=== PATIENT | female | born 1995 | race African-American/Black ===

== ENCOUNTER 2017-05-06 12:53 | Inpatient (IN) | payer MEDICARE, MEDICAID ==
[2017-05-06 14:17] LABS: Hemoglobin 8.7 g/dL (12.0-16.0); Mean Corpuscular HGB CONC 31.8 g/dL (32.0-36.0); Mean Corpuscular Hemoglobin 29.4 pg (27.0-31.0); Mean Corpuscular Volume 92.5 fl (81.0-99.0); Mean Platelet Volume 10.8 fL (7.4-10.4); Platelet Count 159 thou/uL (130-400); RBC Distribution Width 13.2 % (11.5-14.5); Red Blood Cell (RBC) Count 2.95 mill/uL (4.20-5.40); White Blood Cell (WBC) Count 1.5 thou/uL (4.8-10.8)
[2017-05-06 14:31] LABS: ALT (SGPT) Less than 7 U/L (8-55); AST (SGOT) 12 U/L (5-34); Albumin 4.7 g/dL (3.5-5.0); Alkaline Phosphatase 90 U/L (40-150); Anion Gap 19 mmol/L (10-20); BUN (Urea Nitrogen) 39 mg/dL (7.0-18.7); Bilirubin, Total 0.2 mg/dL (0.2-1.2); Calc. Creatinine Clearance 0 mL/min (70-130); Calcium 7.5 mg/dL (7.8-10.44); Chloride 112 mmol/L (98-107); Estimated GFR-MDRD 11; Globulin 3.4 g/dL (2.4-3.5); Glucose 83 mg/dL (70-105); Lipase 22 U/L (8-78); Potassium 3.8 mmol/L (3.5-5.1); Protein, Total 8.1 g/dL (6.0-8.3); Sodium 135 mmol/L (136-145)
[2017-05-06 14:37] LABS: #Eosinphils 0.1 thou/uL (0.0-0.7); #Lymphocytes 0.1 thou/uL (1.20-3.40); #Monocytes 0.1 thou/uL (0.11-0.59); #Neutrophils 1.1 thou/uL (1.40-6.50); %Eosinophils 7.3 % (0.0-10.0); %Lymphocytes 9.8 % (21.0-51.0); %Monocytes 5.2 % (0.0-10.0); %Neutrophils 77.7 % (42.0-75.0); Carbon Dioxide 8 mmol/L (22-29)
[2017-05-06 14:52] LABS: Bilirubin Negative (Negative); Blood, Urine Large (Negative); Clarity CLEAR (Clear); Glucose, Urine (Dipstick) Negative (Negative); Leukocyte Negative (Negative); Nitrite Negative (Negative); Protein, Urine (Dipstick) 100 mg/dL (Neg-Trace); Specific Gravity, Urine 1.027 (1.002-1.036); Urobilinogen 0.2 mg/dL (0.2-1.0)
[2017-05-06 14:53] LABS: Bacteria/HPF None Seen HPF (None Seen); Hyaline Casts/LPF 4-6 HYALINE CAST LPF (0-3 Hyaline); Pathc Cast-AUWi Flag 0.81 (0-2.49); RBC/HPF GREATER THAN 50-TNTC HPF (0-3); Squamous Epithelial 0-3 HPF (0-3); WBC/HPF 0-3 HPF (0-3)
[2017-05-06 14:58] LABS: Pregnancy Test - Urine (BHCG) Negative (Negative); Pregu Control Background? CLEAR/WHITE (CLR/WHITE); Pregu Control Bar Appear? YES (CONTROL BAR); Specific Gravity 1.027 (1.002-1.036); Yeast-AUWi Flag 152.8 (0-25.0)
[2017-05-06 15:06] LABS: Yeast-All Forms None Seen HPF (None Seen)
[2017-05-06] MEDS ORDERED: Ondansetron HCl/PF 4 MG/2 ML Vial ONE (15:55)
[2017-05-06] MEDS ORDERED: Ondansetron HCl/PF 4 MG/2 ML Vial IVP PRN (17:30)
[2017-05-06] MEDS ORDERED: Ondansetron ODT 4 MG TAB SL PRN (17:30)
[2017-05-06] MEDS: Sodium Chloride 0.9% 1,000 ML IV SCH (17:53)
[2017-05-06 17:56] VITALS: BMI 35.7
[2017-05-06] MEDS ORDERED: Ibuprofen 200 MG TAB PO PRN (19:25)
[2017-05-06] MEDS: Sodium Bicarbonate Tab 325 MG TAB PO SCH (20:10)
[2017-05-06] MEDS: Carvedilol 25 MG TAB PO SCH (20:10)
[2017-05-06] MEDS: Tacrolimus 1 MG CAP PO SCH (20:10)
[2017-05-06 20:14] LABS: BHCG - Serum Negative (NEGATIVE); Pregs Control Bar Appear? YES (CONTROL BAR)
[2017-05-06 20:15] LABS: Pregs Control Background? CLEAR/WHITE (CLR/WHITE)
[2017-05-06] MEDS ORDERED: Cefepime 2 GM in Sodium Chloride 0.9% 100 ML IVPB SCH (21:00)
--- NOTE | 2017-05-06 21:11 | HP ---
PRIMARY CARE PHYSICIAN: Dr. Jimenes. CHIEF COMPLAINT: Nausea and vomiting x3 days. HISTORY OF PRESENT ILLNESS: This is a 31-year-old female with a prior history of end-stage renal disease, previously on hemodialysis, status post renal transplant in 2016 and subsequently has been off of hemodialysis since then. The patient has not had any issues with her kidneys that she is aware of lately , but earlier 3 days ago awoke one morning to nausea, subsequently had emesis. Over the last 3 days, she has had persistent nausea, abdominal pain, emesis and diarrhea particularly exacerbated with any food intake, but also occurring without food intake as well. The patient subsequently presented to the ER before seeking any other medical attention. At the time of my evaluation, the patient feels that her abdominal pain is still present, but is currently controlled. She endorses no nausea at this point in time, but she also has not taken in much by way of oral intake. She is accompanied by her mother today. REVIEW OF SYSTEMS: As per HPI. Constitutional: No fevers, no chills, no recent weight gain or loss. HEENT: No new headaches, no dizziness, no blurred vision. Cardiovascular: Denies any chest pain, chest pressure, left-sided arm numbness or tingling. Denies any episodes of diaphoresis. Respiratory: Denies any shortness of breath. No recent congestion, cough or other signs or symptoms consistent with upper respiratory infection. Gastrointestinal: As per above, mostly when she has an emetic episodes. They consist of whatever she had previously ingested. She states that she has emesis approximately 10 minutes after oral intake. She does have intermittent diarrhea that seems to be more independent of when she has oral intake. She describes it as initially quite light colored and brown, are now getting somewhat "darker." Genitourinary: The patient states she urinates. The patient states that she is still making urine and she is still urinating. Denies any dysuria. Denies any vaginal discharge. Musculoskeletal: Denies any new myalgias or arthralgias. PAST MEDICAL HISTORY: As per above. 1. Known history of chronic kidney disease, status post kidney transplant in 2016, has been on immunosuppressive therapy since then and has previously had a fistula placement, stopped hemodialysis after her kidney transplant, has not accessed her fistula since then. 2. Known history of congestive heart failure. 3. History of secondary hyperparathyroidism. 4. History of nephrotic syndrome. 5. Status post cholecystectomy. HOME MEDICATIONS: As per HPI. The patient denies any changes to her home regimen over the last month. Denies any new over the counter medications, herbal supplements or vitamins. ALLERGIES: No known drug allergies. FAMILY HISTORY: No known family history of end-stage renal disease, gastrointestinal disorders. SOCIAL HISTORY: The patient resides at home with her mother who is with her at bedside. No pets in the home. No known sick contacts. Mother states that she had some diarrhea 4 or 5 days ago, but that self resolved after one day. The patient endorses wishing to be full code at this point in time. Denies any alcohol, tobacco or illicit drug use. PHYSICAL EXAMINATION: VITAL SIGNS: Temperature 98.8, pulse of 113, respirations 18, satting 100%, blood pressure of 138/103. GENERAL: The patient is awake, alert, appropriate, conversant, oriented x3, appears to be a reasonable historian. She is sitting in the hospital bed. HEENT: Moist mucous membranes. Equal ocular motions are intact. No posterior oropharyngeal exudate or erythema. Normocephalic, atraumatic. CARDIOVASCULAR: S1, S2. Pulses 2+ bilateral upper extremities, no pitting pedal edema. No venous jugular distention. RESPIRATORY: Clear to auscultation throughout. No wheezes, rales or rhonchi. Reasonable air movement. ABDOMEN: Positive bowel sounds, soft, slightly tender to palpation along the left upper and lower quadrants, slightly tender to deep palpation. No CVA tenderness. MUSCULOSKELETAL: Able to self reposition in bed without difficulty or assistance. LABORATORY DATA AND IMAGING: WBC 1.5, hemoglobin 8.7, hematocrit 27.3, platelets 159. Sodium 183, potassium 3.8, chloride 112, bicarbonate 8, BUN 39, creatinine 5.77, calcium 7.9, total bilirubin 0.2, AST 12, ALT less than 7, alkaline phosphatase 90, serum total protein 8.1, albumin 4.7, lipase 22. UA significant for 100 of protein, trace ketones, large blood and greater than 50 rbc's with hyaline cast. ASSESSMENT AND PLAN: A 22-year-old female with 3-day history of nausea and vomiting. 1. Nausea and vomiting. The patient has noted etiology of nausea, vomiting, and diarrhea. It could be that her mother is ill source and that the patient has a gastroenteritis of a gastrointestinal etiology. However, given the patient's history of immunosuppression, new leukopenia when compared to prior laboratory values, and tachycardia, we will go ahead and check and evaluate the patient for possible sepsis. In addition, we will obtain a noncontrast CT of the abdomen and pelvis given that she has hematuria and left-sided pain even though she does not have overt CVA tenderness. We will try to evaluate for any possibility of a stone complicating her presentation as well. Given the concern for sepsis, empiric antibiotics including cefepime and metronidazole will be initiated. The patient has already been started on IV fluids. We will continue that at this point in time. In the meantime, the patient will be grossly n.p.o., okay for medications and sips of water with symptomatic control as well. We will check for C. diff., stool cultures as well. 2. Known history of end-stage renal disease with status post renal transplant in 2016, with progressively increasing creatinine when compared to prior values. The patient is also somewhat acidotic unclear which component of this due to her renal dysfunction versus if she is having some component of lactic acidosis versus contraction or acidosis. IV fluids as above. Serial monitoring particularly for bicarbonate. Patient has been resumed on her oral bicarbonate. However, if she drops below bicarbonate 6, we will initiate a bicarbonate additive to her normal saline. I appreciate Nephrology consultation. We will otherwise continue the patient on her home immunosuppressive regimen at this point in time. Of note, part of her immunosuppressive regimen which includes tacrolimus, Bactrim, and valganciclovir , CellCept, and prednisone. 3. Prior history of congestive heart failure. We will closely monitor the patient's respiratory status and does not appear to be in exacerbation at this point in time, it is also unclear what her current cardiac status is. Could consider echocardiogram if indicated. 4. The patient is currently going to be checked for urine test as well. 5. Admit the patient to inpatient medical/surgical with telemetry. 6. The patient is FULL CODE. I discussed the above with the patient and her mother at bedside. Greater than 30 minutes critical care time spent coordinating care for the patient on admission today. NANCY
[2017-05-06] MEDS: Mycophenolate 250 MG CAP PO SCH (21:16)
[2017-05-06] MEDS: Cefepime 2 GM, Syringe 2.5 ML in Sterile Water 10 ML SLOW IVP SCH (21:16)
[2017-05-06] MEDS: metroNIDAZOLE 500 MG in Premix Bag 1 BAG IVPB SCH (21:16)
[2017-05-06] MEDS: oxyCODONE 5 MG TAB PO PRN (21:18)
[2017-05-06] MEDS: diphenhydrAMINE 25 MG CAP PO PRN (21:19)
[2017-05-06] MEDS: Famotidine/PF 20 mg/2ml Vial SLOW IVP SCH (21:50)
--- NOTE | 2017-05-06 21:51 | CT ---
CT OF ABDOMEN AND PELVIS NONCONTRAST 05/06/17 CLINICAL HISTORY: Immunosuppression, sepsis, history of renal transplant. FINDINGS: The imaged lung bases are clear. There are atrophic [place] kidneys bilaterally. There is a heterogene ous centrally hypodense, peripherally hyperdense appearance of the right lower quadrant renal transpl ant with mild surrounding inflammation. Unopacified urinary bladder is grossly unremarkable. There is no significant layering free pelvic fluid. No free air. Prior cholecystectomy. Solid abdominal organ s, bowel, lymph nodes, and vasculature are limited in assessment by noncontrast technique. No acute o sseous abnormality is seen. IMPRESSION: Heterogeneous appearance of the unenhanced right lower quadrant renal transplant with mild surroundi ng inflammation. Recommend clinical correlation as well as history of acuity of renal transplant, as acute pathology is not excluded given the CT appearance. Entities such as rejection and/or superimpos ed infection should be excluded clinically. Limited evaluation without the presence of IV or enteric contrast. POS: ERICK
[2017-05-07] MEDS: Sodium Chloride 0.9% 1,000 ML IV SCH (00:46)
[2017-05-07] MEDS: Promethazine 25 MG TAB PO PRN ×3 (01:27→21:00)
[2017-05-07] MEDS: metroNIDAZOLE 500 MG in Premix Bag 1 BAG IVPB SCH ×3 (05:17→20:56)
[2017-05-07 05:37] LABS: ALT (SGPT) Less than 7 U/L (8-55); AST (SGOT) 11 U/L (5-34); Albumin 3.9 g/dL (3.5-5.0); Alkaline Phosphatase 73 U/L (40-150); BUN (Urea Nitrogen) 34 mg/dL (7.0-18.7); Bilirubin, Total Less than 0.2 mg/dL (0.2-1.2); Calc. Creatinine Clearance 28 mL/min (70-130); Carbon Dioxide Less than 8 mmol/L (22-29); Chloride 117 mmol/L (98-107); Estimated GFR-MDRD 14; Globulin 2.6 g/dL (2.4-3.5); Glucose 70 mg/dL (70-105); Potassium 3.9 mmol/L (3.5-5.1); Protein, Total 6.5 g/dL (6.0-8.3); Sodium 136 mmol/L (136-145)
[2017-05-07] MEDS ORDERED: FAMOTIDINE 40 MG PO SCH (09:00)
[2017-05-07] MEDS: Cefepime 2 GM, Syringe 2.5 ML in Sterile Water 10 ML SLOW IVP SCH (09:34)
[2017-05-07] MEDS: Tacrolimus 1 MG CAP PO SCH ×2 (09:35→20:55)
[2017-05-07] MEDS: Sodium Bicarbonate Tab 325 MG TAB PO SCH ×3 (09:36→20:55)
[2017-05-07] MEDS: oxyCODONE 5 MG TAB PO PRN (09:37)
[2017-05-07] MEDS: Amlodipine 10 MG TAB PO SCH (09:37)
[2017-05-07] MEDS: Famotidine/PF 20 mg/2ml Vial SLOW IVP SCH ×2 (09:37→20:55)
[2017-05-07] MEDS: Mycophenolate 250 MG CAP PO SCH ×2 (09:39→20:55)
[2017-05-07] MEDS: predniSONE 5 MG TAB PO SCH (09:39)
[2017-05-07] MEDS: Carvedilol 25 MG TAB PO SCH ×2 (09:39→20:55)
--- NOTE | 2017-05-07 11:21 | CON ---
DATE OF CONSULTATION: 05/07/2017 REASON FOR CONSULTATION: Elevated creatinine. HISTORY OF PRESENT ILLNESS: This is a very pleasant 22-year-old female, who had end-stage renal dise ase and had a cadaveric renal transplant. She after her transplant, failed to follow up with her imm unosuppressive and developed CKD stage 4, who presented to the hospital with nausea, vomiting for 3 d ays. Her creatinine had increased from the baseline of 3.25 with severe acidosis. The patient at th is time denies any nausea, vomiting, or chest pain. PAST MEDICAL HISTORY: Significant for chronic kidney disease stage 4, kidney transplant 2016 from a cadaveric donor, history of hemodialysis, history of congestive heart failure, history of secondary h yperparathyroidism, history of nephrotic syndrome, history of cholecystectomy. HOME MEDICATIONS: List reviewed. HOSPITAL MEDICATIONS: Reviewed. ALLERGIES: Reviewed. FAMILY HISTORY: Negative for ESRD. SOCIAL ECONOMIC HISTORY: No alcohol or drug use. REVIEW OF SYSTEMS: Fifteen-point review of systems was performed and negative except positives noted above. GENERAL: Weakness-. HEAD: Headache-. NECK: No swelling or lumps. NOSE: No epistaxis or discharge. EYES: No diplopia or pain. RESPIRATORY: Dyspnea-. CARDIOVASCULAR: Chest pain-. GASTROINTESTINAL: Nausea-. /RAIL FILLER: Hematuria-. MUSCULOSKELETAL: No joint pain. NEUROPSYCHIATIC SYSTEMS: No suicidal ideation. No ideation. SKIN: Denies any rash or ulcer. CONSTITUTIONAL: No fever or chills. PHYSICAL EXAMINATION: GENERAL: Patient is awake and alert. VITAL SIGNS: Afebrile, pulse 75, breathing at 16, and blood pressure 138/103. GENERAL APPEARANCE AND MENTAL STATUS: Fair. HEAD/NECK: Normocephalic. Atraumatic. EYES: EOMI. No deformity. EARS: Clear. No ulcers. NOSE: Intact. No lesions. MOUTH: Clear. No discharge. THROAT: Clear. No exudate. LUNGS: Clear. No crackles. CARDIAC: S1, S2. No rub. ABDOMEN: Benign. BS+. GENITALIA/RECTUM: Lopez absent. BACK/EXTREMITIES: Edema 0+ Ulcer-. NEUROLOGICAL: Alert and motor intact. SKIN: Rash-. Bruise-. LYMPHATICS: Edema- Ulcer-. LABORATORY DATA: Show creatinine was 4.7, bicarbonate was 8, and potassium was 3.9. ASSESSMENT AND RECOMMENDATIONS: 1. Acute kidney injury with chronic kidney disease, most likely due to decreased effective arterial blood volume in the setting of stage IV chronic kidney disease at baseline. Agree with hydration. 2. Metabolic acidosis. We will change to a bicarbonate drip from normal saline. 3. Hyperkalemia. We will monitor potassium later this afternoon as correcting the acidosis. We martha l lower the potassium further so she might need potassium supplementation. Medication based on glome rular filtration rate are appropriate. 4. Chronic immunosuppressive therapy. The patient had quit taking immunosuppressive, but states walker t she is taking them now, so I will check a CK level.
[2017-05-07] MEDS: Sodium Bicarbonate 150 MEQ in Dextrose 5% in Water 850 ML IV SCH ×2 (11:41→20:54)
[2017-05-07 14:39] LABS: BUN (Urea Nitrogen) 33 mg/dL (7.0-18.7); Calc. Creatinine Clearance 30 mL/min (70-130); Calcium 7.3 mg/dL (7.8-10.44); Chloride 120 mmol/L (98-107); Estimated GFR-MDRD 15; Glucose 108 mg/dL (70-105); Magnesium 1.7 mg/dL (1.6-2.6); Potassium 4.8 mmol/L (3.5-5.1); Sodium 140 mmol/L (136-145)
[2017-05-07 14:41] LABS: Carbon Dioxide Less than 8 mmol/L (22-29)
--- NOTE | 2017-05-07 20:35 | PDOC.PN ---
- Subjective Encounter Start Date: 05/07/17 Encounter Start Time: 16:00 Subjective: nsg notes rev, moises ovn - Objective Vital Signs & Weight: Vital Signs (12 hours) Temp Pulse Resp BP BP Pulse Ox 05/07/17 19:37 98.4 F 92 16 05/07/17 11:53 98.4 F 92 16 126/85 92 L 05/07/17 09:37 99 149/97 H I&O: 05/06/17 05/07/17 05/08/17 06:59 06:59 06:59 Intake Total 360 Balance 360 Result Diagrams: 05/06/17 13:25 05/07/17 14:05 Dx/Plan - Plan * n/v/ diarrhea * cefepime, flagyl * c diff + * pending remainder of stool studies * continue to monitor clinical symptoms sepsis on adm * improving, continue to monitor acidosis * apprec nephrology c/s * suspect multifactorial * bicarbonate gtt (<8) hx renal transplant * continue immunosuppressive regimen * monitor renal fxn ANISH on CKD * see discussion above * d/w Dr Mendoza diet: renal activity: OOB as lisa dvt ppx Review of Systems - Medications/Allergies Allergies/Adverse Reactions: Allergies Allergy/AdvReac Type Severity Reaction Status Date / Time No Known Drug Allergies Allergy Verified 10/16/16 16:33 Medications: Current Medications Amlodipine Besylate (Norvasc) 10 mg PO DAILY [facility] Last Admin: 05/07/17 09:37 Dose: 10 mg Carvedilol (Coreg) 25 mg PO BID [facility] Last Admin: 05/07/17 09:39 Dose: 25 mg Diphenhydramine HCl (Benadryl) 25 mg PO QPM PRN PRN Reason: Itching & Insomnia Last Admin: 05/06/17 21:19 Dose: 25 mg Famotidine (Pepcid) 20 mg SLOW IVP BID [facility] Last Admin: 05/07/17 09:37 Dose: 20 mg Metronidazole 500 mg/ Device 100 mls @ 100 mls/hr IVPB Q8HR [facility] Last Admin: 05/07/17 16:21 Dose: 100 mls Sodium Bicarbonate 150 meq/ (Dextrose/Water) 1,000 mls @ 100 mls/hr IV .Q10H [facility] Last Admin: 05/07/17 11:41 Dose: 1,000 mls Cefepime HCl 1 gm/Miscellaneous Medication 1 each/ Sterile Water 10 mls @ 120 mls/hr SLOW IVP QAM [facility] Ibuprofen (Motrin) 200 mg PO Q4H PRN PRN Reason: Pain Mycophenolate Mofetil (Cellcept) 250 mg PO BID [facility] Last Admin: 05/07/17 09:39 Dose: 250 mg Oxycodone HCl (Oxycodone Ir) 2.5 mg PO Q12H PRN PRN Reason: Pain Last Admin: 05/07/17 09:37 Dose: 2.5 mg Prednisone (Prednisone) 5 mg PO DAILY [facility] Last Admin: 05/07/17 09:39 Dose: 5 mg Promethazine HCl (Phenergan) 25 mg PO Q6H PRN PRN Reason: Nausea/Vomiting Last Admin: 05/07/17 09:34 Dose: 25 mg Sodium Bicarbonate (Bicarbonate, Sodium) 975 mg PO TID [facility] Last Admin: 05/07/17 16:33 Dose: 975 mg Tacrolimus (Prograf) 2 mg PO BID [facility] Last Admin: 05/07/17 09:35 Dose: 2 mg Trimethoprim/Sulfamethoxazole (Bactrim Ss) 1 tab PO [facility] [place] Valganciclovir (Valcyte) 450 mg PO DAILY [facility] Last Admin: 05/07/17 09:36 Dose: 450 mg
[2017-05-07] MEDS: diphenhydrAMINE 25 MG CAP PO PRN (22:43)
[2017-05-08] MEDS: Sodium Bicarbonate 150 MEQ in Dextrose 5% in Water 850 ML IV SCH ×2 (00:21→05:56)
[2017-05-08] MEDS: oxyCODONE 5 MG TAB PO PRN (04:57)
[2017-05-08] MEDS: metroNIDAZOLE 500 MG in Premix Bag 1 BAG IVPB SCH ×3 (05:01→21:36)
[2017-05-08 05:58] LABS: ALT (SGPT) Less than 7 U/L (8-55); AST (SGOT) 8 U/L (5-34); Albumin 3.5 g/dL (3.5-5.0); Alkaline Phosphatase 62 U/L (40-150); Anion Gap 13 mmol/L (10-20); BUN (Urea Nitrogen) 28 mg/dL (7.0-18.7); Bilirubin, Total 0.2 mg/dL (0.2-1.2); Calc. Creatinine Clearance 31 mL/min (70-130); Calcium 6.3 mg/dL (7.8-10.44); Carbon Dioxide 17 mmol/L (22-29); Chloride 113 mmol/L (98-107); Estimated GFR-MDRD 15; Globulin 2.3 g/dL (2.4-3.5); Glucose 134 mg/dL (70-105); Protein, Total 5.8 g/dL (6.0-8.3); Sodium 140 mmol/L (136-145)
[2017-05-08 06:11] LABS: Potassium 2.7 mmol/L (3.5-5.1)
[2017-05-08] MEDS ORDERED: Potassium Chloride 20 MEQ TAB PO SCH ×3 (06:45→19:15)
[2017-05-08] MEDS: predniSONE 5 MG TAB PO SCH (08:04)
[2017-05-08] MEDS: Sodium Bicarbonate Tab 325 MG TAB PO SCH (08:04)
[2017-05-08] MEDS: Famotidine/PF 20 mg/2ml Vial SLOW IVP SCH ×2 (08:05→20:10)
[2017-05-08] MEDS: Mycophenolate 250 MG CAP PO SCH (08:05)
[2017-05-08] MEDS: Amlodipine 10 MG TAB PO SCH (08:05)
[2017-05-08] MEDS: Carvedilol 25 MG TAB PO SCH ×2 (08:06→20:56)
[2017-05-08] MEDS: Tacrolimus 1 MG CAP PO SCH (08:06)
[2017-05-08] MEDS ORDERED: Cefepime 1 GM, Admixture Fee 1 EACH in Sterile Water 10 ML SLOW IVP SCH (09:00)
[2017-05-08 09:14] LABS: Anion Gap 12 mmol/L (10-20); BUN (Urea Nitrogen) 27 mg/dL (7.0-18.7); Calc. Creatinine Clearance 32 mL/min (70-130); Calcium 6.1 mg/dL (7.8-10.44); Carbon Dioxide 19 mmol/L (22-29); Chloride 111 mmol/L (98-107); Estimated GFR-MDRD 16; Glucose 104 mg/dL (70-105); Sodium 139 mmol/L (136-145)
[2017-05-08 09:19] LABS: Potassium 2.6 mmol/L (3.5-5.1)
--- NOTE | 2017-05-08 10:32 | PRG ---
DATE OF SERVICE: 05/08/2017 SUBJECTIVE: A 22-year-old female being seen for stage 5 chronic kidney disease. The patient denies any nausea, vomiting or chest pain. PHYSICAL EXAMINATION: GENERAL: Patient is awake, alert. VITAL SIGNS: Afebrile, pulse 75, breathing 16, blood pressure 130/71. HEAD/NECK: Normocephalic. Atraumatic. EYES: EOMI. No deformity. EARS: Clear. No ulcers. NOSE: Intact. No lesions. MOUTH: Clear. No discharge. THROAT: Clear. No exudate. LUNGS: Clear. No crackles. CARDIAC: S1, S2. No rub. ABDOMEN: Benign. BS+. GENITALIA/RECTUM: Lopez absent. BACK/EXTREMITIES: Edema 0+ Ulcer- NEUROLOGICAL: Alert and motor intact. SKIN: Rash- Bruise- LYMPHATICS: Edema- Ulcer- LABORATORY DATA: Potassium is 2.6, creatinine 4.0. ASSESSMENT AND RECOMMENDATIONS: 1. Acute kidney injury, stable. 2. Hypokalemia. We will give extra 40 mEq of potassium by mouth. 3. Hypercalcemia, start the patient on vitamin D3 as well as calcium. We will check vitamin D level s. 4. Medication based on GFR. Prograf level is pending. 5. Leukopenia, management per primary team. 6. There is a major history of noncompliance.
[2017-05-08 17:04] LABS: Anisocytosis SLIGHT = 6-15 cells (100X) (0-5/hpf); Band 8 % (5-11); Hemoglobin 6.9 g/dL (12.0-16.0); Hypochromia SLIGHT = 6-15 cells (100X) (0-5/hpf); Lymphocytes 4 % (21-51); MDiff Complete? YES; Mean Corpuscular HGB CONC 33.2 g/dL (32.0-36.0); Mean Corpuscular Volume 90.5 fl (81.0-99.0); Mean Platelet Volume 10.7 fL (7.4-10.4); Metamyelocyte 2 % (0-0); Monocytes 8 % (0-10); Neutrophil 78 % (42-75); Ovalocytes SLIGHT = 2-5 cells (100X) (0-1/hpf); PLT Morphology Comment Appears Decreased; Platelet Count 120 thou/uL (130-400); RBC Distribution Width 13.4 % (11.5-14.5); Red Blood Cell (RBC) Count 2.28 mill/uL (4.20-5.40)
--- NOTE | 2017-05-08 17:38 | PRG ---
DATE OF SERVICE: 05/08/2017 SUBJECTIVE: The patient is seen and examined at bedside. She is doing significantly better. Her di arrhea improved almost 100%. She thinks that this is because of opioids she started taking. She michael s not have much complaints to offer. Her appetite is fair. She does not have any nausea, vomiting, no abdominal pain. OBJECTIVE: VITAL SIGNS: Blood pressure is 113/71, pulse is 95, temperature 98.5, respiratory rate is 16, O2 sat uration is 99% on room air. HEENT: Atraumatic, normocephalic. Eyes PERRLA. Conjunctivae pinkish. Oral mucosa is moist. NECK: Supple. LUNGS: Clear. HEART: S1, S2 normal, no S3, no S4, no murmur. ABDOMEN: Soft, obese, nontender, bowel sounds are present. No organomegaly. EXTREMITIES: No clubbing, cyanosis or edema. NEUROLOGIC: She is alert and oriented x4. There is no sensorimotor deficits. Cranial nerves are in tact. LABORATORY DATA: Labs showed sodium of 139, potassium 2.6, chloride 111, CO2 of 19, BUN 27, creatini ne 4.17, calcium 6.1. PTH intact 306.5. Current potassium 3.0 after replacement. Microbiology show ed no urine culture growth. Negative for stool lactoferrin. Negative for O157 E. coli. Negative fo r Campylobacter antigen. Negative for Shiga toxin and positive for C. difficile antigen and toxins. IMPRESSION: 1. Clostridium difficile colitis. We will stop her cefepime and continue Flagyl. 2. Acute kidney injury, improved. 3. Hypokalemia, replaced with oral potassium. 4. Leukopenia, will check a CBC today. This could be related to her Clostridium difficile colitis. 5. Hypocalcemia with normal albumin level. PLAN: We will check ionized calcium. The patient was restarted on vitamin D and calcium by Dr. Mendoza . We will recheck her electrolytes tomorrow morning and she is positive for Clostridium difficile an tigen and toxins, so she will have to complete a 10-day course of metronidazole, so in the next day o r two, she can be switched to oral agents and released home.
[2017-05-08] MEDS: Calcium Carbonate + Vit D 1 TAB PO SCH (18:07)
[2017-05-08] MEDS: Promethazine 25 MG TAB PO PRN (20:10)
[2017-05-08] MEDS ORDERED: GRANIX 300 MCG/0.5 ML VIAL SC SCH (20:15)
[2017-05-09] MEDS: diphenhydrAMINE 25 MG CAP PO PRN (00:32)
[2017-05-09] MEDS: metroNIDAZOLE 500 MG in Premix Bag 1 BAG IVPB SCH ×3 (06:17→22:22)
[2017-05-09 07:36] LABS: ALT (SGPT) Less than 7 U/L (8-55); AST (SGOT) 10 U/L (5-34); Albumin 3.3 g/dL (3.5-5.0); Alkaline Phosphatase 57 U/L (40-150); Anion Gap 12 mmol/L (10-20); BUN (Urea Nitrogen) 23 mg/dL (7.0-18.7); Bilirubin, Total 0.5 mg/dL (0.2-1.2); Calc. Creatinine Clearance 34 mL/min (70-130); Carbon Dioxide 16 mmol/L (22-29); Chloride 115 mmol/L (98-107); Estimated GFR-MDRD 17; Globulin 2.2 g/dL (2.4-3.5); Glucose 89 mg/dL (70-105); Potassium 3.1 mmol/L (3.5-5.1); Protein, Total 5.5 g/dL (6.0-8.3); Sodium 140 mmol/L (136-145)
[2017-05-09 07:42] LABS: Calcium 5.9 mg/dL (7.8-10.44)
[2017-05-09] MEDS: Potassium Chloride 20 MEQ TAB PO SCH ×2 (08:44→15:40)
[2017-05-09] MEDS: Amlodipine 10 MG TAB PO SCH (08:45)
[2017-05-09] MEDS: Carvedilol 25 MG TAB PO SCH ×2 (08:45→22:21)
[2017-05-09] MEDS: Calcium Carbonate + Vit D 1 TAB PO SCH ×2 (08:46→15:40)
[2017-05-09] MEDS: predniSONE 5 MG TAB PO SCH (08:46)
[2017-05-09] MEDS: Saccharomyces boulardii 250 MG CAP PO SCH (08:46)
[2017-05-09] MEDS: Famotidine/PF 20 mg/2ml Vial SLOW IVP SCH ×2 (08:46→22:21)
[2017-05-09 09:29] LABS: Hemoglobin 7.6 g/dL (12.0-16.0); Mean Corpuscular HGB CONC 32.4 g/dL (32.0-36.0); Mean Corpuscular Hemoglobin 30.5 pg (27.0-31.0); Mean Corpuscular Volume 94.2 fl (81.0-99.0); Mean Platelet Volume 10.8 fL (7.4-10.4); PLT Morphology Comment Appears Decreased; Platelet Count 97 thou/uL (130-400); RBC Distribution Width 13.1 % (11.5-14.5); Red Blood Cell (RBC) Count 2.49 mill/uL (4.20-5.40); White Blood Cell (WBC) Count 1.3 thou/uL (4.8-10.8)
[2017-05-09] MEDS: Sulfameth/Trimethoprim SS 400-80MG TAB PO SCH (11:44)
--- NOTE | 2017-05-09 12:02 | PDOC.PN ---
- Subjective Encounter Start Date: 05/09/17 Encounter Start Time: 15:03 Subjective: No complaints -: No acute events overnight. - Objective MAR Reviewed: Yes Vital Signs & Weight: Vital Signs (12 hours) Temp Pulse Pulse Resp BP BP Pulse Ox 05/09/17 08:00 98.2 F 90 18 05/09/17 07:06 98.2 F 90 18 122/75 100 05/09/17 04:05 98.5 F 88 18 129/78 100 05/09/17 00:57 98.6 F 96 18 134/66 100 05/09/17 00:37 98.4 F 93 18 120/74 100 I&O: 05/08/17 05/09/17 05/10/17 06:59 06:59 06:59 Intake Total 360 1360 Balance 360 1360 Result Diagrams: 05/09/17 06:59 05/09/17 06:59 Phys Exam - Physical Examination Constitutional: NAD HEENT: PERRLA, moist MMs, sclera anicteric Neck: supple, full ROM Respiratory: no wheezing, no rales, no rhonchi, clear to auscultation bilateral Cardiovascular: RRR, no significant murmur, no rub Gastrointestinal: soft, non-tender, no distention, positive bowel sounds Musculoskeletal: no edema, pulses present Neurological: non-focal, moves all 4 limbs Psychiatric: normal affect, A&O x 3 Skin: no rash, normal turgor Dx/Plan (1) ANISH (acute kidney injury) Code(s): N17.9 - ACUTE KIDNEY FAILURE, UNSPECIFIED Status: Acute Comment: Renal indices improving. (2) HTN (hypertension) Code(s): I10 - ESSENTIAL (PRIMARY) HYPERTENSION Status: Acute Qualifiers: Hypertension type: essential hypertension Qualified Code(s): I10 - Essential (primary) hypertension Comment: Controlled. Continue home meds. (3) Status post kidney transplant Code(s): Z94.0 - KIDNEY TRANSPLANT STATUS Status: Chronic (4) Immunocompromised patient Code(s): D84.9 - IMMUNODEFICIENCY, UNSPECIFIED Status: Chronic Comment: Continue home medications. (5) History of CHF (congestive heart failure) Code(s): Z86.79 - PERSONAL HISTORY OF OTHER DISEASES OF THE CIRCULATORY SYSTEM Status: Chronic Comment: Not in acute exacerbation. Continue home meds. (6) Pancytopenia Code(s): D61.818 - OTHER PANCYTOPENIA Status: Chronic Comment: s/p transfusion with PRBC. Asymptomatic Likely from immunocompromised state- pt has a h/o thrombocytopenia HEmatology consulted. (7) Hypokalemia Code(s): E87.6 - HYPOKALEMIA Status: Acute Plan: Replete as needed. (8) Hypocalcemia Code(s): E83.51 - HYPOCALCEMIA Status: Acute Comment: Received IV calcium; continued on PO calcium supplements. Nephrology on board. (9) Clostridium difficile diarrhea Code(s): A04.72 - ENTEROCOLITIS D/T CLOSTRIDIUM DIFFICILE, NOT SPCF RECUR Status: Acute Comment: Improved- diarrhea resolved. Ceftriaxone discontinued. Continue flagyl. - Plan cont current plan of care, DVT proph w/SCDs * .
[2017-05-09] MEDS ORDERED: Calcium Gluc 4.6 MEQ/10 ML (100 MG/ML) SLOW IVP ONE (12:07)
[2017-05-09] MEDS ORDERED: Calcium Gluconate 4.6 MEQ in Sodium Chloride 0.9% 100 ML IVPB SCH (13:00)
[2017-05-09] MEDS: oxyCODONE 5 MG TAB PO PRN (13:45)
--- NOTE | 2017-05-09 17:22 | PRG ---
DATE OF SERVICE: 05/09/2017 SUBJECTIVE: Patient was seen and examined at bedside and overnight events noted. Patient denies any shortness of breath or chest pain or palpitation. No history of nausea or vomiting or diarrhea or f ever or chills or cramps. OBJECTIVE: GENERAL: This is a well-built female in no apparent distress. VITAL SIGNS: Temperature 98.2, pulse 93, blood pressure 122/75. HEENT: Atraumatic, normocephalic. Oral mucosa is moist. NECK: Supple. CARDIOVASCULAR: S1, S2 heard. Rate and rhythm regular. RESPIRATORY: Clear to auscultation. GASTROINTESTINAL: Abdomen is soft. MUSCULOSKELETAL: No tenderness. No edema. DERMATOLOGIC: No skin rash. NEUROLOGIC: Alert and awake and oriented x3. No focal neurologic deficits. Moving all the extremiti es. PSYCHIATRIC: Mood and affect normal. LABORATORY DATA: Potassium is 3.1, BUN is 23, creatinine is 2.9. ASSESSMENT AND PLAN: 1. Acute kidney injury on chronic kidney disease stage 5, slight improvement in renal function. 2. Hyperkalemia, replace. 3. Hypocalcemia on calcium supplements. 4. History of renal transplant. 5. Acidosis, anemia. 6. Immunosuppression. 7. Plan is to monitor renal function closely. We will follow.
[2017-05-10 04:55] LABS: Anion Gap 11 mmol/L (10-20); BUN (Urea Nitrogen) 22 mg/dL (7.0-18.7); Calc. Creatinine Clearance 38 mL/min (70-130); Calcium 6.2 mg/dL (7.8-10.44); Carbon Dioxide 16 mmol/L (22-29); Chloride 115 mmol/L (98-107); Estimated GFR-MDRD 19; Glucose 95 mg/dL (70-105); Magnesium 1.2 mg/dL (1.6-2.6); Phosphorus 2.1 mg/dL (2.3-4.7); Potassium 3.7 mmol/L (3.5-5.1); Sodium 138 mmol/L (136-145)
[2017-05-10 05:31] LABS: Band 17 % (5-11); Eosinophils 3 % (0-10); Hemoglobin 7.6 g/dL (12.0-16.0); Lymphocytes 10 % (21-51); MDiff Complete? YES; Mean Corpuscular Hemoglobin 30.4 pg (27.0-31.0); Mean Platelet Volume 11.1 fL (7.4-10.4); Metamyelocyte 1 % (0-0); Monocytes 9 % (0-10); Neutrophil 60 % (42-75); PLT Morphology Comment Appears Decreased; Platelet Count 108 thou/uL (130-400); RBC Distribution Width 13.5 % (11.5-14.5); Red Blood Cell (RBC) Count 2.51 mill/uL (4.20-5.40); White Blood Cell (WBC) Count 1.9 thou/uL (4.8-10.8)
[2017-05-10] MEDS: metroNIDAZOLE 500 MG in Premix Bag 1 BAG IVPB SCH ×3 (06:32→22:22)
[2017-05-10 08:19] LABS: Tacrolimus 7.2 ng/mL (2.0-20.0)
[2017-05-10] MEDS ORDERED: Calcium Gluconate 4.6 MEQ, Admixture Fee 1 EACH in Sodium Chloride 0.9% 100 ML IVPB ONE (08:39)
[2017-05-10] MEDS: Potassium Chloride 20 MEQ TAB PO SCH ×2 (08:57→17:14)
[2017-05-10] MEDS: Amlodipine 10 MG TAB PO SCH (08:58)
[2017-05-10] MEDS: Saccharomyces boulardii 250 MG CAP PO SCH (08:58)
[2017-05-10] MEDS: Calcium Carbonate + Vit D 1 TAB PO SCH ×2 (08:58→17:14)
[2017-05-10] MEDS: Carvedilol 25 MG TAB PO SCH ×2 (08:58→22:23)
[2017-05-10] MEDS: predniSONE 5 MG TAB PO SCH (08:59)
[2017-05-10] MEDS: Famotidine/PF 20 mg/2ml Vial SLOW IVP SCH ×2 (09:08→22:23)
--- NOTE | 2017-05-10 11:43 | PRG ---
Patient Name: LAKSHMI RODRIGUEZ Date of service: 05/10/2017 Subjective: Patient was seen and examined at bedside and overnight events noted. Patient denies any shortness of breath or chest pain or palpitation. No history of nausea or vomiting or diarrhea or fever or chills or cramps. Objective: General: This is a well-built female in no apparent distress. Vital signs: Temperature 97, pulse 90, respirations 16, blood pressure 154/77. HEENT: Atraumatic, normocephalic. Oral mucosa is moist. Neck: Supple. Cardiovascular: S1 S2 heard. Rate and rhythm regular. Respiratory: Clear to auscultation. Gastrointestinal: Abdomen is soft. Musculoskeletal: No tenderness. No edema. Dermatologic: No skin rash. Neurologic: Alert and awake and oriented X3. No focal neurologic deficits. Moving all the extremit ies. Psychiatric: Mood and affect normal. LABORATORY DATA: Potassium 3.7, BUN 22, creatinine is 3.5. ASSESSMENT AND PLAN: 1. Acute kidney injury on chronic kidney disease stage 4. Renal function with slow improvement, we will monitor. Actually her creatinine is looking better than previous creatinines in the near past. 2. Hypokalemia, replaced. 3. Hypocalcemia on calcium supplements. 4. History of renal transplant. Continue home medications. 5. Acidosis is chronic, most likely from diarrhea. 6. Chronic immunosuppression. Overall, renal function continues to get better. Continue on current management and avoid nephrotoxi ns. We will replace potassium. We will follow.
--- NOTE | 2017-05-10 14:46 | PDOC.PN ---
- Subjective Encounter Start Date: 05/10/17 Encounter Start Time: 14:44 Subjective: No new complaints -: No acute events overnight. - Objective MAR Reviewed: Yes Vital Signs & Weight: Vital Signs (12 hours) Temp Pulse Resp BP Pulse Ox 05/10/17 08:09 98.4 F 92 16 124/77 100 05/10/17 08:00 98.4 F 92 16 I&O: 05/09/17 05/10/17 05/11/17 06:59 06:59 06:59 Intake Total 1360 2450 Balance 1360 2450 Result Diagrams: 05/10/17 04:04 05/10/17 04:03 Phys Exam - Physical Examination Constitutional: NAD HEENT: PERRLA Neck: supple, full ROM Respiratory: no wheezing, clear to auscultation bilateral Cardiovascular: RRR, no significant murmur, no rub Gastrointestinal: soft, non-tender, no distention, positive bowel sounds Musculoskeletal: no edema, pulses present Neurological: non-focal, moves all 4 limbs Psychiatric: normal affect, A&O x 3 Skin: no rash, normal turgor Dx/Plan (1) ANISH (acute kidney injury) Code(s): N17.9 - ACUTE KIDNEY FAILURE, UNSPECIFIED Status: Acute Comment: Renal indices improving. (2) HTN (hypertension) Code(s): I10 - ESSENTIAL (PRIMARY) HYPERTENSION Status: Acute Qualifiers: Hypertension type: essential hypertension Qualified Code(s): I10 - Essential (primary) hypertension Comment: Controlled. Continue home meds. (3) Status post kidney transplant Code(s): Z94.0 - KIDNEY TRANSPLANT STATUS Status: Chronic Comment: On immunosuppressants. (4) Immunocompromised patient Code(s): D84.9 - IMMUNODEFICIENCY, UNSPECIFIED Status: Chronic Comment: Continue home medications. (5) History of CHF (congestive heart failure) Code(s): Z86.79 - PERSONAL HISTORY OF OTHER DISEASES OF THE CIRCULATORY SYSTEM Status: Chronic Comment: Not in acute exacerbation. Continue home meds. (6) Pancytopenia Code(s): D61.818 - OTHER PANCYTOPENIA Status: Chronic Comment: Stable s/p transfusion with PRBC. Asymptomatic Likely from immunocompromised state- pt has a h/o thrombocytopenia HEmatology consulted. (7) Hypokalemia Code(s): E87.6 - HYPOKALEMIA Status: Acute (8) Hypocalcemia Code(s): E83.51 - HYPOCALCEMIA Status: Acute Comment: Received IV calcium; continued on PO calcium supplements. Nephrology on board. (9) Clostridium difficile diarrhea Code(s): A04.72 - ENTEROCOLITIS D/T CLOSTRIDIUM DIFFICILE, NOT SPCF RECUR Status: Resolved Comment: Improved- diarrhea resolved. Ceftriaxone discontinued. Continue flagyl. - Plan cont current plan of care, continue antibiotics Continue metronidazole -: Monitor CBC -: Likely d/c tomorrow if renal indices keep improving * .
--- NOTE | 2017-05-10 18:25 | CON ---
DATE OF CONSULTATION: 05/10/2017 REASON FOR CONSULTATION: Pancytopenia. HISTORY OF PRESENT ILLNESS: Ms. So is a pleasant 22-year-old -Togolese female with a hist ory of renal transplant in 2016, who presented to the emergency room with abdominal pain, diarrhea, a nd dehydration over the past 3 days. She was noted to have a C. difficile infection and admitted for antibiotics and IV hydration. The patient is on CellCept and tacrolimus for anti-rejection. On adm ission, her CBC showed a white count of 1.5 with an ANC of 1.1. Her hemoglobin was 8.7 and her plate let count was normal at 159,000. On the , her white count dropped to 1.0, her hemoglobin was 6.9 and platelets were 120,000. Her CellCept and tacrolimus were stopped. She was given a dose of Neup ogen and transfuse 1 unit of packed RBCs. We were asked to see the patient regarding her leukopenia. The patient denies any recent or chronic illness prior to this admission. She admits to us having 2 admission in the past at [facility] for low blood counts and has received blood transfusions in the past 2 years. She does not follow up with the transplant patient at [facility], but is managed by Madalyn Mendoza here. She denies any shortness of breath or chest pain. No abdominal pain at this time. Carlene durant had her menses this past week. She states it is heavy for 1 day and light for 2 more days. PAST MEDICAL HISTORY: 1. Chronic kidney disease, status post transplant in 2016. 2. History of hemodialysis with fistula placement. 3. Congestive heart failure. 4. Hyperparathyroidism. 5. Nephrotic syndrome. PAST SURGICAL HISTORY: 1. Kidney transplant with cadaver donor. 2. Cholecystectomy. ALLERGIES: No known drug allergies. HOME MEDICATIONS: 1. Amlodipine 10 mg daily. 2. Carvedilol 25 mg b.i.d. 3. Pepcid 40 mg daily. 4. CellCept 250 mg b.i.d. 5. Prednisone 5 mg daily. 6. Sodium bicarbonate 975 t.i.d. 7. Bactrim-DS Tuesday, Tuesday, and Tuesday. 8. Tacrolimus 2 mg b.i.d. 9. Valacyclovir 450 mg daily. FAMILY HISTORY: Negative for any hematological disorders. SOCIAL HISTORY: She lives with her mother. No alcohol, tobacco or illicit drug use. REVIEW OF SYSTEMS: A 10-point review of systems is negative except for noted in HPI. PHYSICAL EXAMINATION: VITAL SIGNS: Temperature is 98.4, pulse is 92, respiratory rate 16, BP is 124/77, 100% on room air. GENERAL: Obese female in no acute distress. HEENT: Normocephalic, atraumatic. Pupils equal and reactive to light. NECK: Supple. CARDIOVASCULAR: Regular rate and rhythm. LUNGS: Clear. ABDOMEN: Soft, nontender, bowel sounds are positive. EXTREMITIES: No clubbing, cyanosis or edema. SKIN: No rash. HEMATOLOGIC: No petechia or purpura. NEUROLOGIC: Nonfocal. PSYCHIATRIC: The patient is alert and oriented and appropriate. PERTINENT LABORATORY AND X-RAYS: Current WBCs are 1.9, hemoglobin 7.6, hematocrit 23.9, platelet cou nt 108,000, 60% neutrophils, 17% bands, 10% lymphocytes, 9% monocytes. Sodium is 138, potassium 3.7, chloride 115, BUN is 22, creatinine 3.58, calcium is 6.2, phosphorus 2.1, magnesium 1.2, total bilir ubin is 0.5, AST is 10, ALT is less than 7, alkaline phosphatase 57, serum total protein 5.5, albumin 2.3, globulin 2.2, PTH is 306. Urine is negative for bacteria. IMPRESSION: 1. Renal transplant, on tacrolimus and CellCept. 2. Acute on chronic leukopenia. 3. Clostridium difficile infection. DISCUSSION: The patient has had leukopenia since 2016 when she had transplant. Her baseline appears to be around 2.8. She has significantly lower on this admission and there is possibly due to infect ion. Her immunosuppressive agents have been held and she has started to improve. She did receive a dose of Neupogen, which will also help. She has chronic kidney disease 4, 5 and may be a candidate f or Procrit injections in the outpatient setting. We will check iron studies and B12 to be thorough a nd rule out any type of nutritional deficiency. Recommended that she followup with Dr. Handley, her newton shankar MD as maybe dose adjustments need to be made from this point if she does not recover. Thank you for the consult.
[2017-05-11] MEDS: metroNIDAZOLE 500 MG in Premix Bag 1 BAG IVPB SCH (05:56)
[2017-05-11 06:15] LABS: Iron 62 ug/dL (50-170); Iron Binding Capacity, Total 126 mcg/dL (265-497)
[2017-05-11 06:19] LABS: Anion Gap 13 mmol/L (10-20); BUN (Urea Nitrogen) 22 mg/dL (7.0-18.7); Calc. Creatinine Clearance 39 mL/min (70-130); Calcium 6.3 mg/dL (7.8-10.44); Carbon Dioxide 14 mmol/L (22-29); Chloride 117 mmol/L (98-107); Estimated GFR-MDRD 20; Glucose 103 mg/dL (70-105); Iron 81 ug/dL (50-170); Iron Binding Capacity, Total 123 mcg/dL (265-497); Magnesium 1.4 mg/dL (1.6-2.6); Phosphorus 2.3 mg/dL (2.3-4.7); Potassium 4.8 mmol/L (3.5-5.1); Sodium 139 mmol/L (136-145)
[2017-05-11 06:46] LABS: Folate (Folic Acid) 3.2 ng/mL (7.0-31.4)
[2017-05-11 07:18] LABS: Hemoglobin 7.8 g/dL (12.0-16.0); Mean Corpuscular HGB CONC 31.4 g/dL (32.0-36.0); Mean Corpuscular Hemoglobin 30.1 pg (27.0-31.0); Mean Corpuscular Volume 95.6 fl (81.0-99.0); Mean Platelet Volume 11.2 fL (7.4-10.4); Platelet Count 123 thou/uL (130-400); RBC Distribution Width 13.9 % (11.5-14.5); Red Blood Cell (RBC) Count 2.59 mill/uL (4.20-5.40); White Blood Cell (WBC) Count 1.8 thou/uL (4.8-10.8)
[2017-05-11 07:48] LABS: Band 15 % (5-11); Eosinophils 11 % (0-10); Lymphocytes 23 % (21-51); MDiff Complete? YES; Metamyelocyte 1 % (0-0); Monocytes 6 % (0-10); Neutrophil 43 % (42-75); PLT Morphology Comment Appears Decreased; Polychromasia SLIGHT = 2-3 cells (100X) (0-2/hpf)
[2017-05-11] MEDS ORDERED: Folic Acid 1 MG TAB PO SCH (09:00)
[2017-05-11] MEDS ORDERED: Magnesium Oxide 400 MG TAB PO SCH (09:00)
[2017-05-11] MEDS: Sulfameth/Trimethoprim SS 400-80MG TAB PO SCH (09:09)
[2017-05-11] MEDS: Saccharomyces boulardii 250 MG CAP PO SCH (09:10)
[2017-05-11] MEDS: predniSONE 5 MG TAB PO SCH (09:11)
[2017-05-11] MEDS: Calcium Carbonate + Vit D 1 TAB PO SCH (09:12)
[2017-05-11] MEDS: Amlodipine 10 MG TAB PO SCH (09:12)
[2017-05-11] MEDS: Famotidine/PF 20 mg/2ml Vial SLOW IVP SCH (09:14)
[2017-05-11] MEDS: Carvedilol 25 MG TAB PO SCH (09:14)
[2017-05-11] MEDS: Potassium Chloride 20 MEQ TAB PO SCH (09:21)
[2017-05-11 11:26] VITALS: BP 123/83; TEMP 98.4
[2017-05-11] MEDS ORDERED: Famotidine 20 MG TAB PO SCH (21:00)
--- NOTE | 2017-05-11 21:15 | PRG ---
DATE OF SERVICE: 05/11/2017 SUBJECTIVE: Patient was seen and examined at bedside and overnight events noted. Patient denies any shortness of breath or chest pain or palpitation. No history of nausea or vomiting or diarrhea or f ever or chills or cramps. OBJECTIVE: GENERAL: This is a well-built -[place] female, in no apparent distress. VITAL SIGNS: Temperature 98.4, pulse 83, respiratory rate 16, blood pressure 118/75. HEENT: Atraumatic, normocephalic, oral mucosa is moist. NECK: Supple. CARDIOVASCULAR: S1, S2 heard, rate and rhythm regular. RESPIRATORY: Clear to auscultation. GASTROINTESTINAL: Abdomen is soft. MUSCULOSKELETAL: No tenderness, no edema. DERMATOLOGIC: No skin rash. NEUROLOGIC: Alert and awake and oriented x3. No focal neurologic deficits. Moving all the extremit ies. PSYCHIATRIC: Mood and affect normal. LABORATORY DATA: Potassium 4.8, BUN is 72, creatinine 3.4. ASSESSMENT AND PLAN: 1. Acute kidney injury on chronic kidney disease, stage 4, stable. 2. Hypokalemia, replaced. 3. History of renal transplant. 4. Hypercalcemia. 5. Acidosis. 6. Chronic immunosuppression. Continue supportive care. We will follow.
--- NOTE | 2017-05-12 06:24 | DIS ---
DATE OF ADMISSION: 05/06/2017 DATE OF DISCHARGE: 05/11/2017 DISCHARGE DIAGNOSES: Sepsis, end-stage renal disease, status post renal transplant in 2016, CHF, acute kidney injury and chronic kidney disease, pancytopenia, hypocalcemia, hypokalemia, Clostridium difficile diarrhea. HISTORY OF PRESENT ILLNESS AND HOSPITAL COURSE: A 22-year-old female with history of end-stage renal disease, previously on hemodialysis, status post renal transplant in 2016 and subsequently been off hemodialysis since then. She has not had any issues with her kidneys that she is aware of, but about 3 days before presentation, she woke up with nausea and subsequently had emesis over the last 3 days. She had some persistent nausea, abdominal pain, emesis and diarrhea, particularly exacerbated by any food intake, but also occurring without food intake as well. She subsequently presented to the ER before seeking any medical attention. At the time of evaluation, she complained of abdominal pain, but states it is "controlled." There was no nausea. No chest pain. Physical examination was largely unremarkable. Her labs showed WBC of 1.5 , hemoglobin 8.7, platelets of 159. BUN/creatinine were 39/5.77. An assessment of presumed sepsis was made, and she was started on IV antibiotics and admitted to the hospital. She was reviewed by plumber cub and assessment of acute kidney injury and chronic kidney disease was made. She was started on hydration with subsequent improvement of her renal indices. She also had a Hematology consult due to her pancytopenia, but this is likely from her immunocompromised state due to medications for her since she has been on since her renal transplant. Her lower level on her baseline would be likely due to underlying infection. Her immunosuppressive agents were held while on admission. She received a dose of Epogen. She will likely be started on Procrit injections in the outpatient setting. In addition, it was recommended she follows up with Dr. Greenwood her transplant doctor and maybe she might need adjustments of her medication doses. There was no further recommendation from Hematology service. On the day of discharge, she had no complaints. Diarrhea had resolved. Her IV ceftriaxone has been discontinued and she was discharged on Flagyl and Bactrim. She is to follow up with her primary care physician within 1 week of discharge as well as Nephrology for repeat labs and further management of her end-stage renal disease. In addition, she was started on folate and sodium bicarbonate tablets. DISCHARGE MEDICATIONS: Calcium carbonate plus vitamin D one tab twice a day with meals, saccharomyces boulardii 250 mg daily, metronidazole 500 mg q.8 h., sulfamethoxazole/trimethoprim 1 tab oral twice a day, magnesium oxide 400 mg twice daily, prednisone 5 mg daily, carvedilol 25 mg twice daily. PHYSICAL EXAMINATION: VITAL SIGNS: pulse 83, temperature 98.3, respirations 16, oxygen saturation 98 % on room air, blood pressure 118/75. GENERAL: Sitting comfortably in bed, not in acute distress. HEENT: PERRLA, EOMI, not pale, anicteric. NECK: Supple, full range of movement. RESPIRATION: No wheezing. Clear to auscultation bilaterally. CARDIOVASCULAR: Regular rate and rhythm. No significant murmurs, rubs or gallops. GASTROINTESTINAL: Soft, nontender, nondistended, positive bowel sounds. MUSCULOSKELETAL: No edema. present. NEUROLOGIC: Nonfocal. Moves all four limbs spontaneously. PSYCHIATRIC: Normal affect. Alert and oriented x3 screen. SKIN: Warm and well perfused. No rashes or lesions. LABORATORY DATA: WBC 1.8, hemoglobin 7.8, platelets 123. Sodium 139, potassium 4.8, chloride 117, carbon dioxide 14, anion gap 13, BUN 22, creatinine 3.42, glucose 103, calcium 6.3. IMAGING: Abdomen/pelvis heterogeneous appearance of the unenhanced right lower quadrant renal transplant with mild surrounding inflammation. Recommend clinical correlation as well as history of activity of renal transplant as acute pathology is not excluded given the CT appearance. rejection and/ or superimposed infection should be excluded clinically. CONSULTATIONS: Nephrology, Hematology CONDITION AT DISCHARGE: Stable and improved. PROCEDURES: None. DIET: Renal care goals to follow up with primary care physician within 1 week of discharge. ACTIVITY: To resume as tolerated. Discharge time 65 minutes including documentation on chart review. [facility]
[2017-05-12] MEDS ORDERED: Famotidine 20 MG TAB PO SCH (09:00)
== END 2017-05-11 12:15 | disposition home or self-care (01) | DRG 871 ==
LOC: ERS 12:53 → T4-A 15:24
PROVIDERS: ADMIT Family Medicine; ATTEND Family Medicine
PROC: 30233N1 Transfusion of Nonautologous Red Blood Cells into Peripheral Vein, Percutaneous Approach (ICD-10-PCS; principal; 2017-05-09)
DX: A41.9 Sepsis, unspecified organism (principal); D61.811 Other drug-induced pancytopenia; A04.72 Enterocolitis due to Clostridium difficile, not specified as recurrent; N17.9 Acute kidney failure, unspecified; E87.2 Acidosis; N18.4 Chronic kidney disease, stage 4 (severe); I50.9 Heart failure, unspecified; Z94.0 Kidney transplant status; E83.51 Hypocalcemia; E87.6 Hypokalemia; Z79.52 Long term (current) use of systemic steroids; Z79.899 Other long term (current) drug therapy; T45.1X5A Adverse effect of antineoplastic and immunosuppressive drugs, initial encounter
CPT/HCPCS: 36415; 36430; 74176; 80048; 80053; 80197; 81003; 81015; 81025; 82274; 82607; 82728; 82746; 83540; 83550; 83605; 83630; 83690; 83735; 83970; 84100; 84703; 85025; 86140; 86850; 86900; 86901; 87040; 87045; 87046; 87086; 87324; 87449; 87493; 87899; 96361; 96374; A4216; J0692; J1442; J2405; J7050; J7070; J7507; J7517; J8499; P9016; S0028

== ENCOUNTER 2018-01-15 11:47 | Inpatient (IN) | payer MEDICARE, MEDICAID ==
[~2018-01-15 11:47] MED LIST: Heparin 1,000 UNITS/ML VIAL ONE
[2018-01-15] MEDS ORDERED: Metoclopramide HCl 10 MG/2 ML VIAL ONE (12:15)
[2018-01-15] MEDS ORDERED: diphenhydrAMINE 50 MG/ML VIAL IVP SCH (12:15)
[2018-01-15 12:25] LABS: #Eosinphils 0.1 thou/uL (0.0-0.7); #Lymphocytes 0.7 thou/uL (1.20-3.40); #Monocytes 0.5 thou/uL (0.11-0.59); #Neutrophils 6.3 thou/uL (1.40-6.50); %Basophils 0.4 % (0.0-1.0); %Eosinophils 0.8 % (0.0-10.0); %Lymphocytes 9.4 % (21.0-51.0); %Monocytes 6.8 % (0.0-10.0); %Neutrophils 82.5 % (42.0-75.0); Hemoglobin 7.4 g/dL (12.0-16.0); Mean Corpuscular Hemoglobin 30.1 pg (27.0-31.0); Mean Platelet Volume 10.4 fL (7.4-10.4); Platelet Count 209 thou/uL (130-400); RBC Distribution Width 13.7 % (11.5-14.5); Red Blood Cell (RBC) Count 2.46 mill/uL (4.20-5.40); White Blood Cell (WBC) Count 7.6 thou/uL (4.8-10.8)
[2018-01-15 12:35] LABS: BHCG - Serum Negative (NEGATIVE); Pregs Control Background? CLEAR/WHITE (CLR/WHITE); Pregs Control Bar Appear? YES (CONTROL BAR)
[2018-01-15 12:42] LABS: ALT (SGPT) 19 U/L (8-55); AST (SGOT) 38 U/L (5-34); Albumin 4.3 g/dL (3.5-5.0); Alkaline Phosphatase 53 U/L (40-150); Anion Gap 26 mmol/L (10-20); BUN (Urea Nitrogen) 71 mg/dL (7.0-18.7); Bilirubin, Total 0.6 mg/dL (0.2-1.2); Calc. Creatinine Clearance 0 mL/min (70-130); Chloride 104 mmol/L (98-107); Estimated GFR-MDRD 4; Globulin 3.5 g/dL (2.4-3.5); Glucose 112 mg/dL (70-105); Lipase 92 U/L (8-78); Potassium 3.5 mmol/L (3.5-5.1); Protein, Total 7.8 g/dL (6.0-8.3); Sodium 134 mmol/L (136-145)
[2018-01-15] MEDS ORDERED: Pantoprazole 40 MG VIAL ONE (12:48)
[2018-01-15 12:57] LABS: Calcium 4.4 mg/dL (7.8-10.44); Carbon Dioxide 8 mmol/L (22-29)
--- NOTE | 2018-01-15 14:24 | CT ---
CT ABDOMEN AND PELVIS WITHOUT CONTRAST: Date: 01/15/18 Multiple axial tomograms obtained through abdomen and pelvis without IV enhancement. INDICATION: Abdominal pain. Constipation. Comparison made to CT abdomen and pelvis dated 05/06/17. FINDINGS: Lung bases clear. Cardiomegaly is noted. I cannot exclude a tiny pericardial effusion. Liver, spleen, and pancreas are unremarkable given the limitations of an unenhanced study. Both kidneys are atrophic and similar to the prior exam. There is a transplanted kidney in the right upper renal pelvis. This transplanted kidney has a similar appearance to the prior exam. There is radha e mild perirenal stranding and haziness associated with this transplanted kidney; however, this appea rs stable from the prior study. There is no evidence of hydronephrosis associated with this transplan blane kidney. There is evidence of prominence of the upper pole collecting structures in this kidney; h owever, this is also unchanged in appearance from the prior exam. Small bowel loops appear normal. Appendix is identified and is unremarkable. The colon is not well ev aluated due to nondistention. There is suggestion of mural thickening involving the entire colon. Rec ommend clinical correlation and consider colonoscopy as clinically indicated. The apparent mural thic kening may be on the basis of nondistention. Urinary bladder is distended, but appears unremarkable. Uterus and adnexa appear unremarkable. IMPRESSION: 1. Transplanted kidney in the right upper pelvis has perinephric stranding and haziness and there is prominence of the upper pole collecting structures. These findings are stable from 05/06/17. 2. Question mural thickening of the colon. The colon is poorly evaluated on this CT due to lack of e nteric contrast and nondistention. POS: ERICK
[2018-01-15] MEDS ORDERED: Dicyclomine 20 MG TAB ONE (14:58)
--- NOTE | 2018-01-15 15:34 | PDOC.FPRHP ---
- History of Present Illness Chief Complaint: Abdominal pain History of Present Illness: 22 yo female complains of vomiting green several episodes since yesterday. Denies diarrhea, endorses constipation. Endorses abdominal pain since yesterday. Today it is constant right upper quadrant and right flank pain. No dysuria, hematuria, chest pain or wheezing. Afebrile without sick contacts, she reports she had previously felt well and has been taking all medications as prescribed. Reports inconsistent follow up with nephrology, comparison of pts history with previous records reveals she is not a great historian/lacks insight and is possibly non-compliant ED Course: CT abd/pelvis, CBC, CMP, LA, lipase benadryl, bentyl, reglan, protonix, sodium bicarb 1 L NS - Allergies/Adverse Reactions Allergies Allergy/AdvReac Type Severity Reaction Status Date / Time No Known Drug Allergies Allergy Verified 10/16/16 16:33 - Home Medications Medication Instructions Recorded Confirmed Type Carvedilol 25 mg PO BID 10/16/16 05/06/17 History Sulfamethoxazole/Trimethoprim 1 each PO ASDIR 10/16/16 05/06/17 History [Bactrim 400-80 mg Tablet] predniSONE [Prednisone] 5 mg PO DAILY 10/16/16 05/06/17 History Amlodipine Besylate [amLODIPine 10 mg PO DAILY #30 tablet 10/18/16 05/06/17 Rx Besylate] Famotidine [Pepcid] 40 mg PO DAILY #30 tablet 10/18/16 05/06/17 Rx Mycophenolate [Cellcept] 250 mg PO BID #60 cap 10/18/16 05/06/17 Rx Sodium Bicarbonate [Bicarbonate, 975 mg PO TID #90 tab 10/18/16 05/06/17 Rx Sodium] Tacrolimus [Prograf] 2 mg PO BID #60 cap 10/18/16 05/06/17 Rx valGANciclovir HCl [Valcyte] 450 mg PO DAILY #30 tablet 10/18/16 05/06/17 Rx Calcium Carbonate + Vit D 1 tab PO BID-WM #60 tab 05/11/17 Rx [Caltrate 600 + Vit D] Folic Acid 0.4 mg PO DAILY #30 tablet 05/11/17 Rx Magnesium Oxide [Magnesium] 400 mg PO BID #10 tablet 05/11/17 Rx Saccharomyces boulardii [Florastor] 250 mg PO DAILY #10 cap 05/11/17 Rx Sulfamethoxazole/Trimethoprim 1 tab PO BID #10 tab 05/11/17 Rx [Bactrim] metroNIDAZOLE [Flagyl] 500 mg PO Q8HR #14 tab 05/11/17 Rx - History PMHx: Nephrotic syndrome, HTN, CHF PSHx: Renal transplant 2016, cholecystectomy FHx:Denies Social: From [place] originally; Sees Dr. Mendoza here, but not since March - Review of Systems General: reports: weight/appetite/sleep changes. denies: fever/chills ENT: denies: nasal congestion, rhinorrhea Respiratory: denies: cough, congestion, shortness of breath Cardiovascular: denies: chest pain, edema Gastrointestinal: reports: nausea, vomiting, abdominal pain. denies: diarrhea, constipation Genitourinary: denies: incontinence, dysuria, polyuria Skin: denies: rashes, lesions, jaundice Musculoskeletal: denies: pain, tenderness Neurological: denies: numbness, syncope - Vital signs BP: [119/70] HR: [111] RR: [22] Tmax: [98.2] Pox: [99]% on [RA] Wt: [97.5kg] - Physical Exam Constitutional: other (in obvious pain) HEENT: normocephalic and atraumatic, grossly normal vision, grossly normal hearing Neck: supple, trachea midline Chest: no-tender to palpation, no lesions Heart: RRR, normal S1/S2, other (possible S3 gallop) Lungs: CTAB, no respiratory distress, good air movement Abdomen: bowel sounds present, no masses/distention, no hernias, other (tender, guarding in RUQ) Musculoskeletal: normal structure, normal tone, ROM grossly normal Neurological: no focal deficit, normal sensation Skin: no rash/lesions Heme/Lymphatic: no unusual bruising or bleeding, no petechia Psychiatric: normal mood and affect FMR H&P: Results - Labs Result Diagrams: 01/15/18 12:14 01/15/18 12:14 Lab results: WBC 7.6 thou/uL (4.8-10.8) 01/15/18 12:14 Hgb 7.4 g/dL (12.0-16.0) L 01/15/18 12:14 Hct 23.1 % (36.0-47.0) L 01/15/18 12:14 MCV 94.0 fL (78.0-98.0) 01/15/18 12:14 Plt Count 209 thou/uL (130-400) 01/15/18 12:14 Neutrophils % 82.5 % (42.0-75.0) H 01/15/18 12:14 Sodium 134 mmol/L (136-145) L 01/15/18 12:14 Potassium 3.5 mmol/L (3.5-5.1) 01/15/18 12:14 Chloride 104 mmol/L (98-107) 01/15/18 12:14 Carbon Dioxide 8 mmol/L (22-29) L* 01/15/18 12:14 BUN 71 mg/dL (7.0-18.7) H 01/15/18 12:14 Creatinine 14.92 mg/dL (0.6-1.1) H 01/15/18 12:14 Glucose 112 mg/dL (70-105) H 01/15/18 12:14 Calcium 4.4 mg/dL (7.8-10.44) L* 01/15/18 12:14 Total Bilirubin 0.6 mg/dL (0.2-1.2) 01/15/18 12:14 AST 38 U/L (5-34) H 01/15/18 12:14 ALT 19 U/L (8-55) 01/15/18 12:14 Alkaline Phosphatase 53 U/L (40-150) 01/15/18 12:14 Serum Total Protein 7.8 g/dL (6.0-8.3) 01/15/18 12:14 Albumin 4.3 g/dL (3.5-5.0) 01/15/18 12:14 Lipase 92 U/L (8-78) H 01/15/18 12:14 FMR H&P: A/P - Problem List (1) ANSIH (acute kidney injury) Current Visit: No Status: Acute Code(s): N17.9 - ACUTE KIDNEY FAILURE, UNSPECIFIED Comment: Renal indices improving. (2) Low bicarbonate level Current Visit: Yes Status: Acute Code(s): E87.8 - OTH DISORDERS OF ELECTROLYTE AND FLUID BALANCE, NEC (3) Hypocalcemia Current Visit: No Status: Acute Code(s): E83.51 - HYPOCALCEMIA Comment: Received IV calcium; continued on PO calcium supplements. Nephrology on board. (4) CHF (congestive heart failure) Current Visit: No Status: Acute Code(s): I50.9 - HEART FAILURE, UNSPECIFIED (5) HTN (hypertension) Current Visit: No Status: Acute Code(s): I10 - ESSENTIAL (PRIMARY) HYPERTENSION Qualifiers: Hypertension type: essential hypertension Qualified Code(s): I10 - Essential (primary) hypertension Comment: Controlled. Continue home meds. (6) Status post kidney transplant Current Visit: No Status: Chronic Code(s): Z94.0 - KIDNEY TRANSPLANT STATUS Comment: On immunosuppressants. - Plan ANISH on CKD stage IV - Most likely cause of acute abdominal pain, CT neg, Lipase mildly elevated, UA neg - creatinine acutely elevated, glucose/potassium wnl, low bicarb - Nephrology, Dr. Mendoza has been consulted from the ED, plans emergent dialysis, appreciate further recommendations Low bicarbonate level - supplement, recheck CMP qd - urgent dialysis today Hypocalcemia - recheck CMP qd - urgent dialysis today CHF - avoid overloading with fluids - continue to monitor on telemetry Anemia - s/p 1 unit PRBC, close to baseline - repeat CBC qd HTN - continue home meds S/p kidney transplant - believed to be failed 2/2 non compliance with immuno-suppressive meds Disposition/LOS: Dialyze today, admit to telemetry for monitoring FMR H&P: Upper Level - Plan Date/Time: 01/15/18 1534 Ivy Matamoros, PGY-2, have evaluated this patient and agree with findings/ plan as outlined by program management intern resident. Pertinent changes/additions are listed here. Ms. So is a 22 yo female with a pmhx of nephrotic syndrome s/p renal transplant who presents with abdominal pain, n/v for two days. She sees Dr. Mendoza , had a renal transplant in 2016, and is being admitted today for ARF requiring emergent dialysis. ER: tranfused 1 unit prbcs PE: Pt in pain Tachycardic, s3 gallop CTAB CVA tenderness RUQ tenderness, guarding No rashes or lesions Labs: Anemic, no leukocytosis Elevated Bun and Cr low bicarb CT noncontrast: questionable mural thickening of the colon A/P: #Acute Renal Failure- -GFR 4 today, with low bicarb -Prior hospitalization in March 2017 showed CKD, stage 4 -Pt of Dr. Mendoza's who recommended emergent dialysis -will follow-up with his recommendations #lower back and ruq pain- -UA and culture -pt has had prior billy -cannot rule out nepholithiasis or UTI at this time -CT did not show an appendicitis but did show transmural thickening in the colon -afebrile and no leukocytosis, but pt is on immunosuppressant medications -will reassess pt after dialysis #HFrEF -Prior echo 2014 showed EF of 20% -continue carvedilol and amlodipine #HTN -continue amlodipine #Anemia of chronic disease #S/p renal transplant 2016 -Held: cellcept, prograf, valtrex, prednisone DVT: SCDs Code: Full Attending Addendum - Attending Addendum Date/Time: 01/15/181913 I personally evaluated the patient and discussed the management with Dr. Calderón I agree with the History, Examination, Assessment and Plan documented above with any addition or exceptions noted below.This is a 22 yo nulliparous AA Female s/p [facility]veric Transplant 12/05/2015 [place], [place] [employer] Dr Rodriguez for FSGM. Patient with medical noncompliance states doesn't go more than one day without taking rx but occasionally skips dosages. Patient yesterday with abdominal pain and today with N/V presenting to [facility] with ARF she denies oliguria fever,chills notable lab: Creatinine 14.95 BUN 71, Ca++ 4.1, negative HCG, CO2 8. Non contrast CT of abdomen and pelvis with no new renal finding to transplanted kidney since 05/06/[address] study, colon with mural thickening probably related to non contrast lack of distention,no hydronephrosis appreciated transplanted kidney to right upper renal pelvis. PMHX: Patient s/p HD and left forearm AV fistula at [facility] 2014 which appears to still be functioning. Patient admitted Apr 2017 [facility] with C.Difficile colitis. History of Transplant RX related neutropenia. History of systolic /diastolic CHF with non ischemic cardiomyopathy EF 06/2014 20 -25%. Patient prior to transplant wore lifevest Surgey transplant ,cholecystectomy ,EGD,AV fistua ROS: ESRD secondary FSGN, CHF, Anemia, secondary hyperparathyroidism, GERD, nonischemic cardiomyopathy and hypertension. Patient followed by Dr Vaz who has seen patient and recommended emergent dialysis. HX of Noncompliance REC: consider chronic rejection secondary noncompliance,CMV infection, U/A, Urine and blood culture,f/u echocardiogram, reconcile current RX (cellcept, prednisone,valcyclovir prograf, coreg not sure dose or what currently taking) check tacrilumus level if still taking patient poor historian and cannot recall her current Rx. Appreciate recommendation Dr Vaz.
[2018-01-15] MEDS ORDERED: Calcium Gluc 4.6 MEQ/10 ML (100 MG/ML) ONE (15:58)
[2018-01-15] MEDS ORDERED: Sodium Bicarb 50 MEQ/50 ML Abboject 8.4% SYRINGE ONE (15:59)
--- NOTE | 2018-01-15 16:37 | CON ---
DATE OF CONSULTATION: 01/15/2018 NEPHROLOGY CONSULTATION REASON FOR CONSULTATION: Severe metabolic acidosis. HISTORY OF PRESENT ILLNESS: This is a 22-year-old female with a past medical history of end-stage re nal disease who presented to the hospital with 1-2 day history of abdominal pain with nausea and vomi ting, but without any diarrhea. The patient denies headache, numbness, tingling or weakness. Denies any nausea, vomiting or chest pain. PAST MEDICAL HISTORY: Significant for hypertension and congestive heart failure, history of kidney t ransplant, history of end-stage renal disease on maintenance hemodialysis, history of cholecystectomy . FAMILY HISTORY: Negative for ESRD. ALLERGIES: Reviewed. CURRENT MEDICATIONS: List reviewed. REVIEW OF SYSTEMS: A 15-point review of systems was performed and was negative except for positives noted above. GENERAL: Weakness- HEAD: Headache- NECK: No swelling or lumps. NOSE: No epistaxis or discharge. EYES: No diplopia or pain. RESPIRATORY: Dyspnea- CARDIOVASCULAR: Chest pain- GASTROINTESTINAL: Nausea- /TOUR DRIVER: Hematuria- MUSCULOSKELETAL: No joint pain. NEUROPSYCHIATIC SYSTEMS: No suicidal ideation. No ideation. SKIN: Denies any rash or ulcer. CONSTITUTIONAL: No fever or chills. HOME MEDICATIONS: List reviewed. HOSPITAL MEDICATIONS: List reviewed. PHYSICAL EXAMINATION: GENERAL: Patient is awake, alert. VITAL SIGNS: Afebrile, pulse 75, breathing 16, blood pressure 150/70. OBJECTIVE: See above. Awake, alert, in no acute distress. GENERAL APPEARANCE AND MENTAL STATUS: Fair. HEAD/NECK: Normocephalic. Atraumatic. EYES: EOMI. No deformity. EARS: Clear. No ulcers. NOSE: Intact. No lesions. MOUTH: Clear. No discharge. THROAT: Clear. No exudate. LUNGS: Clear. No crackles. CARDIAC: S1, S2. No rub. ABDOMEN: Tenderness is present. No guarding or rigidity. GENITALIA/RECTUM: Lopez absent. BACK/EXTREMITIES: Edema 0+ Ulcer- NEUROLOGICAL: Alert and motor intact. SKIN: Rash- Bruise- LYMPHATICS: Edema- Ulcer- LABORATORY DATA: Show hemoglobin 7.4, bicarbonate 8, creatinine 14.9. ASSESSMENT AND RECOMMENDATIONS: 1. Stage 6 chronic kidney disease. We will plan urgent hemodialysis due to severe metabolic acidosi s, renal failure, hypokalemia. 2. Anemia. We will start Epogen. 3. Medications based on glomerular filtration rate are appropriate. 4. Hypertension. We will plan ultrafiltration.
[2018-01-15 17:19] LABS: HBSAg Index 0.22 S/CO (0-0.99); Hep B Surf Ag Non-Reactive S/CO (NonReactive)
[2018-01-15] MEDS ORDERED: Ondansetron ODT 4 MG TAB SL PRN (17:38)
[2018-01-15] MEDS ORDERED: Acetaminophen 325 MG TAB PO PRN (17:38)
[2018-01-15] MEDS ORDERED: Ondansetron PF 4 MG/2 ML Vial IVP PRN (17:38)
[2018-01-15 18:02] VITALS: BMI 30.3
[2018-01-15 21:09] LABS: Bilirubin Negative (Negative); Clarity CLOUDY (Clear); Glucose, Urine (Dipstick) Negative (Negative); Leukocyte Negative (Negative); Nitrite Negative (Negative); Protein, Urine (Dipstick) 100 mg/dL (Neg-Trace); Specific Gravity, Urine 1.011 (1.002-1.036); Urobilinogen 0.2 mg/dL (0.2-1.0); pH, Urine 5.5 (5.0-9.0)
[2018-01-15 21:10] LABS: Bacteria/HPF None Seen HPF (None Seen); Hyaline Casts/LPF 0-3 HYALINE CAST LPF (0-3 Hyaline); Pathc Cast-AUWi Flag 0.58 (0-2.49); RBC/HPF 0-3 HPF (0-3)
[2018-01-15 21:13] LABS: Yeast-AUWi Flag 70.6 (0-25.0)
[2018-01-15 21:19] LABS: Blood, Urine Small (Negative); Crystals/HPF None Seen HPF (Negative); Yeast-All Forms None Seen HPF (None Seen)
[2018-01-15 21:23] LABS: Magnesium 1.2 mg/dL (1.6-2.6)
[2018-01-15 21:27] LABS: Calcium 4.4 mg/dL (7.8-10.44)
[2018-01-15] MEDS: Melatonin 3 MG TAB PO PRN (22:48)
--- NOTE | 2018-01-16 02:03 | OP ---
PREOPERATIVE DIAGNOSES: Transplant rejection, in need of acute dialysis access, unable to access her left Niko fistula. POSTOPERATIVE DIAGNOSES: Transplant rejection, in need of acute dialysis access, unable to access he r left Niko fistula. PROCEDURE: Right groin trialysis catheter. SURGEON: Antoine Almanza MD ANESTHESIA: 1% Xylocaine. DESCRIPTION OF PROCEDURE: With the patient at bedside, right groin was clipped of hair, prepared wit h ChloraPrep, draped in routine fashion. Local anesthetic infiltrated into the skin and subcutaneous tissue about the operative site. Seldinger technique was used to place a trialysis catheter, securi ng the catheter with 2-0 silk and sterile dressings applied. Each port aspirated of blood and flushe d with heparinized saline solution. The patient tolerated the procedure well.
--- NOTE | 2018-01-16 02:04 | HP ---
HISTORY OF PRESENT ILLNESS: Rosa M So is a 22-year-old black female graduated from [employer], lives [facility] with her family. Patient has been on dialysis since she was 13 years of age. At [facility], she had a left forearm fistula placed. They were having a buttonhole this at [facility] for dialysis because of tortuosity. She had a transplant two years ago, but did not foll ow up and did not take her medications. She now is admitted for renal failure, transplant rejection. They have tried to access her left Niko fistula, but they cannot, it is too tortuous. I have bee n asked to see her regarding placement of a hemodialysis catheter, temporary. Plan is to place the b edside dialysis catheter to enable dialysis tonight. We will obtain a fistulogram of the left arm. She will need revision left arm fistula to allow access and placement of a cuffed tunnel dialysis cat heter later in the week. She is agreeable to this. ALLERGIES: None. TOBACCO: None. ALCOHOL: None. MEDICATIONS: Valcyte, prednisone 5 mg a day, metronidazole 500 mg t.i.d., Prograf 2 mg b.i.d., Bactr im as directed, bicarbonate 975 t.i.d., CellCept 250 b.i.d., Florastor 250 mg daily, magnesium 40 mg b.i.d., folic acid 0.4 mg daily, Pepcid 40 mg a day, carvedilol 25 mg b.i.d., calcium carbonate b.i.d ., amlodipine besylate 10 mg p.o. daily. PAST SURGICAL HISTORY: Laparoscopic cholecystectomy, Niko fistula, transplant renal two years ago. PAST MEDICAL HISTORY: Hypertension, end-stage renal disease. REVIEW OF SYSTEMS: Noncontributory. PHYSICAL EXAMINATION: VITAL SIGNS: 5 feet and 5 inches, 182 pounds, 30 BMI, 97.9, 97, 167/89. HEAD, EARS, EYES, NOSE AND THROAT: Unremarkable. LUNGS: Clear to auscultation. CARDIAC: Regular rate and rhythm without murmur or gallop. ABDOMEN: Soft, nontender. EXTREMITIES: Unremarkable. Bandage right upper arm from IV access. I have told her not let anybody draw blood or start an IV in her antecubital areas again. Left Niko fistula, good thrill and brui t with tortuous cephalic vein. ASSESSMENT AND PLAN: Transplant rejection due to noncompliance in follow up and transplant rejection medications. Medications list above reflected medication she is to be taken, but she has not been t aking these. We will plan bedside placement of dialysis catheter to allow dialysis tonight. We will plan later in the week a fistulogram and an ultrasound vein mapping both arms and plan revision of l eft arm fistula.
--- NOTE | 2018-01-16 06:47 | PDOC.FM ---
- Subjective Subjective: Pt reports she continues to have abdominal pain but it is improved from yesterday. Describes pain as crampy that is related to her nausea. The Tylenol has helped for catheter related pain but the zofran has not helped with nausea. Reports having watery diarrhea this morning. Passing gas. No vomiting overnight. She reports what they gave her in the ED was effective. Pt reports frequently forgetting to take rejection medications in the AM but will take them in the evening when she remembers. Per Nursing, She says she uses [facility] to [facility] prescriptions. Reports her meds are in a locked cabinet that only her mother has the gudino too and it is currently lost so she is not able to bring her meds in. When calling [facility] the last rejection medication called in was Apr 2016 that was never picked up. She had other prescriptions called in September 2017 that were also not filled. Pt denies using another pharmacy. - Objective MAR Reviewed: Yes Vital Signs & Weight: Vital Signs (12 hours) Temp Pulse Resp BP BP Pulse Ox 01/16/18 04:00 99.1 F 103 H 20 116/75 98 01/16/18 01:23 98.9 F 110 H 20 141/79 H 100 01/15/18 21:54 98.5 F 114 H 20 169/99 H 100 01/15/18 19:54 100 Weight Weight 83.943 kg I&O: 01/14/18 01/15/18 01/16/18 06:59 06:59 06:59 Intake Total 300 Output Total 500 Balance -200 Result Diagrams: 01/16/18 10:18 01/16/18 10:18 <Alona Morales - Last Filed: 01/16/18 11:35> - Objective Vital Signs & Weight: Vital Signs (12 hours) Temp Pulse Resp BP Pulse Ox 01/17/18 04:08 99.3 F 119 H 20 165/106 H 98 01/17/18 00:01 100 F H 119 H 20 132/90 97 01/16/18 21:49 99.1 F 104 H 18 141/99 H 100 Weight Weight 82.724 kg Most Recent Monitor Data Heart Rate from ECG 93 NIBP 134/81 Respiration from ECG 16 I&O: 01/16/18 01/17/18 01/18/18 06:59 06:59 06:59 Intake Total 300 1230 Output Total 500 450 Balance -200 780 Result Diagrams: 01/16/18 17:58 01/16/18 10:18 <Aldo Mario Rhianna - Last Filed: 01/17/18 08:20> Phys Exam - Physical Examination Constitutional: NAD Neck: supple Respiratory: no wheezing, clear to auscultation bilateral Cardiovascular: RRR systolic murmur Gastrointestinal: soft, non-tender, positive bowel sounds Musculoskeletal: no edema Psychiatric: normal affect, A&O x 3 <Morales,Alona - Last Filed: 01/16/18 11:35> Dx/Plan (1) Low bicarbonate level Code(s): E87.8 - OTH DISORDERS OF ELECTROLYTE AND FLUID BALANCE, NEC Status: Acute (2) ANISH (acute kidney injury) Code(s): N17.9 - ACUTE KIDNEY FAILURE, UNSPECIFIED Status: Acute (3) CHF (congestive heart failure) Code(s): I50.9 - HEART FAILURE, UNSPECIFIED Status: Acute (4) ESRD (end stage renal disease) on dialysis Code(s): N18.6 - END STAGE RENAL DISEASE; Z99.2 - DEPENDENCE ON RENAL DIALYSIS Status: Acute (5) Fluid overload Code(s): E87.70 - FLUID OVERLOAD, UNSPECIFIED Status: Acute (6) HTN (hypertension) Code(s): I10 - ESSENTIAL (PRIMARY) HYPERTENSION Status: Acute Qualifiers: Hypertension type: essential hypertension Qualified Code(s): I10 - Essential (primary) hypertension (7) History of CHF (congestive heart failure) Code(s): Z86.79 - PERSONAL HISTORY OF OTHER DISEASES OF THE CIRCULATORY SYSTEM Status: Chronic (8) Immunocompromised patient Code(s): D84.9 - IMMUNODEFICIENCY, UNSPECIFIED Status: Chronic (9) Status post kidney transplant Code(s): Z94.0 - KIDNEY TRANSPLANT STATUS Status: Chronic - Plan Plan: Stage 6 CKD - Initial GFR 4, with low bicarb - Prior hospitalization in March 2017 showed CKD, stage 4 - Consulted Nephrology, Dr. Mendoza who she sees outpt, apprec recs - Urgent hemodialysis 01/15 for metabolic acidosis and renal failure - s/p bicarb in ED - Daily wts, strict I&Os, Renal high protein diet - Renal dosed meds - Surgery, Dr Almanza consulted - Bedside placement of dialysis catheter with plan for fistulogram and US vein map to revise left arm fistula later this week by Dr Almanza. Lower back, RUQ pain - Afebrile, pt immunosuppressed - likely result of ANISH - Ucx pending - CT: transmural thickening in the colon, pt has had cholecystectomy. No signs of appendicitis on CT Anemia of chronic disease - Received 1U RBCs in ED - Most recent Hgb 7.1 - Starting Epogen Hypomagnesium - 1.2 - Replaced with 1g Mg Low Bicarb, improving - Received bicarb in ED - Continue to monitor with daily labs Hypocalcemia - 4.4, replaced with 1 amp Ca gluconate, improved to 6.0 - Will replace with additional 1 amp Ca gluconate - PTH appropriately elevated - Continue to monitor with daily labs Diarrhea - Ordered C diff Hypokalemia - Will replace with 40mg PO - Monitor with CMP in AM HFrEF - Echo 2015: EF of 20% - Repeat Echo ordered - Continue home Carvedilol, Amlodipine - Daily weights, fluid restriction, strict I&Os HTN - Continue home amlodipine Hx of renal transplant 2016 - 2/2 Nephrotic Syndrome - Continue home Cellcept, Tacromlimus, valtrex, prednisone - Pt appears to be rejecting transplant as result of medication noncompliance Code Status: FULL <Alona Morales - Last Filed: 01/16/18 11:35> Attending Addendum - Attending Addendum Date/Time: 01/17/18 0817 I personally evaluated the patient and discussed the management with Dr. Morales yesterdya morning. I agree with the History, Examination, Assessment and Plan documented above with any addition or exceptions noted below. Ms So is has a complicated clinical picture. electrolyte disturbance, transplant rejection, pancreatitis, and viral infection could be etiology for on focal abdominal abd pain. Exam michael snot reveal any peritoneal signs. Workup ongoing. <Aldo Mario - Last Filed: 01/17/18 08:20>
[2018-01-16] MEDS ORDERED: Calcium Gluconate 4.6 MEQ in Sodium Chloride 0.9% 100 ML IVPB ONE (07:15)
[2018-01-16 10:31] LABS: #Eosinphils 0.1 thou/uL (0.0-0.7); #Lymphocytes 0.4 thou/uL (1.20-3.40); #Monocytes 0.4 thou/uL (0.11-0.59); #Neutrophils 5.4 thou/uL (1.40-6.50); %Basophils 0.5 % (0.0-1.0); %Eosinophils 1.4 % (0.0-10.0); %Lymphocytes 6.2 % (21.0-51.0); %Monocytes 6.7 % (0.0-10.0); %Neutrophils 85.3 % (42.0-75.0); Hemoglobin 7.1 g/dL (12.0-16.0); Mean Corpuscular HGB CONC 32.3 g/dL (32.0-36.0); Mean Corpuscular Hemoglobin 29.9 pg (27.0-31.0); Mean Corpuscular Volume 92.6 fL (78.0-98.0); Mean Platelet Volume 9.2 fL (7.4-10.4); Platelet Count 151 thou/uL (130-400); RBC Distribution Width 13.3 % (11.5-14.5); Red Blood Cell (RBC) Count 2.38 mill/uL (4.20-5.40); White Blood Cell (WBC) Count 6.3 thou/uL (4.8-10.8)
[2018-01-16] MEDS: Acetaminophen 325 MG TAB PO PRN (10:38)
[2018-01-16 10:58] LABS: ALT (SGPT) 77 U/L (8-55); AST (SGOT) 117 U/L (5-34); Albumin 3.7 g/dL (3.5-5.0); Alkaline Phosphatase 50 U/L (40-150); Anion Gap 20 mmol/L (10-20); BUN (Urea Nitrogen) 40 mg/dL (7.0-18.7); Bilirubin, Total 1.4 mg/dL (0.2-1.2); Calc. Creatinine Clearance 12 mL/min (70-130); Carbon Dioxide 19 mmol/L (22-29); Chloride 102 mmol/L (98-107); Estimated GFR-MDRD 6; Globulin 2.9 g/dL (2.4-3.5); Glucose 98 mg/dL (70-105); Phosphorus 3.2 mg/dL (2.3-4.7); Potassium 2.7 mmol/L (3.5-5.1); Protein, Total 6.6 g/dL (6.0-8.3); Sodium 138 mmol/L (136-145)
[2018-01-16] MEDS: Metoclopramide HCl 10 MG/2 ML VIAL IVP PRN ×2 (11:42→21:56)
[2018-01-16] MEDS ORDERED: Potassium Chloride 20 MEQ TAB PO SCH (11:45)
[2018-01-16] MEDS ORDERED: Calcium Gluconate 4.6 MEQ in Sodium Chloride 0.9% 100 ML IVPB SCH (12:00)
[2018-01-16] MEDS ORDERED: Tuberculin PPD 0.1 ML VIAL I-DERMAL SCH (12:30)
--- NOTE | 2018-01-16 12:45 | PRG ---
Patient Name: JENNIFER MARTINS Date of service: 01/16/2018 Subjective: Patient was seen and examined at bedside and overnight events noted. Patient denies any shortness of breath or chest pain or palpitation. No history of nausea or vomiting or diarrhea or fever or chills or cramps. Objective: General: This is a well-built male in no apparent distress. Vital signs: Temperature 98.4, pulse 100, respiratory rate 18, blood pressure 131/84. HEENT: Atraumatic, normocephalic. Oral mucosa is moist. Neck: Supple. Cardiovascular: S1 S2 heard. Rate and rhythm regular. Respiratory: Clear to auscultation. Gastrointestinal: Abdomen is soft. Musculoskeletal: No tenderness. No edema. Dermatologic: No skin rash. Neurologic: Alert and awake and oriented X3. No focal neurologic deficits. Moving all the extremi ties. Psychiatric: Mood and affect normal. LABORATORY DATA: Potassium is 2.7, BUN 40, creatinine is 9.4. ASSESSMENT AND PLAN: 1. End-stage renal disease. Start back on dialysis. We will arrange for outpatient dialysis. 2. Edema, controlled. 3. Hypertension. 4. Hypokalemia, use 4K bath. 5. Metabolic acidosis. 6. Hypocalcemia, start on oral vitamin D and will continue on dialysis.
--- NOTE | 2018-01-16 14:36 | ULT ---
VENOUS DUPLEX SONOGRAM BILATERAL UPPER EXTREMITY FOR VEIN MAPPING: Date: 01/16/18 HISTORY: Left arm fistula. Difficulty in accessing. FINDINGS: Good color and spectral Doppler flow are demonstrated throughout each internal jugular and subclavian vein, and each axillary, brachial, cephalic, and basilic vein. Measurements are as follows: RIGHT UPPER EXTREMITY BRACHIAL ARTERY: 4 mm RADIAL ARTERY: 2 mm ULNAR ARTERY: 2 mm CEPHALIC VEIN Proximal Humerus: 1 mm Mid Humerus: 1 mm Distal Humerus: 1 mm Antecubital Fossa: 1 mm Proximal Forearm: 1 mm Mid Forearm: 1 mm Distal Forearm: 1 mm BASILIC VEIN Proximal Humerus: 6 mm Mid Humerus: 7 mm Distal Humerus: 6 mm Antecubital Fossa: 5 mm Proximal Forearm: 5 mm Mid Forearm: 2 mm Distal Forearm: 2 mm LEFT UPPER EXTREMITY BRACHIAL ARTERY: 7 mm RADIAL ARTERY: 7 mm ULNAR ARTERY: 4 mm CEPHALIC VEIN Proximal Humerus: 7 mm Mid Humerus: 8 mm Distal Humerus: 7 mm Antecubital Fossa: 11 mm Proximal Forearm: 11 mm Mid Forearm: 10 mm Distal Forearm: 17 mm BASILIC VEIN Proximal Humerus: 8 mm Mid Humerus: 11 mm Distal Humerus: 14 mm Antecubital Fossa: 10 mm Proximal Forearm: 4 mm Mid Forearm: 4 mm Distal Forearm: 3 mm Arteriovenous fistula at the radiocephalic wrist results in dilatation of the venous system. IMPRESSION: Patent vascular structures throughout each upper extremity with measurements as detailed above. Left radiocephalic fistula. Fistulogram is pending. POS: [facility]
[2018-01-16] MEDS ORDERED: Heparin 1,000 UNITS/500 ML BAG (ARTLINE) ONE (15:00)
[2018-01-16] MEDS ORDERED: CEFAZOLIN/Water 2 GM/20 ML SYRINGE SLOW IVP SCH (18:00)
[2018-01-16] MEDS ORDERED: CEFAZOLIN 2 GM/50 ML-DEXTROSE 2 GM in Premix Bag 1 BAG IVPB SCH (18:15)
[2018-01-16 18:27] LABS: Hemoglobin 8.4 g/dL (12.0-16.0); Platelet Count 145 thou/uL (130-400)
[2018-01-16] MEDS: Calcium Carbonate + Vit D 1 TAB PO SCH (18:41)
[2018-01-16] MEDS: Mycophenolate 250 MG CAP PO SCH (22:00)
[2018-01-16] MEDS: Tacrolimus 1 MG CAP PO SCH (22:02)
[2018-01-16] MEDS: Melatonin 3 MG TAB PO PRN (23:09)
[2018-01-17] MEDS: Metoclopramide HCl 10 MG/2 ML VIAL IVP PRN ×2 (04:00→13:40)
--- NOTE | 2018-01-17 06:27 | PDOC.FM ---
- Subjective Subjective: Pt continues to endorse nonbloody, bilious diarrhea that started yesterday afternoon. Last normal BM yesterday morning. Cramping abdominal pain is reduced with BMs. Has been experiencing nausea overnight, reduced with Reglan and Zofran. - Objective MAR Reviewed: Yes Vital Signs & Weight: Vital Signs (12 hours) Temp Pulse Resp BP Pulse Ox 01/17/18 04:08 99.3 F 119 H 20 165/106 H 98 01/17/18 00:01 100 F H 119 H 20 132/90 97 01/16/18 21:49 99.1 F 104 H 18 141/99 H 100 Weight Weight 83.943 kg Most Recent Monitor Data Heart Rate from ECG 93 NIBP 134/81 Respiration from ECG 16 I&O: 01/15/18 01/16/18 01/17/18 06:59 06:59 06:59 Intake Total 300 830 Output Total 500 450 Balance -200 380 Result Diagrams: 01/17/18 09:30 01/17/18 09:30 <Alona Morales - Last Filed: 01/17/18 13:31> - Objective Vital Signs & Weight: Vital Signs (12 hours) Temp Pulse Resp BP BP Pulse Ox 01/18/18 05:55 97.7 F 97 20 114/79 98 01/18/18 00:30 97.3 F L 93 20 106/71 97 01/17/18 22:08 97.3 F L 119 H 26 H 140/101 H 99 01/17/18 21:44 140/101 H Weight Weight 82.191 kg Most Recent Monitor Data Heart Rate from ECG 93 NIBP 134/81 Respiration from ECG 16 I&O: 01/17/18 01/18/18 01/19/18 06:59 06:59 06:59 Intake Total 1230 630 Output Total 450 25 Balance 780 605 Result Diagrams: 01/18/18 05:23 01/18/18 05:23 <Aldo Mario - Last Filed: 01/18/18 09:01> Phys Exam - Physical Examination Constitutional: NAD Neck: supple Respiratory: no wheezing, clear to auscultation bilateral Cardiovascular: RRR Systolic murmur Gastrointestinal: soft, positive bowel sounds Tenderness diffusely, less localized than day prior, no rebound Neurological: moves all 4 limbs Psychiatric: normal affect, A&O x 3 <Alona Morales - Last Filed: 01/17/18 13:31> Dx/Plan (1) Low bicarbonate level Code(s): E87.8 - OTH DISORDERS OF ELECTROLYTE AND FLUID BALANCE, NEC Status: Acute (2) ANISH (acute kidney injury) Code(s): N17.9 - ACUTE KIDNEY FAILURE, UNSPECIFIED Status: Acute (3) CHF (congestive heart failure) Code(s): I50.9 - HEART FAILURE, UNSPECIFIED Status: Acute (4) ESRD (end stage renal disease) on dialysis Code(s): N18.6 - END STAGE RENAL DISEASE; Z99.2 - DEPENDENCE ON RENAL DIALYSIS Status: Acute (5) Fluid overload Code(s): E87.70 - FLUID OVERLOAD, UNSPECIFIED Status: Acute (6) HTN (hypertension) Code(s): I10 - ESSENTIAL (PRIMARY) HYPERTENSION Status: Acute Qualifiers: Hypertension type: essential hypertension Qualified Code(s): I10 - Essential (primary) hypertension (7) History of CHF (congestive heart failure) Code(s): Z86.79 - PERSONAL HISTORY OF OTHER DISEASES OF THE CIRCULATORY SYSTEM Status: Chronic (8) Immunocompromised patient Code(s): D84.9 - IMMUNODEFICIENCY, UNSPECIFIED Status: Chronic (9) Status post kidney transplant Code(s): Z94.0 - KIDNEY TRANSPLANT STATUS Status: Chronic - Plan Plan: ESRD - Initial GFR 4, with low bicarb - Prior hospitalization in March 2017 showed CKD, stage 4 - Consulted Nephrology, Dr. Mendoza who she sees outpt, apprec recs - Urgent hemodialysis 01/15 for metabolic acidosis and renal failure, s/p bicarb in ED - Daily wts, strict I&Os, Renal high protein diet - Renal dosed meds - Surgery, Dr Almanza consulted - Bedside placement of dialysis catheter with plan for fistulogram and US vein map to revise left arm fistula later this week by Dr Almanza. Lower back, RUQ pain - Afebrile, pt immunosuppressed - likely result of ANISH - Ucx pending - CT: transmural thickening in the colon, pt has had cholecystectomy. No signs of appendicitis on CT Anemia of chronic disease - Received 1U RBCs in ED - Most recent Hgb 7.1 - Starting Epogen Hypomagnesium - 1.2 - Replaced with 1g Mg Low Bicarb, improving - Received bicarb in ED - Continue to monitor with daily labs Hypocalcemia - 4.4, replaced with 1 amp Ca gluconate, improved to 6.0 - Will replace with additional 1 amp Ca gluconate - PTH appropriately elevated - Continue to monitor with daily labs Diarrhea - Pt positive for C diff 04/2017 - C diff pending - Ordered stool cultures and O&P Hypokalemia - Will replace with 40mg PO - Monitor with CMP in AM HFrEF - Nonischemic cardiomyopathy- neg cath 07/2014 - Echo 01/16: EF 15-20%. - Continue home Carvedilol, Amlodipine - Daily weights, fluid restriction, strict I&Os HTN - Continue home amlodipine Hx of renal transplant 2015 - 04/22 Nephrotic Syndrome - Continue home Cellcept, Tacromlimus, valtrex, prednisone - Pt appears to be rejecting transplant as result of medication noncompliance Code Status: FULL <Alona Morales - Last Filed: 01/17/18 13:31> Attending Addendum - Attending Addendum Date/Time: 01/18/18 0901 I personally evaluated the patient and discussed the management with Dr. Morales yesterday. I agree with the History, Examination, Assessment and Plan documented above with any addition or exceptions noted below. <Aldo Mario - Last Filed: 01/18/18 09:01>
[2018-01-17] MEDS ORDERED: Sodium Chloride 0.9% 10 ML ONE ×2 (08:16→16:58)
[2018-01-17] MEDS ORDERED: Amlodipine 10 MG TAB PO SCH (09:00)
[2018-01-17] MEDS ORDERED: Carvedilol 25 MG TAB PO SCH (09:00)
[2018-01-17] MEDS: Mycophenolate 250 MG CAP PO SCH ×2 (09:10→21:43)
[2018-01-17] MEDS: Tacrolimus 1 MG CAP PO SCH ×2 (09:11→21:43)
[2018-01-17] MEDS: Famotidine 20 MG TAB PO SCH (09:13)
[2018-01-17] MEDS ORDERED: Heparin 10,000 UNITS/ 10 ML VIAL ONE (09:17)
[2018-01-17] MEDS: predniSONE 5 MG TAB PO SCH (09:20)
[2018-01-17 09:49] LABS: Hemoglobin 8.8 g/dL (12.0-16.0); Mean Corpuscular HGB CONC 31.8 g/dL (32.0-36.0); Mean Corpuscular Volume 94.5 fL (78.0-98.0); Platelet Count 208 thou/uL (130-400); Red Blood Cell (RBC) Count 2.92 mill/uL (4.20-5.40); White Blood Cell (WBC) Count 10.5 thou/uL (4.8-10.8)
[2018-01-17 10:22] LABS: ALT (SGPT) 85 U/L (8-55); AST (SGOT) 80 U/L (5-34); Albumin 4.1 g/dL (3.5-5.0); Alkaline Phosphatase 54 U/L (40-150); Anion Gap 21 mmol/L (10-20); BUN (Urea Nitrogen) 23 mg/dL (7.0-18.7); Bilirubin, Total 1.4 mg/dL (0.2-1.2); Calc. Creatinine Clearance 17 mL/min (70-130); Calcium 6.8 mg/dL (7.8-10.44); Carbon Dioxide 21 mmol/L (22-29); Chloride 101 mmol/L (98-107); Estimated GFR-MDRD 9; Globulin 3.3 g/dL (2.4-3.5); Glucose 131 mg/dL (70-105); Magnesium 1.8 mg/dL (1.6-2.6); Phosphorus 2.2 mg/dL (2.3-4.7); Potassium 3.6 mmol/L (3.5-5.1); Protein, Total 7.4 g/dL (6.0-8.3); Sodium 139 mmol/L (136-145)
--- NOTE | 2018-01-17 11:13 | SPC ---
LEFT UPPER EXTREMITY FISTULOGRAM SONOGRAPHIC GUIDED VASCULAR ACCESS OF THE LEFT UPPER EXTREMITY DIALYSIS FISTULA X 2: HISTORY: Renal failure. Difficulty accessing of left upper extremity dialysis fistula. TECHNIQUE: After explaining the procedure and answering all questions, the left upper extremity is prepped and d raped in the usual sterile fashion. Sterile technique, buffered local anesthesia, sonographic guidan ce, and a 22-gauge needle were used to carefully access the left forearm dialysis fistula directed to wards the anterior inflow. Initially, difficulty in access was seen to be due to preferential cathet erization and wire placement into a collateral vein. Angiographic runs show a widely patent very tor tuous cephalic vein at the level of the forearm. Crossing antecubital vein feeds very large patent c ephalic and basilic outflow to the level of a patent superior vena cava. No evidence of stricture. 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 Fairly prominent venous collateral at the level of the proximal radial shaft. Due to difficulty in good visualization at the level of the antecubital fossa initially, a second acc ess was obtained at the peripheral cephalic fistula with sonographic guidance. Again, some difficulty in access due to tortuosity of the vessel. Multiple vigorous attempts at eric ographic reflux of the arterial anastomosis were unsuccessful. Venous structures within the hand wer e well opacified, but the arterial anastomosis is never well seen. The catheters were removed and hemostasis obtained using direct pressure. The patient tolerated the procedure well and was returned to the room in unchanged condition. Fluoro time 4.1 minutes. IMPRESSION: The left upper extremity cephalic fistula is widely patent with good venous outflow to very large and patent cephalic and basilic veins of the upper arm. 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 The arterial inflow was never well visualized. This brings to question the caliber and effectiveness of thearterial anastomosis, although good washout was seen throughout the very large and patent fistula. Perhaps the tortuosity of the cephalic fistula throughout the forearm is the main cause of difficulty in access. Findings were discussed with Dr. Almanza on 01/17/2018 at 0810 hours. CODE CR POS: [facility]
[2018-01-17 12:13] LABS: HBSAg Index 0.21 S/CO (0-0.99); Hep B Core Total Ab Non-Reactive (NonReactive); Hep B Core Total Index 0.11 S/CO (0-0.79); Hep B Surf Ag Non-Reactive S/CO (NonReactive); Hep C IgG Ab Non-Reactive (NonReactive); Hep C Index 0.13 S/CO (0-0.79)
[2018-01-17 13:03] LABS: HBSAB Concentration 8.95 mIU/mL; Hep B Surf AB EQUIVOCAL (NonReactive)
[2018-01-17] MEDS: Calcium Carbonate + Vit D 1 TAB PO SCH ×2 (13:40→21:39)
[2018-01-17] MEDS: Calcitriol 0.25 MCG CAP PO SCH (13:41)
--- NOTE | 2018-01-17 14:20 | CON ---
DATE OF CONSULTATION: 01/17/2018 HISTORY OF PRESENT ILLNESS: Rosa M So is a 22-year-old black female who has been on dialysis since the age of 15. She had nephrotic syndrome with focal segmental glomerulonephritis. Also, in 06/2014, she was found to have ejection fraction of 20-25%. In 07/2014, she underwent cardiac catheterization and had normal coronary arteries. Approximately 2 years ago, she underwent renal transplant at [facility] in [place]. She states that her heart was reevaluated and it was felt that her heart strength had improved to where she did not need a heart transplant. She has not had reevaluation of her cardiac function at this hospital since that time. She apparently did not follow up with her transplant surgeons in [place], but does state that she was taking the medications. She now presents complaining of increased shortness of breath, episodes of PND over the last 1-2 nights. She denied any significant chest discomfort. PAST MEDICAL HISTORY: End-stage renal disease, hypertension, anemia. MEDICATIONS: Amlodipine 10 mg daily, carvedilol 25 daily, Pepcid 40 mg daily, CellCept 1000 mg b.i.d., prednisone 5 mg daily, Prograf 4 mg b.i.d., Valcyte 450 mg daily. ALLERGIES: None. SOCIAL HISTORY: She does not smoke or drink. FAMILY HISTORY: Negative for coronary artery disease. PHYSICAL EXAMINATION: VITAL SIGNS: Blood pressure 150/110, pulse of 121. HEENT: PERRL. NECK: Supple. LUNGS: Chest is clear. CARDIAC: S1 and S2 are normal. There is an S3 present. There was no S4. ABDOMEN: Normal bowel sounds, without tenderness or organomegaly. EXTREMITIES: Revealed no edema. SKIN: Warm and dry. NEUROLOGIC: Grossly intact. LABORATORY DATA: EKG reveals sinus tachycardia with rate of 113 per minute, nonspecific ST and T-wave changes. Hemoglobin 8.8, hematocrit 27.6, white count 10,500, platelets 206. Sodium 139 , potassium 3.6, chloride 101, carbon dioxide 21, BUN 23, creatinine 6.87. IMPRESSION: 1. Severe ischemic cardiomyopathy. 2. Resting tachycardia. 3. History of renal disease, S/P transplant and now restarting dialysis. 4. Hypertension, poorly controlled. 5. Anemia. PLAN: With her resting tachycardia and elevated blood pressure, carvedilol will be increased to 25 mg b.i.d., which is a more physiologic dose than daily dosing. Also, amlodipine was discontinued. Instead, she will be placed on NATALIIA inhibitor. More volume will need to be removed at the time of dialysis. MTDD
[2018-01-17] MEDS ORDERED: Fentanyl 100 MCG/2 ML VIAL ONE ×2 (15:01→17:02)
[2018-01-17] MEDS ORDERED: Sodium Chloride 0.9% 250 ML 250 ML IV SCH (15:30)
--- NOTE | 2018-01-17 15:45 | PDOC.EVN ---
Event Note - Event Note Event Note: Residents paged at 1515, pt tachypnic, tachycardic 130, BP 158/114. Pt reports feeling short of breath since admission with recent worsening and orthopnea. She has continued to have multiple episodes of diarrhea. She denies CP or palpitations PE: Lungs CTA, Sinus Tachycardia. P: 130 BP: 158/114 SpO2: 99% RA Plan: Will obtain CXR, EKG, D-Dimer, Troponin to evaluate for cardiopulmonary cause. Of note pt has hx of CHF with EF 15-20% but lungs CTA on exam. Pt with recent positive C diff result and appears to be dehydrated on exam, will give small bolus 250ml due to pts ESRD on HD Pt has had multiple electrolyte abnormalities during hospitalization, will check BMP, Ph, Mg
[2018-01-17] MEDS ORDERED: Labetalol HCl 100 MG/20 ML VIAL ONE (15:57)
[2018-01-17 16:24] LABS: Anion Gap 22 mmol/L (10-20); BUN (Urea Nitrogen) 26 mg/dL (7.0-18.7); Calc. Creatinine Clearance 15 mL/min (70-130); Calcium 6.7 mg/dL (7.8-10.44); Carbon Dioxide 19 mmol/L (22-29); Chloride 102 mmol/L (98-107); Estimated GFR-MDRD 8; Glucose 121 mg/dL (70-105); Magnesium 1.8 mg/dL (1.6-2.6); Phosphorus 2.3 mg/dL (2.3-4.7); Potassium 3.6 mmol/L (3.5-5.1); Sodium 139 mmol/L (136-145)
[2018-01-17] MEDS ORDERED: CEFAZOLIN 2 GM/50 ML BAG ONE (16:25)
[2018-01-17 16:30] LABS: Troponin I 0.136 ng/mL (< 0.028)
--- NOTE | 2018-01-17 16:57 | RAD ---
RADIOGRAPH CHEST 1 VIEW: Date: 01/17/18 Time: 1545 HOURS HISTORY: 22-year-old female with tachypnea and dyspnea. COMPARISON: 2 view study of 10/16/16. FINDINGS: The cardiac size has become much larger now. There is a new finding of partial silhouetting of the le ft hemidiaphragm. The rest of the visualized lung richard are clear. No pneumothorax. Right lateral co stophrenic angle is sharp. Partial effacement of left lateral costophrenic angle. IMPRESSION: 1. Somewhat severe cardiomegaly, but without pulmonary edema. 2. Small left pleural effusion and/or left lower lobe air space opacity. A lateral view may be usefu xena STRANGE [] POS: [facility]
[2018-01-17] MEDS ORDERED: Bupivacaine HCl 0.5%/Epinephrine 1:200,000/PF 30 ml Vial ONE (16:58)
[2018-01-17] MEDS ORDERED: Lidocaine 2% PF 5 ML VIAL ONE (16:58)
[2018-01-17] MEDS ORDERED: Heparin 10,000 UNITS/1 ML VIAL ONE (16:58)
[2018-01-17] MEDS ORDERED: Ioversol 68 % 50 ML VIAL ONE (16:58)
[2018-01-17] MEDS ORDERED: Protamine Sulfate 50 MG/5 ML VIAL ONE (16:58)
[2018-01-17] MEDS ORDERED: Ketamine 50 MG/ML VIAL ONE (17:03)
[2018-01-17] MEDS ORDERED: PROPOFOL 20 ML ONE (17:03)
[2018-01-17] MEDS ORDERED: Midazolam HCl 2 mg/2 ml Vial ONE (17:03)
--- NOTE | 2018-01-17 17:21 | PDOC.EVN ---
Event Note - Event Note Event Note: D-Dimer elevated, ordered CTA. Surgeon notified, elected to take pt back to OR with CTA immediately after.
[2018-01-17] MEDS ORDERED: CEFAZOLIN/Water 2 GM/20 ML SYRINGE SLOW IVP SCH (17:45)
--- NOTE | 2018-01-17 18:46 | PRG ---
DATE OF SERVICE: 01/17/2018 SUBJECTIVE: Patient was seen and examined at bedside and overnight events noted. Patient denies any shortness of breath or chest pain or palpitation. No history of nausea or vomiting or diarrhea or fever or chills or cramps. OBJECTIVE: GENERAL: This is a well-built -[place] female, in no apparent distress. VITAL SIGNS: Temperature 98.2, pulse 100, respiratory rate 18, blood pressure 150/110. HEENT: Atraumatic, normocephalic. Oral mucosa is moist. NECK: Supple. CARDIOVASCULAR: S1, S2 heard. Rate and rhythm regular. RESPIRATORY: Clear to auscultation. GASTROINTESTINAL: Abdomen is soft. MUSCULOSKELETAL: No tenderness. No edema. DERMATOLOGIC: No skin rash. NEUROLOGIC: Alert and awake and oriented x3. No focal neurologic deficits. Moving all the extremities. PSYCHIATRIC: Mood and affect normal. LABORATORY DATA: Potassium is 3.6, BUN 26, creatinine is 7.4. ASSESSMENT AND PLAN: 1. End-stage renal disease on hemodialysis. We will plan on dialysis. 2. Edema, controlled. 3. Hypertension, stable. 4. Hypokalemia, stable. 5. Labs stable. We will continue on dialysis as tolerated. MTDD
[2018-01-17] MEDS: Vancomycin HCl 25 MG/ML Oral PO SCH ×2 (21:35→21:42)
[2018-01-17 21:38] LABS: Troponin I 0.158 ng/mL (< 0.028)
[2018-01-17] MEDS: Acetaminophen 325 MG TAB PO PRN (21:42)
[2018-01-17] MEDS: Lisinopril 20 MG TAB PO SCH (21:44)
[2018-01-17] MEDS: Carvedilol 25 MG TAB PO SCH (21:45)
--- NOTE | 2018-01-17 22:06 | CT ---
CT ANGIOGRAM OF THE CHEST: 01/17/18 HISTORY: Shortness of breath. COMPARISON: None. TECHNIQUE: CT angiogram of the chest is performed in the axial plane. Three dimensional reformatted images are s ubmitted for interpretation. FINDINGS: Trachea and central bronchi are patent. Dependent atelectatic changes. Nonspecific ground glass opaci ties in the left lower lobe. An infiltrate cannot be excluded. No pleural effusion or pneumothorax. Reflux of contrast in the inferior vena cava is noted. Correlate for right heart failure. Heart is ma rkedly enlarged. There does appear to be some significant pericardial fluid. The visualized aorta has a normal caliber. No periaortic fat stranding. Adequate contrast opacification of the pulmonary jagdeep rial system to the level of the segmental arteries. No filling defect to suggest thromboembolism. Ashleigh luation of the subsegmental arteries is limited due to timing of bolus and motion. No lytic or blasti c lesions in the osseous structures. IMPRESSION: 1. Cardiomegaly. 2. Moderate amount of pericardial fluid. Reflux of contrast. Correlate for right heart failure/c ongestive heart failure. 3. No evidence of pulmonary artery embolism to the level of the segmental arteries. POS: [facility]
[2018-01-18 01:18] LABS: Troponin I 0.157 ng/mL (< 0.028)
[2018-01-18] MEDS: Vancomycin HCl 25 MG/ML Oral PO SCH ×3 (05:13→15:33)
[2018-01-18 05:58] LABS: Hemoglobin 7.9 g/dL (12.0-16.0); Mean Corpuscular HGB CONC 31.9 g/dL (32.0-36.0); Mean Corpuscular Hemoglobin 30.5 pg (27.0-31.0); Mean Corpuscular Volume 95.7 fL (78.0-98.0); Mean Platelet Volume 9.8 fL (7.4-10.4); Platelet Count 173 thou/uL (130-400); RBC Distribution Width 14.2 % (11.5-14.5); Red Blood Cell (RBC) Count 2.58 mill/uL (4.20-5.40); White Blood Cell (WBC) Count 7.7 thou/uL (4.8-10.8)
[2018-01-18 06:17] LABS: ALT (SGPT) 123 U/L (8-55); AST (SGOT) 115 U/L (5-34); Albumin 3.6 g/dL (3.5-5.0); Alkaline Phosphatase 48 U/L (40-150); Anion Gap 18 mmol/L (10-20); BUN (Urea Nitrogen) 33 mg/dL (7.0-18.7); Bilirubin, Total 0.9 mg/dL (0.2-1.2); Calc. Creatinine Clearance 13 mL/min (70-130); Calcium 6.1 mg/dL (7.8-10.44); Carbon Dioxide 22 mmol/L (22-29); Chloride 100 mmol/L (98-107); Estimated GFR-MDRD 7; Globulin 3.1 g/dL (2.4-3.5); Glucose 115 mg/dL (70-105); Phosphorus 3.1 mg/dL (2.3-4.7); Potassium 3.9 mmol/L (3.5-5.1); Protein, Total 6.7 g/dL (6.0-8.3); Sodium 136 mmol/L (136-145)
--- NOTE | 2018-01-18 06:41 | PDOC.FM ---
- Subjective Subjective: Pt reports continued diarrhea but decreased frequency and pain associated with it. Her abdominal pain has improved but reports having new menstrual cramping. Nausea has improved, denies episodes of vomiting overnight but did have some gagging at one point. She is going to dialysis this morning. No questions at this time. - Objective MAR Reviewed: Yes Vital Signs & Weight: Vital Signs (12 hours) Temp Pulse Resp BP BP Pulse Ox 01/18/18 05:55 97.7 F 97 20 114/79 98 01/18/18 00:30 97.3 F L 93 20 106/71 97 01/17/18 22:08 97.3 F L 119 H 26 H 140/101 H 99 01/17/18 21:44 140/101 H 01/17/18 20:00 99 Weight Weight 82.191 kg Most Recent Monitor Data Heart Rate from ECG 93 NIBP 134/81 Respiration from ECG 16 I&O: 01/16/18 01/17/18 01/18/18 06:59 06:59 06:59 Intake Total 300 1230 630 Output Total 500 450 25 Balance -200 780 605 Result Diagrams: 01/18/18 05:23 01/18/18 05:23 <Alona Morales - Last Filed: 01/18/18 08:59> - Objective Vital Signs & Weight: Vital Signs (12 hours) Temp Pulse Resp BP BP Pulse Ox 01/18/18 11:42 143/98 H 01/18/18 08:00 96.3 F L 96 25 H 116/80 98 01/18/18 05:55 97.7 F 97 20 114/79 98 Weight Weight 82.191 kg Most Recent Monitor Data Heart Rate from ECG 93 NIBP 134/81 Respiration from ECG 16 I&O: 01/17/18 01/18/18 01/19/18 06:59 06:59 06:59 Intake Total 1230 630 Output Total 450 25 Balance 780 605 Result Diagrams: 01/18/18 05:23 01/18/18 05:23 <Aldo Mario - Last Filed: 01/18/18 15:52> Phys Exam - Physical Examination Constitutional: NAD Neck: supple Respiratory: no wheezing, clear to auscultation bilateral Cardiovascular: RRR S3 heart sound Gastrointestinal: soft, positive bowel sounds Less tender to palpation than yesterday Musculoskeletal: no edema Psychiatric: normal affect, A&O x 3 <Alona Morales - Last Filed: 01/18/18 08:59> Dx/Plan (1) Low bicarbonate level Code(s): E87.8 - OTH DISORDERS OF ELECTROLYTE AND FLUID BALANCE, NEC Status: Acute (2) ANISH (acute kidney injury) Code(s): N17.9 - ACUTE KIDNEY FAILURE, UNSPECIFIED Status: Acute (3) CHF (congestive heart failure) Code(s): I50.9 - HEART FAILURE, UNSPECIFIED Status: Acute (4) ESRD (end stage renal disease) on dialysis Code(s): N18.6 - END STAGE RENAL DISEASE; Z99.2 - DEPENDENCE ON RENAL DIALYSIS Status: Acute (5) Fluid overload Code(s): E87.70 - FLUID OVERLOAD, UNSPECIFIED Status: Acute (6) HTN (hypertension) Code(s): I10 - ESSENTIAL (PRIMARY) HYPERTENSION Status: Acute Qualifiers: Hypertension type: essential hypertension Qualified Code(s): I10 - Essential (primary) hypertension (7) History of CHF (congestive heart failure) Code(s): Z86.79 - PERSONAL HISTORY OF OTHER DISEASES OF THE CIRCULATORY SYSTEM Status: Chronic (8) Immunocompromised patient Code(s): D84.9 - IMMUNODEFICIENCY, UNSPECIFIED Status: Chronic (9) Status post kidney transplant Code(s): Z94.0 - KIDNEY TRANSPLANT STATUS Status: Chronic - Plan Plan: ESRD - Initial GFR 4, with low bicarb - Prior hospitalization in March 2017 showed CKD, stage 4 - Consulted Nephrology, Dr. Mendoza who she sees outpt, apprec recs - Urgent hemodialysis 01/15 for metabolic acidosis and renal failure, s/p bicarb in ED - Daily wts, strict I&Os, Renal high protein diet - Renal dosed meds - Surgery, Dr Almanza consulted for revision of fistula - Currently receiving HD with dialysis catheter Acute C Diff Colitis - Positive C diff this admission, also treated 04/2017 - CT: transmural thickening in the colon - Started PO Vancomycin 01/18 - Stool cultures and O&P pending Elevated D-Dimer - CTA neg for PE - Likely elevated as result of pts ESRD HFrEF - Nonischemic cardiomyopathy- neg cath 07/2014 - Echo 01/16: EF 15-20%. - Consulted Cardiology, apprec recs - Continue home Carvedilol with BID dosing - Discontinued Amlodipine, started Lisinopril - Daily weights, fluid restriction, strict I&Os Hypocalcemia - 6.1 today, will replace with 1 amp Ca Gluconate - Pt has been unable to tolerate PO Ca due to n/v - PTH appropriately elevated - Continue to monitor with daily labs Anemia of chronic disease - s/p 2U RBCs - Starting Epogen Hypomagnesium, resolved Low Bicarb, resolved - Continue to monitor with daily labs Hypokalemia, resolved - Continue to monitor HTN, poorly controlled - Continue home Carvedilol with BID dosing - Discontinued Amlodipine, started Lisinopril Hx of renal transplant 2015 - 04/22 Nephrotic Syndrome with focal segmental glomerulonephritis - Continue home Cellcept, Tacromlimus, valtrex, prednisone - Pt appears to be rejecting transplant as result of medication noncompliance - Pt has not been following with transplant surgeon at [facility] in [place] Code Status: FULL <Alona Morales - Last Filed: 01/18/18 08:59> Attending Addendum - Attending Addendum Date/Time: 01/18/18 1552 I personally evaluated the patient and discussed the management with Dr. Morales. I agree with the History, Examination, Assessment and Plan documented above with any addition or exceptions noted below. <Aldo Mario - Last Filed: 01/18/18 15:52>
[2018-01-18] MEDS ORDERED: Calcium Gluconate 4.6 MEQ in Sodium Chloride 0.9% 100 ML IVPB ONE (06:42)
[2018-01-18] MEDS: Calcium Carbonate + Vit D 1 TAB PO SCH (08:25)
[2018-01-18] MEDS: Calcitriol 0.25 MCG CAP PO SCH (08:25)
[2018-01-18] MEDS: Metoclopramide HCl 10 MG/2 ML VIAL IVP PRN (08:28)
[2018-01-18] MEDS: Mycophenolate 250 MG CAP PO SCH (08:41)
[2018-01-18] MEDS: Tacrolimus 1 MG CAP PO SCH (08:42)
[2018-01-18] MEDS: Acetaminophen 325 MG TAB PO PRN (08:49)
[2018-01-18] MEDS: Epoetin (ESRD) 10,000 UNITS/ML VIAL IVP SCH (10:15)
[2018-01-18] MEDS: Lisinopril 20 MG TAB PO SCH (11:42)
[2018-01-18] MEDS: Famotidine 20 MG TAB PO SCH (11:43)
[2018-01-18] MEDS: Carvedilol 25 MG TAB PO SCH ×2 (11:43→17:03)
[2018-01-18] MEDS: predniSONE 5 MG TAB PO SCH (11:43)
--- NOTE | 2018-01-18 15:43 | EKG ---
Test Reason : Blood Pressure : / mmHG Vent. Rate : 127 BPM Atrial Rate : 127 BPM P-R Int : 096 ms QRS Dur : 090 ms QT Int : 408 ms P-R-T Axes : 023 088 125 degrees QTc Int : 592 ms Sinus tachycardia with short AK with frequent Premature ventricular complexes Abnormal ECG Confirmed by HOLLY SILVEIRA ([id number]) on 01/18/2018 3:43:18 PM Referred By: GONZALEZ *r Confirmed By:HOLLY SILVEIRA
[2018-01-18] MEDS ORDERED: Bupivacaine HCl 0.5%/Epinephrine 1:200,000/PF 30 ml Vial ONE (16:55)
[2018-01-18] MEDS ORDERED: Heparin 5,000 UNITS/ML VIAL ONE (16:55)
[2018-01-18] MEDS ORDERED: Lidocaine 2% PF 5 ML VIAL ONE (16:55)
[2018-01-18] MEDS ORDERED: Ioversol 68 % 50 ML VIAL ONE ×2 (16:55→19:55)
[2018-01-18] MEDS ORDERED: Protamine Sulfate 50 MG/5 ML VIAL ONE (16:55)
[2018-01-18] MEDS ORDERED: Heparin 10,000 UNITS/1 ML VIAL ONE (16:58)
[2018-01-18] MEDS ORDERED: Sodium Chloride 0.9% 10 ML ONE (16:58)
[2018-01-18] MEDS ORDERED: Ketamine 50 MG/ML VIAL ONE (17:10)
[2018-01-18] MEDS ORDERED: traMADol HCl 50 MG TAB PO PRN (18:00)
[2018-01-18] MEDS ORDERED: Sodium Chloride 0.9% 20 ML ONE (18:01)
--- NOTE | 2018-01-18 20:09 | PRG ---
DATE OF SERVICE: 01/18/2018 SUBJECTIVE: Patient was seen and examined at bedside and overnight events noted. Patient denies any shortness of breath or chest pain or palpitation. No history of nausea or vomiting or diarrhea or f ever or chills or cramps. OBJECTIVE: GENERAL: This is a well-built female in no apparent distress. VITAL SIGNS: Temperature 97.7, pulse 69, respiratory rate 20, blood pressure 128/88. HEENT: Atraumatic, normocephalic. Oral mucosa is moist. NECK: Supple CARDIOVASCULAR: S1, S2 heard. Rate and rhythm regular. RESPIRATORY: Clear to auscultation. GASTROINTESTINAL: Abdomen is soft. MUSCULOSKELETAL: No tenderness, no edema. DERMATOLOGIC: No skin rash. NEUROLOGIC: Alert, awake, and oriented x3. No focal neurologic deficits. Moving all the extremitie s. PSYCHIATRIC: Mood and affect normal. LABORATORY DATA: Potassium is 3.9, BUN is 33, creatinine is 8.6. ASSESSMENT AND PLAN: 1. End-stage renal disease. We will continue on dialysis as tolerated. 2. Edema, controlled. 3. Hypertension, stable. 4. Hypokalemia. We will continue on dialysis as tolerated.
[2018-01-18] MEDS ORDERED: Ondansetron HCl/PF 4 MG/2 ML Vial IVP PRN (21:07)
[2018-01-18] MEDS ORDERED: Promethazine HCl 25 MG/ML VIAL IM PRN (21:07)
[2018-01-18] MEDS ORDERED: Promethazine HCl 25 MG/ML VIAL SLOW IVP PRN (21:07)
[2018-01-18] MEDS ORDERED: Fentanyl 100 MCG/2 ML VIAL ONE (21:26)
--- NOTE | 2018-01-18 21:44 | RAD ---
CHEST ONE VIEWS: 01/18/18 COMPARISON: 01/17/18. HISTORY: Status post line placement. FINDINGS: Interval placement of a left sided hemosplit dialysis catheter. Distal tip is in the expected region of the superior vena cava and right atrium. Persistent cardiomegaly. There is opacification of the le ft hemidiaphragm suggesting pleural and parenchymal changes. No pneumothorax or osseous abnormalities . IMPRESSION: 1. Pleural and parenchymal changes left lung base. 2. Persistent cardiomegaly. 3. Interval placement of a left sided hemosplit dialysis catheter. No pneumothorax. POS: [facility]
--- NOTE | 2018-01-18 22:02 | PDOC.CTH ---
Cardiology Progress Note - Subjective She is feeling better. Her breathing is closer to baseline. - Objective Vital Signs Temp Pulse Resp BP BP Pulse Ox 01/18/18 16:30 97.7 F 89 20 128/88 01/18/18 12:00 96.5 F L 94 22 H 143/98 H 98 01/18/18 11:42 143/98 H Weight 181 lb 3.2 oz 01/17/18 01/18/18 01/19/18 06:59 06:59 06:59 Intake Total 1230 630 170 Output Total 010 87 9170 Balance 780 605 -830 - Physical Examination General/Neuro: alert & oriented x3, NAD Neck: no JVD present Lungs: CTA, unlabored respirations Heart: RRR Abdomen: NT/ND Extremities: + edema B (1+) - Telemetry Telemetry Rhythm: NSR - Labs Result Diagrams: 01/18/18 05:23 01/18/18 05:23 Troponin/CKMB Troponin I 0.157 ng/mL (< 0.028) H 01/18/18 00:43 - Assessment/Plan 1. ESRD 2. Acute on chronic systolic heart failure 3. Non ischemic CM. 4. LVEF at 10-15% 5. HTN. 6. Anemia of chronic disease. PLAN: - Doing better after hemodyalisis. - She is a candidate for an AICD as she has had a reduced EF since 2015. - She has not followed up in the office. - AICD placement may be challenging due to vascular access and need for dialysis access as well. - Will consult EP for consideration of an AICD.
[2018-01-19] MEDS: Vancomycin HCl 25 MG/ML Oral PO SCH ×5 (00:35→21:25)
[2018-01-19] MEDS: Mycophenolate 250 MG CAP PO SCH ×3 (00:36→19:42)
[2018-01-19] MEDS: traMADol HCl 50 MG TAB PO PRN ×3 (00:37→11:38)
[2018-01-19] MEDS: Lisinopril 20 MG TAB PO SCH ×2 (00:39→11:08)
[2018-01-19] MEDS: Tacrolimus 1 MG CAP PO SCH ×3 (00:51→19:43)
[2018-01-19] MEDS: Calcium Carbonate + Vit D 1 TAB PO SCH ×3 (02:04→17:01)
--- NOTE | 2018-01-19 03:08 | OP ---
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 PROCEDURES: Left IJ cuffed-tunneled hemodialysis catheter, ultrasound fluoroscopy used. Inability t o place a right IJ catheter, although able to cannulate the vein. The wire would not thread due to t hisIJ outflow obstruction. 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 Intrao perative arteriograms revealed excellent arterial inflow. Findings, perforating branch of the antecu bital vein patent with outflow upper arm cephalic and basilic vein which was very large. ESTIMATED BLOOD LOSS: 100 mL BLOOD TRANSFUSED. None. INDICATIONS: The patient had a left Niko fistula placed when probably more than 10 years ago, she had a transplant two years ago, but suffered rejection and now has not been able to use her fistula. Fistulogram obtained revealed questionable arterial inflow problems. The patient previously buttonh oled in the past due to inability to cannulate this tortuous fistula. FINDINGS: Excellent conduit adequately dilated and this should function well, basilic and ceph alic vein for future use should be necessary. No cardiomyopathy, nonischemic, 15-20% ejection fracti on. PROCEDURE IN DETAIL: The patient was taken to the operating room where under intravenous sedation an d regional anesthesia, neck, chest, left arm, and axilla prepared with ChloraPrep, draped in routine fashion. Local anesthetic mixture of 0.5% Marcaine with epinephrine of 30 mL, mixed with 2% Xylocain e, 10 mL infiltrated into skin and subcutaneous tissue about the operative site for placement of the attempted central line and hemodialysis catheter. Using ultrasound guidance, I was able to cannulate the right internal jugular vein, but J-wire would not thread. Fluoroscopic imaging facilitated this and although I can cannulate the very distended right jugular vein, the outflow tract was obstructed and this site was abandoned. Left internal jugular vein was cannulated with trocar catheter J-wire threaded. Initially, this would not thread, but a higher puncture site enable this to thread into th e superior vena cava. Stab incision made at the J-wire entrance site over the left chest using the t unneling device, the longer hemodialysis catheter tunneled between the two sites, placed the fabric c uff beneath the skin exit site over the chest and catheter secured with 2 interrupted sutures of 3-0 nylon and sterile dressing was applied. Smaller and medium sized dilators were placed over the J-wir e into the internal jugular vein removed. Dilator and pull-away sheath placed over the J-wire under fluoroscopic visualization. Position into the superior vena cava and dilator and J-wire removed. Ca theter placed with pull-away sheath and pull-away sheath removed. Fluoroscopic images revealed, the catheter was in good position in the superior vena cava. Platysma approximated with 4-0 Monocryl, sk in with subdermal 4-0 Monocryl. DermaGlue applied. Each port aspirated blood and flushed with salin e solution and heparin solution of 1000 units heparin mL indicated volume of the port. Attention was then turned to the left arm, incision was made from the antecubital area to the wrist, unroofing the cephalic vein fistula in the forearm. It was very large, but very tortuous. Branches divided between clips and 4-0 silk ties. Vein mobilized throughout its length. There was aneurysmal dilatation near the arterial inflow of the vein near the wrist. This was carefully dissected free. Radial artery inflow and outflow was identified. The patient was given 6000 units heparin intraveno usly. A 16-gauge cannulated the fistula in the mid forearm and angiograms obtained using fluoroscopy revealing good arterial anastomosis. Revision was not necessary. Hemostasis gained with 6-0 Prolen e. An NG catheter removed. Aneurysmal dilatation near the arterial inflow was repaired by placing a vascular clamp, excising this and running locking sutures of 4-0 Prolene to get rid of this an eurysmal dilatation. Once this was completed, good hemostasis was noted, patient was given 50 mg of protamine intravenously. Surgicel placed in the harvest bed of the fistula and a flap created in the medial forearm, mobilizing the fistula medially to straighten it. Once this was achieved, hemostasi s gained with the cautery and this pocket closed with continuous, sometimes locking sutures of 3-0 ch romic to secure the transposed fistula into its new more medial forearm compartment. The incision wa s then closed with continuous locking interrupted [id number] sutures of 3-0 Monocryl and skin ap proximated with kody. A sterile dressing was applied. Patient tolerated the procedure well.
[2018-01-19] MEDS: Acetaminophen 500 MG TAB PO PRN ×2 (05:13→21:25)
[2018-01-19 05:52] LABS: Hemoglobin 7.3 g/dL (12.0-16.0); Mean Corpuscular HGB CONC 30.9 g/dL (32.0-36.0); Mean Corpuscular Volume 97.2 fL (78.0-98.0); Mean Platelet Volume 9.9 fL (7.4-10.4); Platelet Count 220 thou/uL (130-400); RBC Distribution Width 14.8 % (11.5-14.5); Red Blood Cell (RBC) Count 2.43 mill/uL (4.20-5.40); White Blood Cell (WBC) Count 9.2 thou/uL (4.8-10.8)
[2018-01-19 06:14] LABS: ALT (SGPT) 90 U/L (8-55); AST (SGOT) 43 U/L (5-34); Albumin 3.3 g/dL (3.5-5.0); Alkaline Phosphatase 46 U/L (40-150); Anion Gap 19 mmol/L (10-20); BUN (Urea Nitrogen) 32 mg/dL (7.0-18.7); Bilirubin, Total 0.6 mg/dL (0.2-1.2); Calc. Creatinine Clearance 15 mL/min (70-130); Calcium 6.5 mg/dL (7.8-10.44); Carbon Dioxide 21 mmol/L (22-29); Chloride 101 mmol/L (98-107); Estimated GFR-MDRD 8; Globulin 2.6 g/dL (2.4-3.5); Glucose 102 mg/dL (70-105); Magnesium 1.7 mg/dL (1.6-2.6); Phosphorus 4.9 mg/dL (2.3-4.7); Potassium 3.9 mmol/L (3.5-5.1); Protein, Total 5.9 g/dL (6.0-8.3); Sodium 137 mmol/L (136-145)
--- NOTE | 2018-01-19 06:33 | PDOC.FM ---
- Subjective Subjective: Reports feeling much better. Fistula revision went well yesterday. She reports Dr Su came to see her this morning and would like to follow with her outpatient for further evaluation for AICD placement. Her nausea, vomiting has resolved. Continues to have some diarrhea but has greatly improved in frequency and pain. Denies SOB, CP. - Objective MAR Reviewed: Yes Vital Signs & Weight: Vital Signs (12 hours) Temp Pulse Resp BP BP Pulse Ox 01/19/18 04:00 98.4 F 92 20 112/95 H 95 01/19/18 00:39 128/91 H 01/19/18 00:00 92 24 H 114/75 99 01/18/18 22:35 98.1 F 92 20 127/97 H 96 Weight Weight 84.141 kg Most Recent Monitor Data Heart Rate from ECG 93 NIBP 134/81 Respiration from ECG 16 I&O: 01/17/18 01/18/18 01/19/18 06:59 06:59 06:59 Intake Total 1230 630 170 Output Total 946 16 9385 Balance 780 605 -830 Result Diagrams: 01/19/18 05:05 01/19/18 05:05 <Alona Morales - Last Filed: 01/19/18 09:11> - Objective Vital Signs & Weight: Vital Signs (12 hours) Temp Pulse Resp BP BP Pulse Ox 01/19/18 11:08 121/78 01/19/18 07:11 98.4 F 82 20 119/67 95 01/19/18 04:00 98.4 F 92 20 112/95 H 95 01/19/18 00:39 128/91 H 01/19/18 00:00 92 24 H 114/75 99 Weight Weight 84.141 kg Most Recent Monitor Data Heart Rate from ECG 93 NIBP 134/81 Respiration from ECG 16 I&O: 01/18/18 01/19/18 01/20/18 06:59 06:59 06:59 Intake Total 630 170 Output Total 25 1000 Balance 605 -830 Result Diagrams: 01/19/18 05:05 01/19/18 05:05 <Aldo Mario - Last Filed: 01/19/18 11:32> Phys Exam - Physical Examination Constitutional: NAD Neck: supple Respiratory: no wheezing, clear to auscultation bilateral Cardiovascular: RRR S3 heart sound heard Gastrointestinal: soft, positive bowel sounds mildly tender subrapubically, pt reports due to menstration Musculoskeletal: no edema Psychiatric: normal affect, A&O x 3 <Alona Morales - Last Filed: 01/19/18 09:11> Dx/Plan (1) Low bicarbonate level Code(s): E87.8 - OTH DISORDERS OF ELECTROLYTE AND FLUID BALANCE, NEC Status: Acute (2) ANISH (acute kidney injury) Code(s): N17.9 - ACUTE KIDNEY FAILURE, UNSPECIFIED Status: Acute (3) CHF (congestive heart failure) Code(s): I50.9 - HEART FAILURE, UNSPECIFIED Status: Acute (4) ESRD (end stage renal disease) on dialysis Code(s): N18.6 - END STAGE RENAL DISEASE; Z99.2 - DEPENDENCE ON RENAL DIALYSIS Status: Acute (5) Fluid overload Code(s): E87.70 - FLUID OVERLOAD, UNSPECIFIED Status: Acute (6) HTN (hypertension) Code(s): I10 - ESSENTIAL (PRIMARY) HYPERTENSION Status: Acute Qualifiers: Hypertension type: essential hypertension Qualified Code(s): I10 - Essential (primary) hypertension (7) History of CHF (congestive heart failure) Code(s): Z86.79 - PERSONAL HISTORY OF OTHER DISEASES OF THE CIRCULATORY SYSTEM Status: Chronic (8) Immunocompromised patient Code(s): D84.9 - IMMUNODEFICIENCY, UNSPECIFIED Status: Chronic (9) Status post kidney transplant Code(s): Z94.0 - KIDNEY TRANSPLANT STATUS Status: Chronic - Plan Plan: ESRD - Initial GFR 4, with low bicarb - Prior hospitalization in March 2017 showed CKD, stage 4 - Consulted Nephrology, Dr. 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 - Consulted Cardiology, apprec recs - Continue home Carvedilol, Lisinopril - Daily weights, fluid restriction, strict I&Os - EP has been consulted for consideration of an AICD placement Hypocalcemia - Pt has been unable to tolerate PO Ca due to n/v - PTH appropriately elevated - Continue to monitor with daily labs and replace as needed with IV Anemia of chronic disease - s/p 2U RBCs - Starting Epogen - Pt is currently on menstrual cycle and Hgb will likely continue to decrease, current Hgb 7.3 Elevated D-Dimer - CTA neg for PE - Likely elevated as result of pts ESRD Hypomagnesium, resolved Low Bicarb, resolved - Continue to monitor with daily labs Hypokalemia, resolved - Continue to monitor HTN, poorly controlled - Continue home Carvedilol, Lisinopril Hx of renal transplant 2015 - 04/22 Nephrotic Syndrome with focal segmental glomerulonephritis - Pt appears to be rejecting transplant as result of medication noncompliance - Pt has not been following with transplant surgeon at [facility] - Continue home Cellcept, Tacromlimus, valtrex, prednisone Code Status: FULL <Alona Morales - Last Filed: 01/19/18 09:11> Attending Addendum - Attending Addendum Date/Time: 01/19/18 1131 I personally evaluated the patient and discussed the management with Dr. Morales. I agree with the History, Examination, Assessment and Plan documented above with any addition or exceptions noted below. Possible discharge today. Ma need transfusion in the next several weeks. Will discuss with Dr Mendoza to arrange if needed. <Aldo Mario - Last Filed: 01/19/18 11:32>
[2018-01-19] MEDS ORDERED: Calcium Gluconate 4.6 MEQ in Sodium Chloride 0.9% 100 ML IVPB SCH (07:30)
[2018-01-19] MEDS: Famotidine 20 MG TAB PO SCH (11:08)
[2018-01-19] MEDS: predniSONE 5 MG TAB PO SCH (11:09)
[2018-01-19] MEDS: Calcitriol 0.25 MCG CAP PO SCH (11:09)
[2018-01-19] MEDS: Carvedilol 25 MG TAB PO SCH ×2 (11:09→17:01)
[2018-01-19] MEDS: Acetaminophen 325 MG TAB PO PRN (14:40)
--- NOTE | 2018-01-19 15:25 | PDOC.CTH ---
Cardiology Progress Note - Subjective She is doing well. Her diarrhea has improved. No other issues. - Objective Vital Signs Temp Pulse Resp BP BP Pulse Ox 01/19/18 11:08 121/78 01/19/18 11:05 98.6 F 85 18 126/79 98 01/19/18 07:11 98.4 F 82 20 119/67 95 01/19/18 04:00 98.4 F 92 20 112/95 H 95 Weight 185 lb 8 oz 01/18/18 01/19/18 01/20/18 06:59 06:59 06:59 Intake Total 630 170 Output Total 25 1000 Balance 605 -830 - Physical Examination General/Neuro: alert & oriented x3, NAD Neck: no JVD present Lungs: CTA, unlabored respirations Heart: RRR Abdomen: NT/ND Extremities: other: (no edema) - Telemetry Telemetry Rhythm: NSR - Labs Result Diagrams: 01/19/18 05:05 01/19/18 05:05 Troponin/CKMB Troponin I 0.157 ng/mL (< 0.028) H 01/18/18 00:43 - Assessment/Plan 1. Non ischemic dilated CM. 2. ESRD s/p kidney transplant 3. Renal transplant rejection 4. HTN PLAN: - She apparently had an improvement in her LV function in between out evaluations and that is the reason she did not have a heart transplant on top of her renal transplant. - She will need to have up titration of her CHF meds and re evaluation of her LV function in 3 months prior to decision on an AICD. - She will need a lifevest before discharge.
--- NOTE | 2018-01-19 18:17 | PRG ---
DATE OF SERVICE: 01/19/2018 SUBJECTIVE: Patient was seen and examined at bedside and overnight events noted. Patient denies any shortness of breath or chest pain or palpitation. No history of nausea or vomitin g or diarrhea or fever or chills or cramps. OBJECTIVE: GENERAL: This is well-built female, in no apparent distress. VITAL SIGNS: Temperature 96, pulse 85, respiratory rate 18, blood pressure 126/79. HEENT: Atraumatic, normocephalic. Oral mucosa is moist. NECK: Supple. CARDIOVASCULAR: S1 and S2 heard. Rate and rhythm regular. RESPIRATORY: Clear to auscultation. GASTROINTESTINAL: Abdomen is soft. MUSCULOSKELETAL: No tenderness. No edema. DERMATOLOGIC: No skin rash. NEUROLOGIC: Alert and awake and oriented x3. No focal neurologic deficits. Moving all the extremit ies. PSYCHIATRIC: Mood and affect normal. LABORATORY DATA: Potassium is 3.9, BUN 32, creatinine 7.5. ASSESSMENT AND PLAN: 1. End-stage renal disease. We will continue on dialysis Tuesday, , and Tuesday. 2. Edema, controlled. 3. Hypertension, stable. 4. Anemia. We will continue Epogen with dialysis. 5. We will continue to monitor.
--- NOTE | 2018-01-19 18:48 | CON ---
DATE OF CONSULTATION: 01/19/2018 ELECTROPHYSIOLOGY CONSULTATION CONSULTING PHYSICIAN: Travis Su M.D. REFERRING PHYSICIAN: Gavin Babin MD REASON FOR CONSULTATION: Chronic systolic heart failure. HISTORY OF PRESENT ILLNESS: Ms. So is a 22-year-old -[place] female with a history of nephrotic syndrome and focal segmental glomerulonephritis. She has been on dialysis since the age of 15. In 06/2014, she was also found to have severely reduced ejection fraction of 20% -25%, and a month later, she underwent cardiac catheterization revealing normal coronary arteries. Two years prior, she underwent renal transplant at [facility] and at that time it was found that her ejection fraction had improved slightly. Heart transplant had been a consideration until she had showed some improvement at that time. She has had intermittent followup with her transplant team in [place] and reports that she has recently stopped taking her transplant medication. She presented to [facility] complaining of increasing shortness of breath and episodes of PND over the 1-2 nights preceding coming to the hospital. She denies any heart racing, palpitations, chest pain, pressure, syncope, near syncope, stroke or stroke-like symptoms. She has been having some nausea, vomiting, and diarrhea. REVIEW OF SYSTEMS: Negative for fevers, chills, malaise, or unintentional weight loss. Negative for vision changes, speech changes or difficulty swallowing. Negative for heart racing, palpitations, chest pain, pressure, syncope, near syncope, stroke, stroke. Symptoms positive for worsening shortness of breath and PND. Negative for productive cough. Positive for nausea, vomiting, diarrhea. Negative for urinary frequency, hesitancy or blood in her urine. Negative for swelling in the extremities. PAST MEDICAL HISTORY: 1. End-stage renal disease requiring dialysis. 2. Hypertension. 3. Anemia. 4. Renal transplant at approximately 2016. 5. Chronic systolic heart failure, nonischemic cardiomyopathy, ejection fraction 20%-25% in 06/2014 now with a partially recovered ejection fraction 2015. ALLERGIES: None. HOME MEDICATIONS: Include amlodipine 10 mg daily, carvedilol 25 mg daily, Pepcid 40 mg daily, CellCept 1000 mg b.i.d., prednisone 5 mg daily, Prograf 4 mg p.o. b.i.d. and Valcyte 450 mg daily. FAMILY HISTORY: Noncontributory. SOCIAL HISTORY: Negative for alcohol, tobacco or illicit drug use. OBJECTIVE: VITAL SIGNS: Temperature 98.4, pulse 82, respirations 20, oxygen is 95% on room air, blood pressure 119/67. GENERAL: The patient is alert and oriented. Speech is clear. Affect is appropriate. She is in no apparent distress. HEENT: Pupils are equal, round, reactive, accommodating to light. Sclerae are anicteric. EOMs are intact. Oral mucosa is moist and pink. NECK: Supple without jugular venous distention. Thyroid is nonpalpable. LUNGS: Clear to auscultation bilaterally without wheezes, crackles or rhonchi. CARDIAC: Regular rate and rhythm. [place] S1, S2. Positive for S3, negative for S4. ABDOMEN: Normoactive bowel tones. No hepatosplenomegaly. Hepatojugular reflex is negative. EXTREMITIES: Warm and dry to touch without clubbing, cyanosis or edema. NEUROLOGIC: Grossly intact and nonfocal. MUSCULOSKELETAL: Gait was not assessed. DATABASE: EKGs and telemetry revealed sinus rhythm. LABORATORY DATA: Hemoglobin 7.3, hematocrit 23.6. WBC 9.2, platelet count is 220. Chemistry: Potassium 3.9. Sodium 137, BUN 32, creatinine 7.53, 4.9 , magnesium 1.7. IMPRESSION: 1. Nonischemic dilated cardiomyopathy. 2. End-stage renal disease, status post kidney transplant. 3. Uremic syndrome. 4. Renal transplant rejection. 5. Medical noncompliance. 6. Chronic systolic heart failure with a severely reduced ejection fraction partially recovered in the past, now 15%-20% by 2-dimensional echocardiogram on 01/16/2018, recently off medications. RECOMMENDATIONS: Given her medical noncompliance and recently coming off of her medications and sudden drop in ejection fraction, recommendation will be for a LifeVest for 3 months, resuming optimal medical management for that duration, but reevaluation of her ejection fraction in 3 months' time. If her ejection fraction remains less than or equal to 35%, at that time, consideration for prophylactic ICD is reasonable. Thank you for allowing us to participate in the care of this patient. NANCY
[2018-01-19] MEDS: READ PPD TEST SITE PO SCH ×2 (19:08→22:10)
--- NOTE | 2018-01-19 20:55 | PRG ---
DATE OF SERVICE: 01/19/2018 Rosa M So is doing well today. Her ejection fraction is low and EP has seen her to consider for a defibrillator; however, since her ejection fraction has recently deteriorated with a transplant reje ction. Recommendations are for a LifeVest for 3 months and reevaluation of cardiac function at that time prior to considering a defibrillator. The patient has good left hand function. She has good th rill and bruit beneath her surgical dressing left arm. The patient can be discharged home from surgi leanna standpoint. She has orders to remove her dressings left arm Tuesday, begin washing the wound da belgica with soap and water. She can leave the wound open at that time or wrap it with an Alex wrap. She should try to elevate above her heart with a pillow over her chest. She should follow up in my offi ce in two weeks for staple removal. At this point, I will see as needed this hospitalization.
[2018-01-20] MEDS: traMADol HCl 50 MG TAB PO PRN ×2 (00:14→18:17)
[2018-01-20] MEDS: Vancomycin HCl 25 MG/ML Oral PO SCH ×4 (04:18→22:09)
[2018-01-20 05:59] LABS: Hemoglobin 7.3 g/dL (12.0-16.0); Mean Corpuscular HGB CONC 30.5 g/dL (32.0-36.0); Mean Corpuscular Hemoglobin 29.6 pg (27.0-31.0); Mean Platelet Volume 9.8 fL (7.4-10.4); Platelet Count 129 thou/uL (130-400); RBC Distribution Width 15.4 % (11.5-14.5); Red Blood Cell (RBC) Count 2.46 mill/uL (4.20-5.40); White Blood Cell (WBC) Count 5.4 thou/uL (4.8-10.8)
[2018-01-20 06:05] LABS: ALT (SGPT) 67 U/L (8-55); AST (SGOT) 39 U/L (5-34); Alkaline Phosphatase 41 U/L (40-150); Anion Gap 13 mmol/L (10-20); BUN (Urea Nitrogen) 20 mg/dL (7.0-18.7); Bilirubin, Total 0.3 mg/dL (0.2-1.2); Calc. Creatinine Clearance 22 mL/min (70-130); Calcium 7.1 mg/dL (7.8-10.44); Carbon Dioxide 27 mmol/L (22-29); Chloride 98 mmol/L (98-107); Estimated GFR-MDRD 12; Globulin 2.9 g/dL (2.4-3.5); Glucose 99 mg/dL (70-105); Magnesium 2.2 mg/dL (1.6-2.6); Phosphorus 3.5 mg/dL (2.3-4.7); Protein, Total 5.9 g/dL (6.0-8.3); Sodium 134 mmol/L (136-145)
--- NOTE | 2018-01-20 06:06 | PDOC.FM ---
- Subjective Subjective: In dialysis this AM. Feels ready to go home. Her diarrhea and abdominal pain have improved. She is starting to have some left arm pain after surgery. - Objective MAR Reviewed: Yes Vital Signs & Weight: Vital Signs (12 hours) Temp Pulse Resp BP Pulse Ox 01/20/18 04:00 97.6 F 82 18 101/56 L 96 01/19/18 19:38 96.3 F L 80 16 97/62 Weight Weight 83.688 kg Most Recent Monitor Data Heart Rate from ECG 93 NIBP 134/81 Respiration from ECG 16 I&O: 01/18/18 01/19/18 01/20/18 06:59 06:59 06:59 Intake Total 630 170 480 Output Total 25 1000 950 Balance 605 -830 -470 Result Diagrams: 01/20/18 05:37 01/20/18 05:37 <Alona Morales - Last Filed: 01/20/18 08:45> - Objective Vital Signs & Weight: Vital Signs (12 hours) Temp Pulse Resp BP Pulse Ox 01/20/18 11:45 98 F 77 16 119/64 97 01/20/18 08:21 97.7 F 77 16 117/61 99 01/20/18 04:00 97.6 F 82 18 101/56 L 96 Weight Weight 83.688 kg Most Recent Monitor Data Heart Rate from ECG 93 NIBP 134/81 Respiration from ECG 16 I&O: 01/19/18 01/20/18 01/21/18 06:59 06:59 06:59 Intake Total 170 1080 Output Total 1000 950 Balance -830 130 Result Diagrams: 01/20/18 05:37 01/20/18 05:37 <Aldo Mario - Last Filed: 01/20/18 12:47> Phys Exam - Physical Examination Constitutional: NAD Neck: supple Respiratory: no wheezing, clear to auscultation bilateral Cardiovascular: RRR S3 Gastrointestinal: soft, non-tender, positive bowel sounds Psychiatric: normal affect, A&O x 3 <Alona Morales - Last Filed: 01/20/18 08:45> Dx/Plan (1) Low bicarbonate level Code(s): E87.8 - OTH DISORDERS OF ELECTROLYTE AND FLUID BALANCE, NEC Status: Acute (2) AINSH (acute kidney injury) Code(s): N17.9 - ACUTE KIDNEY FAILURE, UNSPECIFIED Status: Acute (3) CHF (congestive heart failure) Code(s): I50.9 - HEART FAILURE, UNSPECIFIED Status: Acute (4) ESRD (end stage renal disease) on dialysis Code(s): N18.6 - END STAGE RENAL DISEASE; Z99.2 - DEPENDENCE ON RENAL DIALYSIS Status: Acute (5) Fluid overload Code(s): E87.70 - FLUID OVERLOAD, UNSPECIFIED Status: Acute (6) HTN (hypertension) Code(s): I10 - ESSENTIAL (PRIMARY) HYPERTENSION Status: Acute Qualifiers: Hypertension type: essential hypertension Qualified Code(s): I10 - Essential (primary) hypertension (7) History of CHF (congestive heart failure) Code(s): Z86.79 - PERSONAL HISTORY OF OTHER DISEASES OF THE CIRCULATORY SYSTEM Status: Chronic (8) Immunocompromised patient Code(s): D84.9 - IMMUNODEFICIENCY, UNSPECIFIED Status: Chronic (9) Status post kidney transplant Code(s): Z94.0 - KIDNEY TRANSPLANT STATUS Status: Chronic - Plan Plan: ESRD - Initial GFR 4, with low bicarb - Prior hospitalization in March 2017 showed CKD, stage 4 - Consulted Nephrology, Dr. 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 - Consulted Cardiology, apprec recs - Continue home Carvedilol, Lisinopril - Daily weights, fluid restriction, strict I&Os - EP has been consulted for consideration of an AICD placement Hypocalcemia - Pt has been unable to tolerate PO Ca due to n/v - PTH appropriately elevated - Continue to monitor with daily labs and replace as needed with IV Anemia of chronic disease - s/p 2U RBCs - Starting Epogen - Pt is currently on menstrual cycle and Hgb will likely continue to decrease, current Hgb 7.3 Elevated D-Dimer - CTA neg for PE - Likely elevated as result of pts ESRD Hypomagnesium, resolved Low Bicarb, resolved - Continue to monitor with daily labs Hypokalemia, resolved - Continue to monitor HTN, poorly controlled - Continue home Carvedilol, Lisinopril Hx of renal transplant 2016 - / Nephrotic Syndrome with focal segmental glomerulonephritis - Pt appears to be rejecting transplant as result of medication noncompliance - Pt has not been following with transplant surgeon at [facility] - Continue home Cellcept, Tacromlimus, valtrex, prednisone Code Status: FULL <Alona Morales - Last Filed: 01/20/18 08:45> Attending Addendum - Attending Addendum Date/Time: 01/20/18 1247 I personally evaluated the patient and discussed the management with Dr. Morales. I agree with the History, Examination, Assessment and Plan documented above with any addition or exceptions noted below. <Aldo Mario - Last Filed: 01/20/18 12:47>
[2018-01-20] MEDS ORDERED: Acetaminophen 325 MG TAB PO PRN (06:10)
--- NOTE | 2018-01-20 06:22 | PDOC.FM ---
- Subjective Subjective: Feels well. Ready to go home. Abdominal pain and diarrhea improved. Postop pain controlled. - Objective MAR Reviewed: Yes Vital Signs & Weight: Vital Signs (12 hours) Temp Pulse Resp BP Pulse Ox 01/20/18 04:00 97.6 F 82 18 101/56 L 96 01/19/18 19:38 96.3 F L 80 16 97/62 Weight Weight 83.688 kg Most Recent Monitor Data Heart Rate from ECG 93 NIBP 134/81 Respiration from ECG 16 I&O: 01/18/18 01/19/18 01/20/18 06:59 06:59 06:59 Intake Total 630 170 480 Output Total 25 1000 950 Balance 605 -709 -470 Result Diagrams: 01/20/18 05:37 01/20/18 05:37 <Alona Morales - Last Filed: 01/20/18 12:15> - Objective Vital Signs & Weight: Weight Weight 84.141 kg Most Recent Monitor Data Heart Rate from ECG 93 NIBP 134/81 Respiration from ECG 16 Result Diagrams: 01/21/18 05:20 01/21/18 05:20 <Aldo Mario - Last Filed: 01/23/18 10:37> Dx/Plan (1) Low bicarbonate level Code(s): E87.8 - OTH DISORDERS OF ELECTROLYTE AND FLUID BALANCE, NEC Status: Acute (2) ANISH (acute kidney injury) Code(s): N17.9 - ACUTE KIDNEY FAILURE, UNSPECIFIED Status: Acute (3) CHF (congestive heart failure) Code(s): I50.9 - HEART FAILURE, UNSPECIFIED Status: Acute (4) ESRD (end stage renal disease) on dialysis Code(s): N18.6 - END STAGE RENAL DISEASE; Z99.2 - DEPENDENCE ON RENAL DIALYSIS Status: Acute (5) Fluid overload Code(s): E87.70 - FLUID OVERLOAD, UNSPECIFIED Status: Acute (6) HTN (hypertension) Code(s): I10 - ESSENTIAL (PRIMARY) HYPERTENSION Status: Acute Qualifiers: Hypertension type: essential hypertension Qualified Code(s): I10 - Essential (primary) hypertension (7) History of CHF (congestive heart failure) Code(s): Z86.79 - PERSONAL HISTORY OF OTHER DISEASES OF THE CIRCULATORY SYSTEM Status: Chronic (8) Immunocompromised patient Code(s): D84.9 - IMMUNODEFICIENCY, UNSPECIFIED Status: Chronic (9) Status post kidney transplant Code(s): Z94.0 - KIDNEY TRANSPLANT STATUS Status: Chronic - Plan Plan: ESRD s/p failed renal transplant - HD on , , Sat - Prior hospitalization in March 2017 showed CKD, stage 4 - Consulted Nephrology, Dr. 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 - Consulted Cardiology & EP, Dr Su, apprec recs - Continue home Carvedilol, Lisinopril - Daily weights, fluid restriction, strict I&Os - Will need repeat echo in 3 months, if EF <35% will likely have AICD placement - D/c with lifevest per cards recs Hypocalcemia - Pt has been unable to tolerate PO Ca due to n/v - PTH appropriately elevated - Continue to monitor with daily labs and replace as needed with IV Anemia of chronic disease - s/p 2U RBCs - Continue Epogen with dialysis Elevated D-Dimer - CTA neg for PE - Likely elevated as result of pts ESRD Hypomagnesium, resolved Low Bicarb, resolved - Continue to monitor with daily labs Hypokalemia, resolved - Continue to monitor HTN, poorly controlled - Continue home Carvedilol, Lisinopril Hx of renal transplant 2015 - 2/ Nephrotic Syndrome with focal segmental glomerulonephritis - Pt appears to be rejecting transplant as result of medication noncompliance - Pt has not been following with transplant surgeon at [facility] in [place] - Continue home Cellcept, Tacromlimus, valtrex, prednisone Code Status: FULL <Alona Morales - Last Filed: 01/20/18 12:15> Attending Addendum - Attending Addendum Date/Time: 01/23/18 1036 I personally evaluated the patient and discussed the management with Dr. Morales on 01/20/18. I agree with the History, Examination, Assessment and Plan documented above with any addition or exceptions noted below. <Aldo Mario - Last Filed: 01/23/18 10:37>
[2018-01-20] MEDS: Epoetin (ESRD) 10,000 UNITS/ML VIAL IVP SCH (09:41)
[2018-01-20] MEDS: Tacrolimus 1 MG CAP PO SCH ×2 (09:50→22:08)
[2018-01-20] MEDS: Calcium Carbonate + Vit D 1 TAB PO SCH ×2 (09:50→17:10)
[2018-01-20] MEDS: predniSONE 5 MG TAB PO SCH (09:50)
[2018-01-20] MEDS: Carvedilol 25 MG TAB PO SCH (09:50)
[2018-01-20] MEDS: Famotidine 20 MG TAB PO SCH (09:50)
[2018-01-20] MEDS: Mycophenolate 250 MG CAP PO SCH ×2 (09:51→22:08)
[2018-01-20] MEDS ORDERED: Heparin 10,000 UNITS/ 10 ML VIAL ONE (10:01)
[2018-01-20] MEDS: Acetaminophen 500 MG TAB PO PRN ×2 (11:06→22:09)
--- NOTE | 2018-01-20 13:06 | PDOC.CTH ---
Cardiology Progress Note - Subjective She is doing well. Breathing at baseline. - Objective Vital Signs Temp Pulse Resp BP Pulse Ox 01/20/18 11:45 98 F 77 16 119/64 97 01/20/18 08:21 97.7 F 77 16 117/61 99 01/20/18 04:00 97.6 F 82 18 101/56 L 96 Weight 184 lb 8 oz 01/19/18 01/20/18 01/21/18 06:59 06:59 06:59 Intake Total 170 1080 Output Total 1000 950 Balance -830 130 - Physical Examination General/Neuro: alert & oriented x3, NAD Neck: no JVD present Lungs: CTA, unlabored respirations Heart: RRR Abdomen: NT/ND Extremities: other: (no edema.) - Telemetry Telemetry Rhythm: NSR - Labs Result Diagrams: 01/20/18 05:37 01/20/18 05:37 Troponin/CKMB Troponin I 0.157 ng/mL (< 0.028) H 01/18/18 00:43 - Assessment/Plan 1. Non ischemic dilated CM. 2. ESRD s/p kidney transplant 3. Renal transplant rejection 4. HTN PLAN: - Off ACEI due to borderline low BP. - She will need to have up titration of her CHF meds and re evaluation of her LV function in 3 months prior to decision on an AICD. - Lifevest before discharge. - Will cut back on her Coreg and will try to start Entresto 24/26 mg BID. .- May discharge home once lifevest set up.
[2018-01-20] MEDS ORDERED: Carvedilol 6.25 MG TAB PO SCH (13:15)
--- NOTE | 2018-01-20 13:57 | PRG ---
DATE OF SERVICE: 01/20/2018 Rosa M So is doing well today. She has a good thrill and bruit in her left forearm fistula. Her dressings were removed and her wound looks good. She can wash this wound daily with soap and water a nd leave it open or apply dressings as necessary. She should follow up in my office in a week and a half to 2 weeks for staple removal. I will see her as needed this hospitalization. Please call if bienvenido black.
[2018-01-20] MEDS: Carvedilol 6.25 MG TAB PO SCH (17:10)
--- NOTE | 2018-01-20 20:54 | PRG ---
DATE OF SERVICE: 01/20/2018 SUBJECTIVE: Patient was seen and examined at bedside and overnight events noted. Patient denies any shortness of breath or chest pain or palpitation. No history of nausea or vomiting or diarrhea or f ever or chills or cramps. OBJECTIVE: GENERAL: This is a well-built female, in no apparent distress. VITAL SIGNS: Temperature , pulse 77, respiratory rate 16, blood pressure 119/64. HEENT: Atraumatic, normocephalic. Oral mucosa is moist. NECK: Supple. CARDIOVASCULAR: S1, S2 heard. Rate and rhythm regular. RESPIRATORY: Clear to auscultation. GASTROINTESTINAL: Abdomen is soft. MUSCULOSKELETAL: No tenderness. No edema. DERMATOLOGIC: No skin rash. NEUROLOGIC: Alert and awake and oriented x3. No focal neurologic deficits. Moving all the extremiti es. PSYCHIATRIC: Mood and affect normal. LABORATORY DATA: Potassium is 4.0, BUN 20, creatinine is 5.2. ASSESSMENT AND PLAN: 1. End-stage renal disease. Continue on dialysis Tuesday, , and Tuesday. 2. Edema, controlled. 3. Hypertension, stable. 4. Anemia. We will monitor hemoglobin. 5. Continue dialysis Tuesday, , and Tuesday.
[2018-01-20] MEDS: Sacubitril 24.5 MG/Valsartan 25.5 MG TABLET PO SCH (22:09)
[2018-01-21] MEDS: traMADol HCl 50 MG TAB PO PRN ×2 (00:59→09:09)
[2018-01-21] MEDS: Vancomycin HCl 25 MG/ML Oral PO SCH ×3 (05:01→16:21)
[2018-01-21 05:34] LABS: Hemoglobin 8.6 g/dL (12.0-16.0); Mean Corpuscular HGB CONC 30.6 g/dL (32.0-36.0); Mean Corpuscular Hemoglobin 30.3 pg (27.0-31.0); Mean Platelet Volume 9.3 fL (7.4-10.4); Platelet Count 194 thou/uL (130-400); RBC Distribution Width 15.5 % (11.5-14.5); Red Blood Cell (RBC) Count 2.84 mill/uL (4.20-5.40)
[2018-01-21 05:51] LABS: ALT (SGPT) 54 U/L (8-55); AST (SGOT) 24 U/L (5-34); Alkaline Phosphatase 51 U/L (40-150); Anion Gap 15 mmol/L (10-20); BUN (Urea Nitrogen) 31 mg/dL (7.0-18.7); Bilirubin, Total 0.3 mg/dL (0.2-1.2); Calc. Creatinine Clearance 16 mL/min (70-130); Calcium 6.9 mg/dL (7.8-10.44); Carbon Dioxide 25 mmol/L (22-29); Chloride 97 mmol/L (98-107); Estimated GFR-MDRD 9; Globulin 2.7 g/dL (2.4-3.5); Glucose 102 mg/dL (70-105); Magnesium 2.1 mg/dL (1.6-2.6); Phosphorus 4.4 mg/dL (2.3-4.7); Potassium 3.2 mmol/L (3.5-5.1); Protein, Total 5.7 g/dL (6.0-8.3); Sodium 134 mmol/L (136-145)
--- NOTE | 2018-01-21 06:26 | PDOC.FM ---
- Subjective Subjective: Ms. So is doing well, she has no complaints. She is scheduled for dialysis later today, she would like to go home after that - Objective Vital Signs & Weight: Vital Signs (12 hours) Temp Pulse Resp BP Pulse Ox 01/21/18 04:00 97.8 F 84 18 100/63 97 01/20/18 19:00 96.6 F L 82 16 114/77 100 Weight Weight 84.141 kg Most Recent Monitor Data Heart Rate from ECG 93 NIBP 134/81 Respiration from ECG 16 I&O: 01/19/18 01/20/18 01/21/18 06:59 06:59 06:59 Intake Total 170 1080 720 Output Total 1000 950 Balance -830 130 720 Result Diagrams: 01/21/18 05:20 01/21/18 05:20 <Robin Calderón - Last Filed: 01/21/18 07:57> - Objective Vital Signs & Weight: Vital Signs (12 hours) Temp Pulse Resp BP Pulse Ox 01/21/18 07:28 97.8 F 82 18 111/70 98 01/21/18 04:00 97.8 F 84 18 100/63 97 Weight Weight 84.141 kg Most Recent Monitor Data Heart Rate from ECG 93 NIBP 134/81 Respiration from ECG 16 I&O: 01/20/18 01/21/18 01/22/18 06:59 06:59 05:59 Intake Total 1080 720 Output Total 950 Balance 130 720 Result Diagrams: 01/21/18 05:20 01/21/18 05:20 <Minna Joseph - Last Filed: 01/23/18 14:17> Phys Exam - Physical Examination Constitutional: NAD HEENT: moist MMs Gastrointestinal: no distention Musculoskeletal: no edema Neurological: moves all 4 limbs Psychiatric: normal affect <Robin Calderón - Last Filed: 01/21/18 07:57> Dx/Plan (1) ANISH (acute kidney injury) Code(s): N17.9 - ACUTE KIDNEY FAILURE, UNSPECIFIED Status: Acute (2) Low bicarbonate level Code(s): E87.8 - OTH DISORDERS OF ELECTROLYTE AND FLUID BALANCE, NEC Status: Acute (3) Hypocalcemia Code(s): E83.51 - HYPOCALCEMIA Status: Acute (4) CHF (congestive heart failure) Code(s): I50.9 - HEART FAILURE, UNSPECIFIED Status: Acute (5) HTN (hypertension) Code(s): I10 - ESSENTIAL (PRIMARY) HYPERTENSION Status: Acute Qualifiers: Hypertension type: essential hypertension Qualified Code(s): I10 - Essential (primary) hypertension (6) Status post kidney transplant Code(s): Z94.0 - KIDNEY TRANSPLANT STATUS Status: Chronic - Plan Plan: ESRD s/p failed renal transplant - HD on , , Sat - Prior hospitalization in March 2017 showed CKD, stage 4 - Consulted Nephrology, Dr. 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 - Consulted Cardiology & EP, Dr Su, apprec recs - Continue home Carvedilol, DC lisinopril 2/2 low pressures - Daily weights, fluid restriction, strict I&Os - Will need repeat echo in 3 months, if EF <35% will likely have AICD placement - D/c with lifevest per cards recs Hypocalcemia - Pt has been unable to tolerate PO Ca due to n/v - PTH appropriately elevated - Continue to monitor with daily labs and replace as needed with IV Anemia of chronic disease - s/p 2U RBCs - Continue Epogen with dialysis Elevated D-Dimer - CTA neg for PE - Likely elevated as result of pts ESRD Hypomagnesemia - continue to monitor Low Bicarb - Continue to monitor with daily labs Hypokalemia - Continue to monitor HTN, poorly controlled - Continue home Carvedilol Hx of renal transplant 2015 - 2/2 Nephrotic Syndrome with focal segmental glomerulonephritis - Pt appears to be rejecting transplant as result of medication noncompliance - Pt has not been following with transplant surgeon at [facility] in [place] - Continue home Cellcept, Tacromlimus, valtrex, prednisone Code Status: FULL Dispo: DC today with life vest after dialysis if po vanc can be acquired to take outpatient <Robin Calderón - Last Filed: 01/21/18 07:57> Attending Addendum - Attending Addendum Date/Time: 01/21/1830 I personally evaluated the patient and discussed the management with Dr. Calderón I agree with the History, Examination, Assessment and Plan documented above with any addition or exceptions noted below. Okay to d/c to home once PO vanc approved. Do to this being patient's 3 infection would treat as follows 125 mg QID x 10 days 125 mg TID x 7 days 125 mg BID x 7 days 125 mg qday x 7 days 125 mg q 48 hours x 7 days Consider Fecal transplant vs discussing case with ID. Patient with risk for recurrent exposure due to [facility] HD and immunocompromised state. Discussed hygiene measures. Geo <Minna Joseph - Last Filed: 01/23/18 14:17>
--- NOTE | 2018-01-21 10:20 | PDOC.CTH ---
Cardiology Progress Note - Subjective No complaints. Undergoing HD currently. LifeVest in place. - Objective Vital Signs Temp Pulse Resp BP Pulse Ox 01/21/18 07:28 97.8 F 82 18 111/70 98 01/21/18 04:00 97.8 F 84 18 100/63 97 Weight 185 lb 8 oz 01/20/18 01/21/18 01/22/18 06:59 06:59 05:59 Intake Total 1080 720 Output Total 950 Balance 130 720 - Physical Examination General/Neuro: alert & oriented x3 Neck: no JVD present Lungs: CTA Heart: RRR Abdomen: NT/ND - Telemetry Telemetry Rhythm: SR - Labs Result Diagrams: 01/21/18 05:20 01/21/18 05:20 Troponin/CKMB Troponin I 0.157 ng/mL (< 0.028) H 01/18/18 00:43 - Assessment/Plan 1. Nonischemic dilated TEAM LEAD 2. ESRD s/p kidney transplant and failed secondary to noncompliance 3. HTN Doing well. Vitals stable. LV in place. Ok for discharge after HD. Will call to arrange f/u. Needs repeat ECHO in 90 days.
[2018-01-21] MEDS: Calcium Carbonate + Vit D 1 TAB PO SCH ×2 (13:33→17:33)
[2018-01-21] MEDS: Carvedilol 6.25 MG TAB PO SCH ×2 (13:34→18:57)
[2018-01-21] MEDS: Mycophenolate 250 MG CAP PO SCH (13:35)
[2018-01-21] MEDS: predniSONE 5 MG TAB PO SCH (13:35)
[2018-01-21] MEDS: Famotidine 20 MG TAB PO SCH (13:35)
[2018-01-21] MEDS: Sacubitril 24.5 MG/Valsartan 25.5 MG TABLET PO SCH (13:38)
[2018-01-21] MEDS: Tacrolimus 1 MG CAP PO SCH (13:38)
[2018-01-21 18:57] VITALS: BP 116/79; TEMP 97.8
--- NOTE | 2018-01-21 19:11 | PRG ---
DATE OF SERVICE: 01/21/2018 SUBJECTIVE: Patient was seen and examined at bedside and overnight events noted. Patient denies any shortness of breath or chest pain or palpitation. No history of nausea or vomiting or diarrhea or f ever or chills or cramps. OBJECTIVE: GENERAL: This is a well-built female, in no acute distress. VITAL SIGNS: Temperature 97.9, pulse 82, respiratory rate 18, blood pressure 111/70. HEENT: Atraumatic, normocephalic. Oral mucosa is moist. NECK: Supple. CARDIOVASCULAR: S1, S2 heard. Rate and rhythm regular. RESPIRATORY: Clear to auscultation. GASTROINTESTINAL: Abdomen is soft. MUSCULOSKELETAL: No tenderness. No edema. DERMATOLOGIC: No skin rash. NEUROLOGIC: Alert and awake and oriented x3. No focal neurologic deficits. Moving all the extremit ies. PSYCHIATRIC: Mood and affect normal. LABORATORY DATA: Potassium is 3.2, BUN is 31 and creatinine is 7.21. ASSESSMENT AND PLAN: 1. End-stage renal disease. Continue on dialysis Tuesday, and Tuesday. Plan is to have d ialysis today. 2. Hypokalemia. We will use 4K bath. Most likely from diarrhea. 3. Hypertension, stable. 4. Anemia, chronic and continue . 5. Will have dialysis today and continue on dialysis Tuesday, and Tuesday as tolerated.
[2018-01-22] MEDS ORDERED: Heparin 10,000 UNITS/ 10 ML VIAL ONE (13:06)
[2018-01-23] MEDS ORDERED: Ergocalciferol 1.25 MG(50,000 UNITS) CAP PO SCH (09:00)
--- NOTE | 2018-01-23 11:08 | DIS-2 ---
DATE OF ADMISSION: 01/15/2018 DATE OF DISCHARGE: 01/21/2018 ADMITTING ATTENDING: Dr. Elton Ledezma. DISCHARGE ATTENDING: Dr. Minna Joseph. CONSULTATIONS: 1. Cardiology, Dr. Babin. 2. Nephrology, Dr. Mendoza. 3. Electrophysiology, Dr. Su. PROCEDURES: 1. Initial abdomen and pelvis CT. Impression: Transplanted kidney in the right upper pelvis/perinephric stranding and haziness and there is a prominence in the upper pole of collecting structures. These findings are stable from . 2. Question of mural thickening of the colon, the colon was poorly evaluated on the CT due to lack of enteric contrast and non-distention. 3. Operative note for dialysis access. Procedure: Right groin Trialysis catheter performed by Dr. Antoine Almanza. Each port aspirated blood, flushed with heparinized saline solution. The patient tolerated the procedure well. 4. Shunt angiogram. Impression: Left upper extremity cephalic fistula) was widely patent and good venous outflow to very large and patent cephalic and basilic veins of the upper arm. 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 Arterial inflow was never well visualized. This raise a question in the caliber and effectiveness of the arterial anastomosis, although good washout was seen throughout the very large and patent fistula perhaps tortuosity of the cephalic fistula throughout the forearm is the main cause of difficulty with access. Findings discussed with Dr. Almanza. 5. Echocardiogram significant for an ejection fraction visually estimated at 15 %-20%. Left atrium is mildly dilated. Left ventricular size is mildly increased. Moderate mitral regurg is present, moderate to severe tricuspid regurgitation. There is a small circumferential pericardial effusion noted. 6. Chest x-ray on 01/17/2018. Impression: Somewhat severe cardiomegaly without pulmonary edema, small left pleural effusion and left lower lobe airspace opacity. A lateral view may be useful. 7. Electrocardiogram on 01/17/2018, abnormal ECG read by Dr. Willy Lo, sinus tachycardia with short [place] with frequent premature ventricular complexes. 8. Chest x-ray on 01/18/2018. Impression: Pleural parenchymal changes of the left lung base, persistent cardiomegaly, interval placement of left-sided hemosplit dialysis catheter, no pneumothorax. PRIMARY DIAGNOSES: End-stage renal disease, status post failed renal transplant. SECONDARY DIAGNOSES: 1. Recurrent acute Clostridium difficile colitis. 2. Heart failure with reduced ejection fraction. 3. Hypocalcemia. 4. Anemia of chronic disease. 5. Elevated D-dimer. 6. Hypomagnesemia. 7. Low bicarbonate. 8. Hypokalemia. 9. Hypertension with poorly controlled. 10. History of renal transplant. DISCHARGE MEDICATIONS: 1. Prednisone 5 mg p.o. daily. 2. Calcium carbonate plus vitamin D one tab p.o. b.i.d. 3. Coreg 6.25 p.o. b.i.d. with meals. 4. Pepcid 20 mg p.o. daily. 5. Entresto 1 tab p.o. b.i.d. 6. Prograf 4 mg p.o. b.i.d. 7. Drisdol 1.25 mg p.o. every 7 days. 8. Vancomycin HCL 125 mg capsule p.o. q.6 hours. 9. CellCept 1000 mg p.o. b.i.d. 10. Valcyte 450 mg p.o. daily. DISCONTINUED MEDICATIONS: 1. CellCept 1000 mg p.o. b.i.d. 2. Carvedilol 25 mg p.o. daily. 3. Amlodipine 10 mg p.o. daily. 4. Pepcid 40 mg. HISTORY OF PRESENT ILLNESS AND HOSPITAL COURSE: This is a 22-year-old female who presented with complaints of vomiting, several episodes since yesterday. She denies diarrhea, endorses constipation, endorses abdominal pain since yesterday. Today, she has constant right upper quadrant pain and flank pain. No dysuria, hematuria, chest pain or wheezing. In the ED, she had a CT abdomen and pelvis, CBC, CMP, lactic acid, and lipase that revealed severe metabolic abnormalities. Dr. Mendoza was consulted from the ED and she was emergently dialyzed. On 01/17/2018, she had an event note recorded in which she became acutely tachypneic, blood pressure elevated at 158/114, pulse 130 went to evaluate, she was 99% saturation on room air and lungs were clear. Chest x-ray negative, D-dimer, troponin were sent, negative. CTA was ordered. Surgeon was notified. She had a dialysis catheter placed. CTA afterwards showed no acute abnormalities. Respiratory status stabilized and she was moved back to floor. From that point on, she was asymptomatic. LifeVest was ordered and placed. The patient tested positive for C. diff, p.o. vancomycin was started. Dialysis chair was obtained at [facility]. DISPOSITION: Patient was discharged in stable condition. Patient was discharged to cardiac rehabilitation. DISCHARGE INSTRUCTIONS: 1. Location: Home with home health. 2. Diet: Renal protein, high. 3. Activity: As tolerated. DISCHARGE FOLLOWUP: Follow up with, 1. Dr. Antoine Almanza in 2-3 weeks. 2. Gavin Babin M.D. in 2-3 weeks. 3. Alona Morales M.D. in 2-3 days. 4. Braxton Mendoza M.D.in 1 week. NANCY
== END 2018-01-21 19:45 | disposition home or self-care (01) | DRG 673 ==
LOC: ERS 11:47 → 2NO 17:25
PROVIDERS: ADMIT Student in an Organized Health Care Education/Training Program; ATTEND Student in an Organized Health Care Education/Training Program
PROC: 30233N0 Transfusion of Autologous Red Blood Cells into Peripheral Vein, Percutaneous Approach (ICD-10-PCS; principal; 2018-01-15)
PROC: 06HM33Z Insertion of Infusion Device into Right Femoral Vein, Percutaneous Approach (ICD-10-PCS; 2018-01-15)
PROC: B51W1ZZ Fluoroscopy of Dialysis Shunt/Fistula using Low Osmolar Contrast (ICD-10-PCS; 2018-01-15)
PROC: 5A1D70Z Performance of Urinary Filtration, Intermittent, Less than 6 Hours Per Day (ICD-10-PCS; 2018-01-15)
PROC: 0JH63XZ Insertion of Tunneled Vascular Access Device into Chest Subcutaneous Tissue and Fascia, Percutaneous Approach (ICD-10-PCS; 2018-01-18)
PROC: 05SF0ZZ Reposition Left Cephalic Vein, Open Approach (ICD-10-PCS; 2018-01-18)
PROC: 02HV33Z Insertion of Infusion Device into Superior Vena Cava, Percutaneous Approach (ICD-10-PCS; 2018-01-18)
DX: N17.9 Acute kidney failure, unspecified (principal); I50.23 Acute on chronic systolic (congestive) heart failure; I13.2 Hypertensive heart and chronic kidney disease with heart failure and with stage 5 chronic kidney disease, or end stage renal disease; T86.11 Kidney transplant rejection; E87.2 Acidosis; T82.590A Other mechanical complication of surgically created arteriovenous fistula, initial encounter; A04.72 Enterocolitis due to Clostridium difficile, not specified as recurrent; I42.0 Dilated cardiomyopathy; N18.6 End stage renal disease; N25.81 Secondary hyperparathyroidism of renal origin; E86.0 Dehydration; E87.6 Hypokalemia; E87.8 Other disorders of electrolyte and fluid balance, not elsewhere classified; E83.51 Hypocalcemia; D63.1 Anemia in chronic kidney disease; K21.9 Gastro-esophageal reflux disease without esophagitis; Z91.19 Patient's noncompliance with other medical treatment and regimen; Y83.2 Surgical operation with anastomosis, bypass or graft as the cause of abnormal reaction of the patient, or of later complication, without mention of misadventure at the time of the procedure
CPT/HCPCS: 36415; 36430; 36901; 36902; 71045; 71275; 74176; 75902; 80053; 81001; 82274; 82306; 83690; 83735; 83970; 84100; 84484; 84703; 85025; 85027; 85379; 86580; 86704; 86706; 86803; 86850; 86900; 86901; 87015; 87040; 87045; 87046; 87086; 87149; 87206; 87324; 87328; 87329; 87340; 87449; 87493; 87899; 90935; 93005; 93010; 93306; 93798; 93970; 96365; 96366; 96367; 96375; C1752; C1769; C9113; G0257; G0365; J0670; J1200; J1642; J1644; J2001; J2250; J2405; J2704; J2720; J2765; J3010; J3475; J7050; J7507; J7517; J8499; P9016; Q0162; Q4081; Q9967

== ENCOUNTER 2018-02-27 18:21 | Observation (INO) | payer MEDICARE, MEDICAID ==
[2018-02-27 18:48] LABS: #Lymphocytes 0.4 thou/uL (1.20-3.40); #Neutrophils 3.8 thou/uL (1.40-6.50); %Basophils 0.6 % (0.0-1.0); %Monocytes 0.5 % (0.0-10.0); %Neutrophils 88.9 % (42.0-75.0); Mean Corpuscular HGB CONC 31.5 g/dL (32.0-36.0); Mean Corpuscular Hemoglobin 31.4 pg (27.0-31.0); Mean Corpuscular Volume 99.7 fL (78.0-98.0); Mean Platelet Volume 9.3 fL (7.4-10.4); Platelet Count 202 thou/uL (130-400); RBC Distribution Width 14.1 % (11.5-14.5); Red Blood Cell (RBC) Count 1.92 mill/uL (4.20-5.40); White Blood Cell (WBC) Count 4.2 thou/uL (4.8-10.8)
[2018-02-27 19:54] LABS: ALT (SGPT) Less than 7 U/L (8-55); AST (SGOT) 8 U/L (5-34); Albumin 3.7 g/dL (3.5-5.0); Alkaline Phosphatase 49 U/L (40-150); Anion Gap 17 mmol/L (10-20); BUN (Urea Nitrogen) 30 mg/dL (7.0-18.7); Bilirubin, Total 0.5 mg/dL (0.2-1.2); Calc. Creatinine Clearance 0 mL/min (70-130); Calcium 7.4 mg/dL (7.8-10.44); Carbon Dioxide 26 mmol/L (22-29); Chloride 99 mmol/L (98-107); Estimated GFR-MDRD 4; Globulin 3.4 g/dL (2.4-3.5); Glucose 95 mg/dL (70-105); Potassium 3.9 mmol/L (3.5-5.1); Protein, Total 7.1 g/dL (6.0-8.3); Sodium 138 mmol/L (136-145)
[2018-02-27] MEDS ORDERED: Heparin 1,000 UNITS/ML VIAL ONE (21:21)
[2018-02-27] MEDS ORDERED: diphenhydrAMINE 50 MG/ML VIAL ONE (21:50)
[2018-02-28] MEDS ORDERED: Acetaminophen 325 MG TAB PO PRN (00:26)
[2018-02-28] MEDS ORDERED: Diabetic Tussin 200 MG/10 ML UDCUP PO PRN (00:26)
[2018-02-28] MEDS ORDERED: hydrALAZINE 20 MG/ML VIAL SLOW IVP PRN (00:26)
[2018-02-28] MEDS ORDERED: Senokot S 8.6-50 MG TAB PO PRN (00:26)
[2018-02-28] MEDS ORDERED: Benzonatate 100 MG CAP PO PRN (00:26)
[2018-02-28] MEDS ORDERED: cloNIDine 0.1 MG TAB PO PRN (00:26)
[2018-02-28] MEDS ORDERED: Bisacodyl 5 MG TAB PO PRN (00:26)
[2018-02-28] MEDS ORDERED: Ondansetron PF 4 MG/2 ML Vial IVP PRN ×2 (00:26)
[2018-02-28] MEDS ORDERED: Nitroglycerin 0.4 MG TAB (25 Tab Bottle) SL PRN (00:26)
[2018-02-28] MEDS ORDERED: Sodium Chloride 0.65% Nasal 44 ML BOT EA NARE PRN (00:26)
[2018-02-28] MEDS ORDERED: Bisacodyl 10 MG SUPP PR PRN (00:26)
[2018-02-28 00:40] VITALS: BMI 30.4
[2018-02-28 01:09] LABS: Hemoglobin 5.7 g/dL (12.0-16.0)
[2018-02-28 01:19] LABS: Bilirubin, Direct 0.2 mg/dL (0.1-0.3); Bilirubin, Total 0.4 mg/dL (0.2-1.2)
[2018-02-28] MEDS ORDERED: diphenhydrAMINE 12.5 MG in Sodium Chloride 0.9% 50 ML IVPB PRN (02:07)
[2018-02-28] MEDS ORDERED: predniSONE 20 MG TAB PO SCH (02:15)
[2018-02-28] MEDS ORDERED: diphenhydrAMINE 12.5 MG in Sodium Chloride 0.9% 50 ML IVPB SCH (02:15)
[2018-02-28] MEDS ORDERED: Furosemide 20 MG/2 ML VIAL SLOW IVP SCH (02:30)
[2018-02-28] MEDS ORDERED: Carvedilol 6.25 MG TAB PO SCH (02:30)
--- NOTE | 2018-02-28 03:56 | HP ---
CHIEF COMPLAINT: Acute blood transfusion reaction and worsening of acute on chronic anemia of kidney disease. PRIMARY CARE PHYSICIAN: None. PRIMARY TEMPLER HEAD: Dr. Mendoza. PRIMARY CONCRETE SPREADER: Dr. Babin. The patient has not seen him since her last hospitalization in this facility in December 2017. HISTORY OF PRESENTING ILLNESS: Ms. So is a pleasant 22-year-old female with past medical history of end-stage renal disease due to focal segmental glomerulonephritis as well as history of severe nonischemic dilated cardiomyopathy, currently on LifeVest, and medical noncompliance, and history of renal transplant with failed transplant, on immunosuppressant medications currently; presented to the ER after she was found to have low hemoglobin by her gas compressor turbine operator. She presented from dialysis. Her gas compressor turbine operator is Dr. Mendoza. She was found to have a hemoglobin of 6.0 and was sent over to be evaluated. History is mainly obtained from the patient herself as well as discussion with the admitting ER physician. PLEASE NOTE THAT THE PATIENT HAS 2 MEDICAL RECORDS IN OUR SYSTEM. SHE HAS BEEN HOSPITALIZED MULTIPLE TIMES IN OUR FACILITY, BUT HER MEDICAL RECORD NUMBER IS UNDER A DIFFERENT NUMBER, WHICH IS [id number]. HER J# FROM PRIOR HOSPITALIZATIONS IS [id number]. Ms. So was started on 1 unit of packed RBCs in the emergency room, and the plan was to transfuse her and send her home. Unfortunately, she had what sounds like an acute febrile nonhemolytic transfusion reaction just few minutes into the transfusion. She became tachycardic and complained of chest pain and developed a fever. The transfusion was immediately stopped, and Blood Bank was contacted. By the time I have seen the patient, she was feeling much better and was hemodynamically stable, but she did have some chest discomfort. I did contact the [facility] a few hours after this has happened, and they did report that she did not have any hemolysis. She was not found to have any clerical error. They did report that she needs pre-treatment with Benadryl prior to her transfusion and had tolerated the transfusions in the past without any reactions. She was not found to have any anaphylaxis or angioedema for the emergency room physician or on my examination. She is now being admitted onto observation status for monitoring of her symptoms after the transfusion reaction and for finishing of the blood transfusion. She has received one dose of 50 mg of Benadryl orally in the emergency room after the transfusion reaction was noted. PAST MEDICAL HISTORY: 1. End-stage renal disease, on hemodialysis. She has nephrotic syndrome and focal segmental glomerulonephritis. This was diagnosed at the age of 15. She has undergone renal transplant since then, which has failed because of noncompliance. She continues to be on immunosuppressant. 2. History of nonischemic cardiomyopathy with EF of 10% to 15% as documented in the echocardiogram done in December 2017. She is currently wearing a LifeVest. 3. History of secondary hyperparathyroidism. PAST SURGICAL HISTORY: 1. Dialysis access. 2. Laparoscopic cholecystectomy with cholangiogram in June 2014 for acute cholecystitis. 3. EGD with gastric biopsies in June [address] Ramirez. FAMILY HISTORY: No known family history of end-stage renal disease or cardiac diseases. ALLERGIES: NO KNOWN MEDICATION ALLERGIES. SOCIAL HISTORY: She lives at home with her parents. 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 Her brother is responsible for transporting her back and forth to the dialysis, although she is having a hard time keeping those appointments. HOME MEDICATIONS: As follow, 1. Valganciclovir 450 mg daily. 2. Prednisone 5 mg daily. 3. Prograf 4 mg p.o. b.i.d. 4. Entresto one tablet p.o. b.i.d. 5. CellCept 1000 mg p.o. b.i.d. 6. Pepcid 20 mg daily. 7. Ergocalciferol daily. 8. Carvedilol 6.25 mg p.o. b.i.d. 9. Calcium with vitamin D daily. REVIEW OF SYSTEMS: A 12-point review of system is done. It is negative except for those mentioned in the history and physical. LABORATORY EXAMINATION: Her CBC shows hemoglobin of 5.7 with a repeat hemoglobin of 6.0. This is prior to the transfusion. WBCs 4.2, platelet count of 202. Serum chemistries show a BUN of 30, creatinine 11.41, calcium 7.4. Total bilirubin and direct bilirubin are unremarkable. I have been told that direct Angela test was negative by the Blood Bank. IMAGING DATA: Chest x-ray by my review has no evidence of pleural effusion or edema suggesting transfusion-related acute lung injury. Formal report is pending at this time. PHYSICAL EXAMINATION: VITAL SIGNS: Most recent vital signs; temperature 99.2, pulse of 100, respirations 14, saturating 100% on room air, blood pressure 175/110. GENERAL: No acute distress. Awake, alert, and oriented x3. Sitting comfortably up in bed. HEENT: Mucous membrane is moist and pink. No oropharyngeal exudate or erythema. Head is normocephalic, atraumatic. Pupils are equal, reactive to light and accommodation. Extraocular movement intact. No oropharyngeal swelling or tongue swelling or throat edema is noticed. NECK: Supple without any lymphadenopathy, JVD, or bruit. CHEST: Clear to auscultation without any wheezing, rales, or rhonchi. No stridor is noted. CARDIAC: Rate and rhythm are regular without any murmurs, rubs, or gallops. ABDOMEN: Soft, nontender, nondistended with positive bowel sounds. EXTREMITIES: Free of any cyanosis, clubbing, or edema. NEUROLOGICAL: Nonfocal. SKIN: Free of any rashes or bruises. Feels warm and dry to touch. PSYCHIATRIC: Normal affect. IMPRESSION AND PLAN: 1. Acute transfusion reaction. So far, the patient's symptoms and lab work suggest a nonhemolytic febrile reaction. The Blood [facility] has cleared her for transfusion after pre-treatment. We will give her one dose of Benadryl and prednisone prior to the transfusion and restart the transfusion with a new unit of packed RBC. H and H will be monitored serially. She is currently hemodynamically stable without any evidence of respiratory distress or cardiovascular collapse. Chest x-ray is negative for any evidence to suggest TRALI or TACO that is transfusion-associated cardiovascular overload. We will send out an LDH, haptoglobin to rule out hemolysis, although it is less likely. Her indirect bilirubin is unremarkable. Also, her direct Angela test has been negative as I have been told by the Blood Bank. Urinalysis will be ordered to assess for hematuria, but that will most likely be skewed given her history of glomerulonephritis and hematuria from that. She will be admitted on telemetry unit for close observation. We will request consultation with Hematology, Dr. Aguirer, with regard to the acute febrile nonhemolytic transfusion reaction if the patient becomes symptomatic. 2. Acute on chronic anemia. The patient has chronic anemia with her chronic kidney disease. She will be transfused as above after pre-treatment with Benadryl and prednisone. We will check H and H serially and give one dose of Lasix after the transfusion to prevent overload. 3. History of end-stage renal disease, on hemodialysis. Nephrology has been consulted, and she will be continued on hemodialysis while she stays here. 4. Nonischemic dilated cardiomyopathy. Restart her home medication of beta-cathleen and Entresto, and continue the LifeVest. She is encouraged to follow up with Dr. Babin in the outpatient setting. She needs a repeat echocardiogram in 2 more months. 5. History of renal transplant and failure. Continue the immunosuppressant medications as well as the prednisone daily and valganciclovir at home dosages. 6. Medication noncompliance. The patient has been counseled. 7. Add deep venous thrombosis and gastrointestinal prophylaxis. We will use SCDs and avoid any pharmacological deep venous thrombosis prophylaxis given this significant anemia. DISPOSITION: Ms. So is currently hemodynamically stable and will be admitted under observation status for transfusion. Estimated length of stay at this time is less than 2 midnights. Further management will depend upon her clinical course. Job ID: [id number]
[2018-02-28] MEDS: Carvedilol 6.25 MG TAB PO SCH ×2 (08:01→17:59)
[2018-02-28 08:34] LABS: #Lymphocytes 0.2 thou/uL (1.20-3.40); #Neutrophils 5.7 thou/uL (1.40-6.50); %Basophils 0.8 % (0.0-1.0); %Eosinophils 0.1 % (0.0-10.0); %Lymphocytes 3.5 % (21.0-51.0); %Monocytes 0.4 % (0.0-10.0); %Neutrophils 95.3 % (42.0-75.0); Mean Corpuscular HGB CONC 32.6 g/dL (32.0-36.0); Mean Corpuscular Hemoglobin 31.1 pg (27.0-31.0); Mean Corpuscular Volume 95.5 fL (78.0-98.0); Mean Platelet Volume 9.6 fL (7.4-10.4); Platelet Count 162 thou/uL (130-400); RBC Distribution Width 15.3 % (11.5-14.5); Red Blood Cell (RBC) Count 2.26 mill/uL (4.20-5.40)
[2018-02-28 08:51] LABS: Anion Gap 16 mmol/L (10-20); BUN (Urea Nitrogen) 35 mg/dL (7.0-18.7); Calc. Creatinine Clearance 9 mL/min (70-130); Calcium 7.2 mg/dL (7.8-10.44); Carbon Dioxide 25 mmol/L (22-29); Chloride 99 mmol/L (98-107); Estimated GFR-MDRD 5; Glucose 124 mg/dL (70-105); Potassium 4.2 mmol/L (3.5-5.1); Sodium 136 mmol/L (136-145)
--- NOTE | 2018-02-28 08:53 | RAD ---
RADIOGRAPH CHEST 1 VIEW: Date: 02/28/18 Time: 0202 HOURS HISTORY: dyspnea COMPARISON: 01/18/18. FINDINGS: Left IJ double lumen dialysis catheter. Cardiomegaly. No pulmonary edema or consolidation. No pneumot horax. No interval change. IMPRESSION: 1. Cardiomegaly. 2. No acute pulmonary findings. ALEXANDR [] POS: ERICK
[2018-02-28] MEDS ORDERED: Tacrolimus 1 MG CAP PO SCH (09:00)
[2018-02-28] MEDS ORDERED: predniSONE 5 MG TAB PO SCH (09:00)
[2018-02-28] MEDS ORDERED: Famotidine 20 MG TAB PO SCH ×2 (09:00)
[2018-02-28] MEDS ORDERED: Sacubitril 24.5 MG/Valsartan 25.5 MG TABLET PO SCH (09:00)
[2018-02-28] MEDS ORDERED: Mycophenolate 250 MG CAP PO SCH (09:00)
[2018-02-28 14:23] LABS: HBSAg Index 0.18 S/CO (0-0.99); Hep B Core Total Ab Non-Reactive (NonReactive); Hep B Core Total Index 0.13 S/CO (0-0.79); Hep B Surf Ag Non-Reactive S/CO (NonReactive); Hep C IgG Ab Non-Reactive (NonReactive); Hep C Index 0.11 S/CO (0-0.79)
[2018-02-28 16:07] LABS: Hep B Surf AB Reactive (NonReactive)
[2018-02-28 16:08] LABS: HBSAB Concentration 99.19 mIU/mL
[2018-02-28 16:38] VITALS: BP 141/80; TEMP 98.6
--- NOTE | 2018-02-28 18:06 | CON ---
DATE OF CONSULTATION: 02/28/2018 NEPHROLOGY CONSULT NOTE CONSULTING PHYSICIAN: Dr. Wade. REASON FOR CONSULTATION: End-stage renal disease evaluation and care. REASON FOR ADMISSION: Anemia. HISTORY OF PRESENT ILLNESS: This is a 22-year-old female with a history of end-stage renal disease, history of renal transplant, anemia, noncompliance, nonischemic cardiomyopathy, came to the hospital with above complaints. Nephrology was consulted for maintenance hemodialysis. The patient was found to be anemic and was sent to the ER for blood transfusion, but she had reaction while getting transfusion, and she was getting admitted. She was given Benadryl and steroids and had 1 unit of blood last night and is feeling better. We are awaiting a repeat hemoglobin level after the transfusion to decide on further transfusion needs of the patient. No fever. No nausea or vomiting. No chest pain reported. PAST MEDICAL HISTORY: Positive for end-stage renal disease, nonischemic cardiomyopathy, and secondary hyperparathyroidism. PAST SURGICAL HISTORY: Dialysis access placement, renal transplant, laparoscopic cholecystectomy, and EGD. HOME MEDICATIONS: List includes: 1. Entresto. 2. Vitamin D3. 3. . 4. Famotidine. 5. Carvedilol. 6. Valcyte. 7. Prednisone. 8. Mycophenolate. 9. Prograf. ALLERGIES: NO KNOWN DRUG ALLERGIES. SOCIAL HISTORY: No smoking, alcohol, or illicit drug use. FAMILY HISTORY: No history of any kidney disease. REVIEW OF SYSTEMS: CONSTITUTIONAL: Negative for weight loss or gain, ability to conduct usual activities. SKIN: Negative for rash, itching. EYES: Negative for double vision, pain. ENT/MOUTH: Negative for nose bleeding, neck stiffness, pain, tenderness. CARDIOVASCULAR: Negative for palpitations, dyspnea on exertion, orthopnea. RESPIRATORY: Negative for shortness of breath, wheezing, cough, hemoptysis, fever or night sweats. GASTROINTESTINAL: Negative for poor appetite, abdominal pain, heartburn, nausea, vomiting, constipation, or diarrhea. GENITOURINARY: Negative for urgency, frequency, dysuria, nocturia. MUSCULOSKELETAL: Negative for pain, swelling. NEUROLOGIC/PSYCHIATRIC: Negative for anxiety, depression. ALLERGY/IMMUNOLOGIC: Negative for skin rash, bleeding tendency. PHYSICAL EXAMINATION: GENERAL: Reveals a well-built female, in no apparent distress. VITAL SIGNS: Temperature 98.6, pulse 90, respiratory rate 18, and blood pressure 127/86. HEENT: Atraumatic and normocephalic. Oral mucosa is moist. NECK: Supple. CARDIOVASCULAR: S1 and S2 heard. Rate and rhythm regular. RESPIRATORY: Clear. GASTROINTESTINAL: Abdomen is soft. MUSCULOSKELETAL: 1+ edema. DERMATOLOGIC: No skin rash. NEUROLOGIC: Alert and awake. PSYCHIATRIC: Normal mood and affect. LABORATORY DATA: Hemoglobin was 5.7, up to 7 this morning after transfusion. Potassium 4.2, BUN is 75, creatinine is 12.2. ASSESSMENT AND PLAN: 1. End-stage renal disease. Continue on hemodialysis. 2. Anemia, status post transfusion, rule out bleed, and we will transfuse as indicated. 3. Edema, controlled. 4. Hypertension, stable. Plan is to have dialysis today and then continue dialysis Tuesday, Tuesday, and Tuesday. We will continue to follow. Thank you for the consult. Job ID: [id number]
--- NOTE | 2018-03-01 06:34 | DIS ---
DATE OF ADMISSION: 02/27/2018 DATE OF DISCHARGE: 02/28/2018 DIAGNOSES AT THE TIME OF DISCHARGE: 1. Acute transfusion reaction. 2. Acute on chronic anemia, status post transfusion of packed red blood cells 2 units. 3. History of end-stage renal disease on hemodialysis, status post dialysis today. 4. Nonischemic dilated cardiomyopathy. 5. History of renal transplant and failure. 6. Medication noncompliance. 7. User of LifeVest at present. 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 She was found to have hemoglobin of 6, was sent over to the emergency room for further evaluation. She was started on the first unit of packed red blood cells in the emergency room. The plan was to transfuse her and sent her home. Unfortunately, she had what sounds like an acute febrile nonhemolytic transfusion reaction just few minutes into the transfusion. She became tachycardic, complained about chest pain and developed some fever. The transfusion was stopped. She recovered relatively quickly. Apparently, she did not have any hemodialysis based on the information we got from the blood bank. There was not any clerical error. They recommended to use Benadryl prior to the blood transfusion. She did not have any anaphylaxis or angioedema. She was given 50 mg of Benadryl orally in the emergency room after the reaction was noted. She was given prednisone and Benadryl prior to the transfusion. She was given a different PRBCs. There was not any evidence to suggest on the chest x-ray. The LDH and haptoglobin were sent out. Her indirect bilirubin was unremarkable. Direct Angela came back negative. She was on observation. She was hemodialyzed today. She had 1.1 mL of fluids removed. She was transfused with another unit of packed red blood cells without any problems. She was pretreated with Benadryl prior to this. The patient is doing fine. She does not have any complaints to offer. PHYSICAL EXAMINATION: VITAL SIGNS: Blood pressure is 141/80, pulse is 85, temperature is 98.6, O2 saturation is 99, and respiratory rate is 21. HEENT: Head is atraumatic and normocephalic. Eyes are PERRLA. Sclerae are nonicteric. Conjunctivae . Oral mucosa is moist. LUNGS: Clear. HEART: S1 and S2 normal. No S3. No S4. ABDOMEN: Soft, nontender. Bowel sounds are present. No organomegaly. The patient is in good condition. She is discharged to home with recommendation to stay on a renal diet. ACTIVITIES: As tolerated. She will follow up with Dr. Mendoza in one week. MEDICATIONS AT THE TIME OF DISCHARGE: 1. Entresto 24/ one tablet twice a day. 2. Vitamin D3 of 2000 units daily. 3. Calcium 4 tablets three times a day. 4. Famotidine 20 mg once a day. 5. Carvedilol 6.25 mg twice a day. 6. Valganciclovir 450 daily. 7. Prednisone 5 mg daily. 8. Mycophenolate mofetil 1000 mg twice a day. 9. Tacrolimus (Prograf) 4 mg twice a day. DISPOSITION: She was discharged to home in good condition. TIME SPENT: Discharge time spent on this patient is less than 30 minutes. Job ID: [id number]
[2018-03-02] MEDS ORDERED: Heparin 10,000 UNITS/ 10 ML VIAL ONE (14:37)
== END 2018-02-28 19:04 | disposition home or self-care (01) ==
LOC: ERS 18:21 → 2SW 22:54 → MERGE 22:54
PROVIDERS: ADMIT Internal Medicine; ATTEND Internal Medicine
DX: T80.92XA Unspecified transfusion reaction, initial encounter (principal); N18.6 End stage renal disease; D63.1 Anemia in chronic kidney disease; T86.12 Kidney transplant failure; N05.1 Unspecified nephritic syndrome with focal and segmental glomerular lesions; N25.81 Secondary hyperparathyroidism of renal origin; I42.0 Dilated cardiomyopathy; Z94.0 Kidney transplant status; Z91.19 Patient's noncompliance with other medical treatment and regimen; Z79.52 Long term (current) use of systemic steroids; Z79.2 Long term (current) use of antibiotics; Z79.899 Other long term (current) drug therapy
CPT/HCPCS: 36430 ×2; 71045; 80048; 80053; 82247; 82248; 83010; 83615; 85014; 85018; 85025 ×2; 86704; 86706; 86803; 86850; 86900; 86901; 86920; 87340; 93005; 96374; 99285; G0378; P9016 ×2; 36415; J1200; J1642; J1644; J7050; J7506; J7507; J7517; J8499

== ENCOUNTER 2018-03-09 17:09 | Emergency (ER) | payer MEDICAID, MEDICARE ==
[2018-03-09 17:55] LABS: #Lymphocytes 0.4 thou/uL (1.20-3.40); #Monocytes 0.4 thou/uL (0.11-0.59); %Basophils 0.9 % (0.0-1.0); %Eosinophils 0.2 % (0.0-10.0); %Lymphocytes 8.5 % (21.0-51.0); %Monocytes 8.2 % (0.0-10.0); %Neutrophils 82.2 % (42.0-75.0); Mean Corpuscular HGB CONC 31.9 g/dL (32.0-36.0); Mean Corpuscular Volume 97.1 fL (78.0-98.0); Mean Platelet Volume 9.8 fL (7.4-10.4); Platelet Count 214 thou/uL (130-400); RBC Distribution Width 14.3 % (11.5-14.5); Red Blood Cell (RBC) Count 2.91 mill/uL (4.20-5.40); White Blood Cell (WBC) Count 4.8 thou/uL (4.8-10.8)
[2018-03-09 18:19] LABS: ALT (SGPT) Less than 7 U/L (8-55); AST (SGOT) 9 U/L (5-34); Albumin 3.8 g/dL (3.5-5.0); Alkaline Phosphatase 53 U/L (40-150); Anion Gap 25 mmol/L (10-20); BUN (Urea Nitrogen) 44 mg/dL (7.0-18.7); Bilirubin, Total 0.6 mg/dL (0.2-1.2); Calc. Creatinine Clearance 0 mL/min (70-130); Carbon Dioxide 19 mmol/L (22-29); Chloride 100 mmol/L (98-107); Estimated GFR-MDRD 3; Glucose 67 mg/dL (70-105); Potassium 4.6 mmol/L (3.5-5.1); Protein, Total 7.8 g/dL (6.0-8.3); Sodium 139 mmol/L (136-145)
[2018-03-09 18:30] LABS: Magnesium 2.1 mg/dL (1.6-2.6); Phosphorus 4.8 mg/dL (2.3-4.7)
--- NOTE | 2018-03-09 18:31 | RAD ---
CHEST ONE VIEW 03/09/18 HISTORY: Dyspnea. COMPARISON: Chest radiograph 02/28/18. FINDINGS: Dialysis catheter is in similar position. No pneumothorax. No effusion. The heart size is markedly en larged. IMPRESSION: 1. Marked cardiomegaly. 2. Trace left effusion. POS: HOME
== END 2018-03-09 18:56 | disposition home or self-care (01) ==
LOC: ERS 17:09
DX: I13.2 Hypertensive heart and chronic kidney disease with heart failure and with stage 5 chronic kidney disease, or end stage renal disease (principal); N18.6 End stage renal disease; I50.9 Heart failure, unspecified; F41.9 Anxiety disorder, unspecified; Z79.899 Other long term (current) drug therapy; Z99.2 Dependence on renal dialysis; Z91.15 Patient's noncompliance with renal dialysis
CPT/HCPCS: 36415; 71045; 80053; 83735; 84100; 85025; 93005

== ENCOUNTER 2018-03-21 07:42 | Inpatient (IN) | payer MEDICAID, MEDICARE ==
[2018-03-21] MEDS ORDERED: Morphine 4 MG/ML VIAL ONE ×2 (07:59→09:36)
[2018-03-21] MEDS ORDERED: Ondansetron PF 4 MG/2 ML Vial ONE (08:00)
[2018-03-21 08:21] LABS: #Lymphocytes 0.7 thou/uL (1.20-3.40); #Monocytes 0.8 thou/uL (0.11-0.59); #Neutrophils 4.1 thou/uL (1.40-6.50); %Basophils 0.1 % (0.0-1.0); %Eosinophils 0.2 % (0.0-10.0); %Lymphocytes 12.4 % (21.0-51.0); %Monocytes 14.5 % (0.0-10.0); %Neutrophils 72.8 % (42.0-75.0); Hemoglobin 7.3 g/dL (12.0-16.0); Mean Corpuscular HGB CONC 33.6 g/dL (32.0-36.0); Mean Corpuscular Hemoglobin 32.5 pg (27.0-31.0); Mean Corpuscular Volume 96.7 fL (78.0-98.0); Mean Platelet Volume 9.6 fL (7.4-10.4); Platelet Count 167 thou/uL (130-400); RBC Distribution Width 15.2 % (11.5-14.5); Red Blood Cell (RBC) Count 2.25 mill/uL (4.20-5.40); White Blood Cell (WBC) Count 5.7 thou/uL (4.8-10.8)
[2018-03-21 08:42] LABS: ALT (SGPT) Less than 7 U/L (8-55); AST (SGOT) 7 U/L (5-34); Albumin 3.3 g/dL (3.5-5.0); Alkaline Phosphatase 48 U/L (40-150); Anion Gap 17 mmol/L (10-20); BUN (Urea Nitrogen) 29 mg/dL (7.0-18.7); Bilirubin, Total 0.9 mg/dL (0.2-1.2); Calc. Creatinine Clearance 0 mL/min (70-130); Calcium 7.3 mg/dL (7.8-10.44); Carbon Dioxide 25 mmol/L (22-29); Chloride 96 mmol/L (98-107); Estimated GFR-MDRD 4; Globulin 3.5 g/dL (2.4-3.5); Glucose 90 mg/dL (70-105); Lipase 9 U/L (8-78); Potassium 3.8 mmol/L (3.5-5.1); Protein, Total 6.8 g/dL (6.0-8.3); Sodium 134 mmol/L (136-145)
[2018-03-21 08:53] LABS: BHCG - Serum Negative (NEGATIVE); Pregs Control Background? CLEAR/WHITE (CLR/WHITE); Pregs Control Bar Appear? YES (CONTROL BAR)
[2018-03-21] MEDS ORDERED: cefTRIAXone\\ROCEPHIN 1 GM VIAL ONE (09:58)
[2018-03-21] MEDS ORDERED: Sodium Chloride 0.9% 100 ML ONE (09:58)
--- NOTE | 2018-03-21 10:19 | CT ---
CT ABDOMEN AND PELVIS WITH IV CONTRAST: DATE: 03/21/2018. HISTORY: Right-sided abdominal pain with nausea and vomiting. COMPARISON: Noncontrasted CT abdomen and pelvis on 01/15/2018 and CTA examination abdomen and pelvis on study 05/20. FINDINGS: The heart is enlarged. In addition, there is a small to moderate-sized pericardial effusion present. There is a tiny nodular density at the posterior left lung base which may be related to minimal atele ctasis. Lung base are otherwise clear. Postcholecystectomy changes are seen. [place] kidneys are again small in size. There is a renal transplant seen within the right lower quad rant with surrounding inflammatory stranding and a small amount of fluid. While perinephric strandin g was seen on the prior exam, this has increased on this examination. In addition, normal enhancemen t pattern is not well seen and there is a suggestion of a lower density area within the more superior pole of the right renal transplant. Pyelonephritis involving the transplanted kidney in the right p eliot is a possibility. The liver is at the upper limits of normal to borderline enlarged measuring 18 cm in craniocaudal dim ensions. The spleen, pancreas, and bilateral adrenal glands demonstrate a normal CT appearance. The urinary bladder is decompressed. The uterus has a grossly normal appearance. There is subcutaneous edema seen predominantly in the anterior anterolateral aspects of the abdomen b ilaterally. Abdominal aorta and iliac arteries are patent. IMPRESSION: 1. Cardiomegaly with a suggestion of a moderate-sized pericardial effusion. 2. Transplant kidney right pelvis with prominent perinephric stranding and fluid which has increased from prior exams. There is also diminished enhancement of the transplant kidney. There is a low-de nsity area seen within the superior pole of the right kidney which may be related to prominently dila blane calyx, and there is a suggestion of hydronephrosis involving the right kidney. Given the signifi cant perinephric stranding and diminished enhancement, findings could potentially be related to pyelo nephritis. Clinical correlation is suggested. While arterial flow is demonstrated within the right kidney, venous flow cannot be definitely delineated. 3. Small bilateral [place] kidneys. 4. Subcutaneous edema. 5. Tiny amount of free fluid in the pelvis. POS: DIMPLE
--- NOTE | 2018-03-21 13:38 | CON ---
DATE OF CONSULTATION: REASON FOR CONSULTATION: End-stage renal disease, missing dialysis. HISTORY OF PRESENT ILLNESS: This is a 22-year-old female, who is not taking her blood pressure medication as well as misses dialysis regularly twice a week, presented to hospital with elevated blood pressure and abdominal pain. The patient has a complicated UTI. The patient denies any nausea, vomiting, or chest pain. PAST MEDICAL HISTORY: Significant for congestive heart failure, end-stage renal disease, history of transplant failed due to noncompliance, history of cardiomyopathy, hypothyroidism, history of AV fistula and tunneled dialysis catheter. MEDICATIONS: Home medications list, reviewed. Hospital medications list, reviewed. ALLERGIES: REVIEWED. REVIEW OF SYSTEMS: A 15-point review of systems was performed and was negative except for positives noted above. GENERAL: HEAD: NECK: No swelling or lumps. NOSE: No epistaxis or discharge. EYES: No diplopia or pain. RESPIRATORY: CARDIOVASCULAR: GASTROINTESTINAL: /TRADE CLERK: MUSCULOSKELETAL: No joint pain. NEUROPSYCHIATIC SYSTEMS: No suicidal ideation. No ideation. SKIN: Denies any rash or ulcer. CONSTITUTIONAL: No fever or chills. PHYSICAL EXAMINATION: GENERAL: The patient is awake and alert. VITAL SIGNS: Afebrile, pulse 100, breathing 16, blood pressure was 150/120. GENERAL APPEARANCE AND MENTAL STATUS: Fair. HEAD/NECK: Normocephalic. Atraumatic. EYES: EOMI. No deformity. EARS: Clear. No ulcers. NOSE: Intact. No lesions. MOUTH: Clear. No discharge. THROAT: Clear. No exudate. LUNGS: Clear. No crackles. CARDIAC: S1, S2. No rub. ABDOMEN: Benign. Bowel sounds positive. GENITALIA/RECTUM: Lopez absent. BACK/EXTREMITIES: Edema 0+. NEUROLOGICAL: Alert and motor intact. SKIN: LYMPHATICS: LABORATORY DATA: Labs show potassium 3.8. ASSESSMENT AND PLAN: 1. Stage 6 chronic kidney disease, plan dialysis and 4K bath. 2. Edema and congestive heart failure, plan ultrafiltration. Advised compliance with the medication. Noncompliance is a major issue. 3. Anemia, stable. 4. Medication based on GFR appropriate. 5. Complicated urinary tract infection. Management per primary team. 6. Chronic immunosuppression primary team. Job ID: [id number]
[2018-03-21] MEDS ORDERED: Heparin 10,000 UNITS/ 10 ML VIAL ONE (15:00)
[2018-03-21] MEDS: Morphine 4 MG/ML VIAL SLOW IVP PRN ×2 (16:00→20:31)
[2018-03-21] MEDS ORDERED: HYDROcodone/Acetaminophen 5/325 mg Tablet PO PRN (16:08)
[2018-03-21] MEDS ORDERED: Ondansetron ODT 4 MG TAB PO PRN (16:08)
[2018-03-21] MEDS ORDERED: Ondansetron PF 4 MG/2 ML Vial IVP PRN (16:08)
[2018-03-21] MEDS ORDERED: hydrALAZINE 20 MG/ML VIAL SLOW IVP PRN (16:08)
[2018-03-21] MEDS ORDERED: cloNIDine 0.1 MG TAB PO PRN (16:08)
[2018-03-21] MEDS: Carvedilol 6.25 MG TAB PO SCH (17:26)
[2018-03-21 17:34] VITALS: BMI 28.1
--- NOTE | 2018-03-21 17:35 | HP ---
PRIMARY CARE PROVIDER: Noemi worley. PRIMARY SERVICE UNIT OPERATOR OIL WELL: Dr. Mendoza. CHIEF COMPLAINT: Abdominal pain and fever. HISTORY OF PRESENT ILLNESS: This is a 22-year-old female, who presented to [facility] Emergency Department complaining of less than 1-day history of chills, abdominal pain, and general malaise. The patient states she was awakened approximately between 3:00 and 4:00 a.m. on 03/21/2018 with body aches and low-grade fever. The patient states she took Tylenol for symptomatic relief and then woke up approximately a hour later with worsening fever. Apparently, reported up to 104 degrees Fahrenheit. The patient had some nausea and emesis, but denies any travel history, exposures, or family members with similar symptoms. The patient does have a significant history of chronic immunosuppression status post right lower quadrant renal transplant. The patient states she has been compliant with her immunosuppressive therapy and apparently took prednisone for 4 weeks in February 2018, completing the prescription in the last 24 to 48 hours. The patient states she has missed several hemodialysis sessions due to difficulty obtaining transportation. The patient does have a history of noncompliance and medication noncompliance specifically. The patient describes the pain as sharp in the right lower quadrant with some radiation to her back. The patient denies any diarrhea or constipation. The patient denies making any urine and does need hemodialysis 3 times per week. In the emergency room, the patient underwent general evaluation with CT imaging of the abdomen and pelvis performed showing perinephric stranding in the transplanted kidney. The patient received IV vancomycin and Rocephin as well as morphine sulfate and Zofran. The patient was also evaluated by the Nephrology Service and taken for urgent hemodialysis due to concern for volume overload and hypertensive urgency. PAST MEDICAL HISTORY: 1. Focal segmental glomerulonephritis. 2. Severe nonischemic dilated cardiomyopathy. 3. Medical noncompliance. 4. History of renal transplant with failure, on chronic immunosuppressant therapy. 5. Hypertension. 6. Chronic anemia secondary to chronic kidney disease. 7. Question of transfusion reaction. 8. End-stage renal disease with current hemodialysis on Tuesday, Tuesday, and Tuesday. PAST SURGICAL HISTORY: 1. Status post hemodialysis access placement. 2. Status post laparoscopic cholecystectomy with cholangiogram. 3. Status post esophagogastroduodenoscopy with gastric biopsies secondary to hematemesis. CURRENT MEDICATIONS: 1. Valganciclovir 450 mg p.o. daily. 2. Prednisone 5 mg p.o. daily, discontinued 48 hours prior to this evaluation. 3. Prograf 4 mg p.o. b.i.d. 4. Entresto p.o. b.i.d. 5. CellCept 1000 mg p.o. b.i.d. 6. Pepcid 20 mg p.o. daily. 7. Ergocalciferol. 8. Carvedilol 6.25 mg p.o. b.i.d. 9. Calcium with vitamin D daily. ALLERGIES: NO KNOWN DRUG ALLERGIES. FAMILY HISTORY: No inheritable diseases per patient report. SOCIAL HISTORY: The patient lives with her parents in the [facility] area. No current alcohol, tobacco, or illicit drug use. REVIEW OF SYSTEMS: CONSTITUTIONAL: Negative for weight loss or gain, ability to conduct usual activities. SKIN: Negative for rash, itching. EYES: Negative for double vision, pain. ENT/MOUTH: Negative for nose bleeding, neck stiffness, pain, tenderness. CARDIOVASCULAR: Negative for palpitations, dyspnea on exertion, orthopnea. RESPIRATORY: Negative for shortness of breath, wheezing, cough, hemoptysis, fever or night sweats. GASTROINTESTINAL: Negative for poor appetite, abdominal pain, heartburn, nausea, vomiting, constipation, or diarrhea. GENITOURINARY: Negative for urgency, frequency, dysuria, nocturia. MUSCULOSKELETAL: Negative for pain, swelling. NEUROLOGIC/PSYCHIATRIC: Negative for anxiety, depression. ALLERGY/IMMUNOLOGIC: Negative for skin rash, bleeding tendency. Otherwise, negative except as stated in HPI. PHYSICAL EXAMINATION: VITAL SIGNS: On admission; blood pressure 159/122, pulse 127, respiratory rate 18, temperature 99.7 degrees Fahrenheit, O2 saturation 97% on room air. GENERAL APPEARANCE: This is a 22-year-old female, lying on the hospital bed. Currently receiving hemodialysis. HEENT: Pupils are equal, round, reactive to light and accommodation. Extraocular muscles are intact. No scleral icterus. No conjunctival injection. Nares patent. OP is clear. Teeth in fair repair. NECK: Supple. No cervical adenopathy. No thyromegaly. No carotid bruits. No JVD appreciated. Cervical spine with full active and passive range of motion. No meningeal signs noted. Right internal jugular central venous catheter in place. CHEST: Lungs are clear to auscultation bilaterally. CARDIOVASCULAR EXAM: S1 and S2 with tachycardia. Left upper chest with tunneled hemodialysis catheter. ABDOMEN: Rounded with mild tenderness to palpation in the right lower quadrant. No rebound or guarding noted. EXTREMITIES: Warm and dry with fair turgor. No clubbing, cyanosis, or asymmetric edema appreciated. Pulses are palpable distally at the dorsalis pedis, posterior tibial, and popliteal arteries bilaterally. Capillary refill less than 2 seconds. NEUROLOGIC: Cranial nerves 2 through 12 are grossly intact. No focal or lateralizing signs appreciated. PERTINENT LAB AND X-RAY FINDINGS: Sodium 134, potassium 3.8, chloride is 96, CO2 of 25, BUN 29, creatinine 12.53, estimated GFR of 4, glucose 90, lactic acid level 1.0. LFTs within normal limits. Serum beta HCG negative. Lipase 9. CBC showed a white blood cell count of 5.7, hemoglobin 7.3, hematocrit 22, platelet count 167 with 73% neutrophils. CT of the abdomen and pelvis dated 03/21/2018 showed perinephric stranding of the transplanted right lower quadrant kidney. Small bilateral [place] kidneys noted. Cardiomegaly with moderate-sized pericardial effusion. quality assurance monitor chassis shows sinus tachycardia with heart rates in the 120s. ASSESSMENT AND PLAN: 1. Acute pyelonephritis. Suspected given the patient's CT of abdomen findings. We will continue Rocephin 2 g IV q.24 hours with additional vancomycin 1 g intravenously given in the emergency department. Blood cultures x2 pending. Continue supportive management. The patient is anuric with inability to obtain a urine culture. 2. Hypertensive urgency. We will proceed with urgent hemodialysis for volume removal. Continue home blood pressure regimen. Hydralazine and clonidine p.r.n. 3. End-stage renal disease with hemodialysis. We will continue hemodialysis per Nephrology recommendations. Currently receiving hemodialysis. 4. Chronic immunosuppression. We will continue Prograf and CellCept. Initiate Solu-Medrol 40 mg IV every 6 hours. 5. Noncompliance. We will encourage compliance with medical therapy as well as outpatient followup with hemodialysis. 6. Chronic normocytic anemia secondary to chronic kidney disease. No current evidence to suggest acute blood loss. We will continue serial hemoglobin and hematocrit monitoring. 7. Prophylaxis. SCDs while in bed. Pepcid 20 mg p.o. b.i.d. 8. Code status is full. Surrogate medical decision maker is patient's mother. Job ID: [id number]
[2018-03-21] MEDS ORDERED: Sodium Chloride 0.9% 10 ML ONE (20:09)
[2018-03-21] MEDS: Sacubitril 24.5 MG/Valsartan 25.5 MG TABLET PO SCH (20:42)
[2018-03-21] MEDS: Tacrolimus 1 MG CAP PO SCH (20:43)
[2018-03-21] MEDS: Mycophenolate 250 MG CAP PO SCH (20:43)
[2018-03-21] MEDS: Famotidine 20 MG TAB PO SCH (20:43)
[2018-03-22] MEDS: Morphine 4 MG/ML VIAL SLOW IVP PRN ×4 (00:20→20:10)
[2018-03-22] MEDS: Acetaminophen 500 MG TAB PO PRN ×2 (03:39→23:21)
[2018-03-22 06:22] LABS: Anion Gap 17 mmol/L (10-20); BUN (Urea Nitrogen) 20 mg/dL (7.0-18.7); Calc. Creatinine Clearance 14 mL/min (70-130); Calcium 7.6 mg/dL (7.8-10.44); Carbon Dioxide 23 mmol/L (22-29); Chloride 98 mmol/L (98-107); Estimated GFR-MDRD 8; Glucose 140 mg/dL (70-105); Potassium 5.2 mmol/L (3.5-5.1); Sodium 133 mmol/L (136-145)
[2018-03-22 06:33] LABS: Band 3 % (5-11); Hemoglobin 8.2 g/dL (12.0-16.0); Lymphocytes 11 % (21-51); MDiff Complete? YES; Mean Corpuscular HGB CONC 31.5 g/dL (32.0-36.0); Mean Corpuscular Hemoglobin 30.8 pg (27.0-31.0); Mean Platelet Volume 9.6 fL (7.4-10.4); Monocytes 5 % (0-10); Neutrophil 81 % (42-75); PLT Morphology Comment Appears Adequate; Platelet Count 227 thou/uL (130-400); RBC Distribution Width 15.5 % (11.5-14.5); Red Blood Cell (RBC) Count 2.65 mill/uL (4.20-5.40); White Blood Cell (WBC) Count 5.5 thou/uL (4.8-10.8)
--- NOTE | 2018-03-22 10:44 | PQF ---
CLINICAL DOCUMENTATION IMPROVEMENT CLARIFICATION FORM: ICD-10 Updated PLEASE DO AN ADDENDUM TO THE PROGRESS NOTE WITH ANY DOCUMENTATION UPDATES OR ADDITIONS AND CARRY THROUGH TO DC SUMMARY. THANK YOU. DATE: 03/22/18 ATTN: DR. EFNTON Please exercise your independent, professional judgment in responding to the clarification form. Clinical indicators are provided on the bottom of this form for your review Please check appropriate box(s) to clarify if the following diagnosis has been ruled in or ruled out: "SEPSIS" [ ] Ruled in diagnosis [ ] Continue to treat [ ] Resolved [ x ] Ruled out diagnosis [ ] Cannot rule out diagnosis [ ] Other diagnosis [ ] Unable to determine In addition, please specify: Present on Admission (POA): [ ] Yes [ x ] No [ ] Unable to determine For continuity of documentation, please document condition throughout progress notes and discharge summary. Thank You. CLINICAL INDICATORS - SIGNS / SYMPTOMS / LABS ER NOTE: "SEPSIS" PULSE 127 TEMP 104 (ER NOTE) RISKS: H/O RENAL TRANSPLANT CHRONIC IMMUNOSUPPRESSION ESRD ACUTE PYELONEPHRITIS TREATMENT: IV VANCOMYCIN (ER) IV ROCEPHIN (STARTED 03/22) CULTURE OF CENTRAL LINE CARDIAC MONITORING (This form is maintained as a part of the permanent medical record) SAP Job Service Specialist [employer] Winform Viewer 2015 [employer]. All Rights Reserved [email or web address] Office: [phone] [facility]
--- NOTE | 2018-03-22 11:26 | PRG ---
DATE OF SERVICE: 03/22/2018 SUBJECTIVE: This is a 22-year-old female being seen for end-stage renal disease. The patient denies any nausea, vomiting, or chest pain. OBJECTIVE: CONSTITUTIONAL: Awake, alert, in no acute distress. VITAL SIGNS: Afebrile. Pulse 98, breathing 16, blood pressure 133/88. GENERAL APPEARANCE AND MENTAL STATUS: Fair. HEAD/NECK: Normocephalic. Atraumatic. EYES: EOMI. No deformity. EARS: Clear. No ulcers. NOSE: Intact. No lesions. MOUTH: Clear. No discharge. THROAT: Clear. No exudate. LUNGS: Clear. No crackles. CARDIAC: S1, S2. No rub. ABDOMEN: Benign. Bowel sounds positive. GENITALIA/RECTUM: Lopez absent. BACK/EXTREMITIES: Edema 0+. NEUROLOGICAL: Alert and motor intact. LABORATORY DATA: Hemoglobin 8.2. Potassium 5.2. ASSESSMENT AND PLAN: 1. Stage 6 chronic kidney disease, plan dialysis. 2. Hypertension, stable. 3. Anemia, stable anemia. 4. Uremia, stable. Job ID: [id number]
[2018-03-22] MEDS: cefTRIAXone\\ROCEPHIN 2 GM in Sodium Chloride 0.9% 100 ML IVPB SCH (12:22)
[2018-03-22] MEDS: Sacubitril 24.5 MG/Valsartan 25.5 MG TABLET PO SCH ×2 (12:23→21:03)
[2018-03-22] MEDS: Mycophenolate 250 MG CAP PO SCH ×2 (12:23→21:02)
[2018-03-22] MEDS: Tacrolimus 1 MG CAP PO SCH ×2 (12:24→21:02)
[2018-03-22] MEDS: Carvedilol 6.25 MG TAB PO SCH ×2 (12:25→17:05)
[2018-03-22] MEDS: predniSONE 5 MG TAB PO SCH (12:25)
[2018-03-22] MEDS ORDERED: Heparin 10,000 UNITS/ 10 ML VIAL ONE (15:00)
[2018-03-22] MEDS ORDERED: Polyethylene Glycol 3350 17 GM Packet PO SCH (16:00)
--- NOTE | 2018-03-22 16:46 | PDOC.PN ---
- Subjective Encounter Start Date: 03/22/18 Encounter Start Time: 16:40 Subjective: f/u for acute pyelonephritis on current Rocephin. Feels better overall. -: Appetite improved. - Objective Resuscitation Status - Order Detail: 03/21/18 15:59 Resuscitation Status Routine Resuscitation Status: FULL: Full Resuscitation MAR Reviewed: Yes Vital Signs & Weight: Vital Signs (12 hours) Temp Pulse Resp BP Pulse Ox 03/22/18 14:46 97.4 F L 108 H 18 118/86 100 03/22/18 14:32 100 03/22/18 12:05 98.2 F 96 17 140/88 99 03/22/18 07:17 98.5 F 101 H 17 145/88 H 98 Weight Weight 172 lb 14.4 oz I&O: 03/21/18 03/22/18 03/23/18 06:59 06:59 06:59 Intake Total 745 240 Output Total 2000 2500 Balance -6497 -4025 Result Diagrams: 03/22/18 05:32 03/22/18 05:32 Additional Labs: Microbiology 03/21/18 08:40 Central Line - Right external jugular vein Blood Culture - Preliminary Specimen has been received and culture in progress. No Growth to date. 03/21/18 08:00 Central Line - Right external jugular vein Blood Culture - Preliminary Specimen has been received and culture in progress. No Growth to date. Laboratory Tests 03/21/18 03/21/18 03/21/18 08:00 08:00 08:00 Hgb 7.3 L Sodium 134 L Potassium 3.8 Creatinine 12.53 H Lactic Acid 1.0 Phys Exam - Physical Examination Constitutional: NAD HEENT: PERRLA, sclera anicteric, oral pharynx no lesions Neck: no nodes, no JVD, supple, full ROM Respiratory: no wheezing, no rales, no rhonchi, clear to auscultation bilateral S1, S2 Cardiovascular: RRR, no significant murmur, no rub, gallop mild TTP in RLQ Gastrointestinal: soft, no distention, positive bowel sounds Musculoskeletal: no edema, pulses present Neurological: normal sensation, moves all 4 limbs Psychiatric: A&O x 3 Skin: normal turgor, cap refill <2 seconds Dx/Plan (1) Acute pyelonephritis Code(s): N10 - ACUTE PYELONEPHRITIS Status: Acute Comment: Continue Rocephin 2gm IV daily another 24h, convert to po option 03/23/18 (2) Hypertensive urgency Code(s): I16.0 - HYPERTENSIVE URGENCY Status: Acute Comment: Improved, resolving, resume home BP regimen, HD per Renal service (3) ESRD (end stage renal disease) on dialysis Code(s): N18.6 - END STAGE RENAL DISEASE; Z99.2 - DEPENDENCE ON RENAL DIALYSIS Status: Chronic Comment: HD per Renal service (4) Immunosuppression due to drug therapy Code(s): Z79.899 - OTHER HALF-WAY (CURRENT) DRUG THERAPY Status: Chronic Comment: General precautions, resume Prograf and Cellcept (5) Noncompliance Code(s): Z91.19 - PATIENT'S NONCOMPLIANCE W OTH MEDICAL TREATMENT AND REGIMEN Status: Chronic Comment: Encourage compliance with medical therapy and outpt HD - Plan continue antibiotics, nursing home social worker, out of bed/ambulate Stable currently -: Decrease Solumedrol 40mg IV daily x 24h then d/c -: Continue Rocephin another 24h -: OOB/ambulate -: AM lab: BMP * Likely home in 24h
[2018-03-22] MEDS: Sevelamer Carbonate 800 MG TAB PO SCH (17:07)
[2018-03-22] MEDS: Famotidine 20 MG TAB PO SCH (20:09)
[2018-03-22] MEDS: Docusate 100 MG CAP PO SCH (20:09)
[2018-03-23 07:14] LABS: Anion Gap 15 mmol/L (10-20); BUN (Urea Nitrogen) 18 mg/dL (7.0-18.7); Calc. Creatinine Clearance 22 mL/min (70-130); Calcium 7.9 mg/dL (7.8-10.44); Carbon Dioxide 28 mmol/L (22-29); Chloride 96 mmol/L (98-107); Estimated GFR-MDRD 13; Glucose 117 mg/dL (70-105); Potassium 4.2 mmol/L (3.5-5.1); Sodium 135 mmol/L (136-145)
[2018-03-23] MEDS: Docusate 100 MG CAP PO SCH (07:45)
[2018-03-23] MEDS: predniSONE 5 MG TAB PO SCH (07:45)
[2018-03-23] MEDS: Sevelamer Carbonate 800 MG TAB PO SCH ×3 (07:46→16:49)
[2018-03-23] MEDS: Carvedilol 6.25 MG TAB PO SCH ×2 (07:46→16:48)
[2018-03-23] MEDS: Morphine 4 MG/ML VIAL SLOW IVP PRN (07:47)
[2018-03-23] MEDS: Mycophenolate 250 MG CAP PO SCH (07:56)
[2018-03-23] MEDS ORDERED: Polyethylene Glycol 3350 17 GM Packet PO SCH (09:00)
[2018-03-23] MEDS: Sacubitril 24.5 MG/Valsartan 25.5 MG TABLET PO SCH (09:05)
[2018-03-23] MEDS: Tacrolimus 1 MG CAP PO SCH (09:05)
[2018-03-23] MEDS: cefTRIAXone\\ROCEPHIN 2 GM in Sodium Chloride 0.9% 100 ML IVPB SCH (09:05)
--- NOTE | 2018-03-23 12:33 | PRG ---
DATE OF SERVICE: 03/23/2018 SUBJECTIVE: A 22-year-old female, being seen for end-stage renal disease. The patient denies any nausea, vomiting, or chest pain. OBJECTIVE: CONSTITUTIONAL: The patient is awake, alert. VITAL SIGNS: Afebrile. Pulse 86, breathing is 16, and blood pressure 111/75. GENERAL APPEARANCE AND MENTAL STATUS: Fair. HEAD/NECK: Normocephalic. Atraumatic. EYES: EOMI. No deformity. EARS: Clear. No ulcers. NOSE: Intact. No lesions. MOUTH: Clear. No discharge. THROAT: Clear. No exudate. LUNGS: Clear. No crackles. CARDIAC: S1, S2. No rub. ABDOMEN: Benign. Bowel sounds positive. GENITALIA/RECTUM: Lopez absent. BACK/EXTREMITIES: Edema 0+. NEUROLOGICAL: Alert and motor intact. SKIN: LYMPHATICS: LABORATORY DATA: Hemoglobin 8.2. ASSESSMENT AND PLAN: 1. Stage 6 chronic kidney disease. Plan dialysis. 2. Hypertension, stable. 3. Anemia, stable. Job ID: [id number]
--- NOTE | 2018-03-23 13:10 | DIS ---
DATE OF ADMISSION: 03/21/2018 DATE OF DISCHARGE: 03/23/2018 DISCHARGE DIAGNOSES: 1. Acute pyelonephritis, resolving. 2. Hypertensive urgency, resolved. 3. End-stage renal disease with hemodialysis. 4. Immunosuppression due to drug therapy. 5. Noncompliance with medical therapy. CONSULTATIONS: Dr. Mendoza with Nephrology Service. PERTINENT LABORATORY AND X-RAY FINDINGS: Sodium ranged between 133 to 135, potassium ranged between 3.8 to 5.2, creatinine ranged between 4.88 to 12.53. Estimated GFR ranged between 4 to 13. Lactic acid level 1.0. CBC showed hemoglobin ranged between 7.3 to 8.2. Blood cultures x2 dated 03/21/2018, showed no growth to date. CT of the abdomen and pelvis dated 03/21/2018, showed moderate-sized pericardial effusion. Transplanted kidney in the right pelvis with prominent perinephric stranding and fluid. HOSPITAL COURSE: The patient was initially admitted after presenting with increased abdominal pain and fever in the context of chronic immunosuppression, status post renal transplant and current hemodialysis due to end-stage renal disease. The patient was placed on broad-spectrum IV antibiotic therapy after concern for acute pyelonephritis after CT of the abdomen and pelvis showed changes consistent with perinephric stranding and fluid collection at the transplanted kidney site. The patient received IV Rocephin and vancomycin and was monitored for clinical response. Blood cultures x2 were evaluated and negative as stated previously. The patient was also noted with hypertensive urgency at the time of admission due to noncompliance with hemodialysis. The patient was taken for urgent hemodialysis and continued to receive hemodialysis through the hospital course with overall stabilization of volume status and blood pressure. The patient was given education and encouragement regarding the need for medication and hemodialysis compliance after discharge. I have examined the patient at the time of discharge and discussed followup instructions. The patient overall clinically stable and ready for discharge on 03/23/2018. DISCHARGE MEDICATIONS: 1. Carvedilol 6.25 mg p.o. b.i.d. 2. Vitamin D3 of 2000 units p.o. daily. 3. Pepcid 20 mg p.o. daily. 4. Entresto 24/26 mg 1 tablet p.o. b.i.d. 5. Prograf 4 mg p.o. b.i.d. 6. Calcium with vitamin D 1 tablet p.o. b.i.d. 7. Omnicef 300 mg p.o. daily x7 days. 8. Drisdol 1.25 mg p.o. q.7 days. 9. CellCept 1000 mg p.o. b.i.d. 10. Prednisone 5 mg p.o. daily. 11. Valcyte 450 mg p.o. daily. FOLLOWUP: The patient is to follow up with her primary cushion maker, Dr. Braxton Mendoza with hemodialysis on Tuesday, Tuesday, and Tuesday. CONDITION ON DISCHARGE: Fair. ACTIVITY: Ad renate. DIET: Renal. CODE STATUS: Full. DISPOSITION: Home on 03/23/2018. Job ID: [id number]
[2018-03-23 16:54] VITALS: BP 126/84; TEMP 97.9
== END 2018-03-23 17:17 | disposition home or self-care (01) | DRG 690 ==
LOC: ERS 07:42 → ERHOLD 10:53 → 2NO 14:00 → T4-A 03-22 13:11
PROVIDERS: ADMIT Family Medicine; ATTEND Family Medicine
DX: N10 Acute pyelonephritis (principal); I42.0 Dilated cardiomyopathy; I12.0 Hypertensive chronic kidney disease with stage 5 chronic kidney disease or end stage renal disease; Z94.0 Kidney transplant status; N18.6 End stage renal disease; D63.1 Anemia in chronic kidney disease; I16.0 Hypertensive urgency; F41.9 Anxiety disorder, unspecified; Z99.2 Dependence on renal dialysis; Z90.49 Acquired absence of other specified parts of digestive tract; Z98.890 Other specified postprocedural states; Z79.899 Other long term (current) drug therapy; Z91.15 Patient's noncompliance with renal dialysis
CPT/HCPCS: 36415; 74177; 80048; 80053; 83605; 83690; 84703; 85007; 85025; 85027; 87040; 90935; 93005; 96365; 96366; 96367; 96375; 96376; G0257; J0696; J1644; J2270; J2405; J2920; J3370; J7050; J7507; J7517; J8499

== ENCOUNTER 2018-05-25 09:18 | Observation (INO) | payer MEDICARE, MEDICAID ==
[2018-05-25 10:13] LABS: ALT (SGPT) Less than 7 U/L (8-55); AST (SGOT) 20 U/L (5-34); Albumin 3.9 g/dL (3.5-5.0); Alkaline Phosphatase 63 U/L (40-150); Anion Gap 22 mmol/L (10-20); BUN (Urea Nitrogen) 37 mg/dL (7.0-18.7); Bilirubin, Total 1.7 mg/dL (0.2-1.2); Calc. Creatinine Clearance 0 mL/min (70-130); Calcium 8.7 mg/dL (7.8-10.44); Carbon Dioxide 21 mmol/L (22-29); Chloride 99 mmol/L (98-107); Estimated GFR-MDRD 6; Globulin 3.2 g/dL (2.4-3.5); Glucose 84 mg/dL (70-105); Lipase 8 U/L (8-78); Potassium 5.1 mmol/L (3.5-5.1); Protein, Total 7.1 g/dL (6.0-8.3); Sodium 137 mmol/L (136-145)
--- NOTE | 2018-05-25 10:27 | RAD ---
SINGLE VIEW CHEST: Date: 05/25/18 COMPARISON: 03/09/18. HISTORY: Abdominal pain. Patient missed dialysis yesterday. FINDINGS: Single view of the chest shows an enlarged but stable cardiomediastinal silhouette. The dialysis cath eter has been removed. There is no evidence of consolidation or mass. There may be a small left pleur al effusion. IMPRESSION: Possible small left pleural effusion. POS: [facility]
[2018-05-25 10:36] LABS: CKMB 0.6 ng/mL (0-6.6)
[2018-05-25 10:37] LABS: #Eosinphils 0.1 thou/uL (0.0-0.7); #Lymphocytes 0.7 thou/uL (1.20-3.40); #Monocytes 0.2 thou/uL (0.11-0.59); #Neutrophils 2.8 thou/uL (1.40-6.50); %Basophils 0.6 % (0.0-1.0); %Eosinophils 1.5 % (0.0-10.0); %Lymphocytes 17.4 % (21.0-51.0); %Monocytes 5.5 % (0.0-10.0); Hemoglobin 9.7 g/dL (12.0-16.0); Hypochromia SLIGHT = 6-15 cells (100X) (0-5/hpf); MDiff Complete? YES; Mean Corpuscular HGB CONC 30.7 g/dL (32.0-36.0); Mean Corpuscular Hemoglobin 28.8 pg (27.0-31.0); Mean Corpuscular Volume 93.5 fL (78.0-98.0); Mean Platelet Volume 11.6 fL (7.4-10.4); Platelet Count 98 thou/uL (130-400); Platelet Morphology Comment Appears Decreased; Polychromasia SLIGHT = 2-3 cells (100X) (0-2/hpf); Red Blood Cell (RBC) Count 3.37 mill/uL (4.20-5.40); White Blood Cell (WBC) Count 3.8 thou/uL (4.8-10.8)
[2018-05-25] MEDS ORDERED: Morphine 4 MG/ML VIAL ONE ×2 (11:33→14:32)
[2018-05-25 13:19] LABS: Troponin I 0.188 ng/mL (< 0.028)
[2018-05-25] MEDS ORDERED: Promethazine HCl 25 MG/ML VIAL ONE (13:29)
--- NOTE | 2018-05-25 14:04 | RAD ---
ABDOMEN 2 VIEWS: Date: 05/25/18 HISTORY: Abdominal pain. COMPARISON: None. FINDINGS: There are right upper quadrant surgical clips. No dilated or air-filled loops of large or small bowel . Left hemidiaphragm is not fully evaluated on the upright view, although there is no free air apprec iated under the right hemidiaphragm. Low grade levoscoliosis lumbar spine. No acute osseous abnormality is appreciated. There is mild left -sided pubic body elevation relative to the right of approximately 3.0 mm, likely chronic, without a history of trauma. IMPRESSION: No acute abnormality. POS: [facility]
[2018-05-25] MEDS ORDERED: Ondansetron ODT 4 MG TAB PO PRN (14:22)
[2018-05-25] MEDS ORDERED: Calcium Carbonate 500 MG ChewTAB PO PRN (14:22)
[2018-05-25] MEDS ORDERED: Ondansetron PF 4 MG/2 ML Vial IVP PRN (14:22)
[2018-05-25] MEDS ORDERED: Nitroglycerin 2% Ointment 1 INCH/1 GM Packet TOP PRN (14:25)
[2018-05-25] MEDS ORDERED: Labetalol HCl 100 MG/20 ML VIAL SLOW IVP PRN (14:25)
--- NOTE | 2018-05-25 14:40 | HP ---
PRIMARY CARE PHYSICIAN: [facility]. PRIMARY INSTRUMENTATION CONTROLS ENGINEER: Dr. Mendoza. CHIEF COMPLAINT: Abdominal discomfort. HISTORY OF PRESENT ILLNESS: The patient is a 23-year-old female with end-stage renal disease, on hemodialysis; hypertension; and congestive heart failure, ejection fraction 15% to 20% in the past, presented to the emergency room with abdominal discomfort. Over the last 24 to 48 hours, the patient started having diarrhea followed by nausea and vomiting. Diarrhea was watery. She had several episodes of diarrhea. Later on, she started having nausea with multiple episodes of vomiting. She also had generalized body aches along with epigastric discomfort that was radiating to her mid chest. She also had abdominal cramping. She also complained of some shortness of breath that was worse on lying down flat. She felt febrile, however, did not check her temperature. Last watery bowel movement was prior to ER arrival. She denies any jaundice, palpitations, or syncope. She is currently not on immunosuppressants since the transplanted kidney has been removed. In the emergency room, her initial vital signs showed temperature 98.2, respirations of 34, pulse rate in 120s with a blood pressure of 167/123 with O2 saturation 100% on room air. She received Zofran by EMS. In the emergency room, she received Phenergan with 4 mg morphine. Labetalol 10 mg has been ordered. She missed dialysis yesterday due to not feeling well. PAST MEDICAL HISTORY: 1. End-stage renal disease, on hemodialysis. 2. Hypertension. 3. Severe dilated nonischemic cardiomyopathy, ejection fraction 15% to 20%. 4. Chronic anemia. 5. History of renal transplant in 2016. Please note that, the transplanted kidney was removed in March of 2018. 6. Anxiety. PAST SURGICAL HISTORY: 1. Renal transplant as discussed above. 2. Cholecystectomy. 3. Dialysis access. CURRENT HOME MEDICATIONS: The patient is unable to recall all of her medication. She states that she takes carvedilol and Entresto. ALLERGIES: NO KNOWN DRUG ALLERGIES. FAMILY HISTORY: Negative for inheritable diseases per the patient's report. SOCIAL HISTORY: The patient currently lives at home with her family. No current use of tobacco, alcohol, or drug use. REVIEW OF SYSTEMS: All other review of systems were reviewed and were found negative. She normally has 1 to 2 bowel movements every day. Her brother had flu-like illness recently. PHYSICAL EXAMINATION: VITAL SIGNS: As discussed above. GENERAL: A 23-year-old female, in mild distress due to epigastric discomfort. HEENT: Head; atraumatic and normocephalic. Sclerae anicteric. Moist mucous membranes. No oral lesion. NECK: Supple. No JVD appreciated. No carotid bruit. LUNGS: Showed diminished air entry at bilateral bases with scattered rhonchi. No significant wheezing. Lungs were symmetrical without significant accessory muscle use. HEART: S1, S2 present. Regular rate and rhythm. No rubs or gallops appreciated. There is 3/6 systolic murmur over the left lateral sternal border. No heaves or pulsation. ABDOMEN: Soft. Mild epigastric tenderness without any rebound or guarding. No costovertebral angle tenderness. EXTREMITIES: No edema or calf tenderness. NEUROLOGIC: Grossly nonfocal. Moves all 4 extremities. PSYCHIATRIC: Alert, awake, and oriented x3. SKIN: Warm and dry. LYMPH NODES: No palpable lymph nodes in the neck. PERIPHERAL VASCULAR: Radial pulses palpable bilaterally. MUSCULOSKELETAL: No joint swelling or tenderness. LABORATORY FINDINGS: CBC showed WBC 3.8 with hemoglobin 9.7, hematocrit 31.5, and platelet of 98. Chemistry showed sodium 137, potassium 5.1, chloride 99, bicarb 21, BUN 37, creatinine 10.29. Troponin of 0.169 with normal CK-MB. Troponin last year was 0.157. Chest x-ray by my review showed probable small left pleural effusion with mild pulmonary vascular congestion. KUB by my review showed nonobstructive bowel gas pattern. IMPRESSION: 1. Abdominal discomfort with nausea, vomiting, and diarrhea. The symptoms are consistent with a viral syndrome. 2. Volume overload secondary to missed hemodialysis. 3. End-stage renal disease, on hemodialysis. 4. Chronically elevated troponins. 5. Hypertension with hypertensive urgency. Please note that the patient was unable to take her medications this a.m. 6. History of renal transplant with subsequent removal of the kidney last month. Please note that, the patient is currently not on immunosuppressants. 7. Chronic anemia. 8. Chronic systolic heart failure, ejection fraction 10% to 15% secondary to nonischemic cardiomyopathy. PLAN: 1. The patient will be monitored as a 23-hour observation. Her troponins are chronically elevated. She will require emergent hemodialysis. We will get a stool workup. We will also get blood cultures done. Abdominal x-rays negative for bowel obstruction. EKG by my review showed sinus tachycardia with nonspecific ST-T wave changes. 2. Carvedilol will be restarted. Tachycardia is probably secondary to beta-cathleen rebound due to sudden discontinuation. Plan of care was discussed with the patient. She stated understanding. Job ID: [id number]
[2018-05-25] MEDS ORDERED: Dextrose 5% in Water 1,000 ML IV PRN (15:02)
[2018-05-25] MEDS ORDERED: Dextrose 50% Abboject 50 ML SYRINGE SLOW IVP PRN (15:02)
[2018-05-25] MEDS ORDERED: Dextrose 50% Abboject 50 ML SYRINGE ONE (15:03)
[2018-05-25] MEDS: Carvedilol 25 MG TAB PO SCH ×3 (17:00→20:06)
[2018-05-25] MEDS: Dextrose 5 %-0.45 % NaCl 1,000 ML IV SCH ×2 (17:41→20:27)
[2018-05-25] MEDS: Sacubitril 24.5 MG/Valsartan 25.5 MG TABLET PO SCH (20:06)
[2018-05-25 20:11] VITALS: BMI 25.5
[2018-05-25] MEDS: Promethazine HCl 25 MG/ML VIAL IM/IV PRN (20:13)
[2018-05-25] MEDS: ALPRAZolam 0.25 MG TAB PO PRN (22:18)
--- NOTE | 2018-05-26 00:08 | CON ---
DATE OF CONSULTATION: 05/25/2018 CONSULTING PHYSICIAN: Dr. Yan. REASON FOR CONSULTATION: End-stage renal disease evaluation and care. REASON FOR ADMISSION: Abdominal pain. HISTORY OF PRESENT ILLNESS: This is a 23-year-old female with history of end-stage renal disease and hypertension, who came to the hospital with above complaints and Nephrology is consulted for maintenance hemodialysis. The patient is mainly evaluated for abdominal pain. The patient was also hypoglycemic, tachycardic, and tachypneic, but she is feeling better after glucose supplementation. PAST MEDICAL HISTORY: Positive for end-stage renal disease, hypertension, cardiomyopathy, anemia, renal transplant, anxiety. PAST SURGICAL HISTORY: Renal transplant which was removed, cholecystectomy, dialysis access. MEDICATIONS: Home medications are to be updated. ALLERGIES: NO KNOWN DRUG ALLERGIES. SOCIAL HISTORY: No smoking, alcohol, or drugs. FAMILY HISTORY: No history of any kidney disease. REVIEW OF SYSTEMS: CONSTITUTIONAL: Negative for weight loss or gain, ability to conduct usual activities. SKIN: Negative for rash, itching. EYES: Negative for double vision, pain. ENT/MOUTH: Negative for nose bleeding, neck stiffness, pain, tenderness. CARDIOVASCULAR: Negative for palpitations, dyspnea on exertion, orthopnea. RESPIRATORY: Negative for shortness of breath, wheezing, cough, hemoptysis, fever or night sweats. GASTROINTESTINAL: Negative for poor appetite, abdominal pain, heartburn, nausea, vomiting, constipation, or diarrhea. GENITOURINARY: Negative for urgency, frequency, dysuria, nocturia. MUSCULOSKELETAL: Negative for pain, swelling. NEUROLOGIC/PSYCHIATRIC: Negative for anxiety, depression. ALLERGY/IMMUNOLOGIC: Negative for skin rash, bleeding tendency. PHYSICAL EXAMINATION: GENERAL: Reveals a well-built female, in no apparent distress. VITAL SIGNS: Temperature 98.6, pulse 71, respirations 18, and blood pressure 142/84. HEENT: Atraumatic and normocephalic. Oral mucosa is moist. NECK: Supple. CVS: S1 and S2 heard. Regular rate and rhythm. RESPIRATORY: Clear. GASTROINTESTINAL: Abdomen is soft. MUSCULOSKELETAL: No tenderness. No edema. DERMATOLOGIC: No skin rash. NEUROLOGIC: Alert and awake. PSYCHIATRIC: Mood and affect normal. LABORATORY DATA: Hemoglobin is 9.7. Potassium 5.1, BUN 37, creatinine 10.29. ASSESSMENT: 1. End-stage renal disease, continue on hemodialysis. 2. Edema, controlled. 3. Hypertension, stable. 4. Anemia, monitored. PLAN: 1. Plan is to have dialysis today and then tomorrow and then continue Tuesday, Tuesday, and Tuesday as tolerated. 2. We will continue to monitor. Thank you for the consult. Job ID: [id number]
[2018-05-26] MEDS: Promethazine HCl 25 MG/ML VIAL IM/IV PRN ×3 (01:32→15:07)
[2018-05-26] MEDS: Acetaminophen 325 MG TAB PO PRN ×2 (01:48→09:07)
[2018-05-26 05:11] LABS: #Eosinphils 0.1 thou/uL (0.0-0.7); #Lymphocytes 0.6 thou/uL (1.20-3.40); #Monocytes 0.2 thou/uL (0.11-0.59); #Neutrophils 1.4 thou/uL (1.40-6.50); %Eosinophils 5.3 % (0.0-10.0); %Lymphocytes 25.2 % (21.0-51.0); %Monocytes 9.2 % (0.0-10.0); %Neutrophils 59.3 % (42.0-75.0); Mean Corpuscular HGB CONC 31.8 g/dL (32.0-36.0); Mean Corpuscular Hemoglobin 30.7 pg (27.0-31.0); Mean Corpuscular Volume 96.3 fL (78.0-98.0); Mean Platelet Volume 12.2 fL (7.4-10.4); Platelet Count 73 thou/uL (130-400); RBC Distribution Width 15.7 % (11.5-14.5); Red Blood Cell (RBC) Count 2.94 mill/uL (4.20-5.40); White Blood Cell (WBC) Count 2.3 thou/uL (4.8-10.8)
[2018-05-26 05:28] LABS: ALT (SGPT) 8 U/L (8-55); AST (SGOT) 18 U/L (5-34); Albumin 3.4 g/dL (3.5-5.0); Alkaline Phosphatase 55 U/L (40-150); Anion Gap 16 mmol/L (10-20); BUN (Urea Nitrogen) 21 mg/dL (7.0-18.7); Bilirubin, Total 1.7 mg/dL (0.2-1.2); Calc. Creatinine Clearance 14 mL/min (70-130); Calcium 8.2 mg/dL (7.8-10.44); Carbon Dioxide 27 mmol/L (22-29); Chloride 97 mmol/L (98-107); Estimated GFR-MDRD 9; Globulin 2.8 g/dL (2.4-3.5); Glucose 76 mg/dL (70-105); Potassium 3.9 mmol/L (3.5-5.1); Protein, Total 6.2 g/dL (6.0-8.3); Sodium 136 mmol/L (136-145)
[2018-05-26] MEDS ORDERED: Cosyntropin 250 MCG VIAL SLOW IVP SCH (06:30)
[2018-05-26] MEDS: Famotidine/PF 20 mg/2ml Vial SLOW IVP SCH (08:43)
[2018-05-26] MEDS: Famotidine 20 MG TAB PO SCH (09:04)
[2018-05-26] MEDS: Sacubitril 24.5 MG/Valsartan 25.5 MG TABLET PO SCH ×2 (09:04→20:26)
[2018-05-26] MEDS: Carvedilol 25 MG TAB PO SCH ×2 (09:04→20:26)
--- NOTE | 2018-05-26 12:24 | PRG ---
DATE OF SERVICE: 05/26/2018 SUBJECTIVE: Patient was seen and examined at bedside and overnight events noted. Patient denies any shortness of breath or chest pain or palpitation. No history of nausea or vomiting or diarrhea or fever or chills or cramps. OBJECTIVE: GENERAL: This is a well-built female, in no apparent distress. VITAL SIGNS: Temperature 98.0. Heart rate 90. Respiratory rate 18. Blood pressure 133/88. HEENT: Atraumatic, normocephalic. Oral mucosa is moist NECK: Supple. CARDIOVASCULAR: S1, S2 heard. Rate and rhythm regular. RESPIRATORY: Clear to auscultation. GASTROINTESTINAL: Abdomen is soft. MUSCULOSKELETAL: No tenderness. No edema. DERMATOLOGIC: No skin rash. NEUROLOGIC: Alert and awake and oriented X3. No focal neurologic deficits. Moving all the extremities. PSYCHIATRIC: Mood and affect normal. LABORATORY DATA: Potassium 3.9, BUN is 21, and creatinine is 6.8. ASSESSMENT AND PLAN: 1. End-stage renal disease, continue hemodialysis Tuesday, Tuesday, and Tuesday. We will have dialysis today as tolerated. 2. Edema. We will remove fluid. 3. Hypertension. 4. Anemia. We will monitor. Continue dialysis Tuesday, Tuesday, and Tuesday. Job ID: [id number]
[2018-05-26] MEDS ORDERED: Promethazine 25 MG TAB PO PRN (12:49)
[2018-05-26] MEDS ORDERED: Hydrocortisone 10 mg Tablet PO SCH (14:00)
--- NOTE | 2018-05-26 15:32 | PDOC.PN ---
- Subjective Encounter Start Date: 05/26/18 Encounter Start Time: 15:00 Patient seen and examined for N/V/Volume overload. Nauseas. Diarrhea better. No abd discomfort. No overnight events - Objective Resuscitation Status - Order Detail: 05/25/18 14:22 Resuscitation Status Routine Resuscitation Status: FULL: Full Resuscitation MAR Reviewed: Yes Vital Signs & Weight: Vital Signs (12 hours) Temp Pulse Resp BP BP Pulse Ox 05/26/18 11:20 98.1 F 86 18 124/92 H 97 05/26/18 07:37 98 F 90 16 133/88 92 L 05/26/18 03:36 88 18 131/82 92 L Weight Weight 153 lb 11.2 oz Result Diagrams: 05/26/18 04:39 05/26/18 04:39 Additional Labs: Accuchecks 05/26/18 05/26/18 05/25/18 10:41 03:35 20:33 POC Glucose 92 83 83 EKG Reviewed by me: Yes (Tele SR) Phys Exam - Physical Examination Constitutional: NAD Neck: no JVD Respiratory: no wheezing, no rhonchi few rales at bases, no accessory muscle use Cardiovascular: RRR, no rub no heaves/pulsations Gastrointestinal: soft, non-tender, no distention, positive bowel sounds Musculoskeletal: no edema, pulses present Neurological: non-focal, normal sensation, moves all 4 limbs Psychiatric: normal affect, A&O x 3 Dx/Plan - Plan DVT proph w/SCDs IMPRESSION: 1. Acute Viral gastroenteritis - improving 2. Volume overload secondary to missed hemodialysis. 3. Adrenal insufficiency (Patient has a long h/o Prednisone use. Was discontinued last month) 4. Hypoglycemia on 05/25 during dialysis probably due to #3. 5. Hypertension with hypertensive urgency on admission 6. History of renal transplant with subsequent removal of the kidney last month. 7. Pancytopenia 8. Chronic systolic heart failure, ejection fraction 10% to 15% secondary to nonischemic cardiomyopathy. 9. End-stage renal disease, on hemodialysis. 10. Chronically elevated troponins. PLAN: Dialysis today Advance diet AM labs Start 10 mg Prednisone for 1 month with gradual taper Endocrinology f/w as outpt Case d/w Dr Quiroz DC later today if tolerating PO well Review of Systems - Review of Systems Respiratory: negative: Cough, Dry, Shortness of Breath, Hemoptysis, SOB with Excertion, Pleuritic Pain, Sputum, Wheezing Cardiovascular: negative: chest pain, palpitations, orthopnea, paroxysmal nocturnal dyspnea, edema, light headedness, other - Medications/Allergies Allergies/Adverse Reactions: Allergies Allergy/AdvReac Type Severity Reaction Status Date / Time No Known Drug Allergies Allergy Verified 05/26/18 00:16 Medications: Current Medications Acetaminophen (Tylenol) 650 mg PO Q6H PRN PRN Reason: Headache, Aches or Pain Last Admin: 05/26/18 09:07 Dose: 650 mg Alprazolam (Xanax) 0.25 mg PO BIDPRN PRN PRN Reason: Anxiety Last Admin: 05/25/18 22:18 Dose: 0.25 mg Calcium Carbonate (Tums) 1,000 mg PO Q4H PRN PRN Reason: Heartburn or Indigestion Carvedilol (Coreg) 25 mg PO BID-[facility] Last Admin: 05/26/18 09:04 Dose: 25 mg Cosyntropin (Cortrosyn) 250 mcg SLOW IVP [facility] Last Admin: 05/26/18 09:10 Dose: 250 mcg Dextrose/Water (Dextrose 50%) 25 gm SLOW IVP PRN PRN PRN Reason: Hypoglycemia Famotidine (Pepcid) 20 mg SLOW IVP DAILY [facility] Last Admin: 05/26/18 08:43 Dose: Not Given Famotidine (Pepcid) 20 mg PO DAILY [facility] Last Admin: 05/26/18 09:04 Dose: 20 mg Glucagon (Glucagon) 1 mg IM PRN PRN PRN Reason: Hypoglycemia Dextrose/Water (D5w) 1,000 mls @ 0 mls/hr IV .Q0M PRN PRN Reason: Hypoglycemia Labetalol HCl (Normodyne) 10 mg SLOW IVP Q4H PRN PRN Reason: Systolic BP > 180 Nitroglycerin (Nitro-Bid 2% Ointment) 0.5 inch TOP Q8HR PRN PRN Reason: SBP Greater Than 180 Ondansetron HCl (Zofran Odt) 4 mg PO Q6H PRN PRN Reason: Nausea/Vomiting Ondansetron HCl (Zofran) 4 mg IVP Q6H PRN PRN Reason: Nausea/Vomiting Prednisone (Prednisone) 10 mg PO QAM-[facility] Promethazine HCl (Phenergan) 25 mg IM/IV Q6H PRN PRN Reason: Nausea/Vomiting Last Admin: 05/26/18 15:07 Dose: 25 mg Promethazine HCl (Phenergan) 25 mg PO Q4H PRN PRN Reason: Nausea Sacubitril/Valsartan (Entresto 24.5 Mg-25.5 Mg Tablet) 1 tab PO BID YESI Last Admin: 05/26/18 09:04 Dose: 1 tab Sodium Chloride (Flush - Normal Saline) 10 ml IVF PRN PRN PRN Reason: Saline Flush
[2018-05-26] MEDS: ALPRAZolam 0.25 MG TAB PO PRN (20:26)
[2018-05-27 05:45] LABS: #Eosinphils 0.2 thou/uL (0.0-0.7); #Lymphocytes 0.5 thou/uL (1.20-3.40); #Monocytes 0.3 thou/uL (0.11-0.59); #Neutrophils 2.2 thou/uL (1.40-6.50); %Eosinophils 5.7 % (0.0-10.0); %Lymphocytes 15.8 % (21.0-51.0); %Monocytes 10.3 % (0.0-10.0); %Neutrophils 67.4 % (42.0-75.0); Hemoglobin 9.8 g/dL (12.0-16.0); Mean Corpuscular HGB CONC 30.8 g/dL (32.0-36.0); Mean Corpuscular Hemoglobin 28.8 pg (27.0-31.0); Mean Corpuscular Volume 93.6 fL (78.0-98.0); Mean Platelet Volume 11.3 fL (7.4-10.4); Platelet Count 118 thou/uL (130-400); RBC Distribution Width 15.7 % (11.5-14.5); Red Blood Cell (RBC) Count 3.41 mill/uL (4.20-5.40); White Blood Cell (WBC) Count 3.2 thou/uL (4.8-10.8)
[2018-05-27 05:52] LABS: INR-International Normal Ratio 1.2; PTT 32.3 SEC (22.9-36.1); Prothrombin Time 15.4 SEC (12.0-14.7)
[2018-05-27 05:59] LABS: Anion Gap 14 mmol/L (10-20); BUN (Urea Nitrogen) 16 mg/dL (7.0-18.7); Calc. Creatinine Clearance 18 mL/min (70-130); Calcium 7.9 mg/dL (7.8-10.44); Carbon Dioxide 29 mmol/L (22-29); Chloride 98 mmol/L (98-107); Estimated GFR-MDRD 12; Glucose 96 mg/dL (70-105); Potassium 3.6 mmol/L (3.5-5.1); Sodium 137 mmol/L (136-145)
[2018-05-27] MEDS ORDERED: predniSONE 20 MG TAB PO SCH (08:00)
[2018-05-27] MEDS: Carvedilol 25 MG TAB PO SCH (08:43)
[2018-05-27] MEDS: Sacubitril 24.5 MG/Valsartan 25.5 MG TABLET PO SCH (08:43)
[2018-05-27] MEDS: Famotidine/PF 20 mg/2ml Vial SLOW IVP SCH (08:43)
[2018-05-27] MEDS: Famotidine 20 MG TAB PO SCH (08:43)
--- NOTE | 2018-05-27 09:49 | PRG ---
DATE OF SERVICE: 05/27/2018 SUBJECTIVE: Patient was seen and examined at bedside and overnight events noted. Patient denies any shortness of breath or chest pain or palpitation. No history of nausea or vomiting or diarrhea or fever or chills or cramps. OBJECTIVE: GENERAL: This is a well-built female, in no apparent distress. VITAL SIGNS: Temperature . Heart rate 85. Respiratory rate . Blood pressure 132/81. HEENT: Atraumatic, normocephalic. Oral mucosa is moist NECK: Supple. CARDIOVASCULAR: S1, S2 heard. Rate and rhythm regular. RESPIRATORY: Clear to auscultation. GASTROINTESTINAL: Abdomen is soft. MUSCULOSKELETAL: No tenderness. No edema. DERMATOLOGIC: No skin rash. NEUROLOGIC: Alert and awake and oriented X3. No focal neurologic deficits. Moving all the extremities. PSYCHIATRIC: Mood and affect normal. LABORATORY DATA: Potassium 3.6, BUN is 16, and creatinine is 5.1. ASSESSMENT AND PLAN: 1. End-stage renal disease. Continue hemodialysis as tolerated. 2. Edema. We will remove fluid. 3. Hypertension. 4. Anemia. 5. History of renal transplant. Transplant kidney removal. We will follow. Job ID: [id number]
[2018-05-27 12:19] VITALS: BP 127/86; TEMP 97.8
--- NOTE | 2018-05-27 19:29 | EKG ---
Test Reason : Blood Pressure : / mmHG Vent. Rate : 124 BPM Atrial Rate : 124 BPM P-R Int : 142 ms QRS Dur : 086 ms QT Int : 324 ms P-R-T Axes : 065 073 121 degrees QTc Int : 465 ms Sinus tachycardia Possible Left atrial enlargement Nonspecific ST and T wave abnormality Abnormal ECG Confirmed by NAVEEN KAY D.O. ([id number]), department editor CHRISS ERICKSON ([id number] on 05/27/2018 7:29:22 PM Referred By: Confirmed By:NAVEEN KAY D.O.
== END 2018-05-27 13:19 | disposition home or self-care (01) ==
LOC: ERS 09:18 → ERHOLD 13:03 → 2SW 19:19
PROVIDERS: ADMIT Internal Medicine; ATTEND Internal Medicine
DX: A08.39 Other viral enteritis (principal); E87.70 Fluid overload, unspecified; E27.40 Unspecified adrenocortical insufficiency; I16.0 Hypertensive urgency; I13.2 Hypertensive heart and chronic kidney disease with heart failure and with stage 5 chronic kidney disease, or end stage renal disease; N18.6 End stage renal disease; I50.22 Chronic systolic (congestive) heart failure; Z99.2 Dependence on renal dialysis; D61.818 Other pancytopenia; I42.0 Dilated cardiomyopathy; D64.9 Anemia, unspecified; F41.9 Anxiety disorder, unspecified; Z94.0 Kidney transplant status; Z90.49 Acquired absence of other specified parts of digestive tract; Z79.82 Long term (current) use of aspirin; Z79.899 Other long term (current) drug therapy
CPT/HCPCS: 71045; 74019; 80048; 80053 ×2; 80400; 82533; 82553; 82962 ×3; 83690; 84484 ×2; 85025 ×3; 85610; 85730; 87040; 87804 ×2; 93005; 96365; 96375 ×2; 96376 ×3; 97139 ×2; 99285; G0378 ×2; 36415; 36416; J0834; J2270; J2550; J3490; Q0162; Q0169; S0028

== ENCOUNTER 2018-06-06 17:20 | Inpatient (IN) | payer MEDICARE, MEDICAID ==
[2018-06-06 18:01] LABS: #Eosinphils 0.1 thou/uL (0.0-0.7); #Lymphocytes 0.7 thou/uL (1.20-3.40); #Monocytes 0.2 thou/uL (0.11-0.59); #Neutrophils 2.2 thou/uL (1.40-6.50); %Basophils 0.6 % (0.0-1.0); %Lymphocytes 22.2 % (21.0-51.0); %Neutrophils 68.2 % (42.0-75.0); Hemoglobin 9.6 g/dL (12.0-16.0); Mean Corpuscular HGB CONC 31.8 g/dL (32.0-36.0); Mean Corpuscular Hemoglobin 29.1 pg (27.0-31.0); Mean Corpuscular Volume 91.4 fL (78.0-98.0); Platelet Count 120 thou/uL (130-400); RBC Distribution Width 15.4 % (11.5-14.5); Red Blood Cell (RBC) Count 3.31 mill/uL (4.20-5.40); White Blood Cell (WBC) Count 3.2 thou/uL (4.8-10.8)
[2018-06-06 18:11] LABS: BHCG - Serum Negative (NEGATIVE); Pregs Control Background? CLEAR/WHITE (CLR/WHITE); Pregs Control Bar Appear? YES (CONTROL BAR)
--- NOTE | 2018-06-06 18:19 | CT ---
CT BRAIN WITHOUT CONTRAST: 06/06/18 HISTORY: Headache. COMPARISON: CT brain 10/22/15. FINDINGS: No acute hemorrhage or infarct. No midline shift or mass effect. Ventricular size and extra-axial CSF spaces are normal. The calvarium is intact. The paranasal sinuses and mastoids are clear. IMPRESSION: No acute intracranial abnormality. POS: [facility]
[2018-06-06 18:25] LABS: ALT (SGPT) 7 U/L (8-55); AST (SGOT) 15 U/L (5-34); Albumin 3.9 g/dL (3.5-5.0); Alkaline Phosphatase 59 U/L (40-150); Anion Gap 19 mmol/L (10-20); BUN (Urea Nitrogen) 54 mg/dL (7.0-18.7); Bilirubin, Total 0.8 mg/dL (0.2-1.2); Calc. Creatinine Clearance 0 mL/min (70-130); Calcium 7.9 mg/dL (7.8-10.44); Carbon Dioxide 23 mmol/L (22-29); Chloride 101 mmol/L (98-107); Estimated GFR-MDRD 5; Globulin 3.1 g/dL (2.4-3.5); Glucose 70 mg/dL (70-105); Potassium 5.6 mmol/L (3.5-5.1); Sodium 137 mmol/L (136-145)
[2018-06-06 18:45] LABS: CKMB 0.9 ng/mL (0-6.6)
[2018-06-06] MEDS ORDERED: Promethazine HCl 25 MG/ML VIAL ONE (19:05)
[2018-06-06] MEDS ORDERED: Nitroglycerin 2% Ointment 1 INCH/1 GM Packet ONE (19:05)
[2018-06-06] MEDS ORDERED: diphenhydrAMINE 50 MG/ML VIAL ONE (19:05)
[2018-06-06] MEDS ORDERED: Aspirin Chewable 81 MG TAB ONE (19:28)
[2018-06-06] MEDS ORDERED: Promethazine HCl 25 MG/ML VIAL SLOW IVP PRN (21:41)
[2018-06-06 21:45] LABS: Troponin I 0.152 ng/mL (< 0.028)
[2018-06-06 21:51] VITALS: BMI 27.1
[2018-06-06] MEDS ORDERED: Metoclopramide HCl 10 MG TAB PO PRN (23:34)
[2018-06-07] MEDS: Acetaminophen 325 MG TAB PO PRN ×2 (00:09→10:49)
[2018-06-07] MEDS: Metoclopramide HCl 10 MG/2 ML VIAL IVP PRN ×2 (00:10→17:03)
[2018-06-07 00:49] LABS: HBSAg Index 0.25 S/CO (0-0.99); Hep B Surf Ag Non-Reactive S/CO (NonReactive)
[2018-06-07 01:46] LABS: Troponin I 0.144 ng/mL (< 0.028)
[2018-06-07 02:38] LABS: Hep B Surf AB Reactive (NonReactive)
[2018-06-07 02:39] LABS: HBSAB Concentration 472.28 mIU/mL
[2018-06-07] MEDS ORDERED: cloNIDine 0.1 MG TAB PO PRN (03:48)
[2018-06-07] MEDS ORDERED: Non-Formulary Item 1 EACH (Sacubitril/Valsartan [Entresto 24 Mg-26 Mg Tablet] 1 TAB) PO SCH (09:00)
[2018-06-07] MEDS ORDERED: Ondansetron PF 4 MG/2 ML Vial IVP PRN (09:50)
[2018-06-07] MEDS ORDERED: Ondansetron ODT 4 MG TAB PO PRN (09:50)
[2018-06-07] MEDS ORDERED: Senokot S 8.6-50 MG TAB PO PRN (09:50)
[2018-06-07] MEDS: Famotidine 20 MG TAB PO SCH (10:46)
[2018-06-07] MEDS: Sacubitril 24.5 MG/Valsartan 25.5 MG TABLET PO SCH ×2 (10:46→20:39)
[2018-06-07] MEDS: Amlodipine 5 MG TAB PO SCH ×2 (10:47→17:07)
[2018-06-07] MEDS ORDERED: Carvedilol 6.25 MG TAB PO SCH (17:00)
[2018-06-07] MEDS: Carvedilol 25 MG TAB PO SCH (17:03)
--- NOTE | 2018-06-07 20:58 | CON ---
DATE OF CONSULTATION: 06/07/2018 CONSULTING PHYSICIAN: Jewel Singh DO REASON FOR CONSULTATION: End-stage renal disease evaluation and care. REASON FOR ADMISSION: Abnormal labs. HISTORY OF PRESENT ILLNESS: A 23-year-old female with history of end-stage renal disease, failed renal transplant, nephrotic syndrome, anemia, came to the hospital with headache, was found to have elevated potassium, was admitted. The patient had yesterday and had dialysis in the morning. No fever. No chills. No nausea or vomiting. PAST MEDICAL HISTORY: Positive for end-stage renal disease, failed renal transplant, hypertension. PAST SURGICAL HISTORY: Transplant surgery and cholecystectomy. HOME MEDICATIONS: Reviewed. ALLERGIES: NO KNOWN DRUG ALLERGIES. SOCIAL HISTORY: No smoking, alcohol, or illicit drug abuse. FAMILY HISTORY: No history of any kidney disease. REVIEW OF SYSTEMS: CONSTITUTIONAL: Negative for weight loss or gain, ability to conduct usual activities. SKIN: Negative for rash, itching. EYES: Negative for double vision, pain. ENT/MOUTH: Negative for nose bleeding, neck stiffness, pain, tenderness. CARDIOVASCULAR: Negative for palpitations, dyspnea on exertion, orthopnea. RESPIRATORY: Negative for shortness of breath, wheezing, cough, hemoptysis, fever or night sweats. GASTROINTESTINAL: Negative for poor appetite, abdominal pain, heartburn, nausea, vomiting, constipation, or diarrhea. GENITOURINARY: Negative for urgency, frequency, dysuria, nocturia. PHYSICAL EXAMINATION: GENERAL: This is a well-built female, in no apparent distress. VITAL SIGNS: Temperature 97.8, pulse 84, respirations . HEENT: Atraumatic and normocephalic. Oral mucosa is moist. NECK: Supple. CVS: S1 and S2 heard. Rate and rhythm regular. RESPIRATORY: Clear. GASTROINTESTINAL: Abdomen is soft. MUSCULOSKELETAL: 1+ edema. DERMATOLOGIC: No skin rash. NEUROLOGIC: Alert and awake. PSYCHIATRIC: Normal mood and affect. LABORATORY DATA: . ASSESSMENT AND PLAN: 1. End-stage renal disease. Continue on dialysis as tolerated. 2. Edema, controlled. 3. Hypertension. 4. Anemia. 5. Plan is to have dialysis. 6. Hyperkalemia, limit potassium intake. Job ID: [id number]
[2018-06-08 06:29] LABS: Hemoglobin 10.3 g/dL (12.0-16.0); Platelet Count 140 thou/uL (130-400)
[2018-06-08 06:48] LABS: Anion Gap 15 mmol/L (10-20); BUN (Urea Nitrogen) 19 mg/dL (7.0-18.7); Calc. Creatinine Clearance 16 mL/min (70-130); Carbon Dioxide 30 mmol/L (22-29); Chloride 97 mmol/L (98-107); Estimated GFR-MDRD 10; Glucose 78 mg/dL (70-105); Potassium 3.7 mmol/L (3.5-5.1); Sodium 138 mmol/L (136-145)
--- NOTE | 2018-06-08 07:36 | HP ---
PRIMARY CARE PHYSICIAN: [facility]. PRIMARY WATER RECLAMATION SYSTEMS OPERATOR: Braxton Mendoza MD CHIEF COMPLAINT: Nausea and vomiting with headache of one day duration. HISTORY OF PRESENT ILLNESS: The patient is a 23-year-old female with end-stage renal disease, on hemodialysis; chronic adrenal insufficiency; hypertension; and congestive heart failure, presented to the emergency room with above complaints. Over the last 1 to 2 days, the patient developed generalized weakness along with nausea and vomiting. The vomiting contained food, which she had eaten. The nausea and vomiting progressively got worse. She also had headache, which was generalized without any photophobia, phonophobia, double vision, blurring of vision or facial asymmetry. She denies any weakness or numbness of any of her extremities. She is compliant with all of her antihypertensives. She was unable to go for her routine dialysis session due to this reason. So, she presented to the emergency room. In the emergency room, initial vital signs showed temperature 98.1, respirations of 18, pulse rate of 88 with a blood pressure of 171/110 with O2 saturation of 99% on room air. Repeat blood pressure was 168/119. CT scan of the brain noncontrast was negative for acute findings. She received aspirin, Phenergan, nitroglycerin patch, Benadryl in the emergency room. She underwent emergent dialysis, after which her symptoms started to improve gradually. PAST MEDICAL HISTORY: 1. End-stage renal disease, on hemodialysis. 2. Chronic adrenal insufficiency, started on prednisone recently. 3. Hypertension. 4. History of renal transplant with subsequent removal of the kidney last month. 5. Chronic systolic heart failure secondary to nonischemic cardiomyopathy, ejection fraction 10% to 15%. 6. Chronically elevated troponins. 7. Pancytopenia. PAST SURGICAL HISTORY: 1. Renal transplant as discussed above. 2. Dialysis access. 3. Cholecystectomy. ALLERGIES: NO KNOWN DRUG ALLERGIES. CURRENT HOME MEDICATIONS: 1. Amlodipine 5 mg daily. 2. Carvedilol 25 mg b.i.d. 3. Vitamin D3 2000 units daily. 4. Pepcid 20 mg daily. 5. Entresto one tablet b.i.d. 6. Prednisone 10 mg daily. SOCIAL HISTORY: The patient currently lives at home with her family. She denies current use of tobacco, alcohol, or drug use. FAMILY HISTORY: Negative for heart disease or diabetes. REVIEW OF SYSTEMS: The patient denies any abdominal discomfort or diarrhea. She had a normal bowel movement yesterday. All other review of systems was reviewed and were found negative. PHYSICAL EXAMINATION: VITAL SIGNS: As discussed above. GENERAL: A 23-year-old female, in no significant distress. Symptoms are improving. HEENT: Head atraumatic and normocephalic. Sclerae anicteric. Moist mucous membrane. No oral lesion. NECK: Supple. No JVD appreciated. No carotid bruit. LUNGS: Showed rales at bilateral bases with scattered rhonchi. No wheezing. No accessory muscle use. HEART: S1, S2 present. Regular rate and rhythm. 2/6 systolic murmur over the mitral area. ABDOMEN: Soft, nontender. No rebound or guarding. No costovertebral angle tenderness. EXTREMITIES: No calf tenderness. There is 1+ edema in bilateral lower extremity. SKIN: Warm and dry. LYMPH NODES: No palpable lymph nodes in the neck. PERIPHERAL VASCULAR: Radial pulses palpable bilaterally. MUSCULOSKELETAL: No joint swelling tenderness. LABORATORY FINDINGS: WBC 3.2 with hemoglobin 9.6, hematocrit 30.3, platelet 120. Chemistry showed sodium 137 with potassium 5.6, chloride 101, bicarb 23, BUN 54, creatinine 11.8. Troponins 0.152. test was negative. CT scan of the brain by my review as discussed above. Recent chest x-ray by my review showed small left pleural effusion. IMPRESSION: 1. Nausea, vomiting, and headache, probably secondary to hypertensive urgency. 2. Volume overload secondary to missed hemodialysis. 3. Recently diagnosed adrenal insufficiency, on steroids. 4. End-stage renal disease, on hemodialysis. The patient missed hemodialysis yesterday. 5. Chronic anemia secondary to renal insufficiency. 6. Chronic systolic heart failure, ejection fraction 10% to 15% range secondary to nonischemic cardiomyopathy. 7. Chronically elevated troponins. 8. Hypoglycemia, probably secondary to adrenal insufficiency. 9. Chronic pancytopenia. 10. Hyperkalemia. PLAN: The patient will be monitored on the telemetry unit. We will monitor blood sugars closely. Dialysis per Nephrology. We will recheck labs in a.m. We will resume all of her home medications including Entresto, Pepcid, carvedilol, and amlodipine. The patient was advised to monitor her blood pressure on a daily basis and to be compliant with all of her medications. Discharge disposition per Nephrology. Plan of care was discussed with the patient in detail. She stated understanding. Job ID: [id number]
[2018-06-08] MEDS ORDERED: predniSONE 5 MG TAB PO SCH (08:00)
[2018-06-08] MEDS ORDERED: Non-Formulary Item 1 EACH (Prednisone [Prednisone] 10 MG) PO SCH (08:00)
[2018-06-08] MEDS: Famotidine 20 MG TAB PO SCH (09:09)
[2018-06-08] MEDS: Amlodipine 5 MG TAB PO SCH (09:09)
[2018-06-08] MEDS: Sacubitril 24.5 MG/Valsartan 25.5 MG TABLET PO SCH (09:09)
[2018-06-08] MEDS: Carvedilol 25 MG TAB PO SCH (09:10)
[2018-06-08 09:50] VITALS: BP 150/86; TEMP 97.6
--- NOTE | 2018-06-08 13:17 | PRG ---
DATE OF SERVICE: 06/08/2018 SUBJECTIVE: Patient was seen and examined at bedside and overnight events noted. Patient denies any shortness of breath or chest pain or palpitation. No history of nausea or vomiting or diarrhea or fever or chills or cramps. OBJECTIVE: GENERAL: This is a well-developed female, in no apparent distress. VITAL SIGNS: , pulse 82, blood pressure 150/86. HEENT: Atraumatic, normocephalic. Oral mucosa is moist NECK: Supple. CARDIOVASCULAR: S1, S2 heard. Rate and rhythm regular. RESPIRATORY: Clear to auscultation. GASTROINTESTINAL: Abdomen is soft. MUSCULOSKELETAL: No tenderness. No edema. DERMATOLOGIC: No skin rash. NEUROLOGIC: Alert and awake and oriented X3. No focal neurologic deficits. Moving all the extremities. PSYCHIATRIC: Mood and affect normal. LABORATORY DATA: Potassium of 3.7, BUN is 90, creatinine is 6.2. ASSESSMENT AND PLAN: 1. End-stage renal disease. Continue dialysis on Tuesday, Tuesday, and Tuesday. 2. Edema. 3. Hypertension. 4. Anemia. 5. Hyperkalemia, limit potassium intake. 6. Continue dialysis Tuesday, Tuesday and Tuesday as tolerated. Job ID: [id number]
--- NOTE | 2018-06-08 14:31 | DIS ---
DATE OF ADMISSION: 06/06/2018 DATE OF DISCHARGE: 06/08/2018 DISCHARGE DISPOSITION: Home. FOLLOWUP: 1. Follow up with primary care physician at [facility] in 1 week. 2. Follow up with primary health services coordinator, Dr. Mendoza. The patient was advised to be compliant with all of her medications as well as dialysis. DISCHARGE MEDICATIONS: Same as admission medications. 1. Amlodipine 5 mg daily. 2. Carvedilol 25 mg b.i.d. 3. Entresto b.i.d. 4. Prednisone 10 mg daily. 5. Pepcid 20 mg daily. 6. Vitamin D3 of 2000 units b.i.d. The patient was seen and examined on the day of discharge. Denies any new complaints. No chest pain, shortness of breath, or palpitations reported. BRIEF HOSPITAL COURSE: The patient is a 23-year-old female with end-stage renal disease, on hemodialysis, presented to the emergency room with nausea, vomiting, headache, along with elevated blood pressure. Her blood pressure in the emergency room was 171/110. She also missed hemodialysis on Tuesday due to transportation issues. Please refer to the history and physical for further details. The patient was admitted to the hospital with a diagnosis of hypertensive urgency as well as volume overload. Her symptoms improved with dialysis. Her blood pressure improved with her home medications. In the emergency room, she received nitro patch along with aspirin. Serial troponins were slightly elevated in the indeterminate range. Please note that the patient has chronically-elevated troponins. She was also found to have potassium of 5.6 on admission that has improved to 3.7 after dialysis sessions. She has been cleared by Nephrology for discharge. FINAL DIAGNOSES: 1. Nausea, vomiting, and headache secondary to hypertensive urgency. 2. Volume overload secondary to missed hemodialysis. 3. Recently diagnosed adrenal insufficiency, on steroids. 4. End-stage renal disease, on hemodialysis. 5. Chronic anemia secondary to renal insufficiency. 6. Chronic systolic heart failure, ejection fraction 10% to 15% secondary to nonischemic cardiomyopathy. 7. Chronically elevated troponins. 8. Mild hypoglycemia probably secondary to adrenal insufficiency. 9. Chronic pancytopenia. 10. Hyperkalemia, resolved. SIGNIFICANT LABORATORY DATA: Hemoglobin 9.6. BNP 15,526. Potassium on admission 5.6. Lowest blood sugar was 65, at discharge was 83, 96, and 78. PLAN: Plan of care was discussed with the patient in detail. She stated understanding. Job ID: [id number]
--- NOTE | 2018-06-10 15:40 | EKG ---
Test Reason : HTN Blood Pressure : / mmHG Vent. Rate : 088 BPM Atrial Rate : 088 BPM P-R Int : 174 ms QRS Dur : 084 ms QT Int : 470 ms P-R-T Axes : 046 016 138 degrees QTc Int : 568 ms Normal sinus rhythm Possible Left atrial enlargement Cannot rule out Anterior infarct , age undetermined Prolonged QT No STEMI Abnormal ECG Confirmed by ISIDORO Song, JESUS ([id number]), commissioning editor CHRISS ERICKSON ([id number]) on 06/10/2018 3:40:04 PM Referred By: LATISHA Confirmed By:JESUS CHAUDHRY M.D.
== END 2018-06-08 11:33 | disposition home or self-care (01) | DRG 304 ==
LOC: ERS 17:20 → 2NO 19:32
PROVIDERS: ADMIT Internal Medicine; ATTEND Internal Medicine
DX: I16.0 Hypertensive urgency (principal); N18.6 End stage renal disease; I50.22 Chronic systolic (congestive) heart failure; I42.9 Cardiomyopathy, unspecified; D61.818 Other pancytopenia; I13.2 Hypertensive heart and chronic kidney disease with heart failure and with stage 5 chronic kidney disease, or end stage renal disease; Z99.2 Dependence on renal dialysis; D63.1 Anemia in chronic kidney disease; E16.2 Hypoglycemia, unspecified; E87.5 Hyperkalemia; Z91.15 Patient's noncompliance with renal dialysis
CPT/HCPCS: 36415; 36416; 70450; 80048; 80053; 82553; 83880; 84484; 84703; 85014; 85018; 85025; 85049; 86706; 87340; 90935; 93005; 96365; 96375; 99292; G0257; J1200; J2550; J2765; J7512; J8597

== ENCOUNTER 2018-07-09 19:13 | Inpatient (IN) | payer MEDICAID, MEDICARE, OTHER ==
[2018-07-09] MEDS ORDERED: Ondansetron PF 4 MG/2 ML Vial ONE (19:36)
[2018-07-09] MEDS ORDERED: Morphine 2 MG/ML SYRINGE ONE (19:37)
[2018-07-09 19:47] LABS: #Eosinphils 0.1 thou/uL (0.0-0.7); #Monocytes 0.2 thou/uL (0.11-0.59); #Neutrophils 2.4 thou/uL (1.40-6.50); %Basophils 0.1 % (0.0-1.0); %Eosinophils 2.1 % (0.0-10.0); %Lymphocytes 26.7 % (21.0-51.0); %Monocytes 6.3 % (0.0-10.0); %Neutrophils 64.9 % (42.0-75.0); Hemoglobin 12.2 g/dL (12.0-16.0); Mean Corpuscular HGB CONC 33.2 g/dL (32.0-36.0); Mean Corpuscular Hemoglobin 31.6 pg (27.0-31.0); Mean Corpuscular Volume 95.3 fL (78.0-98.0); Mean Platelet Volume 11.2 fL (7.4-10.4); Platelet Count 140 thou/uL (130-400); RBC Distribution Width 19.7 % (11.5-14.5); Red Blood Cell (RBC) Count 3.87 mill/uL (4.20-5.40); White Blood Cell (WBC) Count 3.7 thou/uL (4.8-10.8)
[2018-07-09 19:59] LABS: BHCG - Serum Negative (NEGATIVE); Pregs Control Background? CLEAR/WHITE (CLR/WHITE); Pregs Control Bar Appear? YES (CONTROL BAR)
[2018-07-09 20:07] LABS: ALT (SGPT) 25 U/L (8-55); AST (SGOT) 36 U/L (5-34); Albumin 4.1 g/dL (3.5-5.0); Alkaline Phosphatase 57 U/L (40-150); Anion Gap 29 mmol/L (10-20); BUN (Urea Nitrogen) 73 mg/dL (7.0-18.7); Bilirubin, Total 1.2 mg/dL (0.2-1.2); Calc. Creatinine Clearance 0 mL/min (70-130); Calcium 8.7 mg/dL (7.8-10.44); Carbon Dioxide 15 mmol/L (22-29); Chloride 100 mmol/L (98-107); Estimated GFR-MDRD 4; Globulin 3.3 g/dL (2.4-3.5); Glucose 123 mg/dL (70-105); Lipase 14 U/L (8-78); Potassium 6.5 mmol/L (3.5-5.1); Protein, Total 7.4 g/dL (6.0-8.3); Sodium 137 mmol/L (136-145)
[2018-07-09] MEDS ORDERED: Sodium Bicarb 50 MEQ/50 ML Abboject 8.4% SYRINGE ONE (20:46)
[2018-07-09] MEDS ORDERED: Dextrose 50% Abboject 50 ML SYRINGE ONE (20:46)
[2018-07-09] MEDS ORDERED: Calcium Chloride 1 GM/10 ML Abboject SYRINGE ONE (20:46)
[2018-07-09] MEDS ORDERED: Insulin Regular 300 UNITS/3 ML VIAL ONE (20:47)
[2018-07-09] MEDS ORDERED: Morphine 4 MG/ML VIAL ONE (21:03)
[2018-07-09] MEDS ORDERED: Promethazine HCl 25 MG/ML VIAL ONE (21:03)
--- NOTE | 2018-07-09 22:01 | ULT ---
RIGHT UPPER QUADRANT ULTRASOUND: 07/09/18 HISTORY: Pain. Multiple longitudinal and transverse images of the right upper quadrant of the abdomen is obtained us ing a multihertz curvilinear transducer. Real time and color flow images demonstrate the liver to be unremarkable with no evidence of definite masses or lesions. The gallbladder has been surgically removed. No evidence of intrahepatic biliary dilatation is seen. The common bile duct is of normal size measuring 3.5 mm. The visualized portions of the pancreas is unremarkable. The right kidney is decreased in size and atrophy measuring 5.9 cm from pole to pole. The patient has a history of renal failure. No evidence of ascites seen. IMPRESSION: Right renal atrophy. No other significant right upper quadrant abnormality seen in a patient post cho lecystectomy. POS: [facility]
[2018-07-09] MEDS ORDERED: Promethazine HCl 25 MG/ML VIAL SLOW IVP PRN (22:14)
[2018-07-09 22:27] VITALS: BMI 24.5
--- NOTE | 2018-07-09 22:33 | CT ---
NONCONTRAST ENHANCED CT IMAGES OF THE ABODMEN AND PELVIS 07/09/18 HISTORY: Abdominal pain. Noncontrast enhanced CT images of the abdomen and pelvis demonstrates cardiomegaly with a pericardial effusion. No evidence of lung base parenchymal lesion seen. No evidence of free intraperitoneal air seen. The liver and spleen are unremarkable. The gallbladder has been surgically removed. The pancreas is u nremarkable. Adrenal glands unremarkable. Both kidneys are atrophied. Diffuse edema is seen in the subcutaneous fat and intraperitoneal fat. No dilated loops of bowel seen. A small amount of free pelvic fluid seen. The colon is not significantly distended. IMPRESSION: 1. Small amount of free pelvic fluid. 2. Cardiomegaly and pericardial effusion seen. POS: [facility]
--- NOTE | 2018-07-09 22:45 | PRG ---
DATE OF SERVICE: 07/09/2018 SUBJECTIVE: Seen in conjunction with Sidney Underwood. The patient has some right-sided abdominal pain, nausea, and vomiting. Her labs indicated hyperkalemia and Nephrology has been notified. Dr. Quiroz has been here to see the patient with us as well and the plan is to go for immediate dialysis. She is slightly tender in the right upper quadrant right at the costal margin. She has had cholecystectomy and she is not making urine well. I feel comfortable holding off on further evaluation until we addressed the end-stage renal disease and hyperkalemia. We will plan on a CT scan. Subsequent plan was discussed with Sidney. Job ID: [id number]
[2018-07-09] MEDS ORDERED: cloNIDine 0.1 MG TAB PO PRN (23:38)
[2018-07-09] MEDS ORDERED: hydrALAZINE 20 MG/ML VIAL SLOW IVP PRN (23:40)
[2018-07-09] MEDS ORDERED: Calcium Carbonate 500 MG ChewTAB PO PRN (23:56)
--- NOTE | 2018-07-10 | HP ---
PRIMARY CARE PHYSICIAN: None. PRIMARY SOFTWARE TOOLS BUILD ENGINEER: 1. Dr. Mendoza. 2. Dr. Quiroz. CHIEF COMPLAINT: End-stage renal disease and missed dialysis on Tuesday, abdominal pain with nausea and vomiting. HISTORY OF PRESENT ILLNESS: Ms. So is a 23-year-old female with past medical history of chronic anemia, hypertension, nephrotic syndrome, end-stage renal disease on dialysis, and systolic heart failure. She had presented to [facility] after she experienced right upper quadrant pain with nausea and vomiting late at Tuesday afternoon. She states that these symptoms gradually worsened over the weekend. She states that she had Easter dinner with her family on Tuesday prior to symptoms presenting. She states that the right upper quadrant pain felt the same as when she had to get the gallbladder removed. Her initial workup included an abdominal ultrasound which showed right renal atrophy. However, no other significant right upper quadrant abnormality was seen post cholecystectomy. Labs showed she was hyperkalemic with a potassium of 6.5, BUN was elevated at 73, creatinine also elevated at 13.38 with an estimated GFR of 4. The ER provider discussed case with Dr. Quiroz who is planning to take the patient for emergent dialysis tonight and again in the morning. She had denied any fever, chills, any headache, blurred vision, or dizziness. She had denied any chest pain, palpitations, shortness of breath. She states that she usually gets this intermittent belly pain along with nausea, between days of her dialysis. However, the pain and nausea usually does not get this bad and she hardly ever vomits from her nausea. Therefore, she had wanted to be seen in the emergency department for these symptoms. REVIEW OF SYSTEMS: All other systems reviewed and found to be negative unless mentioned in the HPI. PAST MEDICAL HISTORY: Significant for hypertension, chronic anemia, nephrotic syndrome, end-stage renal disease, on dialysis Tuesday, Tuesday, and Tuesday, and systolic heart failure. PAST SURGICAL HISTORY: Transplant kidney on the right in November 2015, and kidney transplant removal in March of 2018, cholecystectomy, and dialysis fistula to left forearm along with revision. PSYCHIATRIC HISTORY: Does include anxiety; however, no history of suicide attempts or suicide ideation or homicidal ideation. SOCIAL HISTORY: The patient denies any alcohol, tobacco, or illicit drug use. KNOWN ALLERGIES: No known drug allergies. CURRENT HOME MEDICATIONS: 1. Entresto 24 mg/26 mg oral b.i.d. 2. Carvedilol 25 mg p.o. b.i.d. 3. Amlodipine 5 mg p.o. daily. 4. Vitamin D3 2000 units oral daily. PHYSICAL EXAMINATION: VITAL SIGNS: BP 175/122, pulse 94, respirations 22, temp 98.2 degrees Fahrenheit, O2 saturations 99% on room air. GENERAL: The patient is awake, alert, and oriented x3. She is currently lying comfortably in bed, in no acute distress. HEENT: Atraumatic, normocephalic. Pupils are round and reactive to light. Extraocular muscles intact. Moist mucous membranes noted. NECK: Soft and supple. No JVD. Trachea midline. CARDIOVASCULAR: Positive S1 and S2. Regular rate and rhythm, 2/6 systolic murmur auscultated. RESPIRATORY: Clear to auscultation bilaterally. No wheezes, rales, or rhonchi. ABDOMEN: Soft, mild tenderness in her right upper quadrant noted. Normal bowel sounds heard throughout abdomen. MUSCULOSKELETAL: Strength 5+ bilaterally in upper and lower extremities. Moves all extremities equal. No edema noted. Fistula noted in left upper extremity in the forearm. Good bruit and thrill noted. SKIN: Warm, dry, and intact. No rashes. No ulceration noted. PSYCHIATRIC: Good mood and affect. LABORATORY DATA: WBC 3.7, RBC 3.87, hemoglobin 12.2, platelet 140. Sodium 137, potassium 6.5, carbon dioxide 15, anion gap 29, BUN 73, creatinine 13.38, estimated GFR 4, glucose 123. AST 36, ALT 25, lipase 14. Serum , negative. DIAGNOSTIC IMAGING: Right upper quadrant ultrasound showed right renal atrophy; however, no other significant right upper quadrant abnormality seen post cholecystectomy. ASSESSMENT AND PLAN: 1. End-stage renal disease on dialysis, Dr. Quiroz will be consulted and is planning for emergent dialysis today to run for about 3 hours and again about 4 hours in the morning. A BMP will be rechecked in the morning. She will be restarted on her home medications at this time. 2. Hyperkalemia, as above, the patient go for hemodialysis with Dr. Quiroz for further fluid removal. Potassiums and other labs will be rechecked in the morning. 3. History of hypertension. Continue home regimen. 4. History of systolic heart failure, continue the patient's home Entresto and fluid removal with further dialysis. 5. Right upper quadrant abdominal pain, the patient's ultrasound essentially unremarkable, we will await further dialysis to see if this will help with her pain. She will likely undergo further imaging with CT abdomen and pelvis for further evaluation of her symptoms. Further management pending her progress. 6. Deep venous thrombosis and gastrointestinal prophylaxis. 7. Code status, full code. DISPOSITION: Pending further workup and clinical findings. Case was discussed with Dr. Castillo who has agreed with this assessment and plan. Job ID: [id number]
[2018-07-10 06:24] LABS: Anion Gap 18 mmol/L (10-20); BUN (Urea Nitrogen) 33 mg/dL (7.0-18.7); Calc. Creatinine Clearance 5 mL/min (70-130); Calcium 8.9 mg/dL (7.8-10.44); Carbon Dioxide 26 mmol/L (22-29); Chloride 98 mmol/L (98-107); Estimated GFR-MDRD 8; Glucose 98 mg/dL (70-105); Potassium 3.7 mmol/L (3.5-5.1); Sodium 138 mmol/L (136-145)
[2018-07-10] MEDS ORDERED: Sodium Chloride 0.65% Nasal 44 ML BOT EA NARE PRN (08:35)
[2018-07-10] MEDS ORDERED: Diabetic Tussin 200 MG/10 ML UDCUP PO PRN (08:35)
[2018-07-10] MEDS ORDERED: Artificial Tears 18 DROP/0.9 ML EA EYE PRN (08:35)
[2018-07-10] MEDS ORDERED: Eucerin (Mineral Oil/Petrolatum,White) 30 gm Jar TOP PRN (08:35)
[2018-07-10] MEDS ORDERED: Ondansetron ODT 4 MG TAB SL PRN (08:35)
[2018-07-10] MEDS ORDERED: Bisacodyl 10 MG SUPP PR PRN (08:35)
[2018-07-10] MEDS ORDERED: Loratadine 10 MG TAB PO PRN (08:35)
[2018-07-10] MEDS ORDERED: Ondansetron PF 4 MG/2 ML Vial IVP PRN (08:35)
[2018-07-10] MEDS ORDERED: Cepastat Lozenges 1 LOZ PO PRN (08:35)
[2018-07-10] MEDS ORDERED: Loperamide HCl 2 MG CAP PO PRN (08:35)
[2018-07-10] MEDS ORDERED: Zolpidem Tartrate 5 MG TAB PO PRN (08:35)
[2018-07-10] MEDS: Calcium Carbonate 500 MG ChewTAB PO SCH ×3 (09:06→17:56)
[2018-07-10] MEDS: HYDROcodone/Acetaminophen 5/325 mg Tablet PO PRN ×3 (10:30→23:48)
--- NOTE | 2018-07-10 10:34 | PDOC.PN ---
- Subjective Encounter Start Date: 07/10/18 Encounter Start Time: 07:10 -: old records requested/rev Patient seen and examined. No new complaints. No overnight events - Objective MAR Reviewed: Yes Vital Signs & Weight: Vital Signs (12 hours) Temp Pulse Resp BP BP Pulse Ox 07/10/18 07:20 98 F 74 18 140/92 H 97 07/10/18 03:05 97.6 F 74 20 157/93 H 96 07/10/18 02:11 98.5 F 84 16 153/88 H 100 07/09/18 23:54 169/115 H Weight Weight 68 lb 3.2 oz I&O: 07/09/18 07/10/18 07/11/18 06:59 06:59 06:59 Intake Total 240 Output Total 3000 Balance -2760 Result Diagrams: 07/09/18 19:40 07/10/18 05:13 Radiology Reviewed by me: Yes EKG Reviewed by me: Yes Phys Exam - Physical Examination Constitutional: NAD HEENT: PERRLA, moist MMs, sclera anicteric Neck: no JVD, supple Respiratory: no wheezing, no rales, no rhonchi Cardiovascular: RRR, no significant murmur, no rub Gastrointestinal: soft, non-tender, no distention, positive bowel sounds Musculoskeletal: no edema, pulses present Neurological: non-focal, normal sensation Lymphatic: no nodes Psychiatric: normal affect, A&O x 3 Skin: no rash, normal turgor Dx/Plan (1) Hyperkalemia Code(s): E87.5 - HYPERKALEMIA Status: Acute (2) RUQ abdominal pain Code(s): R10.11 - RIGHT UPPER QUADRANT PAIN Status: Acute (3) Chronic systolic heart failure, ACC/AHA stage C Code(s): I50.22 - CHRONIC SYSTOLIC (CONGESTIVE) HEART FAILURE Status: Chronic (4) ESRD (end stage renal disease) on dialysis Code(s): N18.6 - END STAGE RENAL DISEASE; Z99.2 - DEPENDENCE ON RENAL DIALYSIS Status: Chronic Comment: HD per Renal service (5) HTN (hypertension) Code(s): I10 - ESSENTIAL (PRIMARY) HYPERTENSION Status: Chronic Qualifiers: Comment: . (6) Immunosuppression due to drug therapy Code(s): Z79.899 - OTHER HOME HELP AIDE (CURRENT) DRUG THERAPY Status: Chronic Comment: General precautions, resume Prograf and Cellcept (7) Moderate mitral regurgitation by prior echocardiogram Code(s): I34.0 - NONRHEUMATIC MITRAL (VALVE) INSUFFICIENCY Status: Chronic (8) Noncompliance Code(s): Z91.19 - PATIENT'S NONCOMPLIANCE W OTH MEDICAL TREATMENT AND REGIMEN Status: Chronic Comment: Encourage compliance with medical therapy and outpt HD (9) Severe tricuspid regurgitation by prior echocardiogram Code(s): I07.1 - RHEUMATIC TRICUSPID INSUFFICIENCY Status: Chronic - Plan cont current plan of care * continue HD * monitor overnight * medication reviewed as below * symptomatic treatment. Review of Systems - Review of Systems ENT: negative: Ear Pain, Ear Discharge, Nose Pain, Nose Discharge, Nose Congestion, Mouth Pain, Mouth Swelling, Throat Pain, Throat Swelling, Other Respiratory: negative: Cough, Dry, Shortness of Breath, Hemoptysis, SOB with Excertion, Pleuritic Pain, Sputum, Wheezing Cardiovascular: negative: chest pain, palpitations, orthopnea, paroxysmal nocturnal dyspnea, edema, light headedness, other Gastrointestinal: negative: Nausea, Vomiting, Abdominal Pain, Diarrhea, Constipation, Melena, Hematochezia, Other Genitourinary: negative: Dysuria, Frequency, Incontinence, Hematuria, Retention , Other Musculoskeletal: negative: Neck Pain, Shoulder Pain, Arm Pain, Back Pain, Hand Pain, Leg Pain, Foot Pain, Other Skin: negative: Rash, Lesions, Akil, Bruising, Other - Medications/Allergies Allergies/Adverse Reactions: Allergies Allergy/AdvReac Type Severity Reaction Status Date / Time No Known Drug Allergies Allergy Verified 07/09/18 22:44 Medications: Current Medications Hydrocodone Bitart/Acetaminophen (V[place] 5/325) 1 tab PO Q4H PRN PRN Reason: Moderate Pain (4-6) Last Admin: 07/10/18 10:30 Dose: 1 tab Amlodipine Besylate (Norvasc) 5 mg PO DAILY YESI Artificial Tears (Tears Naturale) 2 drop EA EYE PRN PRN PRN Reason: Dry Eyes Bisacodyl (Dulcolax) 10 mg [place] DAILYPRN PRN PRN Reason: Constipation Calcium Carbonate (Tums) 1,500 mg PO TID-WM YESI Last Admin: 07/10/18 09:06 Dose: Not Given Calcium Carbonate (Tums) 1,500 mg PO ASDIR PRN PRN Reason: WITH SNACKS Carvedilol (Coreg) 25 mg PO BID-WM [facility] Cholecalciferol (Vitamin D3) 2,000 units PO BID [facility] Clonidine (Catapres) 0.1 mg PO Q4H PRN PRN Reason: Hypertension Last Admin: 07/09/18 23:54 Dose: 0.1 mg Famotidine (Pepcid) 20 mg PO DAILY [facility] Guaifenesin (Robitussin Sf) 200 mg PO Q4H PRN PRN Reason: Cough Hydralazine HCl (Apresoline) 10 mg SLOW IVP Q4H PRN PRN Reason: Hypertension Loperamide HCl (Imodium) 2 mg PO PRN PRN PRN Reason: Diarrhea/Loose Stools Loratadine (Claritin) 10 mg PO DAILYPRN PRN PRN Reason: Sinus Symptoms Mineral Oil/White Petrolatum (Eucerin Cream) 0 gm TOP BIDPRN PRN PRN Reason: Dry Skin Ondansetron HCl (Zofran Odt) 4 mg SL Q6H PRN PRN Reason: Nausea/Vomiting Ondansetron HCl (Zofran) 4 mg IVP Q6H PRN PRN Reason: Nausea/Vomiting Prednisone (Prednisone) 5 mg PO QAM-WM [facility] Sacubitril/Valsartan (Entresto 24.5 Mg-25.5 Mg Tablet) 1 tab PO BID [facility] Senna/Docusate Sodium (Senokot S) 2 tab PO BID PRN PRN Reason: Constipation Sodium Chloride (Flush - Normal Saline) 10 ml IVF Q12HR YESI Sodium Chloride (Flush - Normal Saline) 10 ml IVF PRN PRN PRN Reason: Saline Flush Sodium Chloride ([place] Nasal [place] 0.65%) 0 ml EA NARE QIDPRN PRN PRN Reason: Nasal Congestion Throat Lozenges (Cepastat Lozenges) 1 lurdes PO Q2H PRN PRN Reason: Sore Throat Zolpidem Tartrate (Ambien) 5 mg PO HSPRN PRN PRN Reason: Insomnia
--- NOTE | 2018-07-10 11:21 | CON ---
DATE OF CONSULTATION: 07/09/2018 CONSULTING PHYSICIAN: Dr. Underwood REASON FOR CONSULT: Hyperkalemia. REASON FOR ADMISSION: Abdominal pain. HISTORY OF PRESENT ILLNESS: This is a 23-year-old female with history of end-stage renal disease, hypertension, renal transplant, CHF, came to the hospital with right-sided abdominal pain and nausea. The patient missed dialysis on Tuesday and was found to have a potassium of 6.5. Nephrology consulted. The patient gets dialysis Tuesday, Tuesday and Tuesday. No chest pain, palpitation reported. No cough. No fever, chills. No rash. PAST MEDICAL HISTORY: Positive for end-stage renal disease, hypertension, renal transplant, CHF, pancytopenia. PAST SURGICAL HISTORY: Renal transplant, dialysis access, cholecystectomy. HOME MEDICATION: 1. Amlodipine. 2. Carvedilol. 3. Vitamin D3. 4. Pepcid. 5. Entresto. 6. . ALLERGIES: NO KNOWN DRUG ALLERGIES. SOCIAL HISTORY: No smoking, alcohol or drug abuse. FAMILY HISTORY: No history of kidney disease. REVIEW OF SYSTEMS: CONSTITUTIONAL: Negative for weight loss or gain, ability to conduct usual activities. SKIN: Negative for rash, itching. EYES: Negative for double vision, pain. ENT/MOUTH: Negative for nose bleeding, neck stiffness, pain, tenderness. CARDIOVASCULAR: Negative for palpitations, dyspnea on exertion, orthopnea. RESPIRATORY: Negative for shortness of breath, wheezing, cough, hemoptysis, fever or night sweats. GASTROINTESTINAL: Negative for poor appetite, , heartburn, nausea, vomiting, constipation, or diarrhea. GENITOURINARY: Negative for urgency, frequency, dysuria, nocturia. MUSCULOSKELETAL: Negative for pain, swelling. NEUROLOGIC/PSYCHIATRIC: Negative for anxiety, depression. ALLERGY/IMMUNOLOGIC: Negative for skin rash, bleeding tendency. PHYSICAL EXAMINATION: GENERAL: This is a well-built female, in no apparent distress. VITAL SIGNS: Temperature 98.6, pulse 78, respiratory rate 18, blood pressure 127/84. HEENT: Atraumatic, normocephalic. Oral mucosa is dry. NECK: Supple. CV: S1, S2 heard. Rate and rhythm regular. RESPIRATORY: Clear. GI: Abdomen is soft. MUSCULOSKELETAL: No tenderness. No edema. DERMATOLOGIC: No skin rash. NEUROLOGIC: Alert and awake. PSYCHIATRIC: Mood and affect normal. LABS: Hemoglobin is 12.2, potassium is 6.5, BUN 73, creatinine 13.3. ASSESSMENT AND PLAN: 1. End-stage renal disease. Plan is to have dialysis. 2. Hyperkalemia, we will have emergent dialysis. 3. Anemia, controlled. 4. Edema, controlled. 5. Hypertension is stable. PLAN: Is to have dialysis for 3 hours today, then continue dialysis Tuesday, Tuesday, Tuesday. Prognosis guarded. Noncompliance, patient was counseled. Job ID: [id number]
[2018-07-10] MEDS: Carvedilol 6.25 MG TAB PO SCH ×2 (11:47→17:55)
[2018-07-10] MEDS: predniSONE 5 MG TAB PO SCH (11:48)
[2018-07-10] MEDS: Amlodipine 5 MG TAB PO SCH (11:49)
[2018-07-10] MEDS: Famotidine 20 MG TAB PO SCH (11:49)
[2018-07-10] MEDS: Sacubitril 24.5 MG/Valsartan 25.5 MG TABLET PO SCH ×2 (11:50→20:21)
--- NOTE | 2018-07-10 12:21 | PRG ---
DATE OF SERVICE: 07/10/2018 SUBJECTIVE: A 23-year-old female being seen for end-stage renal disease. The patient denies nausea, vomiting, or chest pain. OBJECTIVE: CONSTITUTIONAL: The patient is awake, alert. VITAL SIGNS: Afebrile. Pulse 72, breathing 16, blood pressure 149/92. GENERAL APPEARANCE AND MENTAL STATUS: Fair. HEAD/NECK: Normocephalic. Atraumatic. EYES: EOMI. No deformity. EARS: Clear. No ulcers. NOSE: Intact. No lesions. MOUTH: Clear. No discharge. THROAT: Clear. No exudate. LUNGS: Clear. No crackles. CARDIAC: S1, S2. No rub. ABDOMEN: Benign. Bowel sounds positive. GENITALIA/RECTUM: Lopez absent. BACK/EXTREMITIES: Edema 0+. NEUROLOGICAL: Alert and motor intact. SKIN: LYMPHATICS: LABS: Reviewed. IMPRESSION AND PLAN: 1. Stage 6 chronic kidney disease. Plan dialysis. 2. Hypertension, stable. 3. Anemia, stable. 4. Medication based on GFR, appropriate. 5. Noncompliance with dialysis is a major issue. This has been explained to the patient and case management social worker has been provided. Job ID: [id number]
[2018-07-10] MEDS: Senokot S 8.6-50 MG TAB PO PRN (20:23)
[2018-07-10] MEDS ORDERED: Promethazine HCl 25 MG/ML VIAL IM PRN (22:09)
--- NOTE | 2018-07-11 04:23 | PDOC.EVN ---
Event Note - Event Note Event Note: Patient reported a migraine CASAS last evening. Had some nausea. Given phenergan. Discussed with nurse now. Patient still reporting migraine. Patient reports she always responds to the ER protocol. Nurse had discussed with Pharmacist. First line is oxygen and fluids. She is on oxygen and should be euvolemic. Next step is staged dosing of compazine. That has been ordered.
[2018-07-11] MEDS ORDERED: Prochlorperazine Edisylate 10 MG in Sodium Chloride 0.9% 50 ML IVPB SCH (04:30)
[2018-07-11 07:42] LABS: Anion Gap 16 mmol/L (10-20); BUN (Urea Nitrogen) 25 mg/dL (7.0-18.7); Calc. Creatinine Clearance 14 mL/min (70-130); Calcium 8.4 mg/dL (7.8-10.44); Carbon Dioxide 26 mmol/L (22-29); Chloride 96 mmol/L (98-107); Estimated GFR-MDRD 10; Glucose 109 mg/dL (70-105); Sodium 134 mmol/L (136-145)
[2018-07-11 07:52] LABS: Hemoglobin 13.9 g/dL (12.0-16.0); Mean Corpuscular HGB CONC 30.9 g/dL (32.0-36.0); Mean Corpuscular Hemoglobin 30.7 pg (27.0-31.0); Mean Corpuscular Volume 99.2 fL (78.0-98.0); Mean Platelet Volume 11.2 fL (7.4-10.4); Platelet Count 170 thou/uL (130-400); RBC Distribution Width 19.1 % (11.5-14.5); Red Blood Cell (RBC) Count 4.54 mill/uL (4.20-5.40); White Blood Cell (WBC) Count 3.9 thou/uL (4.8-10.8)
[2018-07-11 08:40] LABS: Band 3 % (5-11); Eosinophils 4 % (0-10); Lymphocytes 29 % (21-51); MDiff Complete? YES; Monocytes 4 % (0-10); Neutrophil 60 % (42-75); Nucleated RBC 2 % (0); Ovalocytes SLIGHT = 2-5 cells (100X) (0-1/hpf); Platelet Morphology Comment Appears Adequate; Polychromasia SLIGHT = 2-3 cells (100X) (0-2/hpf)
[2018-07-11] MEDS: Carvedilol 6.25 MG TAB PO SCH ×2 (10:11→17:24)
[2018-07-11] MEDS: Amlodipine 5 MG TAB PO SCH (10:12)
[2018-07-11] MEDS: predniSONE 5 MG TAB PO SCH (10:12)
[2018-07-11] MEDS: Famotidine 20 MG TAB PO SCH (10:12)
[2018-07-11] MEDS: Sacubitril 24.5 MG/Valsartan 25.5 MG TABLET PO SCH ×2 (10:13→19:31)
[2018-07-11] MEDS: Calcium Carbonate 500 MG ChewTAB PO SCH ×3 (10:16→17:23)
--- NOTE | 2018-07-11 12:53 | PRG ---
DATE OF SERVICE: 07/11/2018 SUBJECTIVE: This is a 23-year-old female, being seen for end-stage renal disease. The patient denies any nausea, vomiting, or chest pain. OBJECTIVE: CONSTITUTIONAL: The patient is awake, alert. GENERAL APPEARANCE AND MENTAL STATUS: Fair. VITAL SIGNS: Pulse 70, breathing 16, blood pressure 150/97. HEAD/NECK: Normocephalic. Atraumatic. EYES: EOMI. No deformity. EARS: Clear. No ulcers. NOSE: Intact. No lesions. MOUTH: Clear. No discharge. THROAT: Clear. No exudate. LUNGS: Clear. No crackles. CARDIAC: S1, S2. No rub. ABDOMEN: Benign. Bowel sounds positive. GENITALIA/RECTUM: Lopez absent. BACK/EXTREMITIES: Edema 0+. NEUROLOGICAL: Alert and motor intact. SKIN: LYMPHATICS: LABORATORY DATA: Reviewed. ASSESSMENT AND PLAN: 1. Stage 6 chronic kidney disease. Plan dialysis. 2. Hypertension, stable. 3. Anemia, stable. 4. Medication based on GFR, appropriate. Job ID: [id number]
--- NOTE | 2018-07-11 13:43 | PDOC.PN ---
- Subjective Encounter Start Date: 07/11/18 Encounter Start Time: 10:00 Patient seen and examined. No new complaints. No overnight events - Objective MAR Reviewed: Yes Vital Signs & Weight: Vital Signs (12 hours) Temp Pulse Resp BP BP Pulse Ox 07/11/18 11:39 98.5 F 78 16 160/98 H 99 07/11/18 10:12 72 07/11/18 10:11 118/71 07/11/18 08:00 98 F 72 16 150/97 H 98 07/11/18 03:30 97.8 F 73 14 114/79 100 Weight Admit Weight 147 lb 11.355 oz Weight 145 lb 8.081 oz I&O: 07/10/18 07/11/18 07/12/18 06:59 06:59 06:59 Intake Total 240 580 Output Total 3000 Balance -2760 580 Result Diagrams: 07/11/18 07:05 07/11/18 07:05 Additional Labs: Accuchecks 07/11/18 05:48 POC Glucose 97 EKG Reviewed by me: Yes Phys Exam - Physical Examination Constitutional: NAD HEENT: PERRLA, moist MMs, sclera anicteric Neck: no JVD, supple Respiratory: no wheezing, no rales, no rhonchi Cardiovascular: RRR, no significant murmur, no rub Gastrointestinal: soft, non-tender, no distention, positive bowel sounds Musculoskeletal: no edema, pulses present Neurological: non-focal, normal sensation, moves all 4 limbs Psychiatric: normal affect, A&O x 3 Skin: no rash, normal turgor Dx/Plan (1) Hyperkalemia Code(s): E87.5 - HYPERKALEMIA Status: Acute (2) RUQ abdominal pain Code(s): R10.11 - RIGHT UPPER QUADRANT PAIN Status: Acute (3) Chronic systolic heart failure, ACC/AHA stage C Code(s): I50.22 - CHRONIC SYSTOLIC (CONGESTIVE) HEART FAILURE Status: Chronic (4) ESRD (end stage renal disease) on dialysis Code(s): N18.6 - END STAGE RENAL DISEASE; Z99.2 - DEPENDENCE ON RENAL DIALYSIS Status: Chronic Comment: HD per Renal service (5) HTN (hypertension) Code(s): I10 - ESSENTIAL (PRIMARY) HYPERTENSION Status: Chronic Qualifiers: Comment: . (6) Immunosuppression due to drug therapy Code(s): Z79.899 - OTHER [facility] (CURRENT) DRUG THERAPY Status: Chronic Comment: General precautions, resume Prograf and Cellcept (7) Moderate mitral regurgitation by prior echocardiogram Code(s): I34.0 - NONRHEUMATIC MITRAL (VALVE) INSUFFICIENCY Status: Chronic (8) Noncompliance Code(s): Z91.19 - PATIENT'S NONCOMPLIANCE W OTH MEDICAL TREATMENT AND REGIMEN Status: Chronic Comment: Encourage compliance with medical therapy and outpt HD (9) Severe tricuspid regurgitation by prior echocardiogram Code(s): I07.1 - RHEUMATIC TRICUSPID INSUFFICIENCY Status: Chronic - Plan cont current plan of care * medication reviewed as below * symptomatic treatment * continue HD as per nephrology * expecting discharge tomorrow. Review of Systems - Review of Systems ENT: negative: Ear Pain, Ear Discharge, Nose Pain, Nose Discharge, Nose Congestion, Mouth Pain, Mouth Swelling, Throat Pain, Throat Swelling, Other Respiratory: negative: Cough, Dry, Shortness of Breath, Hemoptysis, SOB with Excertion, Pleuritic Pain, Sputum, Wheezing Cardiovascular: negative: chest pain, palpitations, orthopnea, paroxysmal nocturnal dyspnea, edema, light headedness, other Gastrointestinal: negative: Nausea, Vomiting, Abdominal Pain, Diarrhea, Constipation, Melena, Hematochezia, Other Genitourinary: negative: Dysuria, Frequency, Incontinence, Hematuria, Retention , Other Musculoskeletal: negative: Neck Pain, Shoulder Pain, Arm Pain, Back Pain, Hand Pain, Leg Pain, Foot Pain, Other - Medications/Allergies Allergies/Adverse Reactions: Allergies Allergy/AdvReac Type Severity Reaction Status Date / Time No Known Drug Allergies Allergy Verified 07/09/18 22:44 Medications: Current Medications Hydrocodone Bitart/Acetaminophen ([place] 5/325) 1 tab PO Q4H PRN PRN Reason: Moderate Pain (4-6) Last Admin: 07/10/18 23:48 Dose: 1 tab Amlodipine Besylate (Norvasc) 5 mg PO DAILY YESI Last Admin: 07/11/18 10:12 Dose: Not Given Artificial Tears (Tears Naturale) 2 drop EA EYE PRN PRN PRN Reason: Dry Eyes Bisacodyl (Dulcolax) 10 mg [place] DAILYPRN PRN PRN Reason: Constipation Calcium Carbonate (Tums) 1,500 mg PO TID-WM YESI Last Admin: 07/11/18 11:53 Dose: Not Given Calcium Carbonate (Tums) 1,500 mg PO ASDIR PRN PRN Reason: WITH SNACKS Carvedilol (Coreg) 25 mg PO BID-[facility] Last Admin: 07/11/18 10:11 Dose: 25 mg Cholecalciferol (Vitamin D3) 2,000 units PO BID [facility] Last Admin: 07/11/18 10:11 Dose: 2,000 units Clonidine (Catapres) 0.1 mg PO Q4H PRN PRN Reason: Hypertension Last Admin: 07/09/18 23:54 Dose: 0.1 mg Famotidine (Pepcid) 20 mg PO DAILY [facility] Last Admin: 07/11/18 10:12 Dose: 20 mg Guaifenesin (Robitussin Sf) 200 mg PO Q4H PRN PRN Reason: Cough Hydralazine HCl (Apresoline) 10 mg SLOW IVP Q4H PRN PRN Reason: Hypertension Loperamide HCl (Imodium) 2 mg PO PRN PRN PRN Reason: Diarrhea/Loose Stools Loratadine (Claritin) 10 mg PO DAILYPRN PRN PRN Reason: Sinus Symptoms Mineral Oil/White Petrolatum (Eucerin Cream) 0 gm TOP BIDPRN PRN PRN Reason: Dry Skin Ondansetron HCl (Zofran Odt) 4 mg SL Q6H PRN PRN Reason: Nausea/Vomiting Ondansetron HCl (Zofran) 4 mg IVP Q6H PRN PRN Reason: Nausea/Vomiting Prednisone (Prednisone) 5 mg PO QAM-[facility] Last Admin: 07/11/18 10:12 Dose: 5 mg Promethazine HCl (Phenergan) 12.5 mg IM Q6H PRN PRN Reason: Nausea/Vomiting Last Admin: 07/10/18 22:26 Dose: 12.5 mg Sacubitril/Valsartan (Entresto 24.5 Mg-25.5 Mg Tablet) 1 tab PO BID [facility] Last Admin: 07/11/18 10:13 Dose: 1 tab Senna/Docusate Sodium (Senokot S) 2 tab PO BID PRN PRN Reason: Constipation Last Admin: 07/10/18 20:23 Dose: 2 tab Sodium Chloride (Flush - Normal Saline) 10 ml IVF Q12HR YESI Last Admin: 07/11/18 10:13 Dose: 10 ml Sodium Chloride (Flush - Normal Saline) 10 ml IVF PRN PRN PRN Reason: Saline Flush Sodium Chloride ([place] Nasal [place] 0.65%) 0 ml EA NARE QIDPRN PRN PRN Reason: Nasal Congestion Throat Lozenges (Cepastat Lozenges) 1 lurdes PO Q2H PRN PRN Reason: Sore Throat Zolpidem Tartrate (Ambien) 5 mg PO HSPRN PRN PRN Reason: Insomnia
[2018-07-11] MEDS: Senokot S 8.6-50 MG TAB PO PRN (17:51)
[2018-07-12 07:21] LABS: Anion Gap 16 mmol/L (10-20); BUN (Urea Nitrogen) 38 mg/dL (7.0-18.7); Calc. Creatinine Clearance 10 mL/min (70-130); Calcium 8.7 mg/dL (7.8-10.44); Carbon Dioxide 28 mmol/L (22-29); Chloride 97 mmol/L (98-107); Estimated GFR-MDRD 6; Glucose 104 mg/dL (70-105); Potassium 3.9 mmol/L (3.5-5.1); Sodium 137 mmol/L (136-145)
--- NOTE | 2018-07-12 10:21 | PDOC.PN ---
- Subjective Encounter Start Date: 07/12/18 Encounter Start Time: 07:10 Patient seen and examined. No new complaints. No overnight events - Objective MAR Reviewed: Yes Vital Signs & Weight: Vital Signs (12 hours) Temp Pulse Resp BP Pulse Ox 07/12/18 07:40 97.5 F L 83 17 115/65 94 L 07/12/18 03:15 98.2 F 85 18 135/83 96 Weight Admit Weight 147 lb 11.355 oz Weight 147 lb 4.301 oz I&O: 07/11/18 07/12/18 07/13/18 06:59 06:59 06:59 Intake Total 580 1010 Output Total 0 Balance 580 1010 Result Diagrams: 07/11/18 07:05 07/12/18 06:18 EKG Reviewed by me: Yes Phys Exam - Physical Examination Constitutional: NAD HEENT: PERRLA, moist MMs, sclera anicteric Neck: no JVD, supple Respiratory: no wheezing, no rales, no rhonchi Cardiovascular: RRR, no significant murmur, no rub Gastrointestinal: soft, non-tender, no distention, positive bowel sounds Musculoskeletal: no edema, pulses present Neurological: non-focal, normal sensation, moves all 4 limbs Lymphatic: no nodes Psychiatric: normal affect, A&O x 3 Skin: no rash, normal turgor Dx/Plan (1) Hyperkalemia Code(s): E87.5 - HYPERKALEMIA Status: Acute (2) RUQ abdominal pain Code(s): R10.11 - RIGHT UPPER QUADRANT PAIN Status: Acute (3) Chronic systolic heart failure, ACC/AHA stage C Code(s): I50.22 - CHRONIC SYSTOLIC (CONGESTIVE) HEART FAILURE Status: Chronic (4) ESRD (end stage renal disease) on dialysis Code(s): N18.6 - END STAGE RENAL DISEASE; Z99.2 - DEPENDENCE ON RENAL DIALYSIS Status: Chronic Comment: HD per Renal service (5) HTN (hypertension) Code(s): I10 - ESSENTIAL (PRIMARY) HYPERTENSION Status: Chronic Qualifiers: Comment: . (6) Immunosuppression due to drug therapy Code(s): Z79.899 - OTHER [facility] (CURRENT) DRUG THERAPY Status: Chronic Comment: General precautions, resume Prograf and Cellcept (7) Moderate mitral regurgitation by prior echocardiogram Code(s): I34.0 - NONRHEUMATIC MITRAL (VALVE) INSUFFICIENCY Status: Chronic (8) Noncompliance Code(s): Z91.19 - PATIENT'S NONCOMPLIANCE W OTH MEDICAL TREATMENT AND REGIMEN Status: Chronic Comment: Encourage compliance with medical therapy and outpt HD (9) Severe tricuspid regurgitation by prior echocardiogram Code(s): I07.1 - RHEUMATIC TRICUSPID INSUFFICIENCY Status: Chronic - Plan cont current plan of care * medication reviewed as below * symptomatic treatment * see discharge rhoda. Review of Systems - Review of Systems ENT: negative: Ear Pain, Ear Discharge, Nose Pain, Nose Discharge, Nose Congestion, Mouth Pain, Mouth Swelling, Throat Pain, Throat Swelling, Other Respiratory: negative: Cough, Dry, Shortness of Breath, Hemoptysis, SOB with Excertion, Pleuritic Pain, Sputum, Wheezing Cardiovascular: negative: chest pain, palpitations, orthopnea, paroxysmal nocturnal dyspnea, edema, light headedness, other Gastrointestinal: negative: Nausea, Vomiting, Abdominal Pain, Diarrhea, Constipation, Melena, Hematochezia, Other Genitourinary: negative: Dysuria, Frequency, Incontinence, Hematuria, Retention , Other Musculoskeletal: negative: Neck Pain, Shoulder Pain, Arm Pain, Back Pain, Hand Pain, Leg Pain, Foot Pain, Other - Medications/Allergies Allergies/Adverse Reactions: Allergies Allergy/AdvReac Type Severity Reaction Status Date / Time No Known Drug Allergies Allergy Verified 07/09/18 22:44 Medications: Current Medications Hydrocodone Bitart/Acetaminophen ([place] 5/325) 1 tab PO Q4H PRN PRN Reason: Moderate Pain (4-6) Last Admin: 07/10/18 23:48 Dose: 1 tab Amlodipine Besylate (Norvasc) 5 mg PO DAILY [facility] Last Admin: 07/11/18 10:12 Dose: Not Given Artificial Tears (Tears Naturale) 2 drop EA EYE PRN PRN PRN Reason: Dry Eyes Bisacodyl (Dulcolax) 10 mg [place] DAILYPRN PRN PRN Reason: Constipation Calcium Carbonate (Tums) 1,500 mg PO TID-[facility] Last Admin: 07/11/18 17:23 Dose: 1,500 mg Calcium Carbonate (Tums) 1,500 mg PO ASDIR PRN PRN Reason: WITH SNACKS Carvedilol (Coreg) 25 mg PO BID-[facility] Last Admin: 07/11/18 17:24 Dose: 25 mg Cholecalciferol (Vitamin D3) 2,000 units PO BID [facility] Last Admin: 07/11/18 19:31 Dose: 2,000 units Clonidine (Catapres) 0.1 mg PO Q4H PRN PRN Reason: Hypertension Last Admin: 07/09/18 23:54 Dose: 0.1 mg Famotidine (Pepcid) 20 mg PO DAILY [facility] Last Admin: 07/11/18 10:12 Dose: 20 mg Guaifenesin (Robitussin Sf) 200 mg PO Q4H PRN PRN Reason: Cough Hydralazine HCl (Apresoline) 10 mg SLOW IVP Q4H PRN PRN Reason: Hypertension Loperamide HCl (Imodium) 2 mg PO PRN PRN PRN Reason: Diarrhea/Loose Stools Loratadine (Claritin) 10 mg PO DAILYPRN PRN PRN Reason: Sinus Symptoms Mineral Oil/White Petrolatum (Eucerin Cream) 0 gm TOP BIDPRN PRN PRN Reason: Dry Skin Ondansetron HCl (Zofran Odt) 4 mg SL Q6H PRN PRN Reason: Nausea/Vomiting Ondansetron HCl (Zofran) 4 mg IVP Q6H PRN PRN Reason: Nausea/Vomiting Prednisone (Prednisone) 5 mg PO [facility] Last Admin: 07/11/18 10:12 Dose: 5 mg Promethazine HCl (Phenergan) 12.5 mg IM Q6H PRN PRN Reason: Nausea/Vomiting Last Admin: 07/10/18 22:26 Dose: 12.5 mg Sacubitril/Valsartan (Entresto 24.5 Mg-25.5 Mg Tablet) 1 tab PO BID [facility] Last Admin: 07/11/18 19:31 Dose: 1 tab Senna/Docusate Sodium (Senokot S) 2 tab PO BID PRN PRN Reason: Constipation Last Admin: 07/11/18 17:51 Dose: 2 tab Sodium Chloride (Flush - Normal Saline) 10 ml IVF Q12HR [facility] Last Admin: 07/11/18 19:31 Dose: 10 ml Sodium Chloride (Flush - Normal Saline) 10 ml IVF PRN PRN PRN Reason: Saline Flush Sodium Chloride ([place] Nasal [place] 0.65%) 0 ml EA NARE QIDPRN PRN PRN Reason: Nasal Congestion Throat Lozenges (Cepastat Lozenges) 1 lurdes PO Q2H PRN PRN Reason: Sore Throat Zolpidem Tartrate (Ambien) 5 mg PO HSPRN PRN PRN Reason: Insomnia
[2018-07-12 13:11] VITALS: BP 105/71; TEMP 98
[2018-07-12] MEDS: Sacubitril 24.5 MG/Valsartan 25.5 MG TABLET PO SCH (13:24)
[2018-07-12] MEDS: Calcium Carbonate 500 MG ChewTAB PO SCH ×2 (13:24)
[2018-07-12] MEDS: Carvedilol 6.25 MG TAB PO SCH (13:25)
[2018-07-12] MEDS: Famotidine 20 MG TAB PO SCH (13:25)
[2018-07-12] MEDS: Amlodipine 5 MG TAB PO SCH (13:25)
[2018-07-12] MEDS: predniSONE 5 MG TAB PO SCH (13:25)
--- NOTE | 2018-07-12 13:28 | PRG ---
DATE OF SERVICE: 07/12/2018 SUBJECTIVE: This is a 23-year-old female, being seen for end-stage renal disease. The patient denies any nausea, vomiting, or chest pain. OBJECTIVE: CONSTITUTIONAL: The patient is awake and alert. VITAL SIGNS: Afebrile. Pulse 85, breathing 16, blood pressure 115/65. GENERAL APPEARANCE AND MENTAL STATUS: Fair. HEAD/NECK: Normocephalic. Atraumatic. EYES: EOMI. No deformity. EARS: Clear. No ulcers. NOSE: Intact. No lesions. MOUTH: Clear. No discharge. THROAT: Clear. No exudate. LUNGS: Clear. No crackles. CARDIAC: S1, S2. No rub. ABDOMEN: Benign. Bowel sounds positive. GENITALIA/RECTUM: Lpoez absent. BACK/EXTREMITIES: Edema 0+. NEUROLOGICAL: Alert and motor intact. SKIN: LYMPHATICS: LABORATORY DATA: Labs show hemoglobin 13.9. ASSESSMENT AND PLAN: 1. Stage 6 chronic kidney disease. Continue hemodialysis. 2. Hypertension, stable. 3. Anemia, stable. 4. Medication based on GFR appropriate. Job ID: [id number]
--- NOTE | 2018-07-12 14:25 | DIS ---
DATE OF ADMISSION: 07/09/2018 DATE OF DISCHARGE: 07/12/2018 PRIMARY CARE PHYSICIAN: [facility] call admission. DISCHARGE DISPOSITION: Home. PRIMARY DISCHARGE DIAGNOSES: 1. Hyperkalemia, resolved. 2. Right upper quadrant abdominal pain, improved. 3. Volume overload. SECONDARY DISCHARGE DIAGNOSES: Severe tricuspid regurgitation; noncompliance with treatment and dialysis; moderate mitral regurgitation; hypertension; ESRD, on hemodialysis; chronic systolic heart failure. PRIMARY PROCEDURE/OPERATION: Hemodialysis while in hospital. RADIOLOGICAL INVESTIGATION: Echocardiography showed EF 50% to 55%. Abdomen and pelvis CT scan, unremarkable. Abdomen ultrasound, unremarkable. SIGNIFICANT LABORATORY DATA: Hemoglobin 13.9 and creatinine 9.20. LFT, normal. Potassium 3.9. DISCHARGE MEDICATIONS: 1. Norvasc 5 mg daily. 2. Tums 500 mg 3 tablets p.o. as directed. 3. Coreg 25 mg b.i.d. 4. Vitamin D3 2000 units p.o. b.i.d. 5. Pepcid 20 mg daily. 6. Prednisone 5 mg daily. 7. Entresto 1 tablet b.i.d. CONTRAINDICATION: None. CODE STATUS: Full code. INPATIENT FREIGHT INSPECTOR: Dr. Quiroz was following while in hospital for maintenance hemodialysis. TEST RESULTS PENDING ON DISCHARGE: None. ALLERGIES: NO KNOWN DRUG ALLERGIES. DISCHARGE PLAN: Posthospital, the patient will follow up with primary care physician and she will resume her maintenance dialysis. HOSPITAL COURSE: A 23-year-old female with above-mentioned medical problem, who was admitted by DOTTY Barrios. Please see his H and P for further details. The patient was admitted for hyperkalemia and increasing shortness of breath. She missed her dialysis and that made her hyperkalemia and volume overload. The patient required hemodialysis while in hospital and with that, the patient's volume status improved. Her hyperkalemia is also resolved. We provided the patient education about low-potassium diet and compliance with medication and dialysis. Overall, this patient is medically stable. She is up to her normal. While in hospital. She had migraine headache, which was controlled with migraine treatment protocol and by the time of discharge, she is completely back to normal. The patient is seen and examined at bedside today. Please see my progress note from today for further detail. Job ID: [id number]
== END 2018-07-12 14:23 | disposition home or self-care (01) | DRG 640 ==
LOC: ERS 19:13 → 2NO 22:01
PROVIDERS: ADMIT Internal Medicine; ATTEND Internal Medicine
PROC: 5A1D70Z Performance of Urinary Filtration, Intermittent, Less than 6 Hours Per Day (ICD-10-PCS; principal; 2018-07-10)
DX: E87.5 Hyperkalemia (principal); N18.6 End stage renal disease; I13.2 Hypertensive heart and chronic kidney disease with heart failure and with stage 5 chronic kidney disease, or end stage renal disease; Z94.0 Kidney transplant status; I50.22 Chronic systolic (congestive) heart failure; D64.9 Anemia, unspecified; F41.9 Anxiety disorder, unspecified; R10.11 Right upper quadrant pain; I08.1 Rheumatic disorders of both mitral and tricuspid valves; Z79.899 Other long term (current) drug therapy; Z99.2 Dependence on renal dialysis; Z90.49 Acquired absence of other specified parts of digestive tract; Z91.15 Patient's noncompliance with renal dialysis
CPT/HCPCS: 36415; 36416; 74176; 76705; 80048; 80053; 83690; 84703; 85025; 90935; 93005; 93306; 96374; 96375; 96376; A4353; G0257; J0780; J1815; J2270; J2405; J2550; J7050; J7512

== ENCOUNTER 2018-09-11 11:35 | Emergency (ER) | payer MEDICARE ==
[2018-09-11] MEDS ORDERED: Morphine 4 MG/ML VIAL ONE ×2 (11:58→14:20)
[2018-09-11 12:06] LABS: #Lymphocytes 0.6 thou/uL (1.20-3.40); #Monocytes 0.4 thou/uL (0.11-0.59); #Neutrophils 4.1 thou/uL (1.40-6.50); %Eosinophils 0.4 % (0.0-10.0); %Monocytes 8.2 % (0.0-10.0); %Neutrophils 80.3 % (42.0-75.0); Hemoglobin 11.8 g/dL (12.0-16.0); Mean Corpuscular HGB CONC 32.1 g/dL (32.0-36.0); Mean Corpuscular Hemoglobin 32.5 pg (27.0-31.0); Mean Platelet Volume 8.6 fL (7.4-10.4); Platelet Count 117 thou/uL (130-400); RBC Distribution Width 18.3 % (11.5-14.5); Red Blood Cell (RBC) Count 3.64 mill/uL (4.20-5.40); White Blood Cell (WBC) Count 5.1 thou/uL (4.8-10.8)
[2018-09-11 12:30] LABS: Anisocytosis SLIGHT = 6-15 cells (100X) (0-5/hpf); MDiff Complete? YES; Platelet Morphology Comment Appears Decreased; Polychromasia MODERATE = 3-4 cells (100X) (0-2/hpf); Schistocytes SLIGHT = 2-5 cells (100X) (0-1/hpf)
[2018-09-11] MEDS ORDERED: Sodium Chloride 0.9% 0 ML ONE (12:30)
[2018-09-11] MEDS ORDERED: Promethazine HCl 25 MG/ML VIAL ONE (12:30)
--- NOTE | 2018-09-11 13:07 | RAD ---
XR Chest 1 View Portable History: Dyspnea Comparison: Radiograph May 25, 2018 Findings: Heart size is enlarged. No pneumothorax. Small left effusion. No acute osseous abnormality. Impression: Marked cardiomegaly and small left effusion.
[2018-09-11 13:14] LABS: Albumin 4.3 g/dL (3.5-5.0)
[2018-09-11 13:15] LABS: Chloride 98 mmol/L (98-107); Potassium 5.7 mmol/L (3.5-5.1); Sodium 138 mmol/L (136-145)
[2018-09-11 13:16] LABS: Calcium 7.2 mg/dL (7.8-10.44); Glucose 63 mg/dL (70-105)
[2018-09-11 13:17] LABS: Globulin 3.3 g/dL (2.4-3.5); Protein, Total 7.6 g/dL (6.0-8.3)
[2018-09-11 13:18] LABS: Anion Gap 30 mmol/L (10-20); Bilirubin, Total 0.8 mg/dL (0.2-1.2); Carbon Dioxide 16 mmol/L (22-29)
[2018-09-11 13:19] LABS: Alkaline Phosphatase 57 U/L (40-150)
[2018-09-11 13:20] LABS: Calc. Creatinine Clearance 0 mL/min (70-130); Estimated GFR-MDRD 4
[2018-09-11 13:21] LABS: BUN (Urea Nitrogen) 73 mg/dL (7.0-18.7)
[2018-09-11 13:22] LABS: AST (SGOT) 20 U/L (5-34)
[2018-09-11 13:23] LABS: ALT (SGPT) 11 U/L (8-55); CK (CPK) 256 U/L (29-168); Lipase 9 U/L (8-78)
[2018-09-11 13:43] LABS: CKMB 1.1 ng/mL (0-6.6)
[2018-09-11] MEDS ORDERED: Acetaminophen 500 MG TAB ONE (17:12)
--- NOTE | 2018-09-12 01:22 | CON ---
DATE OF CONSULTATION: 09/11/2018 CONSULTING PHYSICIAN: ER physician. REASON FOR CONSULT: End-stage renal disease evaluation care and hyperkalemia. REASON FOR ADMISSION: Missing dialysis and not feeling well. HISTORY OF PRESENT ILLNESS: This is a 23-year-old female with history of hypertension, CHF, end-stage renal disease, renal transplant, came to the hospital with the above complaints. The patient dialysis Tuesday and last dialysis on Tuesday. She started having short of breath, came to the hospital, found to be hyperkalemic with a potassium of 5.7 and mild fluid overload. No chest pain or palpitation. No fever or chills. No nausea or vomiting. PAST MEDICAL HISTORY: Positive for hypertension, anemia, end-stage renal disease, renal transplant, CHF. PAST SURGICAL HISTORY: Fistula placement, renal transplant, cholecystectomy. HOME MEDICATIONS: 1. Entresto. 2. Carvedilol. 3. Amlodipine. 4. Vitamin D3. ALLERGIES: NO KNOWN DRUG ALLERGIES. SOCIAL HISTORY: No smoking, alcohol, or illicit drug use. FAMILY HISTORY: No history of kidney disease. REVIEW OF SYSTEMS: CONSTITUTIONAL: Negative for weight loss or gain, ability to conduct usual activities. SKIN: Negative for rash, itching. EYES: Negative for double vision, pain. ENT/MOUTH: Negative for nose bleeding, neck stiffness, pain, tenderness. CARDIOVASCULAR: Negative for palpitations, dyspnea on exertion, orthopnea. RESPIRATORY: Negative for shortness of breath, wheezing, cough, hemoptysis, fever or night sweats. GASTROINTESTINAL: Negative for poor appetite, abdominal pain, heartburn, nausea, vomiting, constipation, or diarrhea. GENITOURINARY: Negative for urgency, frequency, dysuria, nocturia. MUSCULOSKELETAL: Negative for pain, swelling. NEUROLOGIC/PSYCHIATRIC: Negative for anxiety, depression. ALLERGY/IMMUNOLOGIC: Negative for skin rash, bleeding tendency. Rest are negative review of systems. PHYSICAL EXAMINATION: GENERAL: Reveals a well-built female, in no apparent distress. VITAL SIGNS: Temperature 98.6, pulse , respiratory rate 18, blood pressure 169/110. HEENT: Atraumatic, normocephalic. Oral mucosa is moist. NECK: Supple. CV: S1 and S2. Rate and rhythm regular. RESPIRATORY: Clear. GI: Abdomen is soft. MUSCULOSKELETAL: No tenderness. No edema. DERMATOLOGIC: No skin rash. NEUROLOGIC: Alert, awake. PSYCHIATRIC: Normal mood and affect. LABORATORY DATA: Hemoglobin 11.8, potassium 5.7, BUN is 73, and creatinine is 14.9. BNP is 14,130. Chest x-ray with cardiomegaly. ASSESSMENT AND PLAN: 1. End-stage renal disease. Plan is emergent dialysis. 2. Hyperkalemia. Plan is to have dialysis. The patient is seen during dialysis, tolerating well. 3. Edema, controlled. 4. Cardiorenal syndrome. 5. Mild anemia, hypertension. We will remove fluid. Plan is emergent dialysis. The patient is seen during dialysis, tolerating well. We will continue on dialysis as tolerated. We will follow. Thank you for the consult. Job ID: [id number]
--- NOTE | 2018-09-15 09:08 | EKG ---
Test Reason : SOB Blood Pressure : / mmHG Vent. Rate : 099 BPM Atrial Rate : 099 BPM P-R Int : 168 ms QRS Dur : 092 ms QT Int : 420 ms P-R-T Axes : 055 053 096 degrees QTc Int : 539 ms Normal sinus rhythm Left atrial enlargement Nonspecific ST and T wave abnormality Prolonged QT Abnormal ECG Confirmed by NIKOLE STANFORD DO ([id number]), digital editor QI RENAE ([id number]) on 09/15/2018 9:08:09 AM Referred By: Confirmed By:NIKOLE STANFORD DO
== END 2018-09-11 21:24 | disposition home or self-care (01) ==
LOC: ERS 11:35
DX: E87.70 Fluid overload, unspecified (principal); D64.9 Anemia, unspecified; I13.2 Hypertensive heart and chronic kidney disease with heart failure and with stage 5 chronic kidney disease, or end stage renal disease; N18.6 End stage renal disease; I50.9 Heart failure, unspecified; F41.9 Anxiety disorder, unspecified; Z79.899 Other long term (current) drug therapy
CPT/HCPCS: 36415; 71045; 80053; 82550; 82553; 83690; 83880; 84484; 85025; 93005; 96374; 96375; 96376; J2270; J2550; J3490

== ENCOUNTER 2018-09-13 17:43 | Emergency (ER) | payer MEDICARE ==
[2018-09-13] MEDS ORDERED: Morphine 4 MG/ML VIAL ONE (18:24)
[2018-09-13] MEDS ORDERED: Promethazine HCl 25 MG/ML VIAL ONE (18:27)
--- NOTE | 2018-09-13 18:30 | RAD ---
Chest 2 views HISTORY: Chest pain. Kidney transplant 2 weeks ago. COMPARISON: 09/11/2018. FINDINGS: Cardiac silhouette is enlarged. Pulmonary vasculature is unremarkable. Mediastinum is midli ne. No confluent airspace consolidation, pneumothorax, or pleural fluid. IMPRESSION: Cardiomegaly, stable.
[2018-09-13 18:31] LABS: #Lymphocytes 1.1 thou/uL (1.20-3.40); #Monocytes 0.5 thou/uL (0.11-0.59); #Neutrophils 3.5 thou/uL (1.40-6.50); %Basophils 0.3 % (0.0-1.0); %Eosinophils 0.9 % (0.0-10.0); %Lymphocytes 20.9 % (21.0-51.0); %Monocytes 9.2 % (0.0-10.0); %Neutrophils 68.8 % (42.0-75.0); Hemoglobin 12.3 g/dL (12.0-16.0); Mean Corpuscular HGB CONC 32.5 g/dL (32.0-36.0); Mean Corpuscular Hemoglobin 33.1 pg (27.0-31.0); Mean Platelet Volume 10.5 fL (7.4-10.4); Platelet Count 181 thou/uL (130-400); RBC Distribution Width 17.8 % (11.5-14.5); Red Blood Cell (RBC) Count 3.72 mill/uL (4.20-5.40); White Blood Cell (WBC) Count 5.1 thou/uL (4.8-10.8)
[2018-09-13 18:56] LABS: BHCG - Serum Negative (NEGATIVE); Pregs Control Background? CLEAR/WHITE (CLR/WHITE); Pregs Control Bar Appear? YES (CONTROL BAR)
[2018-09-13 18:57] LABS: ALT (SGPT) 11 U/L (8-55); AST (SGOT) 20 U/L (5-34); Albumin 4.2 g/dL (3.5-5.0); Alkaline Phosphatase 58 U/L (40-150); Anion Gap 26 mmol/L (10-20); BUN (Urea Nitrogen) 40 mg/dL (7.0-18.7); Bilirubin, Total 1.1 mg/dL (0.2-1.2); Calc. Creatinine Clearance 0 mL/min (70-130); Carbon Dioxide 19 mmol/L (22-29); Chloride 96 mmol/L (98-107); Estimated GFR-MDRD 4; Globulin 3.3 g/dL (2.4-3.5); Glucose 90 mg/dL (70-105); Lipase 7 U/L (8-78); Magnesium 2.5 mg/dL (1.6-2.6); Potassium 4.8 mmol/L (3.5-5.1); Protein, Total 7.5 g/dL (6.0-8.3); Sodium 136 mmol/L (136-145)
[2018-09-13 19:14] LABS: CKMB 0.5 ng/mL (0-6.6)
--- NOTE | 2018-09-13 19:19 | CT ---
CT abdomen and pelvis noncontrast HISTORY: Chest and abdomen pain. Renal failure. COMPARISON: 07/09/2018. FINDINGS: Heart remains enlarged. Small amount of pericardial fluid partially visualized. Gallbladder is surgically absent. Chronic atrophy of the kidneys. Each renal collecting system, ureter, and urinary bladder are decompressed without stone apparent. Lack of contrast limits evaluation for other abnormalities. No findings of bowel obstruction or infla mmation. IMPRESSION: Cardiomegaly. Chronic-type findings are stable. No acute abnormalities are demonstrated.
[2018-09-13] MEDS ORDERED: Dicyclomine 20 MG TAB ONE (20:37)
[2018-09-13 21:51] LABS: Troponin I 0.074 ng/mL (< 0.028)
[2018-09-13] MEDS ORDERED: Acetaminophen 500 MG TAB ONE (23:14)
[2018-09-13] MEDS ORDERED: Ondansetron ODT 4 MG TAB ONE (23:38)
== END 2018-09-14 06:34 | disposition home or self-care (01) ==
LOC: ERS 17:43
DX: R07.9 Chest pain, unspecified (principal); E87.70 Fluid overload, unspecified; I13.2 Hypertensive heart and chronic kidney disease with heart failure and with stage 5 chronic kidney disease, or end stage renal disease; N18.6 End stage renal disease; I50.9 Heart failure, unspecified; Z79.899 Other long term (current) drug therapy; D64.9 Anemia, unspecified; Z99.2 Dependence on renal dialysis
CPT/HCPCS: 36415; 71046; 74176; 80053; 82553; 83605; 83690; 83735; 83880; 84484; 84703; 85025; 93005; 94760; 96374; 96375; J2270; J2550; Q0162

== ENCOUNTER 2019-02-11 08:13 | Observation (INO) | payer MEDICARE, SELFPAY ==
[2019-02-11 08:57] LABS: #Lymphocytes 0.5 thou/uL (1.20-3.40); #Monocytes 0.3 thou/uL (0.11-0.59); #Neutrophils 3.9 thou/uL (1.40-6.50); %Eosinophils 0.3 % (0.0-10.0); %Lymphocytes 10.1 % (21.0-51.0); %Monocytes 5.7 % (0.0-10.0); %Neutrophils 83.9 % (42.0-75.0); Hemoglobin 11.8 g/dL (12.0-16.0); Mean Corpuscular HGB CONC 31.5 g/dL (32.0-36.0); Mean Corpuscular Hemoglobin 32.7 pg (27.0-31.0); Mean Platelet Volume 11.1 fL (7.4-10.4); Platelet Count 159 thou/uL (130-400); RBC Distribution Width 15.7 % (11.5-14.5); Red Blood Cell (RBC) Count 3.62 mill/uL (4.20-5.40); White Blood Cell (WBC) Count 4.7 thou/uL (4.8-10.8)
[2019-02-11] MEDS ORDERED: Ondansetron PF 4 MG/2 ML Vial ONE (08:59)
[2019-02-11 09:07] LABS: BHCG - Serum Negative (NEGATIVE); Pregs Control Background? CLEAR/WHITE (CLR/WHITE); Pregs Control Bar Appear? YES (CONTROL BAR)
[2019-02-11 09:12] LABS: ALT (SGPT) 28 U/L (8-55); AST (SGOT) 41 U/L (5-34); Albumin 4.6 g/dL (3.5-5.0); Alkaline Phosphatase 70 U/L (40-110); Anion Gap 22 mmol/L (10-20); BUN (Urea Nitrogen) 68 mg/dL (7.0-18.7); Bilirubin, Total 0.8 mg/dL (0.2-1.2); Calc. Creatinine Clearance 0 mL/min (70-130); Calcium 7.9 mg/dL (7.8-10.44); Carbon Dioxide 22 mmol/L (22-29); Chloride 98 mmol/L (98-107); Estimated GFR-MDRD 4; Globulin 3.4 g/dL (2.4-3.5); Glucose 82 mg/dL (70-105); Lipase 13 U/L (8-78); Potassium 5.1 mmol/L (3.5-5.1); Sodium 137 mmol/L (136-145)
[2019-02-11] MEDS ORDERED: Metoclopramide HCl 10 MG/2 ML VIAL ONE (10:46)
[2019-02-11] MEDS ORDERED: Pantoprazole 40 MG VIAL IVP SCH (11:30)
[2019-02-11] MEDS ORDERED: Promethazine HCl 25 MG in Sodium Chloride 0.9% 50 ML IVPB SCH (11:30)
[2019-02-11] MEDS ORDERED: hydrALAZINE 20 MG/ML VIAL SLOW IVP SCH (11:30)
[2019-02-11] MEDS ORDERED: Acetaminophen 650 MG Suppository PR PRN ×2 (11:43→17:08)
[2019-02-11] MEDS ORDERED: Acetaminophen 325 MG TAB PO PRN (11:43)
[2019-02-11] MEDS ORDERED: Sodium Chloride 0.9% 500 ML IV SCH (11:45)
[2019-02-11] MEDS ORDERED: Promethazine HCl 12.5 MG in Sodium Chloride 0.9% 50 ML IVPB PRN ×2 (11:46→17:09)
[2019-02-11] MEDS ORDERED: hydrALAZINE 20 MG/ML VIAL SLOW IVP PRN ×2 (11:47→17:08)
[2019-02-11] MEDS ORDERED: hydrALAZINE 20 MG/ML VIAL ONE (12:41)
[2019-02-11 12:57] VITALS: BMI 24.5
--- NOTE | 2019-02-11 14:27 | CON ---
DATE OF CONSULTATION: REASON FOR CONSULTATION: End-stage renal disease and hyperkalemia. HISTORY OF PRESENT ILLNESS: This is a 23-year-old noncompliant patient, who showed up to the hospital with hyperkalemia and nausea and vomiting. The patient had missed dialysis for more than 4 days. The patient denies any headache, numbness, tingling, or weakness. Denies any nausea, vomiting, or chest pain. PAST MEDICAL HISTORY: Failed kidney transplant, hypertension, anemia, on hemodialysis, cholecystectomy, and history of congestive heart failure. HOME MEDICATIONS: List reviewed. HOSPITAL MEDICATIONS: Reviewed. ALLERGIES: REVIEWED. REVIEW OF SYSTEMS: A 15-point review of system was performed and negative except for positives noted above. REVIEW OF SYSTEMS: A 12-point review of systems was performed and was negative except for positives noted above. GENERAL: HEAD: NECK: No swelling or lumps. NOSE: No epistaxis or discharge. EYES: No diplopia or pain. RESPIRATORY: CARDIOVASCULAR: GASTROINTESTINAL: /EDUCATION DIRECTOR: MUSCULOSKELETAL: No joint pain. NEUROPSYCHIATIC SYSTEMS: No suicidal ideation. No ideation. SKIN: Denies any rash or ulcer. CONSTITUTIONAL: No fever or chills. PHYSICAL EXAMINATION: See above. Awake, alert, in no acute distress. VITAL SIGNS: Afebrile, pulse 75, breathing 16, and blood pressure 187/118. GENERAL APPEARANCE AND MENTAL STATUS: Fair. HEAD/NECK: Normocephalic. Atraumatic. EYES: EOMI. No deformity. EARS: Clear. No ulcers. NOSE: Intact. No lesions. MOUTH: Clear. No discharge. THROAT: Clear. No exudate. LUNGS: Clear. No crackles. CARDIAC: S1, S2. No rub. ABDOMEN: Benign. Bowel sounds positive. GENITALIA/RECTUM: Lopez absent. BACK/EXTREMITIES: Edema 0+. NEUROLOGICAL: Alert and motor intact. SKIN: LYMPHATICS: LABORATORY DATA: Reviewed. ASSESSMENT AND PLAN: 1. Stage 6 chronic kidney disease, plan urgent dialysis. 2. Hypertension, stable. 3. Anemia, stable. 4. Medication based on GFR appropriate. 5. Hypertension. We will titrate home medication and removing fluid. Job ID: [id number]
[2019-02-11] MEDS ORDERED: Amlodipine 10 MG TAB PO SCH (15:15)
[2019-02-11] MEDS ORDERED: Carvedilol 6.25 MG TAB PO SCH (17:00)
[2019-02-11] MEDS: Acetaminophen 325 MG TAB PO PRN ×2 (17:15→21:26)
[2019-02-11] MEDS ORDERED: hydrALAZINE 25 MG TAB PO PRN (19:02)
--- NOTE | 2019-02-11 20:18 | CON ---
DATE OF CONSULTATION: 02/11/2019 INDICATION FOR CONSULTATION: A 23-year-old female, who is on end-stage renal disease on hemodialysis, who presented to the emergency room with some abdominal pain, nausea, and vomiting, was noted to have a long QT on the EKG, was advised admission to the hospital. She has been asymptomatic. She has had no significant arrhythmias in the past that I am aware of and she do not known to have any arrhythmias that she has not had any episodes of syncope or ventricular tachycardia, but does have a long QT noted on the EKG. She has had followups in the past. She has had problems with hyperkalemia. Her potassium today was only 5.1. Would not expect this to prolong the QT that much, but I do not have any older EKGs for comparison at this time. She had no other significant complaints except for the nausea and vomiting. She had missed her dialysis on Tuesday due to car troubles and was planned to have a dialysis today as an outpatient today, but then presented to the emergency room with the nausea, vomiting, and abdominal pain. At this time, the cardiac status appears to be otherwise stable. She has a sinus rhythm and has a long QT and also the QTc is prolonged for the heart rate. She does have evidence of left ventricular hypertrophy also. She had a cardiomyopathy in the past, but her most recent echocardiogram in June of this year showed ejection fraction of 50% to 55% with left ventricular hypertrophy with mild tricuspid and mitral valve regurgitation, some I believe enlargement of the right ventricle, but not grossly enlarged. PAST MEDICAL HISTORY: Significant for the end-stage renal disease. She has underwent renal transplant in the past in 2016. She had failed transplant and rejected it and was removed in 2019. She has a history of hypertension and anemia. She has had a history of congestive heart failure, which now appears to have improved significantly. She has had a cholecystectomy. She now remains on dialysis. MEDICATIONS: At home included; 1. Coreg. 2. Vitamin D. 3. Hydralazine. 4. Calcium. ALLERGIES: DID NOT SEE ANY LISTED ALLERGIES FOR THE PATIENT. REVIEW OF SYSTEMS: A 12-point review of systems is unremarkable. FAMILY HISTORY: Noncontributory. SOCIAL HISTORY: No significant alcohol or tobacco abuse. PHYSICAL EXAMINATION: GENERAL: Reveals a well-developed, well-nourished female, in no acute distress at this time. She is undergoing hemodialysis as we speak. VITAL SIGNS: Her blood pressure was elevated at 184/114, heart rate is 97, and respiratory rate is 16. HEENT: Shows head to be normocephalic and atraumatic. Carotid pulses are present. There were no bruits. Chest: Clear to auscultation. CARDIOVASCULAR: Reveals a regular rate and rhythm at this time. There is normal S1 and S2. I cannot hear an S3 nor an S4. No other any significant murmurs, heaves, thrills, bruits, or rubs. ABDOMEN: Soft and nontender. Positive bowel sounds are present. EXTREMITIES: Show no clubbing, cyanosis, or edema. Pedal pulses are present. SKIN: Warm and dry. NEUROLOGIC: She appears to be fully intact. LABORATORY DATA: Shows a potassium of 5.1, sodium was 137, BUN was 68 with a creatinine of 13.5, and a blood sugar of 82. WBC of 4.7, hemoglobin 11.8 with a hematocrit of 37.6, and platelet count was 159,000. IMPRESSION AND PLAN: 1. Young female with end-stage renal disease, who is on hemodialysis, who presented with significant elevation of the creatinine also with hyperkalemia. She was advised to undergo urgent dialysis, but was also found to have a long QT on the EKG, but suggest that we repeat the EKG once the potassium is back to baseline. 2. Hypertension. This will be dealt with by the primary care service. Her blood pressure is significantly elevated today. 3. Anemia, but this also appears to be relatively stable at hemoglobin of 11.8. We will continue to follow the patient with you, but certainly if the QT remains prolonged, we will have discussion with the director phone. In the meantime, would avoid medications that might prolong the QT even further that would make the patient had a predisposition possibly to having torsades or ventricular tachycardia, polymorphic ventricular tachycardia. Otherwise, she remains asymptomatic. The QT was measured at 408 with a QTc of 539. Job ID: [id number]
--- NOTE | 2019-02-12 07:33 | HP ---
PRIMARY CARE PHYSICIAN: Dr. Braxton Mendoza MD. CHIEF COMPLAINT: Nausea, vomiting, and abdominal pain. HISTORY OF PRESENT ILLNESS: A 23-year-old female with known history of end-stage renal disease from nephrotic syndrome, status post renal transplant, which failed and currently on hemodialysis, presenting to the hospital with acute onset of nausea and vomiting as well as abdominal pain and frequent loose stools. The patient was unable to keep anything down including her medications, hence presentation to the ER. Of note, the patient missed her last hemodialysis on due to unforeseen circumstances. She, however, tried to arrange for makeup hemodialysis yesterday, but could not get in due to lack of availability. She reportedly had lunch of a sandwich, which she also ate in the dinner. About 10 p.m. last night, maybe about 4 hours after last meal, she started having nausea and vomiting, which was soon followed by epigastric abdominal pain earlier this morning as well as frequent loose stools. The patient denied fever, hematemesis, hematochezia, melena, cough, chest pain, shortness of breath, leg swelling, or palpitations. She admitted to dizziness since this morning on standing up. She also denied fever. In the emergency room, the patient was found to have elevated blood pressures of as well as pulse of 102 on presentation. Further evaluation with EKG showed QT prolongation. The patient continued to have nausea and vomiting and she is being admitted to the hospital for further treatment as well as for dialytic treatment. PAST MEDICAL HISTORY: 1. Hypertension. 2. Chronic anemia. 3. Nephrotic syndrome. 4. End-stage renal disease, on hemodialysis Tuesday, Tuesday, Tuesday. 5. Chronic systolic heart failure. PAST SURGICAL HISTORY: 1. Kidney transplant in 11/2015. 2. Transplant kidney removal in 2019 due to persistent pain. 3. Cholecystectomy. 4. AV fistula creation on the left forearm. FAMILY HISTORY: Significant for hypertension in father and COPD in mother. SOCIAL HISTORY: The patient lives with family. Denied alcohol, recreational drug use, or tobacco. ALLERGIES: NO KNOWN DRUG ALLERGY REPORTED. CURRENT HOME MEDICATIONS: 1. Vitamin D3 of 2000 units daily. 2. Carvedilol 6.25 mg p.o. b.i.d. 3. Hydralazine 50 mg p.o. t.i.d. 4. Calcium carbonate 300 mg daily. REVIEW OF SYSTEMS: A 12-point review of system performed was negative other than pertinent positives and negatives included in the history of present illness. PHYSICAL EXAMINATION: GENERAL: Young female, in no obvious distress, fatigued, but afebrile and anicteric. HEENT: Normocephalic and atraumatic. Oral mucosa is dry. NECK: Supple and nontender with good range of motion. No JVD appreciated. CARDIOVASCULAR: Regular rhythm and rate, but tachycardic. RESPIRATORY: Fair air entry bilaterally with no crackle or rhonchi or use of accessory muscles. GI: Full, soft with epigastric tenderness. Bowel sound is normoactive. EXTREMITIES: Grossly normal looking and atraumatic with no edema or erythema. Left forearm AV fistula with good thrill noted. COMPUTER FORENSICS EXAMINER: Conscious, alert, and oriented x3 with appropriate mental status. Cranial nerves 2 through 12 are grossly intact. The patient is ambulant. VITAL SIGNS: Initial vitals on presentation to the ER showed blood pressure , pulse 102, respiratory rate 19, temperature 97.7, SpO2 of 100% on room air. Most recent vitals showed BP 187/134, pulse 97, respiratory rate 19, pain 5/10, SpO2 of 100% on room air. DIAGNOSTIC DATA: CBC showed WBC count of 4.7, hemoglobin of 11.8, MCV of 104, and platelet of 159. CMP showed sodium 137, potassium 5.1, chloride 98, CO2 of 22, anion gap 22, BUN 68, creatinine 13.52, glucose 82, and calcium 7.9. Total bilirubin 0.8, AST 41, ALT 28, alkaline phosphatase 70, total protein 8.0, albumin 4.6, and globulin 3.4. Lipase is 13. Magnesium is 2.3. test was negative. No urinalysis performed as the patient does not make urine. EKG showed sinus tachycardia with rate of 105. Nonspecific ST and T-wave changes as well as QT prolongation noted. ASSESSMENT: 1. Acute gastroenteritis: Most likely food related and infectious. 2. Orthostatic dizziness: Due to volume depletion from gastrointestinal losses and poor oral intake. 3. Hypertensive urgency: Due to inability to take medication due to intractable nausea and vomiting. 4. End-stage renal disease, on hemodialysis Tuesday, Tuesday, and Tuesday with last dialysis being on 02/07. PLAN: 1. We will admit the patient to the hospital. 2. We will give NS bolus due to orthostatic dizziness. 3. We will also give IV Protonix as well as IV hydralazine and Phenergan for nausea and vomiting since Zofran and Reglan did not work. 4. Cardiology consult has been requested for evaluation of QT prolongation. 5. We will monitor fluid status closely as the patient has history of CHF. 6. Hemodialysis as per Nephrology. 7. We will keep the patient n.p.o. for now and restart clear liquid once nausea and vomiting have subsided. 8. Note that echocardiogram of June showed preserved systolic function of 50 to 55. 9. Code status is full code. 10. Further treatment to follow depending on hospital course. Job ID: [id number]
[2019-02-12] MEDS: Carvedilol 6.25 MG TAB PO SCH ×2 (08:50→17:59)
[2019-02-12] MEDS: hydrALAZINE 25 MG TAB PO SCH ×2 (08:50→17:58)
[2019-02-12] MEDS: Calcium Acetate 667 MG CAP PO SCH ×3 (08:50→17:59)
[2019-02-12] MEDS ORDERED: Enoxaparin Sodium 30 MG/0.3 ML SYRINGE SC SCH ×2 (09:00)
[2019-02-12] MEDS ORDERED: Amlodipine 10 MG TAB PO SCH (09:00)
--- NOTE | 2019-02-12 10:08 | PRG ---
DATE OF SERVICE: 02/12/2019 SUBJECTIVE: A 23-year-old lady, being seen for end-stage renal disease. The patient denies any nausea, vomiting, or chest pain. OBJECTIVE: CONSTITUTIONAL: The patient is awake and alert. VITAL SIGNS: Afebrile, pulse 85, breathing 16, and blood pressure 160/90. GENERAL APPEARANCE AND MENTAL STATUS: Fair. HEAD/NECK: Normocephalic. Atraumatic. EYES: EOMI. No deformity. EARS: Clear. No ulcers. NOSE: Intact. No lesions. MOUTH: Clear. No discharge. THROAT: Clear. No exudate. LUNGS: Clear. No crackles. CARDIAC: S1, S2. No rub. ABDOMEN: Benign. Bowel sounds positive. GENITALIA/RECTUM: Lopez absent. BACK/EXTREMITIES: Edema 0+. NEUROLOGICAL: Alert and motor intact. SKIN: LYMPHATICS: LABORATORY DATA: Reviewed. ASSESSMENT AND PLAN: 1. Stage 6 chronic kidney disease, plan hemodialysis . 2. Anemia, stable. 3. Medication based on GFR appropriate. Job ID: [id number]
[2019-02-12 12:05] VITALS: TEMP 98.3
[2019-02-12] MEDS: Acetaminophen 325 MG TAB PO PRN (14:58)
[2019-02-12 18:02] VITALS: BP 158/88
--- NOTE | 2019-02-13 08:13 | DIS ---
DATE OF ADMISSION: 02/11/2019 DATE OF DISCHARGE: 02/12/2019 DISCHARGE DIAGNOSES: 1. Hypertensive urgency. 2. Acute gastroenteritis. 3. QT prolongation. 4. End-stage renal disease, on hemodialysis. 5. Chronic anemia. CONSULTS: 1. Cardiology. 2. Nephrology. HOSPITAL COURSE: A 23-year-old female with known history of end-stage renal disease from nephrotic syndrome, status post failed renal transplant, currently on hemodialysis admitted due to acute onset of nausea, vomiting, and frequent loose stools associated with abdominal pain. The patient also was found to have elevated blood pressure. Evaluation showed potassium of 5.1, and EKG showed QT prolongation. The patient was started on bowel rest as well as antiemetics with improvement of nausea and vomiting and was later restarted on clear liquids which was advanced to regular. Nephrology saw the patient and provided hemodialytic treatment. The patient improved clinically and was tolerating a regular diet and was subsequently discharged home. Of note, blood pressure was elevated and antihypertensive treatment was readjusted to get adequate BP control. Cardiology saw the patient and recommended avoidance of medication that could cause QT prolongation. The patient remained stable and was discharged home. PHYSICAL EXAMINATION: VITAL SIGNS: Temperature 98.3, pulse 100, respiratory rate 16, SpO2 of 99% on room air, and blood pressure 133/86. GENERAL: Young female, in no distress. Afebrile. Anicteric. Acyanotic. HEENT: Normocephalic, atraumatic. Oral mucosa is moist. CARDIOVASCULAR: Regular rhythm and rate. Normal heart sounds one and two. RESPIRATORY: Good air entry bilaterally with no crackle or rhonchi or use of accessory muscles. GI: Full, soft, nontender, nondistended with normal bowel sounds. EXTREMITIES: Grossly normal looking atraumatic with no edema or erythema. TURKEY EGG GATHERER: Conscious, alert, oriented x3 with appropriate mental status. Cranial nerves 2 through 12 are grossly intact. The patient is ambulant. DISCHARGE CONDITION: Improved. DISCHARGE DISPOSITION: Home. DISCHARGE MEDICATIONS: 1. Calcium acetate 667 mg p.o. t.i.d. 2. Cholecalciferol 2000 units p.o. daily. 3. Hydralazine mg p.o. t.i.d. 4. Amlodipine 10 mg p.o. daily. 5. Carvedilol 12.5 mg p.o. b.i.d. Job ID: [id number]
== END 2019-02-12 18:27 | disposition home or self-care (01) ==
LOC: ERS 08:13 → 2SW 12:11 → ERS 12:15 → 2SW 12:15
PROVIDERS: ADMIT Internal Medicine Nephrology; ATTEND Internal Medicine Nephrology
DX: I16.0 Hypertensive urgency (principal); I13.2 Hypertensive heart and chronic kidney disease with heart failure and with stage 5 chronic kidney disease, or end stage renal disease; N18.6 End stage renal disease; I50.22 Chronic systolic (congestive) heart failure; D63.1 Anemia in chronic kidney disease; K52.9 Noninfective gastroenteritis and colitis, unspecified; R11.2 Nausea with vomiting, unspecified; R42 Dizziness and giddiness; E87.5 Hyperkalemia; R94.31 Abnormal electrocardiogram [ECG] [EKG]; Z91.14 Patient's other noncompliance with medication regimen; Z79.899 Other long term (current) drug therapy; Z99.2 Dependence on renal dialysis
CPT/HCPCS: 80053; 83690; 83735; 84703; 85025; 93005; 96374; 96375 ×2; 96376; 99285; G0378 ×3; 36415; 90935; C9113; G0257; J0360; J2405; J2550; J2765

== ENCOUNTER 2019-05-13 13:30 | Emergency (ER) | payer MEDICARE ==
[2019-05-13] MEDS ORDERED: Iopamidol-370 76% 500 ML 1 ML ONE (13:46)
[2019-05-13] MEDS ORDERED: Morphine 4 MG/ML VIAL ONE (14:27)
[2019-05-13] MEDS ORDERED: Ondansetron PF 4 MG/2 ML Vial ONE (14:27)
[2019-05-13 14:30] LABS: #Eosinphils 0.1 thou/uL (0.0-0.7); #Lymphocytes 0.7 thou/uL (1.20-3.40); #Monocytes 0.3 thou/uL (0.11-0.59); #Neutrophils 1.7 thou/uL (1.40-6.50); %Basophils 1.1 % (0.0-1.0); %Eosinophils 2.4 % (0.0-10.0); %Lymphocytes 24.4 % (21.0-51.0); %Monocytes 9.9 % (0.0-10.0); %Neutrophils 62.2 % (42.0-75.0); Hemoglobin 10.2 g/dL (12.0-16.0); Mean Corpuscular HGB CONC 32.9 g/dL (32.0-36.0); Mean Platelet Volume 10.7 fL (7.4-10.4); Platelet Count 122 thou/uL (130-400); White Blood Cell (WBC) Count 2.7 thou/uL (4.8-10.8)
[2019-05-13 14:48] LABS: BHCG - Serum Negative (NEGATIVE); Pregs Control Background? CLEAR/WHITE (CLR/WHITE); Pregs Control Bar Appear? YES (CONTROL BAR)
[2019-05-13 14:50] LABS: ALT (SGPT) Less than 7 U/L (8-55); AST (SGOT) 11 U/L (5-34); Albumin 4.2 g/dL (3.5-5.0); Alkaline Phosphatase 48 U/L (40-110); Anion Gap 19 mmol/L (10-20); BUN (Urea Nitrogen) 41 mg/dL (7.0-18.7); Bilirubin, Total 0.8 mg/dL (0.2-1.2); Calc. Creatinine Clearance 0 mL/min (70-130); Calcium 8.4 mg/dL (7.8-10.44); Carbon Dioxide 24 mmol/L (22-29); Chloride 98 mmol/L (98-107); Estimated GFR-MDRD 4; Globulin 3.4 g/dL (2.4-3.5); Glucose 75 mg/dL (70-105); Potassium 4.3 mmol/L (3.5-5.1); Protein, Total 7.6 g/dL (6.0-8.3); Sodium 137 mmol/L (136-145)
--- NOTE | 2019-05-13 16:24 | CT ---
CT abdomen and pelvis with IV contrast HISTORY: Abdomen and back pain. COMPARISON: 09/13/2018. FINDINGS: Partially visualized heart remains enlarged. Gallbladder is surgically absent. Marked atrop hy of the kidneys. No focal mass or free fluid. No evidence of bowel obstruction. Urinary bladder is decompressed. Degenerative changes lumbar spine. No retroperitoneal adenopathy evident. IMPRESSION: Cardiomegaly. Status post cholecystectomy. Findings of chronic renal insufficiency. No acute abnormalities are demonstrated.
== END 2019-05-13 17:16 | disposition home or self-care (01) ==
LOC: ERS 13:30
DX: N94.6 Dysmenorrhea, unspecified (principal); D64.9 Anemia, unspecified; I10 Essential (primary) hypertension; F41.9 Anxiety disorder, unspecified; Z79.899 Other long term (current) drug therapy
CPT/HCPCS: 36415; 74177; 80053; 84702; 84703; 85025; 86900; 86901; 96374; 96375; J2270; J2405; Q9967

== ENCOUNTER 2019-08-04 08:08 | Emergency (ER) | payer SELFPAY ==
[2019-08-04] MEDS ORDERED: Ketamine 50 MG/ML (10ML VIAL) ONE (08:49)
[2019-08-04] MEDS ORDERED: Ondansetron PF 4 MG/2 ML Vial ONE (08:50)
[2019-08-04 09:12] LABS: BHCG - Serum Negative (NEGATIVE); Pregs Control Background? CLEAR/WHITE (CLR/WHITE); Pregs Control Bar Appear? YES (CONTROL BAR)
[2019-08-04 09:23] LABS: ALT (SGPT) Less than 7 U/L (8-55); AST (SGOT) 19 U/L (5-34); Albumin 4.4 g/dL (3.5-5.0); Alkaline Phosphatase 49 U/L (40-110); Anion Gap 18 mmol/L (10-20); BUN (Urea Nitrogen) 20 mg/dL (7.0-18.7); Bilirubin, Total 0.6 mg/dL (0.2-1.2); Calc. Creatinine Clearance 0 mL/min (70-130); Calcium 9.7 mg/dL (7.8-10.44); Carbon Dioxide 27 mmol/L (22-29); Chloride 98 mmol/L (98-107); Estimated GFR-MDRD 9; Globulin 3.8 g/dL (2.4-3.5); Glucose 87 mg/dL (70-105); Potassium 4.6 mmol/L (3.5-5.1); Protein, Total 8.2 g/dL (6.0-8.3); Sodium 138 mmol/L (136-145)
[2019-08-04 09:31] LABS: #Eosinphils 0.1 thou/uL (0.0-0.7); #Lymphocytes 1.5 thou/uL (1.20-3.40); #Monocytes 0.5 thou/uL (0.11-0.59); #Neutrophils 1.6 thou/uL (1.40-6.50); %Basophils 0.8 % (0.0-1.0); %Eosinophils 2.2 % (0.0-10.0); %Lymphocytes 40.7 % (21.0-51.0); %Monocytes 13.3 % (0.0-10.0); %Neutrophils 43.1 % (42.0-75.0); Anisocytosis SLIGHT = 6-15 cells (100X) (0-5/hpf); Hemoglobin 13.4 g/dL (12.0-16.0); MDiff Complete? YES; Macrocytosis SLIGHT = 6-15 cells (100X) (0-5/hpf); Mean Corpuscular HGB CONC 31.4 g/dL (32.0-36.0); Mean Corpuscular Hemoglobin 33.5 pg (27.0-31.0); Mean Platelet Volume 11.5 fL (7.4-10.4); Ovalocytes SLIGHT = 2-5 cells (100X) (0-1/hpf); Platelet Count 158 thou/uL (130-400); Platelet Morphology Comment Appears Adequate; White Blood Cell (WBC) Count 3.7 thou/uL (4.8-10.8)
[2019-08-04] MEDS ORDERED: Ketorolac Tromethamine 30 MG/ML VIAL ONE (09:36)
[2019-08-04] MEDS ORDERED: Morphine 4 MG/ML VIAL ONE (09:36)
[2019-08-04] MEDS ORDERED: Dexamethasone 10 MG/ML VIAL ONE (09:36)
--- NOTE | 2019-08-04 09:38 | CT ---
CT BRAIN NONCONTRAST: DATE: 08/04/2019 HISTORY: 24-year-old female with headache FINDINGS: There is no evidence of acute intra-axial or extra-axial hemorrhage. There is no midline shift or any other mass effect. There is no extra-axial fluid collection. There is no evidence of obstructive hydrocephalus. Calvarium is intact. IMPRESSION: No acute intracranial findings.
[2019-08-04] MEDS ORDERED: Promethazine HCl 25 MG/ML VIAL ONE (09:50)
[2019-08-04] MEDS ORDERED: cloNIDine 0.1 MG TAB ONE (10:33)
== END 2019-08-04 11:23 | disposition home or self-care (01) ==
LOC: ERS 08:08
DX: I13.2 Hypertensive heart and chronic kidney disease with heart failure and with stage 5 chronic kidney disease, or end stage renal disease (principal); N18.6 End stage renal disease; I50.9 Heart failure, unspecified; F41.9 Anxiety disorder, unspecified; D63.1 Anemia in chronic kidney disease; Z99.2 Dependence on renal dialysis; Z79.899 Other long term (current) drug therapy
CPT/HCPCS: 70450; 80053; 84703; 85025; 96365; 96375; J1100; J1885; J2270; J2405; J2550

== ENCOUNTER 2019-09-14 13:17 | Inpatient (IN) | payer MEDICARE, SELFPAY ==
[~2019-09-14 13:17] MED LIST changes: -Heparin 1,000 UNITS/ML VIAL ONE; +Iopamidol-370 76% 500 ML 1 ML ONE
[2019-09-14] MEDS ORDERED: Dexamethasone 10 MG/ML VIAL ONE (14:09)
[2019-09-14] MEDS ORDERED: Morphine 4 MG/ML VIAL ONE (14:09)
[2019-09-14] MEDS ORDERED: Clindamycin/D5W 600 mg/50 ml Premix Bag ONE (14:09)
[2019-09-14 14:25] LABS: #Basophils 0.1 thou/uL (0.0-0.2); #Lymphocytes 0.6 thou/uL (1.20-3.40); #Monocytes 0.3 thou/uL (0.11-0.59); #Neutrophils 3.5 thou/uL (1.40-6.50); %Basophils 1.6 % (0.0-1.0); %Lymphocytes 13.9 % (21.0-51.0); %Monocytes 6.2 % (0.0-10.0); %Neutrophils 77.2 % (42.0-75.0); Hemoglobin 11.9 g/dL (12.0-16.0); Mean Corpuscular HGB CONC 31.7 g/dL (32.0-36.0); Mean Corpuscular Hemoglobin 32.2 pg (27.0-31.0); Mean Platelet Volume 9.7 fL (7.4-10.4); Platelet Count 147 thou/uL (130-400); RBC Distribution Width 16.8 % (11.5-14.5); White Blood Cell (WBC) Count 4.6 thou/uL (4.8-10.8)
[2019-09-14 14:35] LABS: BHCG - Serum Negative (NEGATIVE); Pregs Control Background? CLEAR/WHITE (CLR/WHITE); Pregs Control Bar Appear? YES (CONTROL BAR)
[2019-09-14 14:51] LABS: ALT (SGPT) Less than 7 U/L (8-55); AST (SGOT) 12 U/L (5-34); Albumin 4.7 g/dL (3.5-5.0); Alkaline Phosphatase 55 U/L (40-110); Anion Gap 22 mmol/L (10-20); BUN (Urea Nitrogen) 46 mg/dL (7.0-18.7); Bilirubin, Total 0.7 mg/dL (0.2-1.2); Calc. Creatinine Clearance 0 mL/min (70-130); Calcium 8.6 mg/dL (7.8-10.44); Carbon Dioxide 24 mmol/L (22-29); Chloride 97 mmol/L (98-107); Estimated GFR-MDRD 4; Globulin 4.1 g/dL (2.4-3.5); Glucose 83 mg/dL (70-105); Potassium 4.4 mmol/L (3.5-5.1); Protein, Total 8.8 g/dL (6.0-8.3); Sodium 139 mmol/L (136-145)
--- NOTE | 2019-09-14 15:08 | CT ---
CT maxillofacial with contrast: DATE: 09/14/2019 HISTORY: 24-year-old female with severe right facial swelling and upper dental pain. FINDINGS: There are lucencies involving multiple teeth, representing caries, including teeth numbers 1, 5, 14, and 16. No periapical lucency is identified. No obvious osseous cortical defect of maxilla or mandible. There is moderate to severe soft tissue edema in the superficial fat of the right maxillary and aixa bular cheek. No organized drainable abscess is identified. There is focal phlegmon superficial to the right mandib ular buccal space anteriorly. Sublingual, submandibular, carotid, parotid, cyber incident analyst, parapharyngeal, retropharyngeal, and periver tebral, spaces, appear normal, except for multiple mildly to moderately enlarged reactive cervical lymph nodes. No gross asymmetry of the larynx. Partially closed glottis makes it somewhat difficult t o evaluate for mild laryngeal edema. Normal morphology of TMJs. Orbits are clear. Polypoid mucosal thickening at the floors of bilateral maxillary sinuses, left greater than right. No air-fluid levels . Rest of the paranasal sinuses, and bilateral tympanomastoid cavities, are grossly clear. IMPRESSION: 1.) Soft tissue edema of the right cheek involving right buccal space and the fat superficial to it. 2) no abscess identified. 3) multiple upper dental caries
[2019-09-14] MEDS ORDERED: hydrALAZINE 25 MG TAB ONE (17:34)
--- NOTE | 2019-09-14 19:32 | CON ---
DATE OF CONSULTATION: 09/14/2019 CONSULTING PHYSICIAN: Dr. Mojica. REASON FOR CONSULTATION: End-stage renal disease evaluation. REASON FOR ADMISSION: Right facial swelling. HISTORY OF PRESENT ILLNESS: This is a 24-year-old female, with history of end-stage renal disease, on hemodialysis; heart failure; anemia; transplanted kidney; came to the hospital with above complaints. The patient missed dialysis today. She is noncompliant with dialysis. Nephrology consulted for maintenance hemodialysis. No fever or chills. PAST MEDICAL HISTORY: Positive for end-stage renal disease, anemia, hypertension, CHF. PAST SURGICAL HISTORY: Transplanted kidney, cholecystectomy, dialysis access placement. HOME MEDICATIONS: Reviewed. ALLERGIES: NO KNOWN DRUG ALLERGIES. SOCIAL HISTORY: No smoking, alcohol, or illicit drugs. FAMILY HISTORY: No history of kidney disease. REVIEW OF SYSTEMS: CONSTITUTIONAL: Negative for weight loss or gain, ability to conduct usual activities. SKIN: Negative for rash, itching. EYES: Negative for double vision, pain. ENT/MOUTH: Negative for nose bleeding, neck stiffness, pain, tenderness. CARDIOVASCULAR: Negative for palpitations, dyspnea on exertion, orthopnea. RESPIRATORY: Negative for shortness of breath, wheezing, cough, hemoptysis, fever or night sweats. GASTROINTESTINAL: Negative for poor appetite, abdominal pain, heartburn, nausea, vomiting, constipation, or diarrhea. GENITOURINARY: Negative for urgency, frequency, dysuria, nocturia. MUSCULOSKELETAL: Negative for pain, swelling. NEUROLOGIC/PSYCHIATRIC: Negative for anxiety, depression. ALLERGY/IMMUNOLOGIC: Negative for skin rash, bleeding tendency. PHYSICAL EXAMINATION: GENERAL: Reveals a well-built female, in no apparent distress. VITAL SIGNS: Temperature 98.9, pulse 88, respiratory rate 20, blood pressure 195/114. HEENT: Atraumatic and normocephalic. Oral mucosa moist. NECK: Supple. CV: S1 and S2. Rate and rhythm regular. RESPIRATORY: Clear. GI: Abdomen is soft. MUSCULOSKELETAL: 1+ edema. DERMATOLOGIC: No skin rash. NEUROLOGIC: Alert and awake. PSYCHIATRIC: Normal mood and affect. LABORATORY DATA: Hemoglobin is 11.9. Potassium 4.4, BUN is 46, and creatinine is 14.6. ASSESSMENT: 1. End-stage renal disease. Continue on hemodialysis as tolerated. 2. Edema, controlled. 3. Hypertension. 4. Anemia of chronic disease. PLAN: To continue on dialysis as tolerated. We will follow. Thank you for the consult. Job ID: [id number]
[2019-09-14] MEDS ORDERED: HYDROcodone/Acetaminophen 5/325 mg Tablet PO PRN ×2 (19:59)
[2019-09-14] MEDS ORDERED: Ondansetron ODT 4 MG TAB SL PRN (19:59)
[2019-09-14] MEDS ORDERED: Ondansetron PF 4 MG/2 ML Vial IVP PRN (19:59)
[2019-09-14] MEDS ORDERED: Morphine 4 MG/ML VIAL SLOW IVP PRN (19:59)
[2019-09-14] MEDS: Famotidine 20 MG TAB PO SCH (20:59)
[2019-09-14] MEDS: Morphine 2 MG/ML SYRINGE SLOW IVP PRN (21:04)
[2019-09-14] MEDS ORDERED: Clindamycin/D5W 600 MG in Premix Bag 1 BAG IVPB SCH (22:00)
[2019-09-14] MEDS: diphenhydrAMINE 12.5 MG/5 ML UDCUP PO SCH (22:19)
--- NOTE | 2019-09-14 22:19 | HP ---
PRIMARY CARE PHYSICIAN: None. CHIEF COMPLAINT: Facial swelling. HISTORY OF PRESENT ILLNESS: The patient is a very pleasant 24-year-old female with a past medical history significant for end-stage renal disease, currently on dialysis, who presents with one-day of right eye and facial swelling. This began last night and became worse when she woke up today. She denies any fever or chills with it. She tried to take Tylenol prior to arrival for pain control, which did help slightly. She denies any drainage from the site. She does have a history of poor dentition, but she has never had an abscess or had any teeth that needed to be pulled. Eating, drinking, and mastication make the pain worse and rest makes it slightly better. She denies any associated nausea or vomiting. Today in the ER, they performed lab work and a facial CT of the bones. She was also given hydralazine 50 mg p.o., clindamycin 600 mg IV, dexamethasone 10 mg IV and morphine 4 mg for pain. PAST MEDICAL HISTORY: End-stage renal disease due to nephrotic syndrome, currently on dialysis, hypertension, and CHF. PAST SURGICAL HISTORY: Kidney transplant, which failed and the kidney has since been removed and then the fistula with revision. ALLERGIES: NO KNOWN DRUG ALLERGIES. MEDICATIONS: To be reconciled once to the floor. SOCIAL HISTORY: The patient lives at home with her. She currently does not work. She denies any smoking, alcohol, or illicit drug use. FAMILY HISTORY: Her mother and brother each had a CVA. All of her aunts have cancer and her father has a history of hypertension and diabetes. REVIEW OF SYSTEMS: All other review of systems are negative unless noted in the HPI. PHYSICAL EXAMINATION: VITAL SIGNS: Blood pressure 171/111, pulse 102, respiratory rate 16, temp 98.1 orally and O2 saturation 99% on room air. GENERAL: The patient appears nontoxic, in moderate pain. HEENT: Head, atraumatic, normocephalic. Eyes, right eye,swollen and tender. PERRLA. Extraocular muscles intact. No nystagmus. ENT, tonsil exam normal. Oral mucous membranes moist. Right temporal, periorbital and maxillary sinuses and right jawline with significant swelling. Halitosis present. NECK: Normal range of motion. No lymphadenopathy. RESPIRATORY: Clear to auscultation bilaterally. Normal chest motion. No rhonchi, no wheezes, no rales. CARDIOVASCULAR: Regular rate and rhythm. No murmurs, no gallops, no rubs. ABDOMEN: Bowel sounds normal. No distention. No guarding, no rigidity. EXTREMITIES: Left upper extremity, palpable thrill present at dialysis shunt. Radial pulse normal. Lower extremities, pedal pulses are normal. No edema noted. NEURO: No focal motor deficit. SKIN: Warm, dry and normal color. PSYCH: Normal affect. Normal behavior. DIAGNOSTIC DATA: CT showed soft tissue edema of the right cheek involving right buccal space and the fat superficial to it. No abscess identified. Multiple upper dental caries. LABORATORY DATA: Showed white blood cells 4.6, hemoglobin 11.9, hematocrit 37.6 , sodium 139, potassium 4.4, anion gap 22, BUN 46, creatinine 14.62, GFR 4, glucose 83, lactic acid 0.9, calcium 8.6, AST 12, ALT less than 7, alkaline phosphatase 55. Negative serum test. IMPRESSION: 1. Facial cellulitis. ER consulted maxillofacial group. They state they will see the patient on Tuesday, hopefully after some of the swelling has receded in her face. We will continue the clindamycin IV along with pain management medications. 2. Hypertension. We will restart the patient on her home medications and substitute with p.r.n. medications as needed. 3. End-stage renal disease, on dialysis. Dr. Quiroz has been consulted to see the patient and he will continue her dialysis. She missed her treatment today and her treatment on Tuesday was cut short due to a family emergency. Hopefully, she will be able to get in soon for a full treatment cycle. 4. Gastrointestinal and deep venous thrombosis prophylaxis ordered for the patient. The patient wishes to be a full code. Her surrogate decision maker will be her sister, Lala So, phone #[phone]. Job ID: [id number] MTDD
[2019-09-14 22:31] VITALS: BMI 22.8
[2019-09-14] MEDS ORDERED: hydrALAZINE 25 MG TAB PO SCH ×3 (23:30)
[2019-09-14] MEDS ORDERED: Lisinopril 10 MG TAB PO SCH (23:30)
[2019-09-15] MEDS: Morphine 2 MG/ML SYRINGE SLOW IVP PRN ×5 (01:53→22:49)
[2019-09-15 05:19] LABS: #Lymphocytes 0.5 thou/uL (1.20-3.40); #Monocytes 0.3 thou/uL (0.11-0.59); #Neutrophils 4.2 thou/uL (1.40-6.50); %Eosinophils 0.1 % (0.0-10.0); %Lymphocytes 9.5 % (21.0-51.0); %Neutrophils 85.4 % (42.0-75.0); Hemoglobin 9.2 g/dL (12.0-16.0); Mean Corpuscular HGB CONC 32.5 g/dL (32.0-36.0); Mean Corpuscular Hemoglobin 32.4 pg (27.0-31.0); Mean Corpuscular Volume 99.6 fL (78.0-98.0); Mean Platelet Volume 10.3 fL (7.4-10.4); Platelet Count 123 thou/uL (130-400); RBC Distribution Width 16.9 % (11.5-14.5); Red Blood Cell (RBC) Count 2.84 mill/uL (4.20-5.40)
--- NOTE | 2019-09-15 05:23 | CON ---
DATE OF CONSULTATION: HISTORY OF PRESENT ILLNESS: A 24-year-old female, presented to the emergency department, 24 hours of complaining of right side facial swelling, unknown source. The patient states severe dental pain. The patient stated over the past 24 hours, her face has progressively swollen to where she feels like her eye is swelling shut. No ocular pain. No visual disturbances. PAST MEDICAL HISTORY: Remarkable for end-stage renal failure, for which she undergoes dialysis on Mondays, Wednesdays, and Fridays secondary to nephrotic syndrome. She also has a history of hypertension and did complain of prior congestive heart failure. She does state that she can exercise, walk up a flight of stairs, and walk 2 to 4 city blocks without any chest pain or shortness of breath. So, her metabolic equivalent is greater than 4. PHYSICAL EXAMINATION: Right facial swelling extending along and superior to the right mid cheek up to the right periorbital complex. Soft, nonindurated, tender to palpation. KARISHMA 50 mm. Tenderness and edema noted within the right cheek in the right maxillary buccal vestibule. Extreme tenderness to multiple teeth to include teeth #3, 5, also has fractured tooth #1, 9, 14, and 16. Able to minimally express purulence along the sulcus of tooth #5. Type 1 mobility noted. The patient is afebrile. LABORATORY DATA: White blood cells within normal limits. IMAGING: CT face noted multiple cavities along teeth #1, 5, 9, 14, and 16. Periapical radiolucency noted along tooth #14. No osseous mandibular maxillary defects. No loculated drainable abscess, but identifiable phlegmon extending from the right maxilla superficially to the parotidomasseteric fascia. Intra-oral salivary gland noted to be draining bilaterally. IMPRESSION: Possible odontogenic source, although more appreciable clinically versus radiographically. Associated with tooth #5. Discussed that tooth #5 is likely restorable. The patient was given option to see an aircraft log clerk here in town to restore tooth. She declined and desired extraction due to severe pain. Mild decrease in platelet count but > 50,000, normal WBC. PLAN: Recommend admit to hospitalist for IV antibiotics, clindamycin 600 mg q.8 hours. Renally dosed. Recommend dialysis while in-house. Plan to take to the operating room for extraction of necessary teeth. We will plan to perform procedure day after dialysis. Thank you for your consultation. Contact me at [phone] with questions or concerns. Job ID: [id number] NANCY
[2019-09-15 05:38] LABS: Anion Gap 20 mmol/L (10-20); BUN (Urea Nitrogen) 57 mg/dL (7.0-18.7); Calc. Creatinine Clearance 6 mL/min (70-130); Calcium 7.5 mg/dL (7.8-10.44); Carbon Dioxide 22 mmol/L (22-29); Chloride 95 mmol/L (98-107); Estimated GFR-MDRD 3; Glucose 118 mg/dL (70-105); Sodium 132 mmol/L (136-145)
[2019-09-15] MEDS: Calcium Acetate 667 MG CAP PO SCH ×3 (07:35→18:11)
[2019-09-15] MEDS: Lisinopril 10 MG TAB PO SCH (07:37)
[2019-09-15] MEDS: hydrALAZINE 25 MG TAB PO SCH ×3 (07:38→21:18)
[2019-09-15] MEDS: Polyethylene Glycol 3350 17 GM Packet PO PRN (08:24)
[2019-09-15] MEDS ORDERED: hydrALAZINE 25 MG TAB PO SCH ×2 (09:00)
[2019-09-15] MEDS: Acetaminophen 325 MG TAB PO PRN ×3 (09:05→21:18)
--- NOTE | 2019-09-15 12:02 | PDOC.HOSPP ---
- Subjective Encounter Date: 09/15/19 Encounter Time: 07:20 Subjective: Pt seen for followup re: facial cellulitis. Feels slightly better. c/o pain right side of face. - Objective Vital Signs & Weight: Vital Signs (12 hours) Temp Pulse Resp BP BP Pulse Ox 09/15/19 08:00 99 09/15/19 07:38 91 188/110 H 09/15/19 07:37 188/110 H 09/15/19 07:30 98.1 F 91 18 178/111 H 99 09/15/19 04:25 166/92 H 09/15/19 03:53 98.4 F 90 18 170/103 H 98 09/15/19 00:30 81 155/90 H Weight Weight 145 lb 8.081 oz I&O: 09/14/19 09/15/19 09/16/19 06:59 06:59 06:59 Intake Total 270 Output Total 0 Balance 270 Result Diagrams: 09/15/19 05:08 09/15/19 05:08 Additional Labs: Labs and MARs reeviewed by [facility] Hospitalist ROS - Review of Systems Cardiovascular: denies: chest pain, palpitations, orthopnea, paroxysmal noc. dyspnea, edema, light headedness Gastrointestinal: denies: nausea, vomiting, abdominal pain, diarrhea, constipation, melena, hematochezia Musculoskeletal: reports: other (facial pain) - Medication Medications: Active Medications Generic Name Dose Route Start Last Admin Trade Name Freq PRN Reason Stop Dose Admin Acetaminophen 650 mg 09/14/19 20:13 09/15/19 09:05 Tylenol PO 650 mg Q4H PRN Administration Headache/Fever/Mild Pain (1-3) Calcium Acetate 667 mg 09/15/19 09:00 09/15/19 07:35 Phoslo PO 667 mg TID YESI Administration Cholecalciferol 2,000 units 09/15/19 09:00 09/15/19 07:37 Vitamin D3 PO 2,000 units DAILY YESI Administration Diphenhydramine HCl 50 mg 09/14/19 21:15 09/14/19 22:19 Benadryl PO 50 mg HSPRN YESI Administration Famotidine 20 mg 09/14/19 21:00 09/14/19 20:59 Pepcid PO Not Given 2100 [facility] Hydralazine HCl 100 mg 09/15/19 09:00 09/15/19 07:38 Apresoline PO 100 mg TID YESI Administration Lisinopril 10 mg 09/15/19 09:00 09/15/19 07:37 Zestril PO 10 mg DAILY YESI Administration Morphine Sulfate 2 mg 09/14/19 20:12 09/15/19 07:33 Morphine SLOW IVP 2 mg Q4H PRN Administration Pain Polyethylene Glycol 17 gm 09/14/19 21:09 09/15/19 08:24 Miralax PO 17 gm DAILYPRN PRN Administration Constipation - Exam General Appearance: awake alert General - other findings: R facial swelling Eye: anicteric sclera ENT: moist mucosa Neck: supple, symmetric Heart: RRR, no rubs Respiratory: CTAB Gastrointestinal: soft, non-tender Extremities: no edema Musculoskeletal: no muscle wasting Psychiatric: normal affect, normal behavior Hosp A/P (1) Facial cellulitis Code(s): L03.211 - CELLULITIS OF FACE Status: Acute (2) ESRD (end stage renal disease) on dialysis Code(s): N18.6 - END STAGE RENAL DISEASE; Z99.2 - DEPENDENCE ON RENAL DIALYSIS Status: Chronic (3) HTN (hypertension) Code(s): I10 - ESSENTIAL (PRIMARY) HYPERTENSION Status: Chronic Qualifiers: - Plan continue antibiotics, out of bed/ambulate Continue IV clindamycin Pt seen by OMFS service, plan for surgery. Dialysis per nephrology service.
--- NOTE | 2019-09-15 13:13 | PRG ---
DATE OF SERVICE: 09/15/2019 SUBJECTIVE: The patient was seen and examined at bedside and overnight events noted. The patient denies any shortness of breath or chest pain or palpitation. No history of nausea or vomiting or diarrhea or fever or chills or cramps. OBJECTIVE: GENERAL: This is a well-built female, in no apparent distress. VITAL SIGNS: Temperature 98.1. Heart rate 91. Respiratory rate 18. Blood pressure 178/111. HEENT: Atraumatic, normocephalic. Oral mucosa is moist. NECK: Supple. CARDIOVASCULAR: S1, S2 heard. Rate and rhythm regular. RESPIRATORY: Clear to auscultation. GASTROINTESTINAL: Abdomen is soft. MUSCULOSKELETAL: No tenderness. No edema. DERMATOLOGIC: No skin rash. NEUROLOGIC: Alert and awake and oriented x3. No focal neurologic deficits. Moving all the extremities. PSYCHIATRIC: Mood and affect normal. LABORATORY DATA: Potassium is 5.0, BUN is 57, creatinine is 15.4. ASSESSMENT AND PLAN: 1. End-stage renal disease. Continue dialysis as tolerated. 2. Edema. 3. Hypertension. 4. Chronic anemia. Continue dialysis as tolerated. Job ID: [id number]
[2019-09-15] MEDS ORDERED: traMADol HCl 50 MG TAB PO PRN (15:08)
[2019-09-15] MEDS: traMADol HCl 50 MG TAB PO PRN (15:38)
[2019-09-15] MEDS: Clindamycin/D5W 600 MG in Premix Bag 1 BAG IVPB SCH (21:19)
[2019-09-15] MEDS: Famotidine 20 MG TAB PO SCH (21:26)
[2019-09-15] MEDS: diphenhydrAMINE 12.5 MG/5 ML UDCUP PO SCH (21:27)
[2019-09-16] MEDS: Acetaminophen 325 MG TAB PO PRN ×2 (02:15→08:15)
[2019-09-16] MEDS: traMADol HCl 50 MG TAB PO PRN ×2 (03:51→16:30)
[2019-09-16] MEDS: Clindamycin/D5W 600 MG in Premix Bag 1 BAG IVPB SCH ×3 (05:26→21:38)
[2019-09-16] MEDS ORDERED: Dexamethasone 20 MG/5 ML VIAL ONE (11:41)
[2019-09-16] MEDS ORDERED: Rocuronium Bromide 10 MG/ML (10ML VIAL) ONE (11:41)
[2019-09-16] MEDS ORDERED: PROPOFOL 200 MG/20 ML VIAL ONE (11:41)
[2019-09-16] MEDS ORDERED: Lidocaine 1% PF 5 ML VIAL ONE (11:41)
[2019-09-16] MEDS ORDERED: Ondansetron PF 4 MG/2 ML Vial ONE (11:41)
[2019-09-16] MEDS ORDERED: PHENYLEPHRINE-NS 100 MCG/ML 10 ML SYRINGE ONE (11:41)
[2019-09-16] MEDS ORDERED: Glycopyrrolate 0.2 MG/ML 5 ML SYRINGE ONE (11:41)
[2019-09-16] MEDS: Calcium Acetate 667 MG CAP PO SCH ×4 (12:13→20:13)
--- NOTE | 2019-09-16 13:16 | PDOC.HOSPP ---
- Subjective Encounter Date: 09/16/19 Encounter Time: 08:20 Subjective: Pt seen for followup re: face cellulitis. No fevers. - Objective Vital Signs & Weight: Vital Signs (12 hours) Temp Pulse Resp BP Pulse Ox 09/16/19 11:25 98.5 F 98 20 163/101 H 98 09/16/19 07:29 97.9 F 96 16 157/98 H 100 09/16/19 04:00 98.1 F 99 14 158/96 H 100 Weight Weight 145 lb 8.081 oz I&O: 09/15/19 09/16/19 09/17/19 06:59 06:59 06:59 Intake Total 270 Output Total 0 Balance 270 Result Diagrams: 09/15/19 05:08 09/15/19 05:08 Additional Labs: Labs and MARs reviewed by [place] Hospitalist ROS - Review of Systems Constitutional: reports: other (face swelling and pain) Gastrointestinal: denies: nausea, vomiting, abdominal pain, diarrhea, constipation, melena, hematochezia Genitourinary: denies: dysuria, frequency, incontinence, hematuria, retention - Medication Medications: Active Medications Generic Name Dose Route Start Last Admin Trade Name Freq PRN Reason Stop Dose Admin Acetaminophen 650 mg 09/14/19 20:13 09/16/19 08:15 Tylenol PO 650 mg Q4H PRN Administration Headache/Fever/Mild Pain (1-3) Calcium Acetate 667 mg 09/15/19 09:00 09/16/19 12:13 Phoslo PO Not Given TID YESI Cholecalciferol 2,000 units 09/15/19 09:00 09/16/19 12:13 Vitamin D3 PO Not Given DAILY YESI Diphenhydramine HCl 50 mg 09/14/19 21:15 09/15/19 21:27 Benadryl PO 50 mg HSPRN YESI Administration Famotidine 20 mg 09/14/19 21:00 09/15/19 21:26 Pepcid PO 20 mg 2100 YESI Administration Hydralazine HCl 100 mg 09/15/19 09:00 09/15/19 21:18 Apresoline PO 100 mg TID YESI Administration Clindamycin Phosphate/Dextrose 50 mls @ 100 mls/hr 09/15/19 22:00 09/16/19 05 :26 600 mg/ Device IVPB 50 mls Q8HR YESI Administration Lisinopril 10 mg 09/15/19 09:00 09/15/19 07:37 Zestril PO 10 mg DAILY YESI Administration Morphine Sulfate 2 mg 09/16/19 04:00 09/16/19 13:12 Morphine Sulfate SLOW IVP 2 mg Q4H PRN Administration Moderate to Severe Pain (6-10) Polyethylene Glycol 17 gm 09/14/19 21:09 09/15/19 08:24 Miralax PO 17 gm DAILYPRN PRN Administration Constipation Tramadol HCl 100 mg 09/15/19 15:08 09/16/19 03:51 Ultram PO 100 mg Q12H PRN Administration Moderate to Severe Pain (6-10) - Exam General Appearance: awake alert General - other findings: right sided facial swelling Eye: anicteric sclera ENT: moist mucosa Neck: supple Heart: RRR Respiratory: CTAB, no ronchi Gastrointestinal: soft, non-tender Skin - other findings: right facial swelling Musculoskeletal: no muscle wasting Psychiatric: normal affect Hosp A/P (1) Facial cellulitis Code(s): L03.211 - CELLULITIS OF FACE Status: Acute (2) ESRD (end stage renal disease) on dialysis Code(s): N18.6 - END STAGE RENAL DISEASE; Z99.2 - DEPENDENCE ON RENAL DIALYSIS Status: Chronic (3) HTN (hypertension) Code(s): I10 - ESSENTIAL (PRIMARY) HYPERTENSION Status: Chronic Qualifiers: - Plan continue antibiotics, out of bed/ambulate Continue IV clindamycin, pt awaiting surgery today. Add amlodipine, monitor vital signs and titrate antihypertensives as needed.
[2019-09-16] MEDS: hydrALAZINE 25 MG TAB PO SCH ×3 (13:24→20:11)
[2019-09-16] MEDS ORDERED: Fentanyl 100 MCG/2 ML VIAL ONE ×2 (13:25→15:54)
[2019-09-16] MEDS: Lisinopril 10 MG TAB PO SCH (13:25)
[2019-09-16] MEDS ORDERED: Midazolam HCl 2 mg/2 ml Vial ONE ×2 (13:25→14:37)
[2019-09-16] MEDS ORDERED: Lidocaine 2% Jelly 5 ML TUBE ONE (13:25)
[2019-09-16] MEDS ORDERED: Amlodipine 5 MG TAB PO SCH (13:30)
[2019-09-16] MEDS ORDERED: Chlorhexidine Gluconate 15 ML UDCUP SSP ONE (14:51)
[2019-09-16] MEDS ORDERED: Lidocaine 1% w/Epinephrine 1:100K 20 ML VIAL ONE (14:55)
[2019-09-16] MEDS ORDERED: Promethazine HCl 25 MG/ML VIAL IM PRN (15:08)
[2019-09-16] MEDS ORDERED: Ondansetron HCl/PF 4 MG/2 ML Vial IVP PRN (15:08)
[2019-09-16] MEDS ORDERED: Promethazine HCl 25 MG/ML VIAL SLOW IVP PRN (15:08)
[2019-09-16] MEDS ORDERED: Promethazine HCl 25 MG/ML VIAL ONE (15:49)
--- NOTE | 2019-09-16 16:20 | PRG ---
DATE OF SERVICE: 09/16/2019 SUBJECTIVE: Patient was seen and examined at bedside and overnight events noted. Patient denies any shortness of breath or chest pain or palpitation. No history of nausea or vomiting or diarrhea or fever or chills or cramps. OBJECTIVE: GENERAL: This is a well-built female, in no apparent distress. VITAL SIGNS: Temperature 98.5. Heart rate 91. Respiratory rate 20. Blood pressure 163/101. HEENT: Atraumatic, normocephalic. Oral mucosa is moist. NECK: Supple. CARDIOVASCULAR: S1, S2 heard. Rate and rhythm regular. RESPIRATORY: Clear to auscultation. GASTROINTESTINAL: Abdomen is soft. MUSCULOSKELETAL: No tenderness. No edema. DERMATOLOGIC: No skin rash. NEUROLOGIC: Alert and awake and oriented x3. No focal neurologic deficits. Moving all the extremities. PSYCHIATRIC: Mood and affect normal. LABORATORY DATA: Potassium 5.0, BUN is 57, creatinine is 15.1. ASSESSMENT AND PLAN: 1. End-stage renal disease. Continue dialysis on Tuesday, , Tuesday. 2. Edema. 3. Hypertension. 4. Anemia of chronic disease. Continue dialysis as tolerated. Job ID: [id number]
[2019-09-16] MEDS ORDERED: Morphine 2 MG/ML SYRINGE SLOW IVP SCH (17:00)
[2019-09-16] MEDS ORDERED: HYDROcodone/Acetaminophen 5/325 mg Tablet PO PRN (17:30)
[2019-09-16] MEDS: HYDROcodone/Acetaminophen 5/325 mg Tablet PO PRN (17:52)
[2019-09-16] MEDS ORDERED: hydrALAZINE 20 MG/ML VIAL SLOW IVP PRN (18:04)
[2019-09-16] MEDS ORDERED: Labetalol HCl 100 MG/20 ML VIAL SLOW IVP PRN (18:30)
[2019-09-16] MEDS ORDERED: Promethazine HCl 12.5 MG in Sodium Chloride 0.9% 50 ML IVPB SCH (19:45)
[2019-09-16] MEDS: Famotidine 20 MG TAB PO SCH (20:11)
[2019-09-16] MEDS: diphenhydrAMINE 12.5 MG/5 ML UDCUP PO SCH (21:39)
[2019-09-17] MEDS ORDERED: Ondansetron PF 4 MG/2 ML Vial IVP PRN (00:43)
[2019-09-17] MEDS: HYDROcodone/Acetaminophen 5/325 mg Tablet PO PRN ×2 (00:50→10:58)
[2019-09-17] MEDS: Promethazine HCl 25 MG in Sodium Chloride 0.9% 50 ML IVPB PRN ×3 (01:52→14:07)
[2019-09-17] MEDS: Polyethylene Glycol 3350 17 GM Packet PO PRN (04:41)
[2019-09-17] MEDS: Acetaminophen 325 MG TAB PO PRN (04:47)
[2019-09-17] MEDS: Clindamycin/D5W 600 MG in Premix Bag 1 BAG IVPB SCH ×2 (05:01→14:16)
[2019-09-17] MEDS: hydrALAZINE 25 MG TAB PO SCH ×2 (08:14→14:15)
[2019-09-17] MEDS: Lisinopril 10 MG TAB PO SCH (08:15)
[2019-09-17] MEDS: Calcium Acetate 667 MG CAP PO SCH ×2 (08:15→14:16)
--- NOTE | 2019-09-17 08:43 | OP ---
DATE OF PROCEDURE: 09/16/2019 PREOPERATIVE DIAGNOSES: Right maxillary vestibular space infection, right canine space infection, Nonrestorable teeth #5 and #1. POSTOPERATIVE DIAGNOSES: Right maxillary vestibular space infection, right canine space infection, Nonrestorable teeth #5 and #1. PROCEDURE PERFORMED: Incision and drainage of right maxillary vestibular space and canine space infection, extraction of teeth #1 and #5. TREATMENT PLANT OPERATOR: None. ANESTHESIA: General endotracheal anesthesia. FLUIDS: 1000 mL of isotonic crystalloid. FINDINGS: Right maxillary vestibular swelling and fluctuance with purulence identified, associated with the right maxillary vestibule. SPECIMENS: None. ESTIMATED BLOOD LOSS: Less than 5 mL. COMPLICATIONS: None. DISPOSITION: The patient transferred to the PACU in stable condition. INDICATIONS FOR PROCEDURE: On the day of surgery, this 24-year-old female presented to the emergency department with complaints of right-sided facial swelling. The patient has been complaining of right-sided progressive facial swelling for the past 3 days. This extending from her right face superiorly to the periorbital complex. Oral Maxillofacial Surgery was consulted. After clinical and radiographic exam, it was identified that the patient had a right facial swelling secondary to odontogenic infection. The recommendations included incision and drainage with extraction of necessary teeth in the operating room under general anesthesia secondary to the patient's medical history, which included end-stage renal disease with dialysis on Tuesday, Tuesday, and Tuesday, and history of heart failure. Discussed risks, benefits, indications, and alternatives. The patient was given the opportunity to have tooth #5 restored in an outpatient setting by lead ramp agent. The patient declined and elected for the recommended procedure, which was extraction of necessary teeth #5 and #1 with incision and drainage in the operating room under general anesthesia. The patient was met in the preoperative holding area. Identification, site, and procedure were confirmed. Consent was confirmed and verified. The patient had opportunity to ask questions and all questions answered. PROCEDURE IN DETAIL: The patient was transferred to the operating room #C, placed on the operating room table in supine position. Cardiopulmonary monitors were placed. The patient was deemed a good candidate to undergo general anesthesia. The patient was induced into state of general anesthesia and intubated via an oral endotracheal tube. The tube was properly positioned and confirmed by the Anesthesia Team and it was secured by the Anesthesia Team. The patient's eyes were taped. Eyelids were taped shut. The patient was prepped and draped in standard sterile fashion. I used 10 mL of 2% lidocaine with 1:100,000 epinephrine. Bite block and throat pack were properly positioned in addition to retractors. Next, we turned our attention to tooth #5 using a 15 blade, made a sulcular incision along tooth #5 and #1, using elevators and forceps, delivered teeth #5 and #1 without complication. Site was curetted and copious saline irrigation. Next, we turned our attention to the right maxillary vestibule, about 1 cm within the mucobuccal fold, made an incision through mucosa approximately 1.5 cm down through mucosa through underlying submucosal tissue down to underlying bone, subperiosteal dissection, then using mosquito hemostats, blunt dissection to areas of loculated purulence. No purulence was identified. Copious saline irrigation to include over 500 mL of fluid was irrigated around the site. We used one 4-0 chromic gut suture at site #5 and 1 tacking stitch at the incision site for the incision and drainage. At this point, procedure deemed complete. The throat pack was removed. The patient was extubated without incident and transferred to the PACU in stable condition. Job ID: [id number]
[2019-09-17] MEDS ORDERED: Amlodipine 5 MG TAB PO SCH (09:00)
--- NOTE | 2019-09-17 13:32 | DIS ---
DATE OF ADMISSION: 09/14/2019 DATE OF DISCHARGE: 09/17/2019 PRIMARY CARE PROVIDER: Ramin Hi. DISCHARGE DIAGNOSES: 1. Facial cellulitis. 2. Maxillary vestibular space infection. 3. Right canine space infection. 4. Hypertensive urgency. CONDITION: Condition of the patient on the day of discharge: Stable. I assessed Ms. So on the day of discharge. She denies any chest pain or shortness of breath. Vital signs are stable. S1 and S2 are heard, regular. Lungs are clear to auscultation bilaterally. CONSULTATIONS DURING THIS HOSPITALIZATION: 1. OMFS Service, Dr. Peñaloza. 2. Nephrology, Dr. Quiroz. DISCHARGE MEDICATIONS: She has been started on amlodipine 5 mg daily. She has received prescriptions for [place] and clindamycin from OMFS Service. Otherwise, no change was made to her pre-admission home medications. HOSPITAL COURSE: Ms. So is a pleasant 24-year-old lady, who was admitted to [facility] on September 14, 2019, for right-sided facial cellulitis. Please refer to Ms. Ferguson's history and physical note dated September 14, 2019, for further details. She was seen by Nephrology Service for maintenance dialysis and by OMFS Service for facial abscess. On September 15, she underwent surgery for right maxillary vestibular space infection, right canine space infection, and nonrestorable teeth #5 and #1. She continued to improve clinically. She is being discharged home with clindamycin per OMFS Service. They will follow up with her in 1 week's time. DISCHARGE DESTINATION: Home. POST-ACUTE CARE FOLLOWUP: With primary care provider in 3 days and with OMFS Service in 1 week. ACTIVITY: No restrictions. DIET: Renal diet. TIME SPENT: Total amount of time spent in coordinating this discharge: 20 minutes. Job ID: [id number]
--- NOTE | 2019-09-17 14:02 | PRG ---
DATE OF SERVICE: 09/17/2019 SUBJECTIVE: A 24-year-old female being seen for end-stage renal disease. The patient denies any nausea, vomiting, or chest pain. OBJECTIVE: GENERAL: On exam, the patient is awake and alert. VITAL SIGNS: Afebrile, pulse 75, breathing at 16, and blood pressure 132/78. HEENT: Head normocephalic and atraumatic. Eyes intact, no ulcers. Nose intact, no ulcers. Ears intact, no ulcers. NECK: Supple. No JVD. CHEST: Symmetrical and clear. CARDIOVASCULAR: Shows S1 and S2, no rub, no murmur. GASTROINTESTINAL: Abdomen is soft, bowel sounds positive. EXTREMITIES: Show no edema or ulcers. SKIN: Shows no rash or petechiae. MUSCULOSKELETAL: Shows no joint swelling or stiffness. GENITOURINARY: Shows no Lopez or CVA tenderness. NEUROLOGIC: Motor intact. Cranial nerves intact. LABORATORY DATA: Reviewed. ASSESSMENT AND PLAN: 1. Stage 6 chronic kidney disease, stable. 2. Hypertension, stable. 3. Anemia, stable. 4. Medications based on GFR are appropriate. Job ID: [id number]
[2019-09-17 16:03] VITALS: BP 129/84; TEMP 98.3
== END 2019-09-17 16:32 | disposition home or self-care (01) | DRG 157 ==
LOC: ERS 13:17 → SURG A 20:06
PROVIDERS: ADMIT Emergency Medicine; ATTEND Emergency Medicine
PROC: 0U9L0ZZ Drainage of Vestibular Gland, Open Approach (ICD-10-PCS; principal; 2019-09-16)
PROC: 0CDXXZ1 Extraction of Lower Tooth, Multiple, External Approach (ICD-10-PCS; 2019-09-16)
DX: M27.2 Inflammatory conditions of jaws (principal); N18.6 End stage renal disease; I13.2 Hypertensive heart and chronic kidney disease with heart failure and with stage 5 chronic kidney disease, or end stage renal disease; L03.211 Cellulitis of face; Z94.0 Kidney transplant status; D63.1 Anemia in chronic kidney disease; I50.9 Heart failure, unspecified; I16.0 Hypertensive urgency; F41.9 Anxiety disorder, unspecified; Z90.49 Acquired absence of other specified parts of digestive tract
CPT/HCPCS: 36415; 70487; 80048; 80053; 83605; 84703; 85025; 87040; 90935; 93005; 93010; 94760; G0257; J0360; J1100; J2001; J2250; J2270; J2405; J2550; J2704; J3010; J3490; Q0163; Q9967

== ENCOUNTER 2019-11-25 13:04 | Observation (INO) | payer MEDICARE, OTHER ==
--- NOTE | 2019-11-25 13:35 | RAD ---
XR Chest 1 View Portable HISTORY: Shortness breath COMPARISON: 09/13/2018 FINDINGS: There is marked cardiomegaly. No lobar consolidation, liza edema or large effusions are se en. A small left pleural effusion is present. A moderate-sized right pleural pneumothorax is seen. Discussed over the telephone with ER physician Dr. Jv Rojas at 1:32 PM
[2019-11-25] MEDS ORDERED: Promethazine HCl 25 MG/ML VIAL ONE ×2 (13:36→20:29)
[2019-11-25] MEDS ORDERED: Fentanyl 100 MCG/2 ML VIAL ONE ×2 (13:36→19:22)
[2019-11-25 13:43] LABS: #Eosinphils 0.1 thou/uL (0.0-0.7); #Lymphocytes 0.6 thou/uL (1.20-3.40); #Monocytes 0.2 thou/uL (0.11-0.59); #Neutrophils 3.5 thou/uL (1.40-6.50); %Basophils 0.4 % (0.0-1.0); %Eosinophils 1.8 % (0.0-10.0); %Lymphocytes 13.7 % (21.0-51.0); %Neutrophils 79.1 % (42.0-75.0); Hemoglobin 9.6 g/dL (12.0-16.0); Mean Corpuscular HGB CONC 33.6 g/dL (32.0-36.0); Mean Corpuscular Hemoglobin 33.6 pg (27.0-31.0); Mean Corpuscular Volume 99.8 fL (78.0-98.0); Mean Platelet Volume 11.7 fL (7.4-10.4); Platelet Count 106 thou/uL (130-400); RBC Distribution Width 14.8 % (11.5-14.5); Red Blood Cell (RBC) Count 2.86 mill/uL (4.20-5.40); White Blood Cell (WBC) Count 4.4 thou/uL (4.8-10.8)
[2019-11-25 14:03] LABS: ALT (SGPT) 8 U/L (8-55); AST (SGOT) 13 U/L (5-34); Albumin 4.4 g/dL (3.5-5.0); Alkaline Phosphatase 43 U/L (40-110); Anion Gap 28 mmol/L (10-20); BUN (Urea Nitrogen) 84 mg/dL (7.0-18.7); Bilirubin, Total 0.6 mg/dL (0.2-1.2); Calc. Creatinine Clearance 0 mL/min (70-130); Calcium 7.5 mg/dL (7.8-10.44); Carbon Dioxide 19 mmol/L (22-29); Chloride 100 mmol/L (98-107); Estimated GFR-MDRD 3; Globulin 3.5 g/dL (2.4-3.5); Glucose 82 mg/dL (70-105); Potassium 5.2 mmol/L (3.5-5.1); Protein, Total 7.9 g/dL (6.0-8.3); Sodium 142 mmol/L (136-145)
[2019-11-25] MEDS ORDERED: Ondansetron PF 4 MG/2 ML Vial ONE (15:22)
--- NOTE | 2019-11-25 15:59 | CT ---
CT CHEST WITH IV CONTRAST CT ABDOMEN WITH IV CONTRAST CT PELVIS WITH IV CONTRAST: History: Right sided flank pain, concern for pneumothorax. Weakness, shortness of breath, dizziness. Patient had partial dialysis three days ago due to family emergency. Comparison: CT abdomen/pelvis, 06-11-2019 FINDINGS: No mediastinal, hilar, or axillary mass or lymphadenopathy seen. No pericardial effusions are seen. N o evidence of pneumothorax, focal areas of consolidation, nodules, or masses are seen. The liver, spleen, pancreas, and adrenal glands are normal. Kidneys are bilaterally atrophic. The pat ient is post cholecystectomy. No free air, free fluid, or lymphadenopathy is seen in the abdomen or p eliot. The small bowel loops are not abnormally dilated. Bony structures are grossly unremarkable. A normal appendix is seen. There is prominence of the wall of the ascending and transverse colon. Uterus is present. IMPRESSION: 1. No evidence of pneumothorax. 2. Atrophic kidneys, consistent with chronic renal failure. 3. Prominence versus thickening of the herrera of the ascending and transverse colon. Consider colonosc opy. POS: OFF
[2019-11-25] MEDS ORDERED: cefTRIAXone\\ROCEPHIN 1 GM VIAL ONE ×2 (19:22→19:24)
--- NOTE | 2019-11-25 20:25 | PDOC.FPRHP ---
- History of Present Illness Chief Complaint: Abdominal Pain History of Present Illness: 24 y/o F presents today with abdominal pain and nausea. She states that she woke up in the early hours this AM with R sided abdominal pain she rates at a 6/ 10 and nausea which was not relieved by zofran. She also started to have diarrhea with 7 bouts today, she did not noticed any blood or mucous. The pain was not radiating in nature and she has not had pain like this before. She admits to 1 emesis episode today as well. She has not eaten any new foods or had any fever/chills, no one in the family has had similar symptoms, and she denies recent viral illness. Of note, pt in on HD MWF and last week she missed 1 /2 of her dialysis of Tuesday and all day Tuesday due to a family emergency. She does not skip dialysis usually, this was a once off event. ED Course: phernergan x 2, fentanyl x 2, rocephin - Allergies/Adverse Reactions Allergies Allergy/AdvReac Type Severity Reaction Status Date / Time No Known Drug Allergies Allergy Verified 06/11/19 14:45 - Home Medications Medication Instructions Recorded Confirmed Type Cholecalciferol (Vitamin D3) 2,000 unit PO DAILY 02/28/18 11/25/19 History [Vitamin D3] Calcium Acetate 667 mg PO TID 02/11/19 11/25/19 History hydrALAZINE HCl [Hydralazine HCl] 100 mg PO TID 02/11/19 11/25/19 History Amlodipine [Norvasc] 5 mg PO DAILY #30 tab 09/17/19 11/25/19 Rx Acetaminophen [Tylenol] 1,000 mg PO Q6HR PRN 11/25/19 11/25/19 History - History PMHx: -CHF -ESRD HD MWF -HTN -Anxiety PSHx: -L arm fistula -kidney transplant -cholecystecomy FHx: -parents: HTN, CAD, stroke (mother) Social: no tobacco, etoh, drug use - Review of Systems General: denies: fever/chills, weight/appetite/sleep changes, fatigue Eyes: denies: vision changes ENT: denies: nasal congestion, rhinorrhea Respiratory: denies: cough, congestion, shortness of breath Cardiovascular: denies: chest pain, palpitation, edema Gastrointestinal: reports: nausea, diarrhea, abdominal pain. denies: vomiting, constipation Genitourinary: denies: incontinence, dysuria, polyuria Skin: denies: rashes, lesions, itching Musculoskeletal: denies: pain, tenderness Neurological: denies: numbness, weakness Psychological: reports: anxiety - Vital signs BP: 165/117, HR 103, RR 24, Temp 98.4, O2 sat 96% on RA - Physical Exam Constitutional: NAD, awake, alert and oriented, well developed HEENT: normocephalic and atraumatic, PERRLA Neck: supple Chest: no-tender to palpation, no lesions Heart: RRR, normal S1/S2, no murmurs/rubs/gallops -Heart: tachycardic Lungs: CTAB, no respiratory distress, good air movement, no rales/rhonchi Abdomen: soft, bowel sounds present, no masses/distention, no hernias, other ( RUQ and RLQ tenderness, no rebound tenderness noted, McBurney point negative, no suprapubic tenderness) Musculoskeletal: normal structure, normal tone Neurological: no focal deficit, normal sensation Skin: no rash/lesions, good turgor, capillary refill <2 seconds Heme/Lymphatic: no unusual bruising or bleeding Psychiatric: good judgment and insight, intact recent and remote memory, other ( anxious) FMR H&P: Results - Labs Result Diagrams: 11/25/19 13:27 11/26/19 04:32 Lab results: WBC 4.4 thou/uL (4.8-10.8) L 11/25/19 13:27 Hgb 9.6 g/dL (12.0-16.0) L 11/25/19 13:27 Hct 28.6 % (36.0-47.0) L 11/25/19 13:27 MCV 99.8 fL (78.0-98.0) H 11/25/19 13:27 Plt Count 106 thou/uL (130-400) L 11/25/19 13:27 Neutrophils % 79.1 % (42.0-75.0) H 11/25/19 13:27 Sodium 142 mmol/L (136-145) 11/25/19 13:27 Potassium 5.2 mmol/L (3.5-5.1) H 11/25/19 13:27 Chloride 100 mmol/L (98-107) 11/25/19 13:27 Carbon Dioxide 19 mmol/L (22-29) L 11/25/19 13:27 BUN 84 mg/dL (7.0-18.7) H 11/25/19 13:27 Creatinine 15.78 mg/dL (0.6-1.1) H 11/25/19 13:27 Glucose 82 mg/dL (70-105) 11/25/19 13:27 Calcium 7.5 mg/dL (7.8-10.44) L 11/25/19 13:27 Total Bilirubin 0.6 mg/dL (0.2-1.2) 11/25/19 13:27 AST 13 U/L (5-34) 11/25/19 13:27 ALT 8 U/L (8-55) 11/25/19 13:27 Alkaline Phosphatase 43 U/L (40-110) 11/25/19 13:27 Serum Total Protein 7.9 g/dL (6.0-8.3) 11/25/19 13:27 Albumin 4.4 g/dL (3.5-5.0) 11/25/19 13:27 - Radiology Interpretation Chest x-ray Status: report reviewed by me (no acute cardiopulmonary process) CT scan - abdomen Status: report reviewed by me (no evidence of pnuemothorax, atrophic kidneys, consistent with chronic renal failure, prominence versus thickening of the herrera of the ascending and transverse colon) FMR H&P: A/P - Plan 24 y/o F presents with abdominal pain and missed dialysis last week. ## Abdominal Pain -2/2 gastritis vs. colitis -was given 1 dose of rocephin in ED -stool studies -c diff assay -lipase ## ESRD on HD MWF -dialysis tonight for 2 hours, full session tomorrow -Nephrology consulted ## Hyperkalemia -K 5.2 -monitor improvement with HD -repeat labs ## Anemia -most likely of chronic disease -H/H 9.6/28.6, Plt 106--most likely 2/2 to anemia -repeat labs #CHF -Echo in 2018 showed EF of 10-15%. Repeat in 2019 showed EF 50-55% -she is euvolemic at this time ## HTN -restart home meds CODE: FULL DIET: Renal VTE: none Dispo: admitted to telemetry observation, awaiting symptomatic improvement with dialysis FMR H&P: Upper Level - Plan Date/Time: 11/25/192024 IYfn [id number], have evaluated this patient and agree with findings/plan as outlined by corporate strategy intern resident. Pertinent changes/additions are listed here. 24yo F with ESRD on HD MWF presents for weakness and abd pain after missing a session of dialysis. Pain is on RUQ and radiates around to the back. She has some nausea which is controlled with phenergan and otherwise has no related Sx. No constipation or diarrhea. No transforming factors. On exam her vitas are stable. Cardiopulmonary exam unremarkable. Abd exam notable for mild-moderate ttp in RUQ and epigastrum. negative rojas/mcburney/ rovsing/psoas/obturator/heeltap. no guarding, no rebound ttp A/P Uremic encephalopathy A- weakness is main symptom, stable. BUN 84 on admission. 2/2 dialysis non compliance P- nephro consulted, appreciate recs -dialysis tonight and again tomorrow -AM metabolic panel hyperkalemia A- mild and 2/2 ESRD. EKG unremarkable. P- dialysis Abdominal pain A- differential includes viral gastroenteritis vs. colitis. Abd CT showed colon wall thickening vs. prominence on ascending and transverse colon. She is s/p one dose of rocephin in ED. She is s/p cholecystectomy in 2014. P- stool studies -c. diff panel -lipase -consider RUQ US to look for stone in CBD if pain not improving HFrEF A- Quiescent. Echo in 2018 showed EF of 10-15%. Cardiology stated it was non ischemic cardiomyopathy and planned for AICD if she did not respond to medical mgmt. Repeat in 2019 showed EF 50-55%. Currently she is euvolemic P- will be mindful of fluid balance -strict I/Os, daily weights Anemia -aware, likely 2/2 ESRD Thrombocytopenia -aware, likely 2/2 ESRD ESRD on HD (MWF) -Reji is marketing underwriter, dialysis tonight and resume schedule tomorrow HTN -home meds as tolerated CODE: FULL IVF: KVO diet: renal, high protein dispo: obs, less than 2 midnights Addendum - Attending - Attending Attestation Date/Time: 11/25/19 2015 I personally evaluated the patient and discussed the management with Dr. Cristina and Dr. Dominguez I agree with the History, Examination, Assessment and Plan documented above with any addition or exceptions noted below. 24 yo female with ESRD and HrEF presents for abdominal pain, fatigue, occasional nausea, diarrhea Patient with last HD on Tuesday. Missed Tuesday. Woke up today with above symptoms. No acute abdominal findings on exam. - Abdominal pain: RUQ and right flank. Does not look to be related but due to area and symptoms will need to rule out pyelo. No blood or mucous in stool. No known sick contacts. Stool studies ordered. COVID testing pending. CT reviewed. Ascending and transverse with wall thickening. GI consult in AM. - ESRD: Missed HD. Now with symptoms of congestion. Will have emergent HD tonight. Nephro following. Trend labs after HD. - HFrEV: ECHO if not done in last 3 months. Monitor medical regiment. Add BNP. - UFH for VTE - Adjust home meds as needed. Geo
[2019-11-25 21:02] LABS: Anion Gap 27 mmol/L (10-20); BUN (Urea Nitrogen) 87 mg/dL (7.0-18.7); Calc. Creatinine Clearance 0 mL/min (70-130); Calcium 7.1 mg/dL (7.8-10.44); Carbon Dioxide 18 mmol/L (22-29); Chloride 100 mmol/L (98-107); Estimated GFR-MDRD 3; Glucose 77 mg/dL (70-105); Potassium 5.4 mmol/L (3.5-5.1); Sodium 140 mmol/L (136-145)
[2019-11-25 22:20] VITALS: BMI 27.4
[2019-11-26] MEDS: Promethazine HCl 12.5 MG in Sodium Chloride 0.9% 50 ML IVPB PRN ×2 (01:25→08:18)
[2019-11-26] MEDS: Acetaminophen 325 MG TAB PO PRN ×3 (03:44→13:02)
--- NOTE | 2019-11-26 04:17 | CON ---
DATE OF CONSULTATION: 11/25/2019 CONSULTING PHYSICIAN: ER doctor. REASON FOR CONSULTATION: End-stage renal disease evaluation. REASON FOR ADMISSION: Abdominal pain. HISTORY OF PRESENT ILLNESS: This is a 24-year-old female, with history of end-stage renal disease, hypertension, CHF, acute kidney transplant, came to the hospital with right-sided abdominal pain and possible colitis. She missed dialysis last week. She usually has dialysis Tuesday, Tuesday, and Tuesday. Last dialysis was a partial dialysis on Tuesday. No shortness of breath, chest pain or palpitation. No nausea or vomiting. PAST MEDICAL HISTORY: Positive for end-stage renal disease, hypertension, CHF, kidney transplant. PAST SURGICAL HISTORY: Kidney transplant, fistula placement, and catheter placement for dialysis. HOME MEDICATIONS: Reviewed. ALLERGIES: NO KNOWN DRUG ALLERGIES. SOCIAL HISTORY: No smoking, alcohol, or drug use. FAMILY HISTORY: No history of kidney disease. REVIEW OF SYSTEMS: The following complete review of systems was negative, unless otherwise mentioned in the HPI or below: Constitutional: Weight loss or gain, ability to conduct usual activities. Skin: Rash, itching. Eyes: Double vision, pain. ENT/Mouth: Nose bleeding, neck stiffness, pain, tenderness. Cardiovascular: Palpitations, dyspnea on exertion, orthopnea. Respiratory: Shortness of breath, wheezing, cough, hemoptysis, fever or night sweats. Gastrointestinal: Poor appetite, abdominal pain, heartburn, nausea, vomiting, constipation, or diarrhea. Genitourinary: Urgency, frequency, dysuria, nocturia. Musculoskeletal: Pain, swelling. Neurologic/Psychiatric: Anxiety, depression. Allergy/Immunologic: Skin rash, bleeding tendency. PHYSICAL EXAMINATION: GENERAL: This is a well-built female, in no apparent distress. VITAL SIGNS: Reviewed. HEENT: Atraumatic, normocephalic. NECK: Supple. CV: S1, S2 heard. RESPIRATORY: Clear. GI: Abdomen is soft. MUSCULOSKELETAL: No tenderness. No edema. DERMATOLOGIC: No skin rash. NEUROLOGIC: Alert, awake. PSYCHIATRIC: Mood and affect normal. LABORATORY DATA: Hemoglobin is 9.6, potassium 5.2, BUN is 84, creatinine is 15.7. ASSESSMENT AND PLAN: 1. End-stage renal disease. Dr. Mendoza was consulted. Plan to do 2 hours of dialysis today, then continue dialysis Tuesday, Tuesday, Fridays. 2. Hyperkalemia, mild. 3. Acidosis. 4. Hypertension. 5. Anemia. Continue Epogen. 6. Continue dialysis as tolerated. Job ID: [id number]
[2019-11-26 05:04] LABS: ALT (SGPT) 7 U/L (8-55); AST (SGOT) 11 U/L (5-34); Albumin 3.7 g/dL (3.5-5.0); Alkaline Phosphatase 38 U/L (40-110); Anion Gap 16 mmol/L (10-20); BUN (Urea Nitrogen) 36 mg/dL (7.0-18.7); Bilirubin, Total 0.7 mg/dL (0.2-1.2); Calc. Creatinine Clearance 11 mL/min (70-130); Calcium 7.8 mg/dL (7.8-10.44); Carbon Dioxide 26 mmol/L (22-29); Chloride 100 mmol/L (98-107); Estimated GFR-MDRD 6; Globulin 2.9 g/dL (2.4-3.5); Glucose 79 mg/dL (70-105); Potassium 4.2 mmol/L (3.5-5.1); Protein, Total 6.6 g/dL (6.0-8.3); Sodium 138 mmol/L (136-145)
--- NOTE | 2019-11-26 05:54 | PDOC.FM ---
- Subjective Subjective: Visited with pt while at dialysis. Reports that she had some nausea this morning , but her abdominal pain has improved. Interested in going home later this afternoon. - Objective MAR Reviewed: Yes Vital Signs & Weight: Vital Signs (12 hours) Temp Pulse Resp BP BP Pulse Ox 11/26/19 03:55 98.6 F 83 18 163/81 H 98 11/26/19 01:00 98.1 F 91 26 H 162/100 H 99 Weight Weight 74.888 kg I&O: 11/24/19 11/25/19 11/26/19 06:59 06:59 06:59 Intake Total 100 Balance 100 Result Diagrams: 11/25/19 13:27 11/26/19 04:32 Phys Exam - Physical Examination Constitutional: NAD Neck: supple, full ROM Respiratory: no wheezing, no rales, no rhonchi No respiratory distress Cardiovascular: RRR Gastrointestinal: non-tender, no distention Psychiatric: normal affect Skin: no rash Dx/Plan - Plan Plan: Uremic encephalopathy - 2/2 to dialysis noncompliance - BUN: 84 > 87 > 36 - nephro consulted, appreciate recs - s/p dialysis last night, dialysis again today - initial chest xray showed concerns for pneumothorax; however, CT showed no pneumothorax hyperkalemia - 2/2 ESRD - improved after dialysis (4.2), will monitor - dialysis again today Abdominal pain - likely 2/2 to viral gastroenteritis vs. colitis - Abd CT showed colon wall thickening vs. prominence on ascending and transverse colon - s/p one dose of rocephin in ED - s/p cholecystectomy in 2014 - stool studies, c. diff panel pending - lipase: 18 - pain has improved HFrEF - Echo in 2018: EF of 10-15%; Repeat Echo in 2019: EF 50-55% - euvolemic; will continue to monitor fluid balance - strict I/Os, daily weights Anemia - likely 2/2 ESRD - will monitor Thrombocytopenia - likely 2/2 ESRD - will monitor ESRD on HD - normally has dialysis MWF - legal consultant: Reji - s/p dialysis last night - resume normal dialysis schedule today HTN - home meds as tolerated CODE: FULL IVF: SL diet: renal, high protein dispo: likely dc home today after dialysis Addendum - Attending - Attending Attestation Date/Time: 11/26/19 0533 I personally evaluated the patient and discussed the management with the team. I agree with the History, Examination, Assessment and Plan documented above with any addition or exceptions noted below. The patient is back at her baseline. No cp/sob/n/v/f/c. Would like to go home.
[2019-11-26] MEDS: Calcium Acetate 667 MG CAP PO SCH ×3 (07:19→13:02)
[2019-11-26] MEDS ORDERED: Amlodipine 5 MG TAB PO SCH (09:00)
[2019-11-26] MEDS ORDERED: Cholecalciferol 1,000 UNITS (25 MCG) TAB PO SCH (09:00)
--- NOTE | 2019-11-26 11:18 | PRG ---
DATE OF SERVICE: 11/26/2019 SUBJECTIVE: A 24-year-old female being seen for end-stage renal disease. The patient denies any nausea, vomiting, or chest pain. OBJECTIVE: GENERAL: On exam, the patient is awake and alert. VITAL SIGNS: Afebrile, pulse 64, breathing at 16, and blood pressure 154/95. HEENT: Head normocephalic and atraumatic. Eyes intact, no ulcers. Nose intact, no ulcers. Ears intact, no ulcers. NECK: Supple. No JVD. CHEST: Symmetrical and clear. CARDIOVASCULAR: Shows S1 and S2, no rub, no murmur. GASTROINTESTINAL: Abdomen is soft, bowel sounds positive. EXTREMITIES: Show no edema or ulcers. SKIN: Shows no rash or petechiae. MUSCULOSKELETAL: Shows no joint swelling or stiffness. GENITOURINARY: Shows no Lopez or CVA tenderness. NEUROLOGIC: Motor intact. Cranial nerves intact. LABORATORY DATA: Reviewed. ASSESSMENT AND PLAN: 1. Stage 6 chronic kidney disease, stable. 2. Hypertension, stable. 3. Anemia, stable. Medications based on GFR are appropriate. Plan dialysis today. Job ID: [id number]
[2019-11-26] MEDS: hydrALAZINE 25 MG TAB PO SCH ×2 (12:24→13:33)
[2019-11-26 16:29] VITALS: BP 132/84; TEMP 98.6
--- NOTE | 2019-11-27 01:08 | DIS ---
DATE OF ADMISSION: 11/25/2019 DATE OF DISCHARGE: 11/26/2019 RESIDENT: Emili Mccann MD ADMITTING ATTENDING: Minna Joseph MD DISCHARGE ATTENDING: Karan Jackson MD CONSULTS: Nephrology. PROCEDURES/IMAGES: 1. Chest x-ray. Marked cardiomegaly, no lobar consolidation, liza edema, or large effusions are seen; a small left pleural effusion is present; a moderate size right pleural pneumothorax is seen. 2. Chest, abdomen, and pelvis CT. No mediastinal, hilar, axillary mass or lymphadenopathy is seen. No pericardial effusions are seen. No evidence of pneumothorax, focal areas of consolidation, nodule, or masses are seen. The liver, spleen, pancreas, and adrenal glands are normal. Kidneys are bilaterally atrophic. The patient is postcholecystectomy. No free-air, free-fluid, or lymphadenopathy is seen in the abdomen or pelvis. The small bowel loops are not abnormally dilated. Bony structures are grossly unremarkable. A normal appendix is seen. There is prominence vs. thickening of the ascending and transverse colon. 3. Hemodialysis x2. PRIMARY DIAGNOSIS: Uremic encephalopathy. SECONDARY DIAGNOSES: 1. Hyperkalemia. 2. Abdominal pain. 3. Heart failure with reduced ejection fraction. 4. Anemia. 5. Thrombocytopenia. 6. End-stage renal disease, on hemodialysis. 7. Hypertension. DISCHARGE MEDICATIONS: 1. Cholecalciferol 3000 units p.o. daily. 2. Hydralazine 100 mg p.o. t.i.d. 3. Calcium acetate 667 mg p.o. t.i.d. 4. Amlodipine 5 mg p.o. daily. 5. Acetaminophen 1000 mg p.o. q.6 hours p.r.n. DISCONTINUED MEDICATIONS: None. HISTORY OF PRESENT ILLNESS AND HOSPITAL COURSE: Patient is a 24-year-old female , who presented to the ED with abdominal pain and nausea. Patient has a history of end-stage renal disease, receives hemodialysis on Tuesday, Tuesday, and Tuesday. However, due to a family emergency, she was unable to receive her full Tuesday dialysis, only receiving half-day on Tuesday, and not receiving any at all on Tuesday. She reports that she began having diarrhea and one episode of emesis. While in the hospital, the patient's creatinine was found to be 15.78 on admission and the BUN was 84. She was also hyperkalemic with a potassium of 5.2. After one round of hemodialysis, her creatinine dropped to 9.31, BUN to 36, and potassium to 4.2. On the morning of discharge, the patient received dialysis per her normal schedule. She reported marked improvement in her symptoms. Of note, while the patient was in the emergency room, she received one dose of Rocephin. Stool studies were originally ordered to investigate the cause of her abdominal pain, but due to the patient's rapid improvement after dialysis, no further workup was done. On the day of discharge, patient reported marked improvement in all of her symptoms and was stable to go home. DISPOSITION: Stable. DISCHARGE INSTRUCTIONS: Location: Home. Diet: renal, high protein Activity: As tolerated. Followup: Follow up with PCP in 5 to 7 days and continue scheduled hemodialysis. Job ID: [id number] NANCY
[2019-11-27 11:44] LABS: SARS-CoV-2 MS2 Positive; SARS-CoV-2 N Gene Negative; SARS-CoV-2 S Gene Negative; SARS-CoV-2 by NAA Not Detected (NotDetected); SARS-CoV-2 orf1ab Negative
--- NOTE | 2019-11-27 16:26 | EKG ---
Test Reason : MISSED DIALYSIS Blood Pressure : / mmHG Vent. Rate : 094 BPM Atrial Rate : 094 BPM P-R Int : 166 ms QRS Dur : 092 ms QT Int : 434 ms P-R-T Axes : 063 034 106 degrees QTc Int : 542 ms Normal sinus rhythm Possible Left atrial enlargement Left ventricular hypertrophy Prolonged QT Abnormal ECG Confirmed by ARNOLDO AMBROSE ([id number]), purchase request editor CHRISS ERICKSON ([id number]) on 11/27/2019 4:25:34 PM Referred By: Confirmed By:ARNOLDO AMBROSE
== END 2019-11-26 16:40 | disposition home or self-care (01) ==
LOC: ERS 13:04 → 2SW 20:30
PROVIDERS: ADMIT Student in an Organized Health Care Education/Training Program; ATTEND Student in an Organized Health Care Education/Training Program
DX: G93.41 Metabolic encephalopathy (principal); E87.5 Hyperkalemia; E87.2 Acidosis; I13.2 Hypertensive heart and chronic kidney disease with heart failure and with stage 5 chronic kidney disease, or end stage renal disease; N18.6 End stage renal disease; I50.20 Unspecified systolic (congestive) heart failure; D63.1 Anemia in chronic kidney disease; R10.11 Right upper quadrant pain; F41.9 Anxiety disorder, unspecified; D69.6 Thrombocytopenia, unspecified; Z79.899 Other long term (current) drug therapy; Z91.15 Patient's noncompliance with renal dialysis; Z99.2 Dependence on renal dialysis; Z20.828 Contact with and (suspected) exposure to other viral communicable diseases
CPT/HCPCS: 71045; 71260; 74177; 80048; 80053 ×2; 83690; 85025; 93005; 96365; 96375; 96376; 99285; U0003; 36415; 87635; 90935; 96366; G0257; G0378; J0696; J2405; J2550; J3010; Q9967

== ENCOUNTER 2021-04-16 13:31 | Outpatient (CLI) | payer MEDICARE, OTHER ==
[2021-04-17 09:12] LABS: SARS-CoV-2 PCR by NAA Not Detected (NotDetected)
== END 2021-04-16 13:32 | disposition home or self-care (01) ==
LOC: LABBT 13:31
PROVIDERS: ATTEND Specialist
DX: Z01.818 Encounter for other preprocedural examination (principal); N18.6 End stage renal disease; Z20.822 Contact with and (suspected) exposure to COVID-19
CPT/HCPCS: 93005; U0003; U0005; 93010

== ENCOUNTER 2021-04-21 10:13 | Day surgery (SDC) | payer MEDICARE, OTHER ==
[2021-04-16 10:20] VITALS: BMI 35.2
[2021-04-21] MEDS ORDERED: Bupivacaine PF 0.5% 30 ML VIAL ONE (10:59)
[2021-04-21] MEDS ORDERED: Xylocaine 1% w/ Epi 1:100K 10 ML VIAL ONE (10:59)
[2021-04-21 11:08] LABS: Hemoglobin 10.9 g/dL (12.0-16.0); Mean Corpuscular HGB CONC 32.1 g/dL (32.0-36.0); Mean Corpuscular Hemoglobin 29.3 pg (27.0-31.0); Mean Corpuscular Volume 91.2 fL (78.0-98.0); Platelet Count 147 thou/uL (130-400); RBC Distribution Width 20.7 % (11.5-14.5); Red Blood Cell (RBC) Count 3.71 mill/uL (4.20-5.40); White Blood Cell (WBC) Count 2.7 thou/uL (4.8-10.8)
[2021-04-21] MEDS ORDERED: Heparin 10,000 UNITS/ 10 ML VIAL ONE (11:09)
[2021-04-21] MEDS ORDERED: Fentanyl 100 MCG/2 ML VIAL ONE ×3 (11:17→13:58)
[2021-04-21 11:26] LABS: Anion Gap 14 mmol/L (10-20); BUN (Urea Nitrogen) 13 mg/dL (7.0-18.7); Calc. Creatinine Clearance 16 mL/min (70-130); Calcium 9.8 mg/dL (7.8-10.44); Carbon Dioxide 30 mmol/L (22-29); Chloride 100 mmol/L (98-107); Glucose 88 mg/dL (70-105); Potassium 3.9 mmol/L (3.5-5.1); Sodium 140 mmol/L (136-145)
[2021-04-21] MEDS ORDERED: SUGAMMADEX SODIUM 200 MG/2 ML VIAL ONE (11:26)
[2021-04-21 11:50] LABS: Anisocytosis SLIGHT = 6-15 cells (100X) (0-5/hpf); Band 1 % (5-11); Eosinophils 4 % (0-10); Lymphocytes 23 % (21-51); MDiff Complete? YES; Monocytes 9 % (0-10); Neutrophil 63 % (42-75); Platelet Morphology Comment Appears Adequate; Polychromasia SLIGHT = 2-3 cells (100X) (0-2/hpf)
[2021-04-21] MEDS ORDERED: ceFAZolin 2 GM/Dextrose 50 ML IVPB ONE (12:03)
[2021-04-21] MEDS ORDERED: PROPOFOL 200 MG/20 ML VIAL ONE (12:12)
[2021-04-21] MEDS ORDERED: Lidocaine 1% PF 5 ML VIAL ONE (12:12)
[2021-04-21] MEDS ORDERED: Dexamethasone 20 MG/5 ML VIAL ONE (12:12)
[2021-04-21] MEDS ORDERED: Glycopyrrolate 0.2 MG/ML 5 ML SYRINGE ONE (12:12)
[2021-04-21] MEDS ORDERED: Rocuronium Bromide 10 MG/ML (10ML VIAL) ONE (12:12)
[2021-04-21] MEDS ORDERED: PHENYLEPHRINE-NS 100 MCG/ML 10 ML SYRINGE ONE (12:12)
[2021-04-21] MEDS ORDERED: Ondansetron PF 4 MG/2 ML Vial ONE (12:12)
[2021-04-21] MEDS ORDERED: Promethazine HCl 25 MG/ML VIAL ONE (13:58)
[2021-04-21] MEDS ORDERED: traMADol HCl 50 MG TAB ONE (17:14)
== END 2021-04-21 18:47 | disposition home or self-care (01) ==
LOC: SDC 10:13
PROVIDERS: ATTEND Specialist
PROC: 0WHG43Z Insertion of Infusion Device into Peritoneal Cavity, Percutaneous Endoscopic Approach (ICD-10-PCS; principal; 2021-04-21)
DX: I12.0 Hypertensive chronic kidney disease with stage 5 chronic kidney disease or end stage renal disease (principal); N18.6 End stage renal disease; Z79.899 Other long term (current) drug therapy; Z99.2 Dependence on renal dialysis
CPT/HCPCS: 80048; 85025; J0690; J1644; J2550; J3010; S0020

== ENCOUNTER 2021-09-22 14:25 | Inpatient (IN) | payer MEDICARE, OTHER ==
[~2021-09-22 14:25] MED LIST changes: +ISOVUE-370 76%-LOCM 1 ML ONE; -Iopamidol-370 76% 500 ML 1 ML ONE
[2021-09-22 15:29] LABS: #Eosinphils 0.1 thou/uL (0.0-0.7); #Lymphocytes 0.5 thou/uL (1.20-3.40); #Monocytes 0.4 thou/uL (0.11-0.59); #Neutrophils 1.9 thou/uL (1.40-6.50); %Basophils 1.6 % (0.0-1.0); %Eosinophils 2.6 % (0.0-10.0); %Lymphocytes 16.5 % (21.0-51.0); %Monocytes 13.5 % (0.0-10.0); %Neutrophils 65.8 % (42.0-75.0); Hemoglobin 12.3 g/dL (12.0-16.0); Mean Corpuscular HGB CONC 32.7 g/dL (32.0-36.0); Mean Corpuscular Hemoglobin 32.9 pg (27.0-31.0); Mean Platelet Volume 9.5 fL (7.4-10.4); Platelet Count 137 thou/uL (130-400); RBC Distribution Width 13.9 % (11.5-14.5); Red Blood Cell (RBC) Count 3.75 mill/uL (4.20-5.40); White Blood Cell (WBC) Count 2.9 thou/uL (4.8-10.8)
[2021-09-22 15:51] LABS: ALT (SGPT) 10 U/L (8-55); AST (SGOT) 12 U/L (5-34); Albumin 3.6 g/dL (3.5-5.0); Alkaline Phosphatase 66 U/L (40-110); Anion Gap 26 mmol/L (10-20); BUN (Urea Nitrogen) 64 mg/dL (7.0-18.7); Bilirubin, Total 0.4 mg/dL (0.2-1.2); Calc. Creatinine Clearance 0 mL/min (70-130); Calcium 6.8 mg/dL (7.8-10.44); Carbon Dioxide 18 mmol/L (22-29); Chloride 98 mmol/L (98-107); Estimated GFR 2; Globulin 3.7 g/dL (2.4-3.5); Glucose 93 mg/dL (70-105); Lipase 20 U/L (8-78); Potassium 3.3 mmol/L (3.5-5.1); Protein, Total 7.3 g/dL (6.0-8.3); Sodium 139 mmol/L (136-145)
[2021-09-22] MEDS ORDERED: Famotidine/PF 20 mg/2ml Vial ONE (16:00)
[2021-09-22] MEDS ORDERED: Pantoprazole 40 MG VIAL ONE (16:00)
[2021-09-22] MEDS ORDERED: Magnesium 2 GM/50 ML BAG (IN WATER) ONE (16:00)
[2021-09-22 16:13] LABS: CKMB 1.1 ng/mL (0-6.6)
[2021-09-22 16:33] LABS: BHCG - Serum Negative (NEGATIVE); Pregs Control Background? CLEAR/WHITE (CLR/WHITE); Pregs Control Bar Appear? YES (CONTROL BAR)
[2021-09-22] MEDS ORDERED: Guaifenesin DM 100-10/5 ML UDCUP PO PRN (18:15)
[2021-09-22] MEDS ORDERED: Acetaminophen 650 MG Suppository PR PRN (18:15)
[2021-09-22] MEDS ORDERED: Potassium Chloride 20 MEQ TAB PO SCH (18:30)
[2021-09-22 18:50] LABS: SARS-CoV-2 NAA Rapid Test DETECTED (NotDetected)
[2021-09-22] MEDS ORDERED: Morphine 4 MG/ML VIAL ONE (19:11)
[2021-09-22] MEDS ORDERED: Potassium Chloride 20 MEQ TAB ONE (19:11)
[2021-09-22] MEDS ORDERED: Benzonatate 100 MG CAP PO PRN (20:23)
[2021-09-22] MEDS ORDERED: Albuterol 200 PUFF (6.7GM INHALER) INH PRN (20:23)
[2021-09-22 20:58] LABS: HBSAg Index 0.24 S/CO (0-0.99); Hep B Surf Ag Non-Reactive S/CO (NonReactive)
[2021-09-22 20:59] LABS: HBSAB Concentration 171.17 mIU/mL; Hep B Surf AB Reactive (NonReactive)
[2021-09-22] MEDS ORDERED: hydrALAZINE 20 MG/ML VIAL SLOW IVP PRN ×2 (22:17→22:18)
[2021-09-23 04:59] LABS: #Eosinphils 0.1 thou/uL (0.0-0.7); #Lymphocytes 0.6 thou/uL (1.20-3.40); #Monocytes 0.3 thou/uL (0.11-0.59); #Neutrophils 1.6 thou/uL (1.40-6.50); %Eosinophils 2.4 % (0.0-10.0); %Lymphocytes 23.4 % (21.0-51.0); %Monocytes 12.4 % (0.0-10.0); %Neutrophils 61.9 % (42.0-75.0); Hemoglobin 11.7 g/dL (12.0-16.0); Mean Corpuscular HGB CONC 34.1 g/dL (32.0-36.0); Mean Corpuscular Hemoglobin 34.6 pg (27.0-31.0); Mean Platelet Volume 9.3 fL (7.4-10.4); Platelet Count 123 thou/uL (130-400); RBC Distribution Width 13.8 % (11.5-14.5); Red Blood Cell (RBC) Count 3.39 mill/uL (4.20-5.40); White Blood Cell (WBC) Count 2.5 thou/uL (4.8-10.8)
[2021-09-23 05:16] LABS: ALT (SGPT) 16 U/L (8-55); AST (SGOT) 25 U/L (5-34); Albumin 3.5 g/dL (3.5-5.0); Alkaline Phosphatase 76 U/L (40-110); Anion Gap 25 mmol/L (10-20); BUN (Urea Nitrogen) 63 mg/dL (7.0-18.7); Bilirubin, Total 0.4 mg/dL (0.2-1.2); Calc. Creatinine Clearance 7 mL/min (70-130); Calcium 6.9 mg/dL (7.8-10.44); Carbon Dioxide 19 mmol/L (22-29); Chloride 98 mmol/L (98-107); Estimated GFR 2; Globulin 3.6 g/dL (2.4-3.5); Glucose 91 mg/dL (70-105); Magnesium 2.8 mg/dL (1.6-2.6); Potassium 3.7 mmol/L (3.5-5.1); Protein, Total 7.1 g/dL (6.0-8.3); Sodium 138 mmol/L (136-145)
[2021-09-23 05:17] LABS: INR-International Normal Ratio 1.1; Prothrombin Time 14.1 sec (12.0-14.7)
[2021-09-23 05:18] LABS: PTT 36.8 sec (22.9-36.1)
[2021-09-23] MEDS: Famotidine 20 MG TAB PO SCH (08:39)
[2021-09-23] MEDS ORDERED: Famotidine/PF 20 mg/2ml Vial ONE (08:39)
[2021-09-23] MEDS: Famotidine/PF 20 mg/2ml Vial SLOW IVP SCH (08:39)
[2021-09-23] MEDS: Promethazine HCl 12.5 MG in Sodium Chloride 0.9% 50 ML IVPB PRN ×2 (09:53→21:03)
[2021-09-23] MEDS ORDERED: Potassium Chloride 20 MEQ TAB PO SCH (10:00)
[2021-09-23] MEDS ORDERED: Calcium Gluc 4.6 MEQ/10 ML (100 MG/ML) SLOW IVP SCH (10:01)
[2021-09-23 11:18] LABS: BF Color Colorless; Body Fluid Source Peritoneal Fluid; Clarity Clear (Clear); Tube # EDTA
[2021-09-23 11:20] LABS: BF RBC Count - Manual 3 /cu.mm; BF WBC/Nonhematics Ct.-Manual 1 /cu.mm
[2021-09-23] MEDS ORDERED: Potassium Chloride 20 MEQ TAB ONE (12:13)
[2021-09-23] MEDS ORDERED: Calcium Chloride 1 GM/10 ML Abboject SYRINGE ONE (12:13)
[2021-09-23] MEDS ORDERED: CALCIUM GLUC 1GM/NS 50ML BAG ONE (12:14)
[2021-09-23] MEDS ORDERED: Calcium Gluc 4.6 MEQ/10 ML (100 MG/ML) ONE (12:21)
[2021-09-23] MEDS: Calcium Acetate 667 MG CAP PO SCH ×2 (16:44→17:27)
[2021-09-23 16:57] VITALS: BMI 33.9
[2021-09-23] MEDS: Morphine 2 MG/ML VIAL SLOW IVP PRN ×2 (17:27→23:07)
[2021-09-23] MEDS: Acetaminophen 325 MG TAB PO PRN (21:08)
[2021-09-24] MEDS: Promethazine HCl 12.5 MG in Sodium Chloride 0.9% 50 ML IVPB PRN (08:06)
[2021-09-24] MEDS: Famotidine/PF 20 mg/2ml Vial SLOW IVP SCH (08:07)
[2021-09-24] MEDS: Calcium Acetate 667 MG CAP PO SCH ×2 (08:07→13:23)
[2021-09-24] MEDS: Famotidine 20 MG TAB PO SCH (08:07)
[2021-09-24] MEDS ORDERED: Amlodipine 5 MG TAB PO SCH (09:00)
[2021-09-24] MEDS ORDERED: Cholecalciferol 1,000 UNITS (25 MCG) TAB PO SCH (09:00)
[2021-09-24] MEDS ORDERED: Carvedilol 25 MG TAB PO SCH (09:00)
[2021-09-24 09:10] LABS: Anion Gap 27 mmol/L (10-20); BUN (Urea Nitrogen) 55 mg/dL (7.0-18.7); Calc. Creatinine Clearance 7 mL/min (70-130); Calcium 7.6 mg/dL (7.8-10.44); Carbon Dioxide 20 mmol/L (22-29); Chloride 95 mmol/L (98-107); Estimated GFR 3; Glucose 95 mg/dL (70-105); Magnesium 2.7 mg/dL (1.6-2.6); Potassium 3.5 mmol/L (3.5-5.1); Sodium 138 mmol/L (136-145)
[2021-09-24] MEDS: hydrALAZINE 25 MG TAB PO SCH ×2 (09:54→14:51)
[2021-09-24] MEDS: Acetaminophen 325 MG TAB PO PRN (14:50)
[2021-09-24 15:43] VITALS: BP 127/75; TEMP 97.9
[2021-09-25] MEDS ORDERED: Calcitriol 0.25 MCG CAP PO SCH (09:00)
== END 2021-09-24 18:17 | disposition home or self-care (01) | DRG 177 ==
LOC: ERS 14:25 → ERHOLD 17:48 → UNDOADMIN 20:37 → ERHOLD 20:37 → 2SW 09-23 15:59
PROVIDERS: ADMIT Internal Medicine; ATTEND Internal Medicine
PROC: 8E0ZXY6 Isolation (ICD-10-PCS; principal; 2021-09-22)
PROC: 5A1D70Z Performance of Urinary Filtration, Intermittent, Less than 6 Hours Per Day (ICD-10-PCS; 2021-09-23)
DX: U07.1 COVID-19 (principal); N18.6 End stage renal disease; I50.22 Chronic systolic (congestive) heart failure; I13.2 Hypertensive heart and chronic kidney disease with heart failure and with stage 5 chronic kidney disease, or end stage renal disease; E87.2 Acidosis; T86.11 Kidney transplant rejection; I42.0 Dilated cardiomyopathy; I15.2 Hypertension secondary to endocrine disorders; F41.9 Anxiety disorder, unspecified; D63.1 Anemia in chronic kidney disease; R94.31 Abnormal electrocardiogram [ECG] [EKG]; E87.6 Hypokalemia; E83.51 Hypocalcemia; D72.819 Decreased white blood cell count, unspecified; Y83.8 Other surgical procedures as the cause of abnormal reaction of the patient, or of later complication, without mention of misadventure at the time of the procedure; E83.39 Other disorders of phosphorus metabolism; Z79.899 Other long term (current) drug therapy; Z90.49 Acquired absence of other specified parts of digestive tract; Z82.49 Family history of ischemic heart disease and other diseases of the circulatory system; Z82.3 Family history of stroke; Z83.6 Family history of other diseases of the respiratory system; Z99.2 Dependence on renal dialysis
CPT/HCPCS: 36415; 71045; 74177; 80048; 80053; 82553; 83690; 83735; 83880; 84100; 84484; 84703; 85025; 85610; 85730; 86140; 86706; 87070; 87205; 87340; 89051; 90945; 93005; 93880; C9113; G0257; J0360; J0610; J2270; J2550; J3475; Q9966; S0028; U0002

== ENCOUNTER 2022-02-24 17:43 | Inpatient (IN) | payer MEDICARE ==
[~2022-02-24 17:43] MED LIST changes: -ISOVUE-370 76%-LOCM 1 ML ONE; +Iopamidol-370 76% 500 ML 1 ML ONE
[2022-02-24] MEDS ORDERED: Morphine 4 MG/ML VIAL ONE ×3 (18:13→23:13)
[2022-02-24 18:35] LABS: BHCG - Serum Negative (NEGATIVE); Pregs Control Background? CLEAR/WHITE (CLR/WHITE); Pregs Control Bar Appear? YES (CONTROL BAR)
[2022-02-24 18:36] LABS: #Lymphocytes 0.6 thou/uL (1.20-3.40); #Monocytes 0.4 thou/uL (0.11-0.59); #Neutrophils 6.9 thou/uL (1.40-6.50); %Eosinophils 0.6 % (0.0-10.0); %Lymphocytes 7.6 % (21.0-51.0); %Monocytes 4.7 % (0.0-10.0); %Neutrophils 87.1 % (42.0-75.0); Hemoglobin 13.2 g/dL (12.0-16.0); Mean Corpuscular Hemoglobin 34.3 pg (27.0-31.0); Mean Platelet Volume 8.7 fL (7.4-10.4); Platelet Count 206 10x3/uL (130-400); RBC Distribution Width 13.4 % (11.5-14.5); Red Blood Cell (RBC) Count 3.85 mill/uL (4.20-5.40); White Blood Cell (WBC) Count 7.9 10x3/uL (4.8-10.8)
[2022-02-24] MEDS ORDERED: Promethazine HCl 12.5 MG in Sodium Chloride 0.9% 50 ML IVPB SCH ×2 (18:45→23:00)
[2022-02-24 19:00] LABS: ALT (SGPT) 9 U/L (8-55); AST (SGOT) 10 U/L (5-34); Albumin 3.8 g/dL (3.5-5.0); Alkaline Phosphatase 64 U/L (40-110); Anion Gap 20 mmol/L (10-20); BUN (Urea Nitrogen) 48 mg/dL (7.0-18.7); Bilirubin, Total 0.4 mg/dL (0.2-1.2); Calc. Creatinine Clearance 0 mL/min (70-130); Carbon Dioxide 24 mmol/L (22-29); Chloride 95 mmol/L (98-107); Estimated GFR 3; Globulin 4.2 g/dL (2.4-3.5); Glucose 134 mg/dL (70-105); Potassium 3.1 mmol/L (3.5-5.1); Sodium 136 mmol/L (136-145)
[2022-02-24] MEDS ORDERED: Cefepime 2 GM VIAL ONE (22:45)
[2022-02-24] MEDS ORDERED: Vancomycin 1 GM/200 ML (FROZEN) BAG ONE (22:45)
[2022-02-24 23:45] LABS: Body Fluid Source Peritoneal Fluid; RBC Count-Automated (BF) 7486 /cu.mm; WBC/Nucleated-Auto (BF) 7444 /cu.mm
[2022-02-24 23:46] LABS: BF Color Yellow; Clarity Cloudy/Turbid (Clear); Tube # EDTA
[2022-02-24 23:47] LABS: Cell Count Non Hematic 21 %; Lymphocytes 2 %
[2022-02-24 23:48] LABS: BF Segmented Neutrophils 76 %
[2022-02-25] MEDS ORDERED: Ondansetron ODT 4 MG TAB PO PRN (00:19)
[2022-02-25] MEDS ORDERED: Ondansetron PF 4 MG/2 ML Vial IVP PRN (00:19)
[2022-02-25] MEDS ORDERED: Acetaminophen 650 MG Suppository PR PRN (00:19)
[2022-02-25 01:15] VITALS: BMI 35.0
[2022-02-25] MEDS ORDERED: VANCOMYCIN 1.25 GM/250 ML BAG IVPB SCH ×2 (01:30→09:00)
[2022-02-25] MEDS ORDERED: VANCOMYCIN 2 GRAM/500 ML BAG 2 GM in Premix Bag 1 BAG IVPB SCH (02:00)
[2022-02-25] MEDS ORDERED: [UNRECOGNIZED DRUG - REMARK] FS SCH (02:00)
[2022-02-25] MEDS: diphenhydrAMINE 12.5 MG/5 ML UDCUP PO PRN ×2 (02:07→21:41)
[2022-02-25] MEDS: Promethazine HCl 25 MG in Sodium Chloride 0.9% 50 ML IVPB PRN ×4 (02:12→21:41)
[2022-02-25] MEDS: Acetaminophen 325 MG TAB PO PRN ×3 (04:36→17:06)
[2022-02-25] MEDS ORDERED: Piperacillin/Tazobactam 3.375 GM in Sodium Chloride 0.9% 100 ML IVPB SCH (05:30)
[2022-02-25 06:13] LABS: Anion Gap 21 mmol/L (10-20); BUN (Urea Nitrogen) 54 mg/dL (7.0-18.7); Calc. Creatinine Clearance 8 mL/min (70-130); Calcium 8.4 mg/dL (7.8-10.44); Carbon Dioxide 21 mmol/L (22-29); Chloride 98 mmol/L (98-107); Estimated GFR 3; Glucose 92 mg/dL (70-105); Potassium 3.9 mmol/L (3.5-5.1); Sodium 136 mmol/L (136-145)
[2022-02-25 07:39] LABS: Vancomycin, Random 52.1 ug/mL (See Comment)
[2022-02-25 07:54] LABS: #Lymphocytes 0.5 thou/uL (1.20-3.40); #Monocytes 0.3 thou/uL (0.11-0.59); %Eosinophils 0.4 % (0.0-10.0); %Lymphocytes 8.5 % (21.0-51.0); %Monocytes 5.5 % (0.0-10.0); %Neutrophils 85.7 % (42.0-75.0); Hemoglobin 11.5 g/dL (12.0-16.0); Mean Corpuscular Hemoglobin 35.5 pg (27.0-31.0); Mean Platelet Volume 8.6 fL (7.4-10.4); Platelet Count 152 10x3/uL (130-400); RBC Distribution Width 13.2 % (11.5-14.5); Red Blood Cell (RBC) Count 3.23 mill/uL (4.20-5.40); White Blood Cell (WBC) Count 5.9 10x3/uL (4.8-10.8)
[2022-02-25] MEDS: Morphine 4 MG/ML VIAL SLOW IVP PRN ×3 (08:02→18:06)
[2022-02-25] MEDS: Heparin 5,000 UNITS/ML VIAL SC SCH ×3 (08:03→21:05)
[2022-02-25] MEDS: Piperacillin/Tazobactam 3.375 GM in Sodium Chloride 0.9% 100 ML IVPB SCH ×2 (09:08→21:08)
[2022-02-25] MEDS: Calcium Acetate 667 MG CAP PO SCH (16:44)
[2022-02-25] MEDS: Carvedilol 25 MG TAB PO SCH (21:08)
[2022-02-25] MEDS ORDERED: Cefepime 0.5 GM in Sodium Chloride 0.9% 100 ML IVPB SCH (22:00)
[2022-02-26] MEDS: Morphine 4 MG/ML VIAL SLOW IVP PRN ×3 (00:12→15:26)
[2022-02-26] MEDS: Promethazine HCl 25 MG in Sodium Chloride 0.9% 50 ML IVPB PRN ×2 (03:34→21:30)
[2022-02-26 05:50] LABS: #Eosinphils 0.1 thou/uL (0.0-0.7); #Lymphocytes 0.5 thou/uL (1.20-3.40); #Monocytes 0.3 thou/uL (0.11-0.59); %Eosinophils 2.3 % (0.0-10.0); %Lymphocytes 13.6 % (21.0-51.0); %Monocytes 8.3 % (0.0-10.0); %Neutrophils 75.8 % (42.0-75.0); Hemoglobin 10.7 g/dL (12.0-16.0); Mean Corpuscular HGB CONC 32.7 g/dL (32.0-36.0); Mean Platelet Volume 8.4 fL (7.4-10.4); Platelet Count 146 10x3/uL (130-400); RBC Distribution Width 13.2 % (11.5-14.5); Red Blood Cell (RBC) Count 3.07 mill/uL (4.20-5.40); White Blood Cell (WBC) Count 3.9 10x3/uL (4.8-10.8)
[2022-02-26 06:10] LABS: Anion Gap 18 mmol/L (10-20); BUN (Urea Nitrogen) 55 mg/dL (7.0-18.7); Calc. Creatinine Clearance 8 mL/min (70-130); Calcium 7.6 mg/dL (7.8-10.44); Carbon Dioxide 22 mmol/L (22-29); Chloride 97 mmol/L (98-107); Estimated GFR 3; Glucose 110 mg/dL (70-105); Potassium 3.3 mmol/L (3.5-5.1); Sodium 134 mmol/L (136-145)
[2022-02-26] MEDS: Calcitriol 0.25 MCG CAP PO SCH (08:21)
[2022-02-26] MEDS: Heparin 5,000 UNITS/ML VIAL SC SCH ×3 (08:21→21:29)
[2022-02-26] MEDS: Carvedilol 25 MG TAB PO SCH ×3 (08:21→21:29)
[2022-02-26] MEDS: Calcium Acetate 667 MG CAP PO SCH ×4 (08:21→17:16)
[2022-02-26] MEDS: Piperacillin/Tazobactam 3.375 GM in Sodium Chloride 0.9% 100 ML IVPB SCH ×2 (10:16→21:29)
[2022-02-26] MEDS ORDERED: fentaNYL PF 100 MCG/2 ML SYRINGE ONE ×2 (12:38→12:50)
[2022-02-26] MEDS ORDERED: traMADol HCl 50 MG TAB PO PRN (12:41)
[2022-02-26] MEDS ORDERED: Promethazine HCl 25 MG/ML VIAL ONE ×2 (12:57→13:47)
[2022-02-26] MEDS ORDERED: PROPOFOL 200 MG/20 ML VIAL ONE (12:58)
[2022-02-26] MEDS ORDERED: Ondansetron PF 4 MG/2 ML Vial ONE (12:58)
[2022-02-26] MEDS ORDERED: FENTANYL 50 MCG/ML 1 ML VIAL ONE (13:36)
[2022-02-26] MEDS ORDERED: HYDROmorphone 2 MG/ML VIAL SLOW IVP PRN (13:37)
[2022-02-26] MEDS ORDERED: Promethazine HCl 25 MG/ML VIAL IVPB PRN (13:37)
[2022-02-26] MEDS ORDERED: Promethazine HCl 25 MG/ML VIAL IM PRN (13:37)
[2022-02-26] MEDS ORDERED: Potassium Chloride 20 MEQ TAB PO SCH (14:45)
[2022-02-26] MEDS ORDERED: Carvedilol 25 MG TAB PO SCH (15:09)
[2022-02-26] MEDS: Polyethylene Glycol 3350 17 GM Packet PO PRN (17:56)
[2022-02-26] MEDS ORDERED: diphenhydrAMINE 12.5 MG/5 ML UDCUP PO SCH (22:15)
[2022-02-27] MEDS: Morphine 4 MG/ML VIAL SLOW IVP PRN ×2 (02:39→09:29)
[2022-02-27 05:32] LABS: #Basophils 0.1 thou/uL (0.0-0.2); #Eosinphils 0.1 thou/uL (0.0-0.7); #Lymphocytes 0.4 thou/uL (1.20-3.40); #Monocytes 0.2 thou/uL (0.11-0.59); #Neutrophils 3.2 thou/uL (1.40-6.50); %Basophils 1.3 % (0.0-1.0); %Eosinophils 3.1 % (0.0-10.0); %Lymphocytes 8.9 % (21.0-51.0); %Monocytes 5.9 % (0.0-10.0); %Neutrophils 80.8 % (42.0-75.0); Mean Corpuscular HGB CONC 32.6 g/dL (32.0-36.0); Mean Corpuscular Hemoglobin 34.6 pg (27.0-31.0); Mean Platelet Volume 8.7 fL (7.4-10.4); Platelet Count 148 10x3/uL (130-400); RBC Distribution Width 13.1 % (11.5-14.5); Red Blood Cell (RBC) Count 2.89 mill/uL (4.20-5.40); White Blood Cell (WBC) Count 3.9 10x3/uL (4.8-10.8)
[2022-02-27 05:50] LABS: Anion Gap 17 mmol/L (10-20); BUN (Urea Nitrogen) 64 mg/dL (7.0-18.7); Calc. Creatinine Clearance 7 mL/min (70-130); Calcium 7.6 mg/dL (7.8-10.44); Carbon Dioxide 21 mmol/L (22-29); Chloride 101 mmol/L (98-107); Estimated GFR 2; Glucose 80 mg/dL (70-105); Potassium 4.4 mmol/L (3.5-5.1); Sodium 135 mmol/L (136-145)
[2022-02-27 06:12] LABS: Hep B Core Total Ab Non-Reactive (NonReactive); Hep B Core Total Index 0.32 S/CO (0-0.79)
[2022-02-27 06:13] LABS: Hep B Surf Ag Non-Reactive S/CO (NonReactive)
[2022-02-27 06:55] LABS: Hep C IgG Ab Non-Reactive (NonReactive)
[2022-02-27] MEDS: Promethazine HCl 25 MG in Sodium Chloride 0.9% 50 ML IVPB PRN ×2 (07:57→21:27)
[2022-02-27] MEDS: Polyethylene Glycol 3350 17 GM Packet PO PRN (08:05)
[2022-02-27] MEDS: Carvedilol 25 MG TAB PO SCH ×2 (08:06→22:56)
[2022-02-27] MEDS: Calcium Acetate 667 MG CAP PO SCH ×3 (08:06→16:27)
[2022-02-27 08:59] LABS: Hep B Surf AB Reactive (NonReactive)
[2022-02-27] MEDS: Heparin 5,000 UNITS/ML VIAL SC SCH ×3 (09:20→21:34)
[2022-02-27 09:48] LABS: Vancomycin, Random 36.9 ug/mL (See Comment)
[2022-02-27 10:22] LABS: Hep B Core Total Ab Non-Reactive (NonReactive); Hep B Core Total Index 0.12 S/CO (0-0.79)
[2022-02-27 10:23] LABS: HBSAg Index 0.26 S/CO (0-0.99); Hep B Surf Ag Non-Reactive S/CO (NonReactive)
[2022-02-27 10:33] LABS: Hep C IgG Ab Non-Reactive (NonReactive); Hep C Index 0.09 S/CO (0-0.79)
[2022-02-27 10:37] LABS: Hep B Surf AB Reactive (NonReactive)
[2022-02-27] MEDS: Piperacillin/Tazobactam 3.375 GM in Sodium Chloride 0.9% 100 ML IVPB SCH ×2 (12:45→21:33)
[2022-02-27] MEDS: hydrALAZINE 25 MG TAB PO SCH ×2 (15:33→22:56)
[2022-02-27] MEDS ORDERED: Vancomycin Diaylsis Sliding Scale (Wt 71-99) FS SCH (16:45)
[2022-02-27] MEDS: diphenhydrAMINE 25 MG CAP PO PRN (21:48)
[2022-02-27] MEDS: Amlodipine 5 MG TAB PO SCH (22:56)
[2022-02-28] MEDS: Morphine 4 MG/ML VIAL SLOW IVP PRN (00:30)
[2022-02-28] MEDS: Acetaminophen 325 MG TAB PO PRN (05:02)
[2022-02-28 05:20] LABS: #Eosinphils 0.1 thou/uL (0.0-0.7); #Lymphocytes 0.6 thou/uL (1.20-3.40); #Monocytes 0.3 thou/uL (0.11-0.59); #Neutrophils 2.8 thou/uL (1.40-6.50); %Basophils 0.3 % (0.0-1.0); %Eosinophils 3.7 % (0.0-10.0); %Lymphocytes 15.2 % (21.0-51.0); %Monocytes 8.7 % (0.0-10.0); %Neutrophils 72.1 % (42.0-75.0); Hemoglobin 9.8 g/dL (12.0-16.0); Mean Corpuscular HGB CONC 32.4 g/dL (32.0-36.0); Mean Corpuscular Hemoglobin 34.7 pg (27.0-31.0); Mean Platelet Volume 8.3 fL (7.4-10.4); Platelet Count 174 10x3/uL (130-400); Red Blood Cell (RBC) Count 2.83 mill/uL (4.20-5.40); White Blood Cell (WBC) Count 3.8 10x3/uL (4.8-10.8)
[2022-02-28 05:41] LABS: Anion Gap 16 mmol/L (10-20); BUN (Urea Nitrogen) 37 mg/dL (7.0-18.7); Calc. Creatinine Clearance 10 mL/min (70-130); Calcium 7.7 mg/dL (7.8-10.44); Carbon Dioxide 25 mmol/L (22-29); Chloride 99 mmol/L (98-107); Estimated GFR 4; Glucose 97 mg/dL (70-105); Potassium 3.5 mmol/L (3.5-5.1); Sodium 136 mmol/L (136-145)
[2022-02-28 07:17] LABS: Vancomycin, Random 25.9 ug/mL (See Comment)
[2022-02-28] MEDS: Amlodipine 5 MG TAB PO SCH ×2 (08:12→20:52)
[2022-02-28] MEDS: Calcium Acetate 667 MG CAP PO SCH ×3 (08:12→18:32)
[2022-02-28] MEDS: Heparin 5,000 UNITS/ML VIAL SC SCH ×3 (08:12→20:51)
[2022-02-28] MEDS: hydrALAZINE 25 MG TAB PO SCH ×3 (08:34→20:54)
[2022-02-28] MEDS: Carvedilol 25 MG TAB PO SCH ×2 (08:34→21:32)
[2022-02-28] MEDS: Piperacillin/Tazobactam 3.375 GM in Sodium Chloride 0.9% 100 ML IVPB SCH ×2 (11:10→20:55)
[2022-02-28] MEDS: Promethazine HCl 25 MG in Sodium Chloride 0.9% 50 ML IVPB PRN ×2 (12:56→22:56)
[2022-03-01 06:31] LABS: Anion Gap 20 mmol/L (10-20); BUN (Urea Nitrogen) 43 mg/dL (7.0-18.7); Calc. Creatinine Clearance 8 mL/min (70-130); Calcium 7.7 mg/dL (7.8-10.44); Carbon Dioxide 21 mmol/L (22-29); Chloride 99 mmol/L (98-107); Estimated GFR 3; Glucose 85 mg/dL (70-105); Potassium 3.8 mmol/L (3.5-5.1); Sodium 136 mmol/L (136-145)
[2022-03-01 06:34] LABS: Vancomycin, Random 23.7 ug/mL (See Comment)
[2022-03-01] MEDS: Carvedilol 25 MG TAB PO SCH ×2 (08:04→20:40)
[2022-03-01] MEDS: Amlodipine 5 MG TAB PO SCH ×2 (08:04→20:32)
[2022-03-01] MEDS: hydrALAZINE 25 MG TAB PO SCH ×4 (08:04→20:41)
[2022-03-01] MEDS: Acetaminophen 325 MG TAB PO PRN (08:05)
[2022-03-01] MEDS: Calcium Acetate 667 MG CAP PO SCH ×3 (08:05→16:59)
[2022-03-01] MEDS: Heparin 5,000 UNITS/ML VIAL SC SCH ×4 (08:11→20:41)
[2022-03-01] MEDS: Promethazine HCl 25 MG in Sodium Chloride 0.9% 50 ML IVPB PRN ×2 (09:30→18:24)
[2022-03-01 11:07] LABS: Hemoglobin 9.8 g/dL (12.0-16.0); Mean Corpuscular HGB CONC 32.6 g/dL (32.0-36.0); Mean Corpuscular Hemoglobin 35.2 pg (27.0-31.0); Mean Platelet Volume 7.9 fL (7.4-10.4); Platelet Count 179 10x3/uL (130-400); Red Blood Cell (RBC) Count 2.77 mill/uL (4.20-5.40); White Blood Cell (WBC) Count 3.7 10x3/uL (4.8-10.8)
[2022-03-01] MEDS ORDERED: traMADol HCl 50 MG TAB PO PRN (11:43)
[2022-03-01 11:44] LABS: Band 1 % (5-11); Eosinophils 6 % (0-10); Lymphocytes 17 % (21-51); MDiff Complete? YES; Monocytes 7 % (0-10); Neutrophil 69 % (42-75); Polychromasia SLIGHT = 2-3 cells (100X) (0-2/hpf)
[2022-03-01] MEDS: Piperacillin/Tazobactam 3.375 GM in Sodium Chloride 0.9% 100 ML IVPB SCH (13:07)
[2022-03-01] MEDS: Calcitriol 0.25 MCG CAP PO SCH (13:08)
[2022-03-01] MEDS ORDERED: Ondansetron PF 4 MG/2 ML Vial IVP SCH (15:15)
[2022-03-01 18:25] LABS: Vancomycin, Random 13.8 ug/mL (See Comment)
[2022-03-01] MEDS ORDERED: Vancomycin 1 GM in Premix Bag 1 BAG IVPB SCH (18:45)
[2022-03-01] MEDS: diphenhydrAMINE 25 MG CAP PO PRN (20:32)
[2022-03-01] MEDS: Ondansetron ODT 4 MG TAB SL SCH (20:41)
[2022-03-02 07:54] LABS: Vancomycin, Random 39.1 ug/mL (See Comment)
[2022-03-02 08:13] VITALS: TEMP 98
[2022-03-02] MEDS: hydrALAZINE 25 MG TAB PO SCH (08:31)
[2022-03-02] MEDS: Carvedilol 25 MG TAB PO SCH (08:32)
[2022-03-02] MEDS: Amlodipine 5 MG TAB PO SCH (08:32)
[2022-03-02] MEDS: Calcium Acetate 667 MG CAP PO SCH ×2 (08:33→13:27)
[2022-03-02] MEDS: Ondansetron ODT 4 MG TAB SL SCH ×2 (08:33→13:27)
[2022-03-02] MEDS: Heparin 5,000 UNITS/ML VIAL SC SCH (08:34)
[2022-03-02] MEDS: Sucroferric Oxyhydroxide [Velphoro] 500 MG Tab.Chew PO SCH ×2 (08:37→13:27)
[2022-03-02 08:39] VITALS: BP 137/88
[2022-03-03] MEDS ORDERED: ceFAZolin (BATCH) 2 GM in Premix Bag 1 BAG IVPB SCH (17:00)
== END 2022-03-02 13:48 | disposition home or self-care (01) | DRG 907 ==
LOC: ERS 17:43 → MSONC 23:22 → OBSVTOIN 02-25 12:31
PROVIDERS: ADMIT Student in an Organized Health Care Education/Training Program; ATTEND Family Medicine
PROC: 3E1M39Z Irrigation of Peritoneal Cavity using Dialysate, Percutaneous Approach (ICD-10-PCS; 2022-02-25)
PROC: 0WPG03Z Removal of Infusion Device from Peritoneal Cavity, Open Approach (ICD-10-PCS; principal; 2022-02-26)
PROC: 5A1D70Z Performance of Urinary Filtration, Intermittent, Less than 6 Hours Per Day (ICD-10-PCS; 2022-02-27)
DX: T85.71XA Infection and inflammatory reaction due to peritoneal dialysis catheter, initial encounter (principal); K65.8 Other peritonitis; N18.6 End stage renal disease; I13.2 Hypertensive heart and chronic kidney disease with heart failure and with stage 5 chronic kidney disease, or end stage renal disease; I50.22 Chronic systolic (congestive) heart failure; T86.11 Kidney transplant rejection; K66.8 Other specified disorders of peritoneum; D72.819 Decreased white blood cell count, unspecified; D63.1 Anemia in chronic kidney disease; E87.6 Hypokalemia; K52.89 Other specified noninfective gastroenteritis and colitis; B95.4 Other streptococcus as the cause of diseases classified elsewhere; J44.9 Chronic obstructive pulmonary disease, unspecified; Z98.890 Other specified postprocedural states; Z90.49 Acquired absence of other specified parts of digestive tract; Z79.899 Other long term (current) drug therapy; Z99.2 Dependence on renal dialysis; Z86.73 Personal history of transient ischemic attack (TIA), and cerebral infarction without residual deficits; Z20.822 Contact with and (suspected) exposure to COVID-19; Y83.8 Other surgical procedures as the cause of abnormal reaction of the patient, or of later complication, without mention of misadventure at the time of the procedure
CPT/HCPCS: 36415; 74177; 80048; 80053; 80202; 82945; 84157; 84703; 85025; 85060; 86704; 87040; 87070; 87077; 87102; 87186; 87205; 89051; 90935; 90945; 96365; 96372; 96375; 96376; G0257; G0378; J0692; J1644; J2270; J2405; J2543; J2550; J2704; J3010; J3370; J3370-JW; J3490; Q0163; Q9967; U0003; U0005

== ENCOUNTER 2022-04-06 10:04 | Day surgery (SDC) | payer MEDICARE, OTHER ==
[2022-04-05 12:17] VITALS: BMI 35.6
[2022-04-06 11:06] LABS: #Eosinphils 0.1 thou/uL (0.0-0.7); #Lymphocytes 0.8 thou/uL (1.20-3.40); #Monocytes 0.4 thou/uL (0.11-0.59); #Neutrophils 5.3 thou/uL (1.40-6.50); %Basophils 0.5 % (0.0-1.0); %Eosinophils 1.8 % (0.0-10.0); %Lymphocytes 11.3 % (21.0-51.0); %Monocytes 6.5 % (0.0-10.0); %Neutrophils 79.9 % (42.0-75.0); Hemoglobin 9.1 g/dL (12.0-16.0); Mean Corpuscular HGB CONC 32.9 g/dL (32.0-36.0); Mean Corpuscular Hemoglobin 33.9 pg (27.0-31.0); Mean Platelet Volume 8.8 fL (7.4-10.4); Platelet Count 163 10x3/uL (130-400); RBC Distribution Width 12.5 % (11.5-14.5); Red Blood Cell (RBC) Count 2.67 mill/uL (4.20-5.40); White Blood Cell (WBC) Count 6.7 10x3/uL (4.8-10.8)
[2022-04-06 11:16] LABS: BHCG - Serum Negative (NEGATIVE); Pregs Control Background? CLEAR/WHITE (CLR/WHITE); Pregs Control Bar Appear? YES (CONTROL BAR)
[2022-04-06 11:26] LABS: Anion Gap 24 mmol/L (10-20); BUN (Urea Nitrogen) 48 mg/dL (7.0-18.7); Calc. Creatinine Clearance 8 mL/min (70-130); Carbon Dioxide 22 mmol/L (22-29); Chloride 101 mmol/L (98-107); Estimated GFR 3; Glucose 90 mg/dL (70-105); Potassium 4.7 mmol/L (3.5-5.1); Sodium 142 mmol/L (136-145)
[2022-04-06] MEDS ORDERED: Bupivacaine HCl 0.5%/Epinephrine 1:200,000/PF 30 ml Vial ONE (11:31)
[2022-04-06] MEDS ORDERED: Lidocaine 2% PF 5 ML VIAL ONE (11:31)
[2022-04-06] MEDS ORDERED: Heparin 10,000 UNITS/ 10 ML VIAL ONE (11:31)
[2022-04-06] MEDS ORDERED: Labetalol HCl 100 MG/20 ML VIAL ONE (11:43)
[2022-04-06] MEDS ORDERED: fentaNYL PF 100 MCG/2 ML SYRINGE ONE (11:53)
[2022-04-06] MEDS ORDERED: Sodium Chloride 0.9% 100 ML ONE (11:57)
[2022-04-06] MEDS ORDERED: CEFAZOLIN 2 GM VIAL ONE (11:57)
[2022-04-06] MEDS ORDERED: Midazolam HCl 2 mg/2 ml Vial ONE (12:07)
[2022-04-06] MEDS ORDERED: hydrALAZINE 20 MG/ML VIAL ONE (12:22)
[2022-04-06] MEDS ORDERED: PROPOFOL 200 MG/20 ML VIAL ONE (12:23)
[2022-04-06] MEDS ORDERED: Lidocaine 1% PF 5 ML VIAL ONE (12:23)
[2022-04-06] MEDS ORDERED: Ondansetron PF 4 MG/2 ML Vial ONE ×2 (12:23→13:43)
[2022-04-06] MEDS ORDERED: NEOSTIGMINE 3 MG/3 ML SYR 3 MG/3 ML SYRINGE ONE (12:23)
[2022-04-06] MEDS ORDERED: Glycopyrrolate 0.2 MG/ML 5 ML SYRINGE ONE (12:23)
[2022-04-06] MEDS ORDERED: Dexamethasone 20 MG/5 ML VIAL ONE (12:23)
[2022-04-06] MEDS ORDERED: Rocuronium Bromide 10 MG/ML (10ML VIAL) ONE (12:23)
[2022-04-06] MEDS ORDERED: Promethazine HCl 25 MG/ML VIAL ONE (13:14)
[2022-04-06] MEDS ORDERED: Fentanyl 100 MCG/2 ML VIAL ONE (13:17)
== END 2022-04-06 16:35 | disposition home or self-care (01) ==
LOC: SDC 10:04
PROVIDERS: ATTEND Specialist
PROC: 0WHG43Z Insertion of Infusion Device into Peritoneal Cavity, Percutaneous Endoscopic Approach (ICD-10-PCS; principal; 2022-04-06)
PROC: 0DQU4ZZ Repair Omentum, Percutaneous Endoscopic Approach (ICD-10-PCS; 2022-04-06)
DX: I12.0 Hypertensive chronic kidney disease with stage 5 chronic kidney disease or end stage renal disease (principal); N18.6 End stage renal disease; D63.1 Anemia in chronic kidney disease; Z79.899 Other long term (current) drug therapy; Z99.2 Dependence on renal dialysis
CPT/HCPCS: 80048; 84703; 85025; J0360; J1100; J1644; J2001; J2250; J2405; J2550; J2704; J3010; J3490

== ENCOUNTER 2022-10-17 20:06 | Inpatient (IN) | payer MEDICARE, OTHER ==
[~2022-10-17 20:06] MED LIST changes: -Iopamidol-370 76% 500 ML 1 ML ONE; +Iopamidol-370 76% 500 ML MDV (1 ML CHARGE) ONE
[2022-10-17] MEDS ORDERED: Ondansetron PF 4 MG/2 ML Vial ONE (20:55)
[2022-10-17] MEDS ORDERED: Morphine 4 MG/ML VIAL ONE ×2 (20:55→22:19)
[2022-10-17 21:09] LABS: #Eosinphils 0.1 thou/uL (0.0-0.7); #Monocytes 0.6 thou/uL (0.11-0.59); %Basophils 0.1 % (0.0-1.0); %Eosinophils 0.4 % (0.0-10.0); %Lymphocytes 6.2 % (21.0-51.0); %Monocytes 4.1 % (0.0-10.0); %Neutrophils 88.9 % (42.0-75.0); Mean Corpuscular HGB CONC 34.5 g/dL (32.0-36.0); Mean Corpuscular Volume 98.7 fl (78.0-98.0); Mean Platelet Volume 11.8 fL (7.4-10.4); Platelet Count 210 10x3/uL (130-400); RBC Distribution Width 12.9 % (11.5-14.5); Red Blood Cell (RBC) Count 3.82 mill/uL (4.20-5.40); White Blood Cell (WBC) Count 13.5 10x3/uL (4.8-10.8)
[2022-10-17 21:27] LABS: BHCG - Serum Negative (NEGATIVE); Pregs Control Background? CLEAR/WHITE (CLR/WHITE); Pregs Control Bar Appear? YES (CONTROL BAR)
[2022-10-17 21:35] LABS: ALT (SGPT) 11 U/L (8-55); AST (SGOT) 10 U/L (5-34); Alkaline Phosphatase 65 U/L (40-110); Anion Gap 25 mmol/L (10-20); BUN (Urea Nitrogen) 75 mg/dL (7.0-18.7); Bilirubin, Total 0.4 mg/dL (0.2-1.2); Calc. Creatinine Clearance 0 mL/min (70-130); Calcium 7.6 mg/dL (7.8-10.44); Carbon Dioxide 19 mmol/L (22-29); Chloride 95 mmol/L (98-107); Estimated GFR 3; Globulin 3.8 g/dL (2.4-3.5); Glucose 127 mg/dL (70-105); Lipase 68 U/L (8-78); Potassium 2.7 mmol/L (3.5-5.1); Protein, Total 7.8 g/dL (6.0-8.3); Sodium 136 mmol/L (136-145)
[2022-10-17 23:50] LABS: Fluid, Protein Less than 1.0 g/dL (Not Available)
[2022-10-17 23:53] LABS: RBC Count-Automated (BF) 0 /cu.mm; WBC/Nucleated-Auto (BF) 5600 /cu.mm
[2022-10-18 00:04] LABS: BF Color Yellow; Body Fluid Source Peritoneal Fluid; Clarity Hazy (Clear); Tube # EDTA
[2022-10-18 00:10] LABS: BF Segmented Neutrophils 93 %; Cell Count Non Hematic 7 %
[2022-10-18] MEDS ORDERED: Calcium Carbonate 500 MG ChewTAB PO PRN (00:31)
[2022-10-18] MEDS ORDERED: Senokot S 8.6-50 MG TAB PO PRN (00:31)
[2022-10-18] MEDS ORDERED: Piperacillin/Tazobactam 4.5 GM VIAL ONE (00:39)
[2022-10-18] MEDS ORDERED: Vancomycin 1 GM/200 ML (FROZEN) BAG ONE (02:02)
[2022-10-18] MEDS ORDERED: Morphine 2 MG/ML VIAL SLOW IVP SCH ×2 (02:15→09:15)
[2022-10-18] MEDS ORDERED: Morphine 2 MG/ML VIAL ONE (02:20)
[2022-10-18 02:23] LABS: Fluid, Glucose 776 mg/dL (Not Available)
[2022-10-18 02:45] LABS: #Monocytes 0.6 thou/uL (0.11-0.59); #Neutrophils 11.1 thou/uL (1.40-6.50); %Basophils 0.1 % (0.0-1.0); %Lymphocytes 3.1 % (21.0-51.0); %Monocytes 5.3 % (0.0-10.0); %Neutrophils 91.3 % (42.0-75.0); Hemoglobin 12.6 g/dL (12.0-16.0); Mean Platelet Volume 11.8 fL (7.4-10.4); Platelet Count 167 10x3/uL (130-400); Red Blood Cell (RBC) Count 3.71 mill/uL (4.20-5.40); White Blood Cell (WBC) Count 12.2 10x3/uL (4.8-10.8)
[2022-10-18] MEDS ORDERED: VANCOMYCIN PERITONEAL DIALYSIS SLIDING SCALE FS SCH ×2 (02:45→13:45)
[2022-10-18 03:03] LABS: Lactic Acid 2.6 mmol/L (0.5-2.2)
[2022-10-18 03:51] VITALS: BMI 34.4
[2022-10-18 04:40] LABS: Anion Gap 28 mmol/L (10-20); BUN (Urea Nitrogen) 75 mg/dL (7.0-18.7); Calc. Creatinine Clearance 7 mL/min (70-130); Calcium 7.5 mg/dL (7.8-10.44); Carbon Dioxide 19 mmol/L (22-29); Chloride 91 mmol/L (98-107); Estimated GFR 2; Glucose 125 mg/dL (70-105); Potassium 3.5 mmol/L (3.5-5.1); Sodium 134 mmol/L (136-145)
[2022-10-18] MEDS: Piperacillin/Tazobactam 3.375 GM in Sodium Chloride 0.9% 100 ML IVPB SCH ×2 (04:43→18:37)
[2022-10-18] MEDS ORDERED: Piperacillin/Tazobactam 4.5 GM in Sodium Chloride 0.9% 100 ML IVPB SCH (06:00)
[2022-10-18] MEDS ORDERED: Vancomycin 1.5 GRAM/300 ML BAG 1.5 GM in Premix Bag 1 BAG IVPB SCH (09:00)
[2022-10-18] MEDS ORDERED: Famotidine 20 MG TAB PO SCH (09:00)
[2022-10-18] MEDS: hydrALAZINE 25 MG TAB PO SCH ×3 (11:23→20:55)
[2022-10-18] MEDS: Amlodipine 5 MG TAB PO SCH ×2 (11:23→20:52)
[2022-10-18] MEDS: Calcitriol 0.25 MCG CAP PO SCH (11:23)
[2022-10-18] MEDS: Carvedilol 25 MG TAB PO SCH ×2 (11:23→20:53)
[2022-10-18] MEDS: Cholecalciferol 1,000 UNITS (25 MCG) TAB PO SCH (11:23)
[2022-10-18] MEDS: Calcium Acetate 667 MG CAP PO SCH ×4 (11:23→20:54)
[2022-10-18] MEDS ORDERED: VANC/ZOSYN IVPB PRN (13:33)
[2022-10-18] MEDS ORDERED: Vancomycin HCl 750 MG in Sodium Chloride 0.9% 250 ML 250 ML IVPB SCH (13:45)
[2022-10-18] MEDS ORDERED: Polyethylene Glycol 3350 17 GM Packet PO PRN (14:27)
[2022-10-18] MEDS ORDERED: hydrALAZINE 20 MG/ML VIAL SLOW IVP PRN (14:28)
[2022-10-18] MEDS: Morphine 2 MG/ML VIAL SLOW IVP PRN ×2 (14:57→22:30)
[2022-10-18] MEDS: Docusate 100 MG CAP PO SCH (20:53)
[2022-10-19] MEDS: Acetaminophen 325 MG TAB PO PRN ×3 (00:58→20:29)
[2022-10-19] MEDS ORDERED: Morphine 2 MG/ML VIAL SLOW IVP SCH (02:00)
[2022-10-19] MEDS: Piperacillin/Tazobactam 3.375 GM in Sodium Chloride 0.9% 100 ML IVPB SCH ×2 (05:28→18:20)
[2022-10-19 05:51] LABS: Anion Gap 25 mmol/L (10-20); BUN (Urea Nitrogen) 81 mg/dL (7.0-18.7); Calc. Creatinine Clearance 7 mL/min (70-130); Calcium 7.4 mg/dL (7.8-10.44); Carbon Dioxide 19 mmol/L (22-29); Chloride 91 mmol/L (98-107); Estimated GFR 2; Glucose 137 mg/dL (70-105); Potassium 3.2 mmol/L (3.5-5.1); Sodium 132 mmol/L (136-145)
[2022-10-19 07:28] LABS: #Monocytes 0.4 thou/uL (0.11-0.59); #Neutrophils 4.9 thou/uL (1.40-6.50); %Basophils 0.3 % (0.0-1.0); %Eosinophils 0.7 % (0.0-10.0); %Lymphocytes 9.8 % (21.0-51.0); %Monocytes 7.1 % (0.0-10.0); %Neutrophils 81.6 % (42.0-75.0); Hemoglobin 13.7 g/dL (12.0-16.0); Mean Corpuscular HGB CONC 34.2 g/dL (32.0-36.0); Mean Corpuscular Hemoglobin 33.7 pg (27.0-31.0); Mean Corpuscular Volume 98.8 fl (78.0-98.0); Mean Platelet Volume 12.1 fL (7.4-10.4); Platelet Count 157 10x3/uL (130-400); RBC Distribution Width 12.9 % (11.5-14.5); Red Blood Cell (RBC) Count 4.06 mill/uL (4.20-5.40)
[2022-10-19] MEDS: Cholecalciferol 1,000 UNITS (25 MCG) TAB PO SCH (08:54)
[2022-10-19] MEDS: Docusate 100 MG CAP PO SCH ×2 (08:54→20:34)
[2022-10-19] MEDS: Amlodipine 5 MG TAB PO SCH ×2 (08:54→20:34)
[2022-10-19] MEDS: Calcium Acetate 667 MG CAP PO SCH ×3 (08:55→18:20)
[2022-10-19] MEDS: Carvedilol 25 MG TAB PO SCH ×2 (08:55→20:34)
[2022-10-19] MEDS: hydrALAZINE 25 MG TAB PO SCH ×3 (08:55→20:35)
[2022-10-19] MEDS ORDERED: Potassium Chloride 20 MEQ TAB PO SCH (11:30)
[2022-10-19] MEDS: Saccharomyces boulardii 250 MG CAP PO SCH (15:13)
[2022-10-19] MEDS: Folic Acid/Vit B Comp W-C PO SCH (20:31)
[2022-10-19] MEDS: Ondansetron ODT 4 MG TAB PO PRN (21:50)
[2022-10-19] MEDS: Morphine 2 MG/ML VIAL SLOW IVP PRN (22:18)
[2022-10-20] MEDS: Piperacillin/Tazobactam 3.375 GM in Sodium Chloride 0.9% 100 ML IVPB SCH (05:21)
[2022-10-20] MEDS ORDERED: cefTRIAXone\\ROCEPHIN 2 GM in Sodium Chloride 0.9% 100 ML IVPB SCH (07:00)
[2022-10-20] MEDS: Docusate 100 MG CAP PO SCH ×2 (09:35→21:35)
[2022-10-20] MEDS: Cholecalciferol 1,000 UNITS (25 MCG) TAB PO SCH (09:35)
[2022-10-20] MEDS: Calcitriol 0.25 MCG CAP PO SCH (09:35)
[2022-10-20] MEDS: Carvedilol 25 MG TAB PO SCH ×2 (09:35→21:35)
[2022-10-20] MEDS: hydrALAZINE 25 MG TAB PO SCH ×3 (09:36→21:35)
[2022-10-20] MEDS: Amlodipine 5 MG TAB PO SCH ×2 (09:36→21:35)
[2022-10-20] MEDS: Calcium Acetate 667 MG CAP PO SCH ×3 (09:36→17:55)
[2022-10-20] MEDS: Ondansetron ODT 4 MG TAB PO PRN ×2 (09:43→20:40)
[2022-10-20] MEDS: Morphine 2 MG/ML VIAL SLOW IVP PRN (09:43)
[2022-10-20 10:00] LABS: Vancomycin, Random 29.7 ug/mL (See Comment)
[2022-10-20] MEDS: Saccharomyces boulardii 250 MG CAP PO SCH (13:23)
[2022-10-20] MEDS: Acetaminophen 325 MG TAB PO PRN (15:32)
[2022-10-20] MEDS: Folic Acid/Vit B Comp W-C PO SCH (21:35)
[2022-10-20] MEDS ORDERED: Promethazine 25 MG TAB PO SCH (23:15)
[2022-10-21] MEDS: Ondansetron ODT 4 MG TAB PO PRN ×2 (02:30→15:55)
[2022-10-21] MEDS ORDERED: Ondansetron PF 4 MG/2 ML Vial IVP PRN (02:34)
[2022-10-21] MEDS ORDERED: Promethazine HCl 12.5 MG in Sodium Chloride 0.9% 50 ML IVPB PRN (02:35)
[2022-10-21] MEDS ORDERED: Ondansetron PF 4 MG/2 ML Vial IVP SCH (02:45)
[2022-10-21 06:21] LABS: #Eosinphils 0.2 thou/uL (0.0-0.7); #Monocytes 0.6 thou/uL (0.11-0.59); #Neutrophils 3.9 thou/uL (1.40-6.50); %Basophils 0.2 % (0.0-1.0); %Eosinophils 2.9 % (0.0-10.0); %Lymphocytes 9.2 % (21.0-51.0); %Monocytes 11.8 % (0.0-10.0); %Neutrophils 75.3 % (42.0-75.0); Hemoglobin 11.5 g/dL (12.0-16.0); Mean Corpuscular HGB CONC 32.5 g/dL (32.0-36.0); Mean Corpuscular Hemoglobin 33.5 pg (27.0-31.0); Mean Corpuscular Volume 103.2 fl (78.0-98.0); Mean Platelet Volume 11.4 fL (7.4-10.4); Platelet Count 163 10x3/uL (130-400); Red Blood Cell (RBC) Count 3.43 mill/uL (4.20-5.40); White Blood Cell (WBC) Count 5.2 10x3/uL (4.8-10.8)
[2022-10-21 06:38] LABS: Calcium 7.7 mg/dL (7.8-10.44); Chloride 93 mmol/L (98-107); Potassium 3.6 mmol/L (3.5-5.1); Sodium 133 mmol/L (136-145)
[2022-10-21 06:47] LABS: BUN (Urea Nitrogen) 65 mg/dL (7.0-18.7); Calc. Creatinine Clearance 7 mL/min (70-130); Carbon Dioxide 17 mmol/L (22-29); Estimated GFR 2; Glucose 76 mg/dL (70-105)
[2022-10-21] MEDS: Carvedilol 25 MG TAB PO SCH ×2 (08:30→20:45)
[2022-10-21] MEDS: cefTRIAXone\\ROCEPHIN 2 GM in Sodium Chloride 0.9% 100 ML IVPB SCH (08:31)
[2022-10-21] MEDS: Calcium Acetate 667 MG CAP PO SCH ×3 (08:31→17:44)
[2022-10-21] MEDS: hydrALAZINE 25 MG TAB PO SCH ×3 (08:32→20:45)
[2022-10-21] MEDS: Cholecalciferol 1,000 UNITS (25 MCG) TAB PO SCH (08:32)
[2022-10-21] MEDS: Amlodipine 5 MG TAB PO SCH ×2 (08:32→20:45)
[2022-10-21] MEDS: Docusate 100 MG CAP PO SCH ×2 (08:33→20:45)
[2022-10-21] MEDS: Saccharomyces boulardii 250 MG CAP PO SCH (13:23)
[2022-10-21 19:56] LABS: Anion Gap 27 mmol/L (10-20)
[2022-10-21] MEDS: Folic Acid/Vit B Comp W-C PO SCH (20:45)
[2022-10-22 05:30] LABS: #Eosinphils 0.2 thou/uL (0.0-0.7); #Monocytes 0.6 thou/uL (0.11-0.59); #Neutrophils 2.3 thou/uL (1.40-6.50); %Basophils 0.6 % (0.0-1.0); %Lymphocytes 14.8 % (21.0-51.0); %Monocytes 15.4 % (0.0-10.0); %Neutrophils 63.6 % (42.0-75.0); Hemoglobin 11.2 g/dL (12.0-16.0); Mean Corpuscular HGB CONC 32.7 g/dL (32.0-36.0); Mean Corpuscular Hemoglobin 33.5 pg (27.0-31.0); Mean Corpuscular Volume 102.7 fl (78.0-98.0); Mean Platelet Volume 11.4 fL (7.4-10.4); Platelet Count 188 10x3/uL (130-400); RBC Distribution Width 13.1 % (11.5-14.5); Red Blood Cell (RBC) Count 3.34 mill/uL (4.20-5.40); White Blood Cell (WBC) Count 3.6 10x3/uL (4.8-10.8)
[2022-10-22] MEDS: Calcitriol 0.25 MCG CAP PO SCH (08:58)
[2022-10-22] MEDS: Calcium Acetate 667 MG CAP PO SCH ×2 (08:58→12:54)
[2022-10-22] MEDS: cefTRIAXone\\ROCEPHIN 2 GM in Sodium Chloride 0.9% 100 ML IVPB SCH (08:58)
[2022-10-22] MEDS: Amlodipine 5 MG TAB PO SCH (08:59)
[2022-10-22] MEDS: Carvedilol 25 MG TAB PO SCH (08:59)
[2022-10-22] MEDS: Cholecalciferol 1,000 UNITS (25 MCG) TAB PO SCH (08:59)
[2022-10-22] MEDS: Docusate 100 MG CAP PO SCH (08:59)
[2022-10-22] MEDS: hydrALAZINE 25 MG TAB PO SCH ×2 (08:59→14:06)
[2022-10-22 13:06] VITALS: BP 138/86; TEMP 98.5
[2022-10-22] MEDS: Saccharomyces boulardii 250 MG CAP PO SCH (14:06)
== END 2022-10-22 14:20 | disposition home or self-care (01) | DRG 919 ==
LOC: ERS 20:06 → SURG A 10-18 01:10 → OBSVTOIN 10-18 01:10
PROVIDERS: ADMIT Student in an Organized Health Care Education/Training Program; ATTEND Internal Medicine
PROC: 3E1M39Z Irrigation of Peritoneal Cavity using Dialysate, Percutaneous Approach (ICD-10-PCS; principal; 2022-10-18)
DX: T85.71XA Infection and inflammatory reaction due to peritoneal dialysis catheter, initial encounter (principal); A40.8 Other streptococcal sepsis; N18.6 End stage renal disease; K65.2 Spontaneous bacterial peritonitis; R65.20 Severe sepsis without septic shock; R18.8 Other ascites; I13.2 Hypertensive heart and chronic kidney disease with heart failure and with stage 5 chronic kidney disease, or end stage renal disease; T86.11 Kidney transplant rejection; E87.20 Acidosis, unspecified; E87.1 Hypo-osmolality and hyponatremia; F41.9 Anxiety disorder, unspecified; E66.9 Obesity, unspecified; K21.9 Gastro-esophageal reflux disease without esophagitis; E87.6 Hypokalemia; K52.9 Noninfective gastroenteritis and colitis, unspecified; I50.9 Heart failure, unspecified; D63.1 Anemia in chronic kidney disease; Y83.8 Other surgical procedures as the cause of abnormal reaction of the patient, or of later complication, without mention of misadventure at the time of the procedure; Z99.2 Dependence on renal dialysis; Z79.899 Other long term (current) drug therapy; Z90.49 Acquired absence of other specified parts of digestive tract; Z68.34 Body mass index [BMI] 34.0-34.9, adult
CPT/HCPCS: 36415; 74177; 80048; 80053; 80202; 82945; 83605; 83690; 84157; 84703; 85025; 85060; 87040; 87070; 87186; 87205; 89051; 90935; 90945; 96365; 96366; 96367; 96375; 96376; G0257; G0378; J0696; J2270; J2272; J2405; J2543; J2550; J3370; J3370-JW; J3490; J7050; Q0162; Q0169; Q9967

== ENCOUNTER 2024-11-20 04:42 | Inpatient (IN) | payer MEDICARE ==
[2024-11-20 05:15] LABS: #Basophils Less than 0.03 10x3/uL (0.0-0.2); #Eosinophils 0.12 10x3/uL (0.0-0.7); #Monocytes 0.32 10x3/uL (0.11-0.59); #Neutrophils 1.84 10x3/uL (1.40-6.50); %Basophils 0.3 % (0.0-1.0); %Eosinophils 3.6 % (0.0-10.0); %Lymphocytes 31.8 % (21.0-51.0); %Monocytes 9.5 % (0.0-10.0); %Neutrophils 54.8 % (42.0-75.0); Hematocrit 37.0 % (36.0-47.0); Hemoglobin 11.4 g/dL (12.0-16.0); Mean Corpuscular Hemoglobin 28.3 pg (27.0-31.0); Mean Corpuscular Volume 91.8 fL (78.0-98.0); Platelet Count 133 10x3/uL (130-400); Red Blood Cell (RBC) Count 4.03 mill/uL (4.20-5.40); White Blood Cell (WBC) Count 3.36 10x3/uL (4.8-10.8)
[2024-11-20 05:34] LABS: ALT (SGPT) 7 U/L (Less than 34); AST (SGOT) 25 U/L (11-34); Albumin 3.7 g/dL (3.1-4.5); Alkaline Phosphatase 45 U/L (40-110); Anion Gap 16 mmol/L (10-20); BUN (Urea Nitrogen) 25 mg/dL (7.0-18.7); Bilirubin, Total 0.8 mg/dL (0.3-1.2); Calc. Creatinine Clearance 0 mL/min (70-130); Calcium 9.8 mg/dL (7.8-10.44); Carbon Dioxide 27 mmol/L (22-29); Chloride 100 mmol/L (98-107); Globulin 3.8 g/dL (2.4-3.5); Glucose 90 mg/dL (70-105); Potassium 3.4 mmol/L (3.5-5.1); Sodium 140 mmol/L (136-145)
[2024-11-20] MEDS ORDERED: Ondansetron PF 4 MG/2 ML Vial ONE (06:26)
[2024-11-20] MEDS ORDERED: Melatonin 3 MG TAB PO PRN (07:43)
[2024-11-20] MEDS ORDERED: Ondansetron PF 4 MG/2 ML Vial IVP PRN (07:43)
[2024-11-20] MEDS ORDERED: Senokot S 8.6-50 MG TAB PO PRN (07:43)
[2024-11-20] MEDS ORDERED: Nitroglycerin 0.4 MG TAB (25 Tab Bottle) SL PRN (07:45)
[2024-11-20] MEDS ORDERED: niCARdipine 25 MG in Sodium Chloride 0.9% 250 ML 250 ML IVPB SCH (07:45)
[2024-11-20 07:56] LABS: BHCG - Serum Negative (NEGATIVE); Pregs Control Background? CLEAR/WHITE (CLR/WHITE); Pregs Control Bar Appear? YES (CONTROL BAR)
[2024-11-20] MEDS ORDERED: niCARdipine 25 MG/10 ML SDV ONE (08:16)
[2024-11-20] MEDS ORDERED: Aspirin 325 MG TAB ONE (10:44)
[2024-11-20] MEDS ORDERED: Heparin 5,000 UNITS/ML VIAL ONE (10:44)
[2024-11-20] MEDS ORDERED: Pantoprazole 40 MG VIAL ONE (10:45)
[2024-11-20] MEDS ORDERED: Losartan 25 MG TAB ONE (10:45)
[2024-11-20] MEDS: Aspirin 325 MG TAB PO SCH (10:54)
[2024-11-20] MEDS: Aspirin Chewable 81 MG TAB PO SCH (10:55)
[2024-11-20] MEDS: Calcitriol 0.25 MCG CAP PO SCH (10:55)
[2024-11-20] MEDS: Heparin 5,000 UNITS/ML VIAL SC SCH (10:55)
[2024-11-20] MEDS: Pantoprazole 40 MG VIAL IVP SCH (10:55)
[2024-11-20] MEDS: Losartan 25 MG TAB PO SCH (10:55)
[2024-11-20] MEDS: Carvedilol 25 MG TAB PO SCH (16:16)
[2024-11-20] MEDS: Acetaminophen 325 MG TAB PO PRN (17:19)
[2024-11-20] MEDS: diphenhydrAMINE 50 MG/ML VIAL IVP SCH (21:16)
[2024-11-21 04:35] LABS: ALT (SGPT) Less than 7 U/L (Less than 34); AST (SGOT) 19 U/L (11-34); Albumin 3.5 g/dL (3.1-4.5); Alkaline Phosphatase 43 U/L (40-110); Anion Gap 15 mmol/L (10-20); BUN (Urea Nitrogen) 12 mg/dL (7.0-18.7); Bilirubin, Total 0.6 mg/dL (0.3-1.2); Calc. Creatinine Clearance 16 mL/min (70-130); Calcium 9.5 mg/dL (7.8-10.44); Carbon Dioxide 28 mmol/L (22-29); Cardiac Risk 6.1 (Less than 4.5); Chloride 102 mmol/L (98-107); Cholesterol 221 mg/dl (< 200 Desired); Globulin 3.7 g/dL (2.4-3.5); Glucose 94 mg/dL (70-105); HDL Cholesterol 36 mg/dL (>60 Neg Risk); LDL Cholesterol, Calculated 156 mg/dL; Potassium 3.6 mmol/L (3.5-5.1); Sodium 141 mmol/L (136-145); Triglycerides 145 mg/dL (Less than 150)
[2024-11-21 05:19] VITALS: BMI 32.1
[2024-11-21] MEDS: Losartan 25 MG TAB PO SCH (08:44)
[2024-11-22 17:46] VITALS: BP 153/111; TEMP 97.3
== END 2024-11-22 17:20 | disposition home or self-care (01) | DRG 280 ==
LOC: ERS 04:42 → ERHOLD 07:48 → CCU 12:04 → MSONC 11-21 08:58
PROVIDERS: ADMIT Family Medicine; ATTEND Student in an Organized Health Care Education/Training Program
DX: I16.1 Hypertensive emergency (principal); N18.6 End stage renal disease; I21.A1 Myocardial infarction type 2; Z94.4 Liver transplant status; I50.22 Chronic systolic (congestive) heart failure; I13.2 Hypertensive heart and chronic kidney disease with heart failure and with stage 5 chronic kidney disease, or end stage renal disease; E11.22 Type 2 diabetes mellitus with diabetic chronic kidney disease; E87.6 Hypokalemia; D63.1 Anemia in chronic kidney disease; Z99.2 Dependence on renal dialysis; Z88.1 Allergy status to other antibiotic agents; Z88.8 Allergy status to other drugs, medicaments and biological substances; Z79.899 Other long term (current) drug therapy; Z90.49 Acquired absence of other specified parts of digestive tract; Z98.890 Other specified postprocedural states; Z91.148 Patient's other noncompliance with medication regimen for other reason
CPT/HCPCS: 36415; 71045; 80053; 80061; 83690; 83880; 84484; 84703; 85025; 87428; 93005; 94760; 96374; 96375; J1200; J1644; J2405; J2470; J2550; J3010